=== PATIENT | male | born 1975 | race Caucasian/White ===

== ENCOUNTER 2023-08-29 07:56 | Inpatient (IN) ==
--- NOTE | 2023-08-05 10:57 | PAT Medication Instructions ---
Medication Instructions Date of Service August 05, 2023 Home Medications allopurinol 100 mg tablet 100 mg PO QAM aspirin 81 mg capsule 81 mg PO QAM atorvastatin 40 mg tablet 40 mg PO QAM celecoxib 200 mg capsule (Celebrex) 200 mg PO BID gabapentin 800 mg tablet 800 mg PO TID metformin 500 mg tablet 500 mg PO BID MEDICATION INSTRUCTIONS: ASK your surgeon for instructions celecoxib 200 mg capsule (Celebrex) 200 mg PO BID ASK your prescriber and surgeon aspirin 81 mg capsule 81 mg PO QAM DO NOT take the morning of surgery metformin 500 mg tablet 500 mg PO BID Take morning of surgery With a small sip of water, OTHERWISE NOTHING TO EAT OR DRINK AFTER MIDNIGHT: allopurinol 100 mg tablet 100 mg PO QAM atorvastatin 40 mg tablet 40 mg PO QAM gabapentin 800 mg tablet 800 mg PO TID Take evening before surgery gabapentin 800 mg tablet 800 mg PO TID metformin 500 mg tablet 500 mg PO BID Other Notes If you have any questions please call us at [phone] or [phone] or [phone] or [phone]
--- NOTE | 2023-08-15 12:12 | Anesthesiology Consultation ---
Date of Service August 15, 2023 Assessment & Plan (1) Encounter for pre-operative examination: Chart Review Chart Review: Acceptable Risk for Surgery (pending PCP clearance 08/17/23) and Patient seen in Pre Admission Testing - Awaiting PCP clearance 08/17/23 (Dr. Gerber) - Check BSG AM DOS Per PAT appt on 08/15/23, no recent illness/disease exposures, illness related symptoms, or recent illness/disease positive tests. Will leave to surgeon's discretion if preop Covid testing needed Patient seen by cardio 08/02/23= Patient seen for preop risk stratification. Patient tentatively scheduled for back surgery. Reports shortness of breath with long distances. Denies PND and orthopnea. Has chronic back pain. In terms of preop risk assessment, per Miki criteria, patient was counseled that he would be placed at low risk (less than 0.9%) for any adverse perioperative cardiovascular events associated with spine surgery. Patient is on a good medication regimen and no other cardiac testing or interventions would further lower that risk. Patient states he understands and is excepting of that risk and wishes to proceed with surgery. Patient was instructed to continue aspirin without interruption. If aspirin must be held per surgeon's discretion, we would recommend holding for the least amount of time as possible (no more than 7 days). Patient is on aspirin for history of stroke and bilateral carotid artery disease. Teaching & Discussion Pre-Anesthesia Teaching/Discussion Notes: Instructed NPO after midnight before surgery,except medications with 15 cc of water. Medication instructions provided according to the PAT guidelines. History Surgery Operation Date: 08/29/23 09:35 Proposed Procedures p L4-S1 Decompreession and Fusion, L3-L4 Hardware Removal, Spinal Cord Monitoring - Akin Ontiveros DO Height/Weight Height: 5 ft 9 in Weight: 131.5 kg Allergies Allergy/AdvReac Type Severity Reaction Status Date / Time No Known Allergies Allergy Verified 08/05/23 09:33 Medications Home Medications Medication Instructions Recorded Confirmed Last Taken allopurinol 100 mg tablet 100 mg PO QAM 08/05/23 08/05/23 Unknown aspirin 81 mg capsule 81 mg PO QAM 08/05/23 08/05/23 Unknown atorvastatin 40 mg tablet 40 mg PO QAM 08/05/23 08/05/23 Unknown celecoxib 200 mg capsule (Celebrex) 200 mg PO BID 08/05/23 08/05/23 Unknown gabapentin 800 mg tablet 800 mg PO TID 08/05/23 08/05/23 Unknown metformin 500 mg tablet 500 mg PO BID 08/05/23 08/05/23 Unknown Past Medical History Medical History (Updated 08/15/23 @ 12:07 by Rosanne Pena PA-C) Carotid stenosis Right ICA <50% stenosis; no carotid stenosis to left ICA per 12/10/21 neck CTA 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 per cardio records Hx of wheezing occasional bouts of wheezing - usually at the end of the day Stroke 10/2021, went to [facility], one side of his body-unable to move leg, speech difficulty>no residual symptoms High cholesterol Diabetes mellitus, type 2 Glucose controlled Hx of gout No recent flares Exercise / Class Metabolic Activity II 4-5 Yardwork/Stairs/Walk up hill (one flight of stairs- no chest pain or SOB ) Past Surgical History Surgical History (Updated 08/12/23 @ 10:04 by Rosanne Pena PA-C) 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 S/P epidural steroid injection x3 prior to first back surgery History of total left hip replacement History of lumbar surgery Past Anesthesia History No Hx of Anesthesia Complications and No Family Hx of Anesthesia Complications History of PONV No Hx of PONV and No Hx of Motion Sickness Social History Smoking Status: Former smoker Do You Dip or Chew Tobacco: Yes (1 can/day; advised) Smoking End Date: years ago Hx Alcohol Use: Yes alcohol intake frequency: holidays/special occasions only Hx Substance Use: No substance use type: does not use Review of Systems - Hx of snoring - no hx of sleep apnea - FERRELL- feels due to deconditioning and back pain (mild) Patient denies chest pain, shortness of breath at rest, reflux, cough, palpitations. No hx of seizures, NM. No hx of blood clots or blood transfusions Physical Exam Vital Signs VITALS BP 132/84 P 96 TEMP 98.6 SP02 94% RESP 16 Constitutional no acute distress ENMT Mouth: + small oral opening; no TMJ clicking Thyromental Distance: > or= 3.5 Finger Breadths (3.5) Mallampati Class: III Missing side teeth and molars Neck + short neck, + thick neck and + limited neck extension Respiratory normal respiratory effort; no respiratory distress Auscultation: lungs clear to auscultation bilaterally; no wheezes Cardiovascular Rate/Rhythm: regular rate and regular rhythm Heart Sounds: no murmur Vessels: no carotid bruit Musculoskeletal Spine: no pain with cervical ROM Extremities: extremities normal to inspection Psychiatric Orientation: alert Lab Results Anesthesia Preop Results Results Anesthesia Widget: WBC 7.40 K/ul (4.8-10.8) 08/15/23 Hgb 14.5 g/dl (14.0-18.0) 08/15/23 Hct 43.8 % (42.0-52.0) 08/15/23 Plt 270 K/uL (130-400) 08/15/23 Na 136 mmol/L (136-145) 08/15/23 K 3.9 mmol/L (3.5-5.1) 08/15/23 Cl 101 mmol/L (98-107) 08/15/23 CO2 27 mmol/L (21-32) 08/15/23 BUN 19 mg/dl (6-23) 08/15/23 Creat 0.83 mg/dl (0.6-1.4) 08/15/23 Glucose Level 139 mg/dl (70-99(Fasting)) H 08/15/23 PT 10.7 Seconds (9.0-12.0) 08/15/23 PTT 26.8 Seconds (21.0-31.0) 08/15/23 INR 1.0 (0.9-1.1) 08/15/23 HA1c 7.4 % (4.5-5.6) H 08/15/23 Urine Color Yellow 08/15/23 Urine Appearance Clear (Clear) 08/15/23 Urine pH 7.0 (4.5-7.5) 08/15/23 Urine Specific [place] 1.020 (1.000-1.030) 08/15/23 Urine Protein Negative (Negative) 08/15/23 Urine Glucose (UA) Negative (Negative) 08/15/23 Urine Ketones Negative (Negative) 08/15/23 Urine Blood Negative (Negative) 08/15/23 Urine Nitrite Negative (Negative) 08/15/23 Urine Bilirubin Negative (Negative) 08/15/23 Urine Urobilinogen Negative (Negative) 08/15/23 Urine Leukocyte Esterase Negative (Negative) 08/15/23 Blood Type A Positive 08/15/23 Antibody Screen NEGATIVE 08/15/23 Testing Electrocardiogram Date: 08/02/23 Findings: + NSR @ (92bpm ) Possible left atrial enlargement Left anterior fascicular block When compared to EKG from Oct 27, 2021- no significant change was found per cardio Chest X-Ray Date: 08/15/23 Findings: + NAD Echocardiogram Date: 10/28/21 EF: 55% LV Function: normal RWMA: + none Other Findings: + LVH (mild/concentric ); no diastolic dysfunction Valvular Disease: + no significant valvular disease Negative bubble study suggesting absence of ASD or PFO Other Testing CTA of head/neck 12/08/2021 = less than 50% stenosis within the right internal carotid artery by NASCET criteria. No carotid stenosis on the left. Major intracranial arterial vascular is patent without occlusion or stenosis. No intracranial aneurysm.
[~2023-08-29 07:56] MED LIST: ACETAMINOPHEN 500 MG TAB PO SCH; CeleBREX 200 MG CAP PO SCH; GABAPENTIN 900 MG DOSE PO SCH; LR 15ML/HR IV SCH; LR 60ML/HR IV SCH
--- OUTSIDE RECORDS SUMMARY | 2023-08-29 08:37 | External Medical Summary | Summary of Care ---
Author Name Unknown Organization [facility] Address [address] [facility] [place] [address] Phone [phone] Care Team Providers Care Second Facing Baster Name Role Phone Noah Gerber PA-C Primary Care Provider [phone] Reason for Visit * Reason Onset Date Comments Medication Pre-auth 08/25/2023 Hydrocodone- apap Encounter Details Date Type Department Care Team (Late st Contact Info) Description 08/25/2023 Telephone [facility] [address] [facility] [place] [phone] Noah Gerber PA-C [address] [email or web address] [place] [id number] Medication Pre-auth (Hydrocodone-apap) Allergies No known active allergiesdocumented as of this encounter (statuses as of 08/25/2023) Medications Medication Sig Dispensed Refills Start Date End Date Status Aspirin 81 MG Oral Tablet Delayed Release Take 1 Tablet by mouth daily. 30 Tablet 1 10/29/2021 Active Celecoxib 200 MG Oral Capsule (CeleBREX) Take 1 Capsule by mouth in the morning and 1 Capsule before bedtime. 0 Active OneTouch Ultra Blue In Vitro Strip (Glucose Blood)Indications:Typ e 2 diabetes mellitus with hemoglobin A1c goal of less than 7.0% ([facility]) Use as directed 4 times a day as needed (glucose readings). Use up to four times a day as directed 100 Strip 11 11/12/2021 Active OneTouch Delica Lancets 33GIndications:Type 2 diabetes mellitus with hemoglobin A1c goal of less than 7.0% (HCC) Use up to 4 times per day as needed 100 Each 11 11/12/2021 Active Allopurinol 100 MG Oral Tablet (Zyloprim)Indications :History of gout TAKE 1 TABLET BY MOUTH EVERY DAY 90 Tablet 1 04/13/2023 Active Atorvastatin Calcium 40 MG Oral Tablet (Lipitor)Indications: Dyslipidemia, goal LDL below 130 TAKE 1 TABLET BY MOUTH IN THE MORNING 90 Tablet 1 08/18/2023 Active Gabapentin 800 MG Oral Tablet (Neurontin) TAKE 1 TABLET BY MOUTH IN THE MORNING; 1 TAB BY MOUTH AT NOON; 1 TAB BEFORE BEDTIME 90 Tablet 1 08/18/2023 Active metFORMIN HCl 500 MG Oral Tablet (Glucophage)Indicatio ns:DM type 2 causing neurological disease (HCC) TAKE 1 TABLET BY MOUTH 2 TIMES A DAY WITH morning AND EVENING MEALS 180 Tablet 1 08/23/2023 Active HYDROcodone-Acetamino phen 10-325 MG Oral TabletIndications:HNP (herniated nucleus pulposus), lumbar Take 1 Tablet by mouth every 8 hours as needed for Pain, Moderate. No driving on medication. Ongoing. Use sparingly. 30 Tablet 0 08/24/2023 Active documented as of this encounter (statuses as of 08/25/2023) Active Problems Problem Noted Date Diagnosed Date Body mass index (BMI) of 40.0 to 44.9 in adult 1 10/22/2022 Overview: Per Obesity protocol HNP (herniated nucleus pulposus), lumbar 022 Gout 11/05/2021 Cardiac arrhythmia 11/05/2021 Ischemic stroke 10/28/2021 DM type 2 causing neurological disease Moderate persistent asthma without complication 10/28/2021 Other hyperlipidemia 10/28/2021 Undiagnosed cardiac murmurs 08/30/2014 Tobacco use disorder 07/10/2007 fatty liver 07/10/2007 ADVANCE DIRECTIVE INFORMATION 04/02/2005 Overview: No, Advance Directive brochure offered , patient declined. documented as of this encounter (statuses as of 08/25/2023) Resolved Problems Problem Noted Date Diagnosed Date Resolved Date Morbid obesity 10/28/2021 08/25/2023 Overview: Per Obesity protocol Prediabetes 04/20/2021 11/25/2021 Overview: Per Prediabetes protocol Pre-operative cardiovascular examination 08/30/2014 11/05/2021 Nonspecific abnormal electro cardiogram (ECG) (EKG) 08/30/2014 11/05/2021 documented as of this encounter (statuses as of 08/25/2023) Immunizations Name Administration Dates Next Due SEASONAL INFLUENZA, PF, 6 M & Above, IM , (FLULAVAL or FLUZONE) 10/29/2021(Deferred: Patient Refused) TDAP (age 10 and older)(Boostrix) 08/22/2014 documented as of this encounter Social History Tobacco Use Types Packs/Day Years Used Date Smoking Tobacco: Never Cigarettes 5 Smokeless Tobacco: Current Chew Alcohol Use Standard Drinks/Week Comments Not Currently 0 (1 standard drink = 0.6 oz pur e alcohol) 2 cases per month of beer PHQ-2 Answer Date Recorded PHQ Adult Total Score 0 08/17/2023 Hunger Vital Sign Answer Date Recorded Within the past 12 months, y ou worried that your food would run out before you got the money to buy more. Never true 08/17/20 23 Within the past 12 months, t he food you bought just didn't last and you didn't have money to get more. Never true 08/17/2023 Sex and Gender Information Value Date Recorded Sex Assigned at Male 08/17/2023 9:51 AM EST Gender Identity Male 08/17/2023 9:51 AM EST Sexual Orientation Straight 08/17/2023 9: 51 AM EST Job Start Date Occupation Industry Not on file Not on file Not on file documented as of this encounter Miscellaneous Notes * Telephone Encounter - Thea Toribio PHARM Tech - 08/25/2023 7:59 AM EST [facility] calling in for prescription instructions and doctor's fax number. Thea Hensley [employer] [facility] [id number] [place] [address] 08/25/2023 8:00 AM * Telephone Encounter - Kenneth Bradford LPN - 08/25/2023 7:31 AM EST PA for hydrocodone-apap submitted via CMM with chart notes, marked urgent. Prior Auth (EOC) ID: [id number] Drug/Service Name: HYDROCODONE-ACETAMIN 10-325 MG Patient: Oksana APARICIO Date Requested: 08/25/2023 7:44:42 AM MemberID: [id number] : 1975 documented in this encounter Plan of Treatment Upcoming Encounters Date Type Department Care Team (Late st Contact Info) Description 12/23/2023 12:20 PM EDT Office Visit [facility] [address] [place] [phone] Noah Gerber PA-C [address] [place] [address] Health Maintenance Due Date Last Done Comments Hepatitis B (1 of 3 - 3-dose series) 1975 COVID-19 Vaccine (#1) 1975 Pneumococcal Vaccine: Pediatrics (0 to 5 Years) and At-Risk Patients (6 to 64 Years) (1 - PCV) 1981 HIV Screening 1990 Hepatitis C Screening 1993 Cologuard 2020 Colonoscopy 2020 Colorectal Cancer Screening 2020 Fecal Occult Blood Test 2020 Sigmoidoscopy 2020 *SPIROMETRY ONCE FOR ASTHMA-ADULT 10/31/2021 Influenza Vaccine (FLU shot) (#1) 2023 HbA1c 02/15/2024 08/17/2023, 06/11, 10/27/2021, Additional history exists Depression Screening 08/17/2024 08/17/2023 Diabetic Eye Exam 08/17/2024 08/17/2023 Diabetic Foot Exam 08/17/2024 08/17/2023, 11/05/2021 GFR 08/17/2024 08/17/2023, 06/11, 12/01/2021, Additional history exists DTaP,Tdap,and Td Vaccines (2 - Td or Tdap) 08/22/2024 08/22/2014, 12/25/2004 Albumin/Creatinine Ratio 08/23/2024 08/23/2023, 12/09 GARDASIL-HPV IMMUNIZATION SERIES Aged Out No longer eligible based on patient's age to complete this topic MENINGOCOCCAL (MENACTRA/MENVEO) Aged Out No longer eligible based on patient's age to complete this topic documented as of this encounter Medical Devices Not on filedocumented as of this encounter Advance Directives Latest Code Status on File Code Status Date Activated Date Inactivated Comments Full Code 10/28/2021 8:01 AM 10/29/2021 7:01 PM This order reflects the patients wishes and were consensually agreed upon. Care Teams Second Facing Baster Relationship Specialty Start Date End Date Noah Gerber PA-C [address] [facility] [place] [phone] PCP - General Physician Melter Caster 04/27/21 documented as of this encounter
--- OUTSIDE RECORDS SUMMARY | 2023-08-29 08:37 | External Medical Summary | Summary of Care ---
Author Name Unknown Organization [facility] Address [address] [facility] [place] [address] Phone [phone] Care Team Providers Care Mat Maker Name Role Phone Rina Turner PA-C Primary Care Provider [phone] Reason for Visit * Reason Comments eRx-Medication Refill Encounter Details Date Type Department Care Team (Late st Contact Info) Description 05/26/2023 Refill [facility] [place] [phone] Rina Turner PA-C [address] [facility] [place] [address] DM type 2 causing neurological disease (HCC) Allergies No known active allergiesdocumented as of this encounter (statuses as of 08/24/2023) Medications Medication Sig Dispensed Refills Start Date End Date Status Aspirin 81 MG Oral Tablet Delayed Release Take 1 Tablet by mouth daily. 30 Tablet 1 10/29/2021 Active Celecoxib 200 MG Oral Capsule (CeleBREX) Take 1 Capsule by mouth in the morning and 1 Capsule before bedtime. 0 Active OneTouch Ultra Blue In Vitro Strip (Glucose Blood)Indications :Type 2 diabetes mellitus with hemoglobin A1c goal of less than 7.0% ([facility]) Use as directed 4 times a day as needed (glucose readings). Use up to four times a day as directed 100 Strip 11 11/12/2021 Active OneTouch Delica Lancets 33GIndications:Ty pe 2 diabetes mellitus with hemoglobin A1c goal of less than 7.0% ([facility]) Use up to 4 times per day as needed 100 Each 11 11/12/2021 Active Allopurinol 100 MG Oral Tablet (Zyloprim)Indicat ions:History of gout TAKE 1 TABLET BY MOUTH EVERY DAY 90 Tablet 1 04/13/2023 Active Atorvastatin Calcium 40 MG Oral Tablet (Lipitor)Indicati ons:Dyslipidemia, goal LDL below 130 TAKE 1 TABLET BY MOUTH IN THE MORNING 90 Tablet 1 02/14/2023 08/18/20 23 Discontinued HYDROcodone-Aceta minophen 10-325 MG Oral TabletIndications :HNP (herniated nucleus pulposus), lumbar Take 1 Tablet by mouth every 8 hours as needed for Pain, Moderate. No driving on medication. ongoing 90 Tablet 0 02/15/2023 08/24/20 23 Discontinued(Ref ill) metFORMIN HCl 500 MG Oral Tablet (Glucophage)Indic ations:DM type 2 causing neurological disease (HCC) TAKE 1 TABLET BY MOUTH 2 TIMES A DAY WITH morning AND EVENING MEALS 180 Tablet 0 02/18/2023 05/27/20 23 Discontinued Gabapentin 800 MG Oral Tablet (Neurontin) TAKE 1 TABLET BY MOUTH IN THE MORNING; 1 TAB BY MOUTH AT NOON; 1 TAB BEFORE BEDTIME 90 Tablet 2 04/07/2023 08/18/20 23 Discontinued metFORMIN HCl 500 MG Oral Tablet (Glucophage)Indic ations:DM type 2 causing neurological disease (HCC) TAKE 1 TABLET BY MOUTH 2 TIMES A DAY WITH morning AND EVENING MEALS 180 Tablet 0 05/27/2023 08/23/20 23 Discontinued(Ref ill) documented as of this encounter (statuses as of 08/24/2023) Active Problems Problem Noted Date Diagnosed Date HNP (herniated nucleus pulposus), lumbar 022 Gout 11/05/2021 Cardiac arrhythmia 11/05/2021 Ischemic stroke 10/28/2021 DM type 2 causing neurological disease Morbid obesity 10/28/2021 Moderate persistent asthma without complication 10/28/2021 Other hyperlipidemia 10/28/2021 Undiagnosed cardiac murmurs 08/30/2014 Tobacco use disorder 07/10/2007 fatty liver 07/10/2007 ADVANCE DIRECTIVE INFORMATION 04/02/2005 Overview: No, Advance Directive brochure offered , patient declined. documented as of this encounter (statuses as of 08/24/2023) Resolved Problems Problem Noted Date Diagnosed Date Resolved Date Prediabetes 04/20/2021 11/25/2021 Overview: Per Prediabetes protocol Pre-operative cardiovascular examination 08/30/2014 11/05/2021 Nonspecific abnormal electro cardiogram (ECG) (EKG) 08/30/2014 11/05/2021 documented as of this encounter (statuses as of 08/24/2023) Immunizations Name Administration Dates Next Due SEASONAL INFLUENZA, PF, 6 M & Above, IM , (FLULAVAL or FLUZONE) 10/29/2021(Deferred: Patient Refused) TD - Tetanus/Diptheria (ADULT) 12/25/2004 TDAP (age 10 and older)(Boostrix) 08/22/2014 documented as of this encounter Social History Tobacco Use Types Packs/Day Years Used Date Smoking Tobacco: Never Cigarettes 5 Smokeless Tobacco: Current Chew Alcohol Use Standard Drinks/Week Comments Yes 0 (1 standard drink = 0.6 oz [...] encounter Miscellaneous Notes * Telephone Encounter - Nichelle Anderson PHARM Tech - 08/24/2023 4:17 PM EST Labs completed Thank you, Nichelle Anderson Pheresis Specialist [facility] (formerly Tele[facility]) [phone] 08/24/2023,4:17 PM * Telephone Encounter - Prudencio Navarro [facility] - 05/27/2023 7:33 AM EDTSigned Prescriptions: Disp Refills metFORMIN HCl 500 MG Oral Tablet (Glucopha*180 Ta*0 Sig: TAKE 1 TABLET BY MOUTH 2 TIMES A DAY WITH morning AND EVENING MEALSAuthorizing Provider: RINA TURNER User: PRUDENCIO AREVALO * Telephone Encounter - Prudencio Navarro [facility] - 05/27/2023 7:32 AM EDT Provided 90 days supply with 0 refill(s). Per refill protocol patient should have Lipid panel on file within past year. Reviewed AMP report, Care Gaps/Health Maintenance, medications list, and for any routine labs typically ordered for this patient. Lab orders placed. Please contact patient to advise of labs ordered for blood draw. Fasting is not required. Advise toobtain labs before requesting the next refill. Thank You, Prudencio Arevalo [facility] Clinical Pharmacist [facility] ([facility]) (formerly Telepharmacy) 05/27/2023, 7:32 AM * Telephone Encounter - Prudencio Navarro [facility] - 05/27/2023 7:32 AM EDT Pending Prescriptions: Disp Refills metFORMIN HCl 500 MG Oral Tablet (Glucoph*180 Ta*0 Sig: TAKE 1 TABLET BY MOUTH 2 TIMES A DAY WITH morning AND EVENING MEALS Last Visit: 07/07/2022 (in office), Visit date not found (telemedicine) Next Visit: Visit date not found If no future appointments scheduled, and last appointment is greater than a year ago, please schedule patient for a follow-up appointment Last date the medication was ordered: 02/18/23 Pharmacy: [facility] Is this request for a controlled substance? No Urine Drug Screen: Results for orders placed or performed in visit on 03/23/22 PAIN MANAGEMENT DRUG PANEL, URINE W/ INTERPRETATION Result Value Compliance Interpretation Based on the medication information provided: The presence of hydrocodone, dihydrocodeine and hydromorphone is CONSISTENT with hydrocodone use. Amphetamine Negative Benzodiazepines Negative Cannabinoids Negative Cocaine Metabolite Negative Fentanyl Negative Hydrocodone / Hydromorphone Refer to confirmation results (A) Methadone Metabolite Negative Morphine / Codeine Refer to confirmation results (A) Oxycodone / Oxymorphone Refer to confirmation results (A) Valid Interpretation Normal Creatinine SUSANA 135 Narrative Cutoff Concentrations: Drug Level Amphetamines 500 ng/mL Benzodiazepines 100 ng/mL Cannabinoids 50 ng/mL Cocaine Metabolite 150 ng/mL Fentanyl 1 ng/mL Hydrocodone / Hydromorphone 300 ng/mL Methadone Metabolite 100 ng/mL Morphine / Codeine 300 ng/mL Oxycodone / Oxymorphone 100 ng/mL Screening results are presumptive and can only be used for medical purposes. Confirmatory testing is available upon request. Results for orders placed or performed in visit on 01/04/22 PAIN MANAGEMENT DRUG PANEL, URINE Result Value Amphetamine Negative Benzodiazepines Negative Cannabinoids Negative Cocaine Metabolite Negative Hydrocodone / Hydromorphone Negative Methadone Metabolite Negative Morphine / Codeine Negative Oxycodone / Oxymorphone Negative Valid Interpretation Normal Creatinine SUSANA 118 Fentanyl Negative Narrative Cutoff Concentrations: Drug Level Amphetamines 500 ng/mL Benzodiazepines 100 ng/mL Cannabinoids 50 ng/mL Cocaine Metabolite 150 ng/mL Fentanyl 1 ng/mL Hydrocodone / Hydromorphone 300 ng/mL Methadone Metabolite 100 ng/mL Morphine / Codeine 300 ng/mL Oxycodone / Oxymorphone 100 ng/mL Screening results are presumptive and can only be used for medical purposes. Confirmatory testing is available upon request. Results for orders placed or performed during the hospital encounter of 10/27/21 TOXICOLOGY, URINE SCREEN Result Value Amphetamine Negative Benzodiazepines Negative Cannabinoids Negative Cocaine Metabolite Negative Hydrocodone / Hydromorphone Negative Methadone Metabolite Negative Morphine / Codeine Negative Oxycodone / Oxymorphone Negative Narrative Cutoff Concentrations: Drug Level Amphetamines 500 ng/mL Benzodiazepines 100 ng/mL Cannabinoids 50 ng/mL Cocaine Metabolite 150 ng/mL Hydrocodone / Hydromorphone 300 ng/mL Methadone Metabolite 100 ng/mL Morphine / Codeine 300 ng/mL Oxycodone / Oxymorphone 100 ng/mL Screening results are presumptive and can only be used for medical purposes. Confirmatory testing is available upon request. Patient Phone Numbers Labs: Lab Results Component Value Date/Time CREAT 0.8 07/07/2022 12:09 PM CREAT 0.80 08/04/2021 12:00 AM CREAT 0.9 04/25/2020 11:27 AM POTASSIUM 4.4 07/07/2022 12:09 PM POTASSIUM 4.0 08/04/2021 12:00 AM POTASSIUM 4.3 04/25/2020 11:27 AM TSH 1.06 10/27/2021 04:29 PM TSH 0.83 11/09/2017 12:31 PM LDLCALC 105 04/27/2021 03:13 PM LDLCALC 225 (H) 08/30/2014 10:39 AM LDLDIRECT 86 10/27/2021 04:29 PM LDLDIRECT 178 (H) 04/25/2020 11:27 AM ALT 37 10/29/2021 04:09 AM ALT 88 (H) 02/28/2018 02:02 PM HGBA1C 7.1 (H) 07/07/2022 12:09 PM documented in this encounter Plan of Treatment Upcoming Encounters Date Type Department Care Team (Late st Contact Info) Description 12/23/2023 12:20 PM EDT [facility] [place] [phone] Rina Turner PA-C 21 [place] [phone] Health Maintenance Due Date Last Done Comments [...] Not on filedocumented as of this encounter Visit Diagnoses Diagnosis DM type 2 causing neurological disease (HCC) Type II or unspecified type diabetes mellitus with neurological manifestations, not stated as uncontrolled documented in this encounter Advance Directives Latest Code Status on File Code Status Date Activated Date Inactivated Comments Full Code 10/28/2021 8:01 AM 10/29/2021 7:01 PM This order reflects the patients wishes and were consensually agreed upon. Care Teams Mat Maker Relationship Specialty Start Date End Date Rina Turner PA-C 21 [place] [id number] PCP - General Physician Paintless Dent Repair Technician 04/27/21 documented as of this encounter
--- OUTSIDE RECORDS SUMMARY | 2023-08-29 08:37 | External Medical Summary | Summary of Care ---
Author Name Unknown Organization [facility] Address [address] [facility] [place] [address] Phone [phone] Care Team Providers Care Career Development Consultant Name Role Phone Rina Turner PA-C Primary Care Provider [phone] Reason for Visit * Reason Onset Date Comments Med Request 08/24/2023 Encounter Details Date Type Department Care Team (Late st Contact Info) Description 08/24/2023 Telephone [facility] [place] [phone] Rina Turner PA-C [facility] [place] [address] Med Request Allergies No known active allergiesdocumented as of [...] OneTouch Ultra Blue In Vitro Strip (Glucose Blood)Indications: Type 2 diabetes mellitus with hemoglobin A1c goal of less than 7.0% ([facility]) Use as directed 4 times a day as needed (glucose readings). Use up to four times a day as directed 100 Strip 11 11/12/2021 Active OneTouch Delica Lancets 33GIndications:Typ e 2 diabetes mellitus with hemoglobin A1c goal of less than 7.0% ([facility]) Use up to 4 times per day as needed 100 Each 11 11/12/2021 Active Allopurinol 100 MG Oral Tablet (Zyloprim)Indicati ons:History of gout TAKE 1 TABLET BY MOUTH EVERY DAY 90 Tablet 1 04/13/2023 Active Atorvastatin Calcium 40 MG Oral Tablet (Lipitor)Indicatio ns:Dyslipidemia, goal LDL below 130 TAKE 1 TABLET BY MOUTH IN THE MORNING 90 Tablet 1 08/18/2023 Active Gabapentin 800 MG Oral Tablet (Neurontin) TAKE 1 TABLET BY MOUTH IN THE MORNING; 1 TAB BY MOUTH AT NOON; 1 TAB BEFORE BEDTIME 90 Tablet 1 08/18/2023 Active metFORMIN HCl 500 MG Oral Tablet (Glucophage)Indica tions:DM type 2 causing neurological disease (HCC) TAKE 1 TABLET BY MOUTH 2 TIMES A DAY WITH morning AND EVENING MEALS 180 Tablet 1 08/23/2023 Active HYDROcodone-Acetam inophen 10-325 MG Oral TabletIndications: HNP (herniated nucleus pulposus), lumbar Take 1 Tablet by mouth every 8 hours as needed for Pain, Moderate. No driving on medication. Ongoing. Use sparingly. 30 Tablet 0 08/24/2023 Active HYDROcodone-Acetam inophen 10-325 MG Oral TabletIndications: HNP (herniated nucleus pulposus), lumbar Take 1 Tablet by mouth every 8 hours as needed for Pain, Moderate. No driving on medication. ongoing 90 Tablet 0 02/15/2023 08/24/2023 Discontinue d(Refill) documented as of this encounter (statuses as [...] encounter Miscellaneous Notes * Telephone Encounter - Kenneth Bradford, MOLD FILLER - 08/24/2023 3:32 PM EST Patient has been informed of below message and verbalized understanding. Pt states that he is seeing Dr. Ontiveros for his back and is scheduled for surgery this Tuesday. Pt reports that he just needed something to get him through until surgery. Pt is going to ask Dr. Ontiveros to make sure that a copy of the surgery report is forwarded to our office. Dr. Ontiveros's office will be faxing a copy of most recent visit note to our clinic. I faxed a copy of preop PE to Dr. Ontiveros's office. * Telephone Encounter - Rina Turner PA-C - 08/24/2023 3:14 PM EST Please call in the authorized prescription to the patient's pharmacy then close the encounter. Signed Prescriptions: Disp Refills HYDROcodone-Acetaminophen 10-325 MG Oral T*30 Tab*0 Sig: Take 1 Tablet by mouth every 8 hours as needed for Pain, Moderate. No driving on medication. Ongoing. Use sparingly. Authorizing Provider: RINA TURNER Andrew E Oja, PA-C E-prescribed a small amount. Who is he seeing for the back? He needs to use this sparingly. I need a copy of the notes. * Telephone Encounter - Kenneth Bradford LPN - 08/24/2023 2:41 PM EST Please advise on below message. Thank you. * Telephone Encounter - Estrella Elliott OSA - 08/24/2023 2:00 PM EST Pt is calling in to check status of urine test and med refill for hydrocodone- acetaminophen. Pleaseadvise documented in this encounter Plan of Treatment Upcoming Encounters Date Type Department Care Team (Late st Contact Info) Description 12/23/2023 12:20 PM EDT Office Visit [facility] [address] [place] [phone] Rina Turner PA-C [place] [address] Health Maintenance Due Date Last Done Comments [...] as of this encounter Visit Diagnoses Diagnosis HNP (herniated nucleus pulposus), lumbar Displacement of lumbar intervertebral disc without myelopathy documented in this encounter Advance Directives Latest Code Status on File Code Status Date Activated Date Inactivated Comments Full Code 10/28/2021 8:01 AM 10/29/2021 7:01 PM This order reflects the patients wishes and were consensually agreed upon. Care Teams Career Development Consultant Relationship Specialty Start Date End Date Rina Turner PA-C 21 [place] [phone] PCP - General Physician Senior [employer] Etl Developer 04/27/21 documented as of this encounter
--- OUTSIDE RECORDS SUMMARY | 2023-08-29 08:37 | External Medical Summary | Summary of Care ---
Author Name Unknown Organization [facility] Address [address] [facility] [place] [address] Phone [phone] Care Team Providers Care Wash Operator Name Role Phone Rina Turner PA-C Primary Care Provider [phone] Reason for Visit * Reason Onset Date Comments Med Request 08/24/2023 Encounter Details Date Type Department Care Team (Late st Contact Info) Description 08/24/2023 Telephone [facility] [place] [phone] Rina Turner PA-C [facility] [place] [address] Med Request Allergies No known [...] goal of less than 7.0% ([facility]) Use as directed 4 times a day as needed (glucose readings). Use up to four times a day as directed 100 Strip 11 11/12/2021 Active OneTouch Delica Lancets 33GIndications:Typ e 2 diabetes mellitus with hemoglobin A1c goal of less than 7.0% ([facility]) Use up to 4 times per [...] encounter Miscellaneous Notes * Telephone Encounter - Rina Turner PA-C [...] Description 12/23/2023 12:20 PM EDT Office Visit [facility] [place] [phone] Rina Turner PA-C 21 [place] [address] Health Maintenance Due Date Last Done Comments [...] and were consensually agreed upon. Care Teams Wash Operator Relationship Specialty Start Date End Date Rina Turner PA-C 21 [place] [id number] PCP - General Physician As400 Programmer Analyst 04/27/21 documented as of this encounter
--- OUTSIDE RECORDS SUMMARY | 2023-08-29 08:37 | External Medical Summary | Summary of Care ---
Author Name Unknown Organization [facility] Address [address] [facility] [address] Phone [phone] Care Team Providers Care Account Support Specialist Name Role Phone Rina Turner PA-C Primary Care Provider [phone] Reason for Visit * Reason Onset Date Comments Test Results Lab 08/19/2023 Med Request 08/19/2023 Encounter Details Date Type Department Care Team (Late st Contact Info) Description 08/19/2023 [facility]phone [facility] [address] [place] [phone] Dwight Marie PA-C [address] [place] [phone] Test Results Lab; Med Request Allergies No known active allergiesdocumented as of this encounter (statuses as of 08/23/2023) Medications Medication Sig Dispensed Refills Start Date [...] hemoglobin A1c goal of less than 7.0% ([facility]) Use as directed 4 times a day as needed (glucose readings). Use up to four times a day as directed 100 Strip 11 11/12/2021 Active OneTouch Delica Lancets 33GIndications:Typ e 2 diabetes mellitus with hemoglobin A1c goal of less than 7.0% (HCC) Use up to 4 times per day as needed 100 Each 11 11/12/2021 Active HYDROcodone-Acetam inophen 10-325 MG Oral TabletIndications: HNP (herniated nucleus pulposus), lumbar Take 1 Tablet by mouth every 8 hours as needed for Pain, Moderate. No driving on medication. ongoing 90 Tablet 0 02/15/2023 Active Additional Information Patient not taking.Reported on 08/17/2023 Allopurinol 100 MG Oral Tablet (Zyloprim)Indicati ons:History [...] EVENING MEALS 180 Tablet 1 08/23/2023 Active metFORMIN HCl 500 MG Oral Tablet (Glucophage)Indica tions:DM type 2 causing neurological disease (HCC) TAKE 1 TABLET BY MOUTH 2 TIMES A DAY WITH morning AND EVENING MEALS 180 Tablet 0 05/27/2023 3 Discontinue d(Refill) documented as of this encounter (statuses as of 08/23/2023) Active Problems Problem Noted Date Diagnosed Date HNP (herniated nucleus pulposus), lumbar 022 Gout 11/05/2021 Cardiac arrhythmia 11/05/2021 Ischemic stroke 10/28/2021 DM type 2 causing neurological disease 2 Morbid obesity 10/28/2021 Moderate persistent asthma without complication 10/28/2021 Other hyperlipidemia 10/28/2021 Undiagnosed cardiac murmurs 08/30/2014 Tobacco use disorder 07/10/2007 fatty liver 07/10/2007 ADVANCE DIRECTIVE INFORMATION 04/02/2005 Overview: No, Advance Directive brochure offered , patient declined. documented as of this encounter (statuses as of 08/23/2023) Resolved Problems Problem Noted Date Diagnosed Date Resolved Date Prediabetes 04/20/2021 11/25/2021 Overview: Per Prediabetes protocol Pre-operative cardiovascular examination 08/30/2014 11/05/2021 Nonspecific abnormal electro cardiogram (ECG) (EKG) 08/30/2014 11/05/2021 documented as of this encounter (statuses as of 08/23/2023) Immunizations Name Administration Dates Next Due SEASONAL [...] as of this encounter Miscellaneous Notes * Addendum Note - Rina Turner PA-C - 08/23/2023 12:48 PM ESTAddended by: RINA TURNER on: 08/23/2023 12:48 PM Modules accepted: Orders * Telephone Encounter - Rina Turner PA-C - 08/23/2023 12:48 PM EST Please call in the authorized prescription to the patient's pharmacy then close the encounter. Signed Prescriptions: Disp Refills metFORMIN HCl 500 MG Oral Tablet (Glucopha*180 Ta*1 Sig: TAKE 1 TABLET BY MOUTH 2 TIMES A DAY WITH morning AND EVENING MEALS Authorizing Provider: RINA TURNER Andrew E Oja, PA-C E-prescribed * Addendum Note - Julian Drake CMA - 08/23/2023 10:26 AM ESTAddended by: JULIAN DRAKE on: 08/23/2023 10:26 AM Modules accepted: Orders * Telephone Encounter - Julian Drake CMA - 08/23/2023 10:26 AM EST Med pended * Telephone Encounter - Philly Pedersen OSA - 08/23/2023 10:02 AM EST Pt is in need of metformin. Any question please call pt. Please advise. * Telephone Encounter - Kenneth Bradford LPN - 08/22/2023 4:41 PM EST Pt would like to hold off on MTM until after he has and recovers from back surgery. States that it is too difficult to do things with the pain that he is in. Pt will complete urine as requested. FYI to PCP. * Telephone Encounter - Rina Turner PA-C - 08/22/2023 4:38 PM EST There needs to be a current urine done. The order was placed in February. I can refer to MTM to help with the diabetes control if he would like. * Telephone Encounter - Kenneth Bradford LPN - 08/22/2023 4:11 PM EST Patient has been informed of below message and verbalized understanding. Pt would be agreeable to starting a weekly GLP1 if PCP is in agreement. Pt's insurance would only cover Trulicity at this time (weekly). Pharmacy verified. Pt also asked if PCP would be willing to send in a refill on his pain medication (hydrocodone-apap). States that he is able to complete UDS as requested in the past. 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 Med was last prescribed 02/15/2023. Please advise. * Telephone Encounter - Dwight Marie PA-C - 08/19/2023 5:49 PM EST A1c higher at 7.5. I would probably recommend starting a GLP 1 such as Ozempic to help with diabetes, weight loss, and cardiac benefit. Also refer to MTM. I would defer this to the PCP, however. documented in this encounter Plan of Treatment Upcoming Encounters Date Type Department Care Team (Late st Contact Info) Description 12/23/2023 12:20 PM EDT Office Visit [facility] [address] [place] [phone] Rina Turner PA-C 21 [place] [phone] Health Maintenance Due Date Last Done Comments [...] Sigmoidoscopy 2020 *SPIROMETRY ONCE FOR ASTHMA-ADULT 10/31/2021 Albumin/Creatinine Ratio 01/04/2023 01/04/2022 Influenza Vaccine (FLU shot) (#1) 2023 HbA1c 02/15/2024 08/17/2023, 06/11, 10/27/2021, Additional history exists Depression Screening 08/17/2024 08/17/2023 Diabetic Eye Exam 08/17/2024 08/17/2023 Diabetic Foot Exam 08/17/2024 08/17/2023, 11/05/2021 GFR 08/17/2024 08/17/2023, 06/11, 12/01/2021, Additional history exists DTaP,Tdap,and Td Vaccines (2 - Td or Tdap) 08/22/2024 08/22/2014, 12/25/2004 GARDASIL-HPV IMMUNIZATION SERIES Aged Out No longer [...] and were consensually agreed upon. Care Teams Account Support Specialist Relationship Specialty Start Date End Date Rina Turner PA-C 21 [place] [phone] PCP - General Physician Executive Business Coach 04/27/21 documented as of this encounter
--- OUTSIDE RECORDS SUMMARY | 2023-08-29 08:38 | External Medical Summary | Summary of Care ---
Author Name Unknown Organization [facility] Address [address] [facility] [place] [address] Phone [phone] Care Team Providers Care Professor Of Biochemistry Name Role Phone Noah Gerber PA-C Primary Care Provider [phone] Reason for Visit * Reason Onset Date Comments Test Results Lab 08/19/2023 Encounter Details Date Type Department Care Team (Late st Contact Info) Description 08/19/2023 Telephone Family Practice [place] Bharat Asher [address] [place] [phone] Dwight Marie PA-C [address] [place] [phone] Test Results Lab Allergies No known active allergiesdocumented as of this encounter (statuses as of 08/22/2023) Medications Medication Sig Dispensed Refills Start Date End Date Status Aspirin 81 MG Oral Tablet Delayed Release Take 1 Tablet by mouth daily. 30 Tablet 1 10/29/2021 Active Celecoxib 200 MG Oral Capsule (CeleBREX) Take 1 Capsule by mouth in the morning and 1 Capsule before bedtime. 0 Active OneTouch Ultra Blue In Vitro Strip (Glucose Blood)Indications:T ype 2 diabetes mellitus with hemoglobin A1c goal of less than 7.0% ([facility]) Use as directed 4 times a day as needed (glucose readings). 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 No driving on medication. ongoing 90 Tablet 0 02/15/2023 Active Additional Information Patient not taking.Reported on 08/17/2023 Allopurinol 100 MG Oral Tablet (Zyloprim)Indicatio ns:History of gout TAKE 1 TABLET BY MOUTH EVERY DAY 90 Tablet 1 04/13/2023 Active metFORMIN HCl 500 MG Oral Tablet (Glucophage)Indicat ions:DM type 2 causing neurological disease (HCC) TAKE 1 TABLET BY MOUTH 2 TIMES A DAY WITH morning AND EVENING MEALS 180 Tablet 0 05/27/2023 Active Atorvastatin Calcium 40 MG Oral Tablet (Lipitor)Indication s:Dyslipidemia, goal LDL below 130 TAKE 1 TABLET BY MOUTH IN THE MORNING 90 Tablet 1 08/18/2023 Active Gabapentin 800 MG Oral Tablet (Neurontin) TAKE 1 TABLET BY MOUTH IN THE MORNING; 1 TAB BY MOUTH AT NOON; 1 TAB BEFORE BEDTIME 90 Tablet 1 08/18/2023 Active documented as of this encounter (statuses as of 08/22/2023) Active Problems Problem Noted Date Diagnosed Date [...] as of this encounter (statuses as of 08/22/2023) Resolved Problems Problem Noted Date Diagnosed Date Resolved Date Prediabetes 04/20/2021 11/25/2021 Overview: Per Prediabetes protocol Pre-operative cardiovascular examination 08/30/2014 11/05/2021 Nonspecific abnormal electro cardiogram (ECG) (EKG) 08/30/2014 11/05/2021 documented as of this encounter (statuses as of 08/22/2023) Immunizations Name Administration Dates Next Due SEASONAL [...] encounter Miscellaneous Notes * Telephone Encounter - Noah Gerber PA-C - 08/22/2023 4:38 PM EST There needs to be a current urine done. The order was placed in February. I can refer to [facility] to help with the diabetes control if [...] Description 12/23/2023 12:20 PM EDT Office Visit [facility] [place] [phone] Noah Gerber PA-C [address] [place] [address] Health Maintenance Due Date Last Done Comments [...] and were consensually agreed upon. Care Teams Professor Of Biochemistry Relationship Specialty Start Date End Date Noah Gerber PA-C [address] [place] [phone] PCP - General Physician Microsoft Dynamics Consultant 04/27/21 documented as of this encounter
--- OUTSIDE RECORDS SUMMARY | 2023-08-29 08:38 | External Medical Summary | Summary of Care ---
Author Name Unknown Organization [facility] Address [address] [facility] [address] Phone [phone] Care Team Providers Care Joint Creaser Name Role Phone Noah Gerber PA-C Primary Care Provider [phone] Reason for Visit * Reason Onset Date Comments Test Results Lab 08/19/2023 Encounter Details Date Type Department Care Team (Late st Contact Info) Description 08/19/2023 Telephone Family Practice [place] Bharat Asher [address] [place] [address] Dwight Marie PA-C [address] [place] [phone] Test Results Lab Allergies [...] hemoglobin A1c goal of less than 7.0% ([facility]) Use as directed 4 times a day as needed (glucose readings). 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 States that it is too difficult to do things with the pain that he is in. Pt will complete urine as requested. FYI to PCP. * Telephone Encounter - Noah Gerber PA-C [...] 12/23/2023 12:20 PM EDT Office Visit [facility] [address] [place] [phone] Noah Gerber PA-C [address] [place] [phone] Health Maintenance Due Date Last Done Comments [...] and were consensually agreed upon. Care Teams Joint Creaser Relationship Specialty Start Date End Date Noah Gerber PA-C [address] [place] [phone] PCP - General Physician Training Designer 04/27/21 documented as of this encounter
--- OUTSIDE RECORDS SUMMARY | 2023-08-29 08:38 | External Medical Summary | Summary of Care ---
Author Name Unknown Organization [facility] Address [address] [facility] [address] Phone [phone] Care Team Providers Care Photo Lab Technician Name Role Phone Noah Gerber PA-C Primary Care Provider [phone] Encounter Details Date Type Department Care Team (Late st Contact Info) Description 08/19/2023 Telephone Family Practice [place] Bharat Asher [address] [place] [place] [address] Dwight Marie PA-C [address] [place] [address] Allergies No known active allergiesdocumented as of this encounter (statuses as of 08/19/2023) Medications Medication Sig Dispensed Refills Start Date [...] goal of less than 7.0% ([facility]) Use as directed 4 times a day as needed (glucose readings). 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 (herniated nucleus pulposus), lumbar Take 1 Tablet [...] as of this encounter (statuses as of 08/19/2023) Active Problems Problem Noted Date Diagnosed Date [...] as of this encounter (statuses as of 08/19/2023) Resolved Problems Problem Noted Date Diagnosed Date Resolved Date Prediabetes 04/20/2021 11/25/2021 Overview: Per Prediabetes protocol Pre-operative cardiovascular examination 08/30/2014 11/05/2021 Nonspecific abnormal electro cardiogram (ECG) (EKG) 08/30/2014 11/05/2021 documented as of this encounter (statuses as of 08/19/2023) Immunizations Name Administration Dates Next Due SEASONAL [...] encounter Miscellaneous Notes * Telephone Encounter - Dwight Marie PA-C [...] Description 12/23/2023 12:20 PM EDT Office Visit [facility] [place] [phone] Noah Gerber PA-C [place] [address] Health Maintenance Due Date Last Done Comments [...] and were consensually agreed upon. Care Teams Photo Lab Technician Relationship Specialty Start Date End Date Noah Gerber PA-C [address] [place] [phone] PCP - General Physician Front Office Help 04/27/21 documented as of this encounter
--- OUTSIDE RECORDS SUMMARY | 2023-08-29 08:38 | External Medical Summary | Summary of Care ---
Author Name Unknown Organization [facility] Address [address] [facility] [address] Phone [phone] Care Team Providers Care Application Development Director Name Role Phone Noah Gerber PA-C Primary Care Provider [phone] Reason for Visit * Reason Comments Outpatient Testing Encounter Details Date Type Department Care Team (Late st Contact Info) Description 08/17/2023 10:30 AM EST [facility] [place] [facility] [phone] [facility] [address] [place] [address] Encounter for long-term (current) use of medications; DM type 2 causing neurological disease (HCC); Preop examination; Hyperlipidemia LDL goal <70; Bilateral carotid artery stenosis Allergies No known active allergiesdocumented as of [...] goal of less than 7.0% (HCC) Use as directed 4 times a day as needed (glucose readings). Use up to four times a day as directed 100 Strip 11 11/12/2021 Active OneTouch Delica Lancets 33GIndications:Ty pe 2 diabetes mellitus with hemoglobin A1c goal of less than 7.0% (HCC) Use up to 4 times per day as needed 100 Each 11 11/12/2021 Active HYDROcodone-Aceta minophen 10-325 MG Oral TabletIndications :HNP (herniated nucleus pulposus), lumbar Take 1 Tablet by mouth every 8 hours as needed for Pain, Moderate. No driving on medication. ongoing 90 Tablet 0 02/15/2023 Active Additional Information Patient not taking.Reported on 08/17/2023 Allopurinol 100 MG Oral Tablet (Zyloprim)Indicat ions:History of gout TAKE 1 TABLET BY MOUTH EVERY DAY 90 Tablet 1 04/13/2023 Active metFORMIN HCl 500 MG Oral Tablet (Glucophage)Indic ations:DM type 2 causing neurological disease (HCC) TAKE 1 TABLET BY MOUTH 2 TIMES A DAY WITH morning AND EVENING MEALS 180 Tablet 0 05/27/2023 Active Atorvastatin Calcium 40 MG Oral Tablet (Lipitor)Indicati ons:Dyslipidemia, goal LDL below 130 TAKE 1 TABLET BY MOUTH IN THE MORNING 90 Tablet 1 02/14/2023 08/18/20 23 Discontinued Gabapentin 800 MG Oral Tablet (Neurontin) TAKE 1 TABLET BY MOUTH IN THE MORNING; 1 TAB BY MOUTH AT NOON; 1 TAB BEFORE BEDTIME 90 Tablet 2 04/07/2023 08/18/20 23 Discontinued documented as of this encounter (statuses as [...] month of beer PHQ-2 Answer Date Recorded PHQ-2 Score 0 04/25/2020 Hunger Vital Sign Answer Date Recorded Worried About Running Out of Food in the Last Ye ar Never true 04/25/2020 Ran Out of Food in the Last Year Never true 04/25/2020 Sex and Gender Information Value Date Recorded Sex Assigned at Male 08/17/2023 9:51 AM EST Gender Identity Male 08/17/2023 9:51 AM EST Sexual Orientation Straight 08/17/2023 9: 51 AM EST Job Start Date Occupation Industry Not on file Not on file Not on file documented as of this encounter Plan of Treatment Upcoming Encounters Date Type Department Care Team (Late st Contact Info) Description 12/23/2023 12:20 PM EDT Office Visit [place] [address] [place] [phone] Noah Gerber PA-C [address] [place] [address] Health Maintenance Due Date Last Done Comments [...] Not on filedocumented as of this encounter Procedures Procedure Name Priority Date/Time Associated Diagnosis Comments DIFFERENTIAL, AUTOMATED Routine 08/17/2023 10:26 AM EST DM type 2 causing neurological disease (HCC) Preop examination TSH WITH FREE T4 IF INDICATED Routine 08/17/2023 10:26 AM EST DM type 2 causing neurological disease (HCC) Hyperlipidemia LDL goal <70 Bilateral carotid artery stenosis LIPID PANEL WITH DIRECT LDL IF TG IS HIGH Routine 08/17/2023 10:26 AM EST Encounter for long-term (current) use of medications HEMOGLOBIN A1C Routine 08/17/2023 10:26 AM EST Encounter for long-term (current) use of medications BILIRUBIN, DIRECT Routine 08/17/2023 10: 26 AM EST DM type 2 causing neurological disease (HCC) Hyperlipidemia LDL goal <70 Bilateral carotid artery stenosis COMPREHENSIVE METABOLIC PANEL Routine 08/17/2023 10:26 AM EST Encounter for long-term (current) use of medications CBC Routine 08/17/2023 10:26 AM EST DM type 2 causing neurological disease (HCC) Preop examination PT INR Routine 08/17/2023 10:26 AM EST DM type 2 causing neurological disease (HCC) Preop examination CBC Routine 08/17/2023 10:26 AM EST DM type 2 causing neurological disease (HCC) Preop examination URIC ACID Routine 08/17/2023 10:26 AM EST Encounter for long-term (current) use of medications VITAMIN B12 Routine 08/17/2023 10:26 AM EST Encounter for long-term (current) use of medications documented in this encounter Results * BILIRUBIN, DIRECT (08/17/2023 10:26 AM EST) Bilirubin, Direct <0.2 0.0 - 0.3 mg/dL 08/17/2023 11:57 AM EST LABORATORY [facility] Blood Venous blood specimen / Unknown Venipuncture / Unknown 08/17/2023 10:26 AM EST 08/17/2023 10:26 AM EST Dwight Marie PA-C LAB BLOOD ORD ERABLES LABORATORY [facility] [address] [place] [address] * DIFFERENTIAL, AUTOMATED (08/17/2023 10:26 AM EST) WBC 7.61 4.00 - 10.80 K/uL 08/17/2023 7:29 PM EST [facility] Neutrophils % 61.1 40.0 - 75.0 % 08/17/2023 7:29 PM EST [facility] Lymphocytes % 26.1 18.0 - 42.0 % 08/17/2023 7:29 PM EST [facility] Monocytes % 7.4 1.0 - 11.0 % 08/17/2023 7:29 PM EST [facility] Eosinophils % 4.6 0.0 - 6.0 % 08/17/2023 7:29 PM EST [facility] Basophils % 0.7 0.0 - 2.0 % 08/17/2023 7:29 PM EST [facility] Immature Granulocytes % 0.1 0.0 - 2.0 % 08/17/2023 7:29 PM EST [facility] Absolute Neutrophils 4.65 1.80 - 7.70 K/uL 08/17/2023 7:29 PM EST [facility] Absolute Lymphocytes 1.99 1.00 - 4.80 K/ul 08/17/2023 7:29 PM EST [facility] Absolute Monocytes 0.56 0.00 - 1.10 K/uL 08/17/2023 7:29 PM EST [facility] Absolute Eosinophils 0.35 0.00 - 0.70 K/uL 08/17/2023 7:29 PM EST [facility] Absolute Basophils 0.05 0.00 - 0.20 K/uL 08/17/2023 7:29 PM EST [facility] Absolute Immature Granulocytes 0.01 0.00 - 0.20 K/uL 08/17/2023 7:29 PM EST [facility] Blood Venous blood specimen / Unknown Venipuncture / Unknown 08/17/2023 10:26 AM EST 08/17/2023 10:26 AM EST Dwight Marie PA-C LAB BLOOD ORD ERABLES [facility] [address] [place] [address] * CBC (08/17/2023 10:26 AM EST) WBC 7.61 4.00 - 10.80 K/uL 08/17/2023 7:29 PM EST [facility] RBC 5.35 4.50 - 5.25 M/uL 08/17/2023 7:29 PM EST [facility] HGB 15.2 14.0 - 16.8 g/dL 08/17/2023 7:29 PM EST [facility] HCT 47.4 40.0 - 48.4 % 08/17/2023 7:29 PM EST [facility] MCV 88.6 82.0 - 99.5 fL 08/17/2023 7:29 PM EST [facility] MCH 28.4 27.0 - 34.0 pg 08/17/2023 7:29 PM EST [facility] MCHC 32.1 32.0 - 36.0 g/dL 08/17/2023 7:29 PM EST [facility] RDW 12.9 11.5 - 15.5 % 08/17/2023 7:29 PM EST [facility] PLT 291 140 - 400 K/uL 08/17/2023 7:29 PM EST [facility] MPV 9.3 6.6 - 11.1 fL 08/17/2023 7:29 PM EST [facility] nRBCs 0 <=0 /100 WBCs 08/17/2023 7:29 PM EST [facility] Blood Venous blood specimen / Unknown Venipuncture / Unknown 08/17/2023 10:26 AM EST 08/17/2023 10:26 AM EST Dwight Marie PA-C LAB BLOOD ORD ERABLES [facility] [address] [place] [address] * TSH WITH FREE T4 IF INDICATED (08/17/2023 10:26 AM EST) TSH 1.49 0.27 - 4.20 uIU/mL 08/17/2023 11:19 PM EST [facility] Blood Venous blood specimen / Unknown Venipuncture / Unknown 08/17/2023 10:26 AM EST 08/17/2023 10:26 AM EST Dwight Marie PA-C LAB BLOOD ORD ERABLES [facility] [address], [place] [id number] * PT INR (08/17/2023 10:26 AM EST) Prothrombin Time 13.1 11.6 - 15.2 seconds 08/17/2023 11:54 AM EST LAB[facility]ORY [facility] INR 1.0 0.8 - 1.2 08/17/2023 11:54 AM EST LAB[facility]ATORY [facility] Blood Venous blood specimen / Unknown Venipuncture / Unknown 08/17/2023 10:26 AM EST 08/17/2023 10:26 AM EST Narrative LABORATORY [facility] - 08/17/2023 11:54 AM EST Warfarin Therapy INR: 2.0-3.0 conventional anticoagulation INR: 2.5-3.5 high intensity anticoagulation Dwight Marie PA-C LAB BLOOD ORD ERABLES LABORATORY [address] [address] * COMPREHENSIVE METABOLIC PANEL (08/17/2023 10:26 AM EST) Pathologist [facility] BUN 17 6 - 20 mg/dL 08/17/2023 10:45 PM EST [facility] Creatinine 0.9 0.6 - 1.2 mg/dL 08/17/2023 10:45 PM EST LAB[facility] Estimated Glomerular Filtration Rate >90 >=60 mL/min 08/17/2023 10:45 PM EST LAB[facility] Comment:eGFR is calculated b ased on the CKD-EPI 2020 equation Sodium 139 135 - 146 mmol/L 08/17/2023 10:45 PM EST [facility] Potassium 4.6 3.5 - 5.1 mmol/L 08/17/2023 10:45 PM EST [facility] Chloride 100 98 - 107 mmol/L 08/17/2023 10:45 PM EST [facility] CO2 24 22 - 32 mmol/L 08/17/2023 10:45 PM EST [facility] Anion Gap 15 7 - 15 mmol/L 08/17/2023 10:45 PM EST [facility] Glucose 102 70 - 120 mg/dL 08/17/2023 10:45 PM EST [facility] Albumin 4.7 3.8 - 5.0 g/dL 08/17/2023 10:45 PM EST [facility] AST 34 10 - 50 U/L 08/17/2023 10:45 PM EST [facility] Alkaline Phosphatase 78 35 - 130 U/L 08/17/2023 10:45 PM EST [facility] Bilirubin, Total 0.4 <=1.2 mg/dL 08/17/2023 10:45 PM EST [facility] Calcium 9.5 8.4 - 10.2 mg/dL 08/17/2023 10:45 PM EST [facility] Protein 7.0 6.0 - 8.3 g/dL 08/17/2023 10:45 PM EST [facility] ALT 50 10 - 50 U/L 08/17/2023 10:45 PM EST [facility] Blood Venous blood specimen / Unknown Venipuncture / Unknown 08/17/2023 10:26 AM EST 08/17/2023 10:26 AM EST [facility] LAB BLOOD ORDERABLES Performing Organization Address [facility] Phone Number [facility]ATORY [facility] [address] [place] [address] * (ABNORMAL) HEMOGLOBIN A1C (08/17/2023 10:26 AM EST) Hemoglobin A1C 7.5(H) 4.0 - 5.6 % 08/17/2023 6:58 PM EST [facility] Comment:The use of HbA1c to monitor glycemic status is based on normal hemoglobin and HbA composition. This test should not be used in patients with abnormal hemoglobin that affects the half life of the red blood cell or the in vivo glycation rates. Estimated Average Glucose 169(H) <126 mg/dL 08/17/2023 6:58 PM EST [facility] Blood Venous blood specimen / Unknown Venipuncture / Unknown 08/17/2023 10:26 AM EST 08/17/2023 10:26 AM EST [facility] LAB BLOOD ORDERABLES Performing Organization Address [facility] Co de Phone Number LAB[facility]ATORY [facility] [address] [place] [address] * URIC ACID (08/17/2023 10:26 AM EST) [facility] Uric Acid 5.4 3.4 - 7.0 mg/dL 08/17/2023 10:45 PM EST [facility] Blood Venous blood specimen / Unknown Venipuncture / Unknown 08/17/2023 10:26 AM EST 08/17/2023 10:26 AM EST Cheryl Mantilla [facility] LAB BLOOD ORDERABLES Performing Organization Address City/[facility]/ZIP Co de Phone Number LABORATORY [place] [address] [place] [address] * VITAMIN B12 (08/17/2023 10:26 AM EST) [facility] Vitamin B12 397 232 - 1,245 pg/mL 08/17/2023 11:19 PM EST [facility] Blood Venous blood specimen / Unknown Venipuncture / Unknown 08/17/2023 10:26 AM EST 08/17/2023 10:26 AM EST Cheryl Mantilla [facility] LAB BLOOD ORDERABLES Performing Organization Address City/[facility]/ZIP Co de Phone Number LABORATORY [place] [address] [place] [address] * (ABNORMAL) LIPID PANEL WITH DIRECT LDL IF TG IS HIGH (08/17/2023 10:26 AM EST) [facility] Triglycerides 142 <=174 mg/dL 08/17/2023 10:45 PM EST [facility] Comment: Triglyceride Reference Ranges (mg/dL): <150 Acceptable 150-174 Borderline high 175-499 High >=500 Very high Cholesterol 164 <200 mg/dL 08/17/2023 10:45 PM EST [facility] Comment: Total Cholesterol Reference Ranges (mg/dL): <200 Desirable 200-239 Borderline high >=240 High HDL Cholesterol 32(L) >39 mg/dL 10:45 PM EST [facility] Comment: HDL Cholesterol Reference Ranges (mg/dL): >=60 High (Desirable) <50 Low (Undesirable) For Females <40 Low (Undesirable) For Males Non-HDL Cholesterol 132 <=159 mg/dL 08/17/2023 10:45 PM EST LABORATORY [facility] Comment: Non-HDL Cholesterol Reference Range (mg/dL): <100 Target level for high risk ASCVD patient <130 Optimal for general population 130-159 Near optimal for general population 160-189 Borderline High 190-219 High >=220 Very High LDL Cholesterol 104 <=129 mg/dL 08/17/2023 10:45 PM EST LAB[facility]ATORY [facility] Comment: LDL Cholesterol Reference Ranges (mg/dL): <70 Target level for high risk ASCVD patient <100 Optimal for general population 100-129 Near optimal for general population 130-159 Borderline high 160-189 High >=190 Very high Blood Venous blood specimen / Unknown Venipuncture / Unknown 08/17/2023 10:26 AM EST 08/17/2023 10:26 AM EST Cheryl John Jose Rafael [facility] LAB BLOOD ORDERABLES LAB[facility]ATORY [facility] [address] [facility] [place] [id number] documented in this encounter Visit Diagnoses Diagnosis Encounter for long-term (current) use of medications Encounter for long-term (current) use of other medications DM type 2 causing neurological disease (HCC) Type II or unspecified type diabetes mellitus with neurological manifestations, not stated as uncontrolled Preop examination Preoperative examination, unspecified Hyperlipidemia LDL goal <70 Other and unspecified hyperlipidemia Bilateral carotid artery stenosis Occlusion and stenosis of multiple and bilateral precerebral arteries without mention of cerebral infarction documented in this encounter Advance Directives Latest Code Status on File Code Status Date Activated Date Inactivated Comments Full Code 10/28/2021 8:01 AM 10/29/2021 7:01 PM This order reflects the patients wishes and were consensually agreed upon. Care Teams Application Development Director Relationship Specialty Start Date End Date Noah Gerber PA-C [address] [place] [id number] PCP - General Physician Insurance Administrator 04/27/21 documented as of this encounter
--- OUTSIDE RECORDS SUMMARY | 2023-08-29 08:38 | External Medical Summary | Summary of Care ---
Author Name Unknown Organization [facility] Address [address] [facility] [address] Phone [phone] Care Team Providers Care Apple Turner Name Role Phone Noah Gerber PA-C Primary Care Provider [phone] Reason for Visit * Reason Onset Date Comments Test Results Lab 08/19/2023 Encounter Details Date Type Department Care Team (Late st Contact Info) Description 08/19/2023 Telephone Family Practice [place] [facility] Asher [address] [place] [place] [address] Dwight Marie PA-C [address] [place] [address] Test Results Lab Allergies [...] hemoglobin A1c goal of less than 7.0% ([facility]) Use as directed 4 times a day as needed (glucose readings). 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 Care Teams Apple Turner Relationship Specialty Start Date End Date Noah Gerber PA-C [address] [address] PCP - General Physician Assembler Mechanical Ordnance 04/27/21 documented as of this encounter
--- OUTSIDE RECORDS SUMMARY | 2023-08-29 08:38 | External Medical Summary | Summary of Care ---
Author Name Unknown Organization [facility] Address [address] [facility] [address] Phone [phone] Care Team Providers Care Blood Collector Name Role Phone Noah Gerber PA-C Primary Care Provider Reason for Visit * Reason Onset Date Comments Test Results Lab 08/19/2023 Encounter Details Date Type Department Care Team (Late st Contact Info) Description 08/19/2023 Telephone Family Practice [place] Bharat Asher [address] [place] [address] Dwight Marie PA-C [address] [place] [address] Test Results Lab Allergies No [...] hemoglobin A1c goal of less than 7.0% ([facility]) Use as directed 4 times a day as needed (glucose readings). 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 I can refer to [facility] to help with the diabetes control if [...] Visit [facility] [place] [phone] Noah Gerber PA-C [address] [address] Health Maintenance Due Date Last Done Comments [...] and were consensually agreed upon. Care Teams Blood Collector Relationship Specialty Start Date End Date Noah Gerber PA-C [address] [place] [address] PCP - General Physician Check Writing Machine Operator 04/27/21 documented as of this encounter
--- OUTSIDE RECORDS SUMMARY | 2023-08-29 08:38 | External Medical Summary | Summary of Care ---
Author Name Unknown Organization [facility] Address [address] [facility] [address] Phone [phone] Care Team Providers Care Malted Milk Masher Name Role Phone Noah Gerber PA-C Primary Care Provider [phone] Reason for Visit * Reason Onset Date Comments Test Results Lab 08/19/2023 Med Request 08/19/2023 Encounter Details Date Type Department Care Team (Late st Contact Info) Description 08/19/2023 Telephone Family Practice [address] [place] [address] Dwight Marie PA-C [address] [place] [address] Test Results Lab; Med [...] hemoglobin A1c goal of less than 7.0% ([facility]) Use as directed 4 times a day as needed (glucose readings). 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 I can refer to [facility] to help with the diabetes control if he would like. * Telephone Encounter - Kenneth Bradford LPN - 08/22/2023 4:11 PM EST Patient has been informed of below message and verbalized understanding. Pt would be agreeable to starting a weekly GLP1 if PCP is in agreement. [facility] Pharmacy verified. Pt [...] Care Team (Late st Contact Info) Description 08/23/2023 10:30 AM EST Laboratory Laboratory, [place] [address] [phone] [facility] [address] [address] Arrived 12/23/2023 12:20 PM EDT Office Visit [facility] [place] [address] [address] Noah Gerber PA-C [...] and were consensually agreed upon. Care Teams Malted Milk Masher Relationship Specialty Start Date End Date Noah Gerber PA-C [address] [address] PCP - General Physician Broadcast Systems Engineer 04/27/21 documented as of this encounter
--- OUTSIDE RECORDS SUMMARY | 2023-08-29 08:38 | External Medical Summary ---
Author Name Unknown Address Unknown Organization [id number]:LABORATORY [facility] [place] - [address] [address] Laboratory Report Ordering Provider Test Date Status KING SALTER 08/23/2023 10:31:23 Final Normal: <30 mg/g creatinine< br/>High: 30-300 mg/g creatinine
Very High: >300 mg/g creatinine
Nephrotic: >2200 mg/g creatinine Observation Date Value Abnormality Reference (Units ) Status Albumin, Urine 08/23/2023 10:31:23 <1.20 (mg/dL) Final Creatinine, Urine 08/23/2023 10:31:23 111 (mg/dL) Final Albumin/Creatinine [Mass Ratio] in Urine 08/23/2023 10:31:23 <11 <30 (mg/g Creat) Final Performing Location LABORATORY [facility] [place] - [address] [address]
--- OUTSIDE RECORDS SUMMARY | 2023-08-29 08:38 | External Medical Summary | Summary of Care ---
Author Name Unknown Organization [facility] Address [address] [facility] [address] Phone [phone] Care Team Providers Care Handwriting Expert Name Role Phone Noah Gerber PA-C Primary Care Provider [phone] Reason for Visit * Reason Onset Date Comments Test Results Lab 08/19/2023 Med Request 08/19/2023 Encounter Details Date Type Department Care Team (Late st Contact Info) Description 08/19/2023 Telephone Family Practice [address] [place] [address] Dwight Marie PA-C [address] [place] [address] Test Results Lab; Med [...] hemoglobin A1c goal of less than 7.0% ([facility]) Use as directed 4 times a day as needed (glucose readings). 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 Care Teams Handwriting Expert Relationship Specialty Start Date End Date Noah Gerber PA-C [address] [address] PCP - General Physician Veneer Lathe Operator 04/27/21 documented as of this encounter
--- OUTSIDE RECORDS SUMMARY | 2023-08-29 08:38 | External Medical Summary | Summary of Care ---
Author Name Unknown Organization [facility] Address [address] [facility] [place] [address] Phone [phone] Care Team Providers Care Metal Furniture Panel Coverer Name Role Phone Noah Gerber PA-C Primary Care Provider [phone] Reason for Visit * Reason Comments Outpatient Testing Encounter Details Date Type Department Care Team (Late st Contact Info) Description 08/23/2023 10:30 AM EST Laboratory Laboratory, [place] [address] [place] [address] [place], Lab [address] [facility] [place] [phone] HNP (herniated nucleus pulposus), lumbar; Encounter for long-term (current) use of medications Allergies No known active allergiesdocumented as of [...] hemoglobin A1c goal of less than 7.0% ([facility]) Use as directed 4 times a day as needed (glucose readings). 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 (herniated nucleus pulposus), lumbar Take 1 Tablet [...] Description 12/23/2023 12:20 PM EDT Office Visit [facility] [address] [phone] Noah Gerber PA-C [address] [phone] Pending Results Name Type Priority Associated Diagnoses Date /Time PAIN MANAGEMENT DRUG PANEL, URINE Lab Routine HNP (herniated nucleus pulposus), lumbar 08/23/2023 10:31 AM EST ALBUMIN / CREATININE RATIO, URINE Lab Routine Encounter for long-term (current) use of medications 08/23/2023 10:31 AM EST Health Maintenance Due Date Last Done Comments [...] Displacement of lumbar intervertebral disc without myelopathy Encounter for long-term (current) use of medications Encounter for long-term (current) use of other medications documented in this encounter Advance Directives Latest Code Status on File Code Status Date Activated Date Inactivated Comments Full Code 10/28/2021 8:01 AM 10/29/2021 7:01 PM This order reflects the patients wishes and were consensually agreed upon. Care Teams Metal Furniture Panel Coverer Relationship Specialty Start Date End Date Noah Gerber PA-C [address] [id number] PCP - General Physician Senior Architect/Design Manager 04/27/21 documented as of this encounter
--- OUTSIDE RECORDS SUMMARY | 2023-08-29 08:39 | External Medical Summary ---
Author Name Unknown Address Unknown Organization K01:[facility] [place] [address] [facility] [address] Laboratory Report Ordering Provider Test Date Status JONNY FERRO 08/17/2023 10:26:54 Final Observation Date Value Abnormality Reference (Units ) Status WBC, Total 08/17/2023 10:26:54 7.61 4.00-10.80 (K/uL) Final RBC 08/17/2023 10:26:54 5.35 4.50-5.25 (M/uL) Final Hemoglobin 08/17/2023 10:26:54 15.2 14.0-16.8 (g/dL) Final HCT 08/17/2023 10:26:54 47.4 40.0-48.4 (%) Final MCV 08/17/2023 10:26:54 88.6 82.0-99.5 (fL) Final MCH 08/17/2023 10:26:54 28.4 27.0-34.0 (pg) Final MCHC 08/17/2023 10:26:54 32.1 32.0-36.0 (g/dL) Final RDW 08/17/2023 10:26:54 12.9 11.5-15.5 (%) Final Platelets 08/17/2023 10:26:54 291 140-400 (K/uL) Final MPV 08/17/2023 10:26:54 9.3 6.6-11.1 (fL) Final Nucleated erythrocytes/100 leukocytes [Ratio] in Blood by Automated count 08/17/2023 10:26:54 0 <=0 (/100 WBCs) Final Performing Location [facility] [place] [address] [place] [address]
--- OUTSIDE RECORDS SUMMARY | 2023-08-29 08:39 | External Medical Summary ---
Author Name Unknown Address Unknown Organization [id number]:LABORATORY [facility] - [address] [address] Laboratory Report Ordering Provider Test Date Status JONNY FERRO 08/17/2023 10:26:54 Final Warfarin Therapy
INR: 2 .0-3.0 conventional anticoagulation
INR: 2.5- 3.5 high intensity anticoagulation Observation Date Value Abnormality Reference (Units ) Status PT 08/17/2023 10:26:54 13.1 11.6-15.2 (seconds) Final INR 08/17/2023 10:26:54 1.0 0.8-1.2 Final Performing Location LABORATORY [facility] - [address] [address]
--- OUTSIDE RECORDS SUMMARY | 2023-08-29 08:39 | External Medical Summary ---
Author Name Unknown Address Unknown Organization K01:LABORATORY [facility] [place] - [address] [address] Laboratory Report Ordering Provider Test Date Status KING SALTER 08/17/2023 10:26:54 Final Observation Date Value Abnormality Reference (Units ) Status Triglyceride 08/17/2023 10:26:54 142 <=174 ( mg/dL) Final Triglyceride Reference Range s (mg/dL):
<150 Acceptable
150-174 Borderline high
175-499 High
>=500 Very high Cholesterol 08/17/2023 10:26:54 164 <200 (mg /dL) Final Total Cholesterol Reference Ranges (mg/dL):
<200 Desirable
200-239 Borderline high
>=240 High HDL 08/17/2023 10:26:54 32 Below low normal >39 (mg/dL) Final HDL Cholesterol Reference Ra nges (mg/dL):
>=60 High (Desirable)
<50 Low (Undesirable) For Females
<40 Low (Undesirable) For Males NON-HDL CHOLESTEROL 08/17/2023 10:26:54 132 <=159 (mg/dL) Final Non-HDL Cholesterol Referenc e Range (mg/dL):
<100 Target level for high risk ASCVD patient
<130 Optimal for general population
130-159 Near optimal for general population
160-189 Borderline High
190-219 High
>=220 Very High LDL, (calculated) 08/17/2023 10:26:54 104 <= 129 (mg/dL) Final LDL Cholesterol Reference Ra nges (mg/dL):
<70 Target level for high risk ASCVD patient
<100 Optimal for general population
100-129 Near optimal for general population
130-159 Borderline high
160-189 High
>=190 Very high Performing Location LABORATORY [facility] [place] - [address] [facility] [address]
--- OUTSIDE RECORDS SUMMARY | 2023-08-29 08:39 | External Medical Summary ---
Author Name Unknown Address Unknown Organization K01:LABORATORY [facility] [place] - [address] [place] [address] Laboratory Report Ordering Provider Test Date Status JOIEELSY 08/17/2023 10:26:54 Final Observation Date Value Abnormality Reference (Units ) Status Uric Acid 08/17/2023 10:26:54 5.4 3.4-7.0 (m g/dL) Final Performing Location LABORATORY [facility] - [address] [place] [address]
--- OUTSIDE RECORDS SUMMARY | 2023-08-29 08:39 | External Medical Summary | Summary of Care ---
Author Name Unknown Organization [facility] Address [address] [address] Phone [phone] Care Team Providers Care Wreath Machine Tender Name Role Phone Noah Gerber PA-C Primary Care Provider [phone] Reason for Visit * Reason Onset Date Comments Scan To Read 08/17/2023 Diabetic Eye Jacinta ges Encounter Details Date Type Department Care Team (Late st Contact Info) Description 08/17/2023 Telephone [facility] [address] [facility] [place] [address] Dwight Marie PA-C [address] [place] [address] Scan To Read (Diabetic Eye Images) Allergies No known active allergiesdocumented as of this encounter (statuses as of 08/17/2023) Medications Medication Sig Dispensed Refills Start Date [...] goal of less than 7.0% ([facility]) Use as directed 4 times a day as needed (glucose readings). Use up to four times a day as directed 100 Strip 11 11/12/2021 Active OneTouch Delica Lancets 33GIndications:Type 2 diabetes mellitus with hemoglobin A1c goal of less than 7.0% (HCC) Use up to 4 times per day as needed 100 Each 11 11/12/2021 Active Atorvastatin Calcium 40 MG Oral Tablet (Lipitor)Indication s:Dyslipidemia, goal LDL below 130 TAKE 1 TABLET BY MOUTH IN THE MORNING 90 Tablet 1 02/14/2023 Active HYDROcodone-Acetami nophen 10-325 MG Oral TabletIndications:H MEAT WASHER (herniated nucleus pulposus), lumbar Take 1 Tablet by mouth every 8 hours as needed for Pain, Moderate. No driving on medication. ongoing 90 Tablet 0 02/15/2023 Active Additional Information Patient not taking.Reported on 08/17/2023 Gabapentin 800 MG Oral Tablet (Neurontin) TAKE 1 TABLET BY MOUTH IN THE MORNING; 1 TAB BY MOUTH AT NOON; 1 TAB BEFORE BEDTIME 90 Tablet 2 04/07/2023 Active Allopurinol 100 MG Oral Tablet (Zyloprim)Indicatio ns:History of gout TAKE 1 TABLET BY MOUTH EVERY DAY 90 Tablet 1 04/13/2023 Active metFORMIN HCl 500 MG Oral Tablet (Glucophage)Indicat ions:DM type 2 causing neurological disease (HCC) TAKE 1 TABLET BY MOUTH 2 TIMES A DAY WITH morning AND EVENING MEALS 180 Tablet 0 05/27/2023 Active documented as of this encounter (statuses as of 08/17/2023) Active Problems Problem Noted Date Diagnosed Date [...] as of this encounter (statuses as of 08/17/2023) Resolved Problems Problem Noted Date Diagnosed Date Resolved Date Prediabetes 04/20/2021 11/25/2021 Overview: Per Prediabetes protocol Pre-operative cardiovascular examination 08/30/2014 11/05/2021 Nonspecific abnormal electro cardiogram (ECG) (EKG) 08/30/2014 11/05/2021 documented as of this encounter (statuses as of 08/17/2023) Immunizations Name Administration Dates Next Due SEASONAL [...] encounter Miscellaneous Notes * Telephone Encounter - Raz Muller MD - 08/17/2023 10:59 AM EST Retinal Scan Imaging D Janeth [facility] [id number] Retinal Scan Interpretation: There is no retinopathy in both eyes Diabetes Retinal Imaging Care Plan: The retinal scan results are normal - I will forward this encounter to the Ophthalmology DM Letter Pool [[id number]], they will send a normal retinal scan letter to the patient, and the patient will be seen back for a yearly scan. Raz Muller MD 08/17/2023 10:59 AM * Telephone Encounter - Kenneth Bradford LPN - 08/17/2023 10:22 AM EST A Diabetic Telemed Eye image was taken and requires your interpretation for Dwight Marie PA-C. Please check your inbasket for image. Patient prefers to be seen at [facility] if a follow-up appointment is needed. documented in this encounter Plan of Treatment Upcoming Encounters Date Type Department Care Team (Late st Contact Info) Description 12/23/2023 12:20 PM EDT Office Visit [facility] [address] [facility] [place] [phone] Noah Gerber PA-C [address] [facility] [place] [phone] Health Maintenance Due Date Last Done Comments Hepatitis B (1 of 3 - 3-dose series) 1975 COVID-19 Vaccine (#1) 1975 Pneumococcal Vaccine: Pediatrics (0 to 5 Years) and At-Risk Patients (6 to 64 Years) (1 - PCV) 1981 HIV Screening 1990 Hepatitis C Screening 1993 Cologuard 2020 Colonoscopy 2020 Colorectal Cancer Screening 2020 Fecal Occult Blood Test 2020 Sigmoidoscopy 2020 Depression Screening 04/25/2021 08/17/2023 *SPIROMETRY ONCE FOR ASTHMA-ADULT 10/31/2021 Albumin/Creatinine Ratio 01/04/2023 01/04/2022 HbA1c 01/04/2023 07/07/2022, 10/10, 03/31/2021 Influenza Vaccine (FLU shot) (#1) 2023 GFR 07/07/2023 07/07/2022, 11/11, 10/29/2021, Additional history exists Diabetic Eye Exam 08/17/2024 08/17/2023 Diabetic Foot Exam 08/17/2024 08/17/2023, 11/05/2021 DTaP,Tdap,and Td Vaccines (2 - Td or [...] and were consensually agreed upon. Care Teams Wreath Machine Tender Relationship Specialty Start Date End Date Noah Gerber PA-C [address] [address] PCP - General Physician Power Cleaner Operator 04/27/21 documented as of this encounter
--- OUTSIDE RECORDS SUMMARY | 2023-08-29 08:39 | External Medical Summary ---
Author Name Unknown Address Unknown Organization K01:LABORATORY [facility] [place] - [address] [facility] [address] Laboratory Report Ordering Provider Test Date Status KING SALTER 08/17/2023 10:26:54 Final Observation Date Value Abnormality Reference (Units ) Status HbA1C 08/17/2023 10:26:54 7.5 Above high normal 4. 0-5.6 (%) Final The use of HbA1c to monitor glycemic status is based on normal hemoglobin and HbA composition. This test should not be used in patients with abnormal hemoglobin that affects the half life of the red blood cell or the in vivo glycation rates. Glucose, estimated average 08/17/2023 10:26:54 169 Above high normal <126 (mg/dL) Ramone munoz Performing Location LABORATORY [facility] [place] - [address] [facility] [address]
--- OUTSIDE RECORDS SUMMARY | 2023-08-29 08:39 | External Medical Summary | Summary of Care ---
Author Name Unknown Organization [facility] Address [address] [facility] [facility] [place] [address] Phone [phone] Care Team Providers Care Registered Nurse Behavioral Health Name Role Phone Noah Gerber PA-C Primary Care Provider [phone] Reason for Visit * Reason Comments pre-op exam Back surgery w/ Dr. Ontiveros on 08/29/2023 Encounter Details Date Type Department Care Team (Late st Contact Info) Description 08/17/2023 9:40 AM EST Office Visit [facility] [address] 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 pulposus), lumbar Take 1 Tablet [...] Never Cigarettes 5 Smokeless Tobacco: Current Chew Tobacco Cessation:Ready to Q uit: No; Counseling Given: No Alcohol Use Standard Drinks/Week Comments Not Currently [...] on file documented as of this encounter Last Filed Vital Signs Vital Sign Reading Time Taken Comments Blood Pressure 132/84 08/17/2023 9:44 AM EST Pulse 86 08/17/2023 9:44 AM EST Temperature 36.4 C (97.5 F) 08/17/2023 9:44 AM ES T Respiratory Rate 18 08/17/2023 9:44 AM EST Oxygen Saturation 96% 08/17/2023 9:44 AM EST Inhaled Oxygen Concentration - - Weight 130.1 kg (286 lb 14.4 oz) 08/17/2023 9:44 AM EST Height - - Body Mass Index 43.62 08/02/2023 10:50 AM EDT documented in this encounter Patient Instructions * Patient Instructions* Kenneth Bradford, SECURITY SOLUTIONS ENGINEER - 08/17/2023 9:47 AM EST Images from the original note were not included. Diabetes: Keeping Feet Healthy Inspect your feet every day for signs of a problem. Diabetes can damage nerves in your feet and cause neuropathy. This condition makes it hard for you to feel injuries or sore spots. Diabetes can also change blood flow, making it harder for small problems, like a blister, to heal properly. In fact, minor injuries can quickly become serious infections that send you to the hospital. Practice self-care to protect your feet and keep them healthy. Take Special Care Inspect your feet daily for problems such as redness, blisters, cracks, dry skin, or numbness. Use a mirror to see the bottoms of your feet. Or, ask for help. Manage your diabetes. Monitor and control your blood sugar. Take all your medications as prescribed. Avoid walking barefoot, even indoors. Wash your feet with warm water and mild soap. Dry well, especially between toes. Dont treat corns or calluses yourself. Talk to your doctor or lawyer real estate (a doctor who specializes in foot care) if you need assistance trimming your toenails. Use moisturizing cream or lotion if you have dry skin, but dont use it between toes. Dont use heating pads on your feet. If you have neuropathy, you could get a burn and not feel it. Stop smoking. Smoking restricts blood flow and can make it harder for wounds to heal. Have Regular Checkups Foot problems can develop quickly. So be sure to follow your healthcare teams schedule for regular checkups. During office visits, take off your shoes and socks as soon as you get in the exam room. Ask your healthcare provider to examine your feet for problems. This will make it easier to find and treat small skin irritations before they get worse. Regular checkups can also help keep track of the blood flow and feeling in your feet. If you have neuropathy, you may need to have checkups more often. Wear Proper Footwear Wearing proper footwear is very important. If areas of your feet have been damaged by too much pressure, your healthcare provider may recommend changing your footwear. In some cases, avoiding high heels or tight work boots may be all thats needed. Or, your healthcare provider may recommend special shoes or custom inserts. These help protect your feet and keep existing irritations from getting worse. If you need special footwear, ask your healthcare provider if you qualify for [employer] diabetic shoe program. Make Sure Shoes and Socks Fit Any pair of shoes--new or old--should feel comfortable as soon as you put them on. There shouldnt be any rubbing when you walk. Wear the right shoe for any activity. For instance, a running shoe is designed to keep your feet injury-free while jogging. Buy shoes at the end of the day, when your feet are larger. Make sure they provide support without feeling too loose. Make sure your socks fit, t oo. Wear soft, seamless, well-padded socks for activity. Cotton or microfiber socks are best to help to absorb sweat. To protect your feet, avoid shoes that are open-toed or open-heeled. If you have questions about what kinds of shoes and socks are best, talk to your healthcare team. Get Regular Exercise Regular exercise improves blood flow in your feet. It also increases foot strength and flexibility.Gentle exercises, like walking or riding a stationary bicycle, are best. You can also do special foot exercises. Just be sure to talk with your healthcare provider before starting any exercise program. Also mention if any exercise causes pain, redness, or other signs of foot problems. Note: If you have any kind of break in the skin of your foot or ankle, keep the area clean. Then call your doctor--especially if the area doesnt appear to be healing. [id number] [employer], [address] [place] [address], [place] [address]. All rights reserved. This information is not intended as a substitute for professional medical care. Always follow your healthcare professional's instructions. Dear Oksana Aparicio, The care of your Diabetes is very important to us. A yearly diabetic eye exam is important to protect your vision. If youre getting an eye exam done outside of [facility] please tell your Eye Doctor to fax or mail us the results of your Diabetic Eye Exam at your next visit. Our Address and Fax Number are listed below to help. Thank you for helping us to improve your Diabetes Care Our Office Address and Fax Number: Noah Gerber PA-C [address] [place] [phone] Diabetic Retinopathy: Evaluating Your Eyes Diabetic retinopathy is a condition that happens when diabetes damages blood vessels in the rear ofthe eye. It can lead to vision loss. To help catch it early, have a complete dilated eye exam at least once a year. During the exam, the eye healthcare provider will review your medical history, examine your eyes, and check your vision. Women who are and have pre-existing type 1 or type 2 diabetes have an increased risk of retinopathy. Women with diabetes should have an eye exam before or in the first trimester. They should continue to be monitored every trimester and for 1 year after delivery, depending on the severity of the retinopathy. The retina is the light-sensitive part of the eye that allows you to see. High blood sugar can damage blood vessels of the retina and cause them to leak or bleed. This damage can lead to abnormal blood vessel growth. This condition is called diabetic retinopathy. You may not have symptoms early in the disease. Later, there may be floaters, blurred vision, or poor night vision. There may also be partial or complete vision loss. Early cases of diabetic retinopathy can be treated by carefully controlling blood sugar, blood pressure, and cholesterol. Surgery or laser treatments may help restore lost vision. Laser surgery can shrink abnormal blood vessels or close ones that are leaking. Medicines injected in the eye can help decrease swelling of the retina. Home care Take all medicines, including insulin or oral diabetic medicine, exactly as prescribed. Follow the diet advised by your healthcare provider. If you have high cholesterol, follow a low-fat, low-cholesterol diet. Monitor blood sugars as advised. Try to achieve your ideal weight. If you smoke, quit smoking. Tobacco use worsens the effect of diabetes on your blood vessels. If you have high blood pressure, consider buying an automatic blood pressure machine. These are available at most pharmacies. Use this to monitor your blood pressure. Report your blood pressure readings to your healthcare provider. Exercise regularly. Follow-up care Follow up with your healthcare provider, or as advised. You must have a complete eye exam at least once a year, more often if needed. Untreated diabetic retinopathy can lead to complete loss of vision. Occupational therapists can help you adapt to any vision loss you have, including learning techniques to safely administer insulin. When to seek medical advice Call your healthcare provider right away if any of these occur. Increasing blurriness or any sudden changes in your vision Sudden flashes of light inside your eye New floaters (small dots or strings that seem to be moving across your field of vision) Eye pain, redness, or discharge from your eyelid New dark spots appearing in your field of vision Halos around lights Dimness of vision Partial or complete loss of vision Women with diabetes should have a complete eye exam before becoming , or as soon as possible when they find out they are . Retinopathy sometimes worsens during . Your eye exam Your eye healthcare provider uses an eye chart and other tools to check your vision. Then he or sheexamines your eyes for signs of disease. You are given eye drops to widen (dilate) your pupils. Youmay have one or more of the following tests: Tonometry to measure fluid pressure inside the eye. Slit lamp exam to allow the healthcare provider to view the structures of your eye. Ultrasound to create an image of the eye using sound waves. Ultrasound may be used if blood is found in the clear gel that fills the eye (vitreous). Ocular coherence tomography (OCT) to create an image of the retina using light waves. This shows ifthere is fluid leaking into certain parts of the eye. It can also measure the thickness of the retina. Fluorescein angiography This test may be done to check the health of the inside lining of the eye (retina). It also checks the tiny blood vessels (capillaries) that carry blood to the retina. During the test: Photographs are taken of the retina. A dye is then injected into the bloodstream through the arm or hand. The dye travels to the capillaries in the eye. More photographs are taken of the retina. The dye causes the capillaries to stand out on the photographs. You may feel brief nausea during the procedure. For a few hours after the test, your skin, eyes, and urine may appear yellow. Talk with your healthcare provider for more information about this test. Date Last Reviewed: 03/10/201619999005-1473 [employer], [employer]. [address] [place] [address], [place] [address]. All rights reserved. This information is not intended as a substitute for professional medical care. Always follow your healthcare professional's instructions. documented in this encounter Progress Notes * Dwight Marie PA-C - 08/17/2023 9:49 AM EST Images from the original note were not included. History of Present Illness Oksana Aparicio is a 48 year old male that presents for preop visit. Patient is scheduled for back surgery w/ Dr. Ontiveros on 08/29/2023. Patient has not had lab work forgreater than 1 year. He does have a history of type 2 diabetes, last A1c was 7.1 in 06/2022. Will update labs. Blood pressure currently well-controlled. 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 Regarding the CVA, MRI at that time showed a small acute infarct ofthe left caudate nucleus. Last visit with cardio was 08/02/2023. EKG at that time showed NSR with possible left atrial enlargement, LAFB. Patient denies chest pain or orthopnea. He does report some shortness breath with walking long distances. He has not been taking aspirin consistently. Chews 1 can of snuff per day but otherwise denies alcohol or other illicit drug use. Last echo 10/2021 showed EF 55% and no significant valve abnormalities. He was deemed low risk for surgery. 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 30 Tablet 1 Celecoxib 200 MG Oral Capsule (CeleBREX) Take 1 Capsule by mouth in the morning and 1 Capsule before bedtime. Atorvastatin Calcium 40 MG Oral Tablet (Lipitor) TAKE 1 TABLET BY MOUTH IN THE MORNING 90 Tablet 1 Gabapentin 800 MG Oral Tablet (Neurontin) TAKE 1 TABLET BY MOUTH IN THE MORNING; 1 TAB BY MOUTH AT NOON; 1 TAB BEFORE BEDTIME 90 Tablet 2 Allopurinol 100 MG Oral Tablet (Zyloprim) TAKE 1 TABLET BY MOUTH EVERY DAY 90 Tablet 1 metFORMIN HCl 500 MG Oral Tablet (Glucophage) TAKE 1 TABLET BY MOUTH 2 TIMES A DAY WITH morning ANDEVENING MEALS 180 Tablet 0 OneTouch Ultra Blue In Vitro Strip (Glucose Blood) Use as directed 4 times a day as needed (glucosereadings). Use up to four times a day as directed 100 Strip 11 OneTouch Delica Lancets 33G Use up to 4 times per day as needed 100 Each 11 HYDROcodone-Acetaminophen 10-325 MG Oral Tablet Take 1 Tablet by mouth every 8 hours as needed for Pain, Moderate. No driving on medication. ongoing (Patient not taking: Reported on 08/17/2023) 90 Tablet 0 No current facility-administered medications for this visit. Past Medical History: Diagnosis Date Back pain lumbar sx 2012 Foot pain, bilateral Hip pain Past Surgical History: Procedure Laterality Date FLUORO MISCELLANEOUS 07-02-13 Lumbrosacral. Posterior fusion at L3/4 INFORMATION Right 11/2014 Had hip surgery- pt states "they cleaned out the hip put a new liner in my hip"- Dr. Vanegas LAMINECTOMY/LAMINOTOMY, LUMBAR, GUIDE 07-02-13 L3. L3-4 medial facetectomies and discectomy. Fusion L3/4 MRI HIP WO CONTRAST 11/13/2013 Right-normal Family History Problem Relation Age of Onset No Past Hx Mother Other (Farm Accident) Father at 42 from a farm accident Heart Disorder Aunt (Unspecified) several paternal aunts w/ CAD - starting in their 40's Heart Disorder Uncle (Unspecified) several paternal uncles w/CAD - started in their 40's No Past Hx Sister 3 older sisters A&W No Past Hx Brother 1 older brother A&W Family Status Relation Status Fa at age 42 Mo Alive AUNT (Not Specified) UNCLE (Not Specified) Sis (Not Specified) Bro (Not Specified) Social History Socioeconomic History Marital status: Spouse name: Milagro Number of children: 1 Years of education: 12 Occupational History Occupation: [employer] Employer: [employer] Tobacco Use Smoking status: Never Smokeless tobacco: Current Types: Chew Vaping Use Vaping Use: Never used Substance and Sexual Activity Alcohol use: Not Currently Comment: 2 cases per month of beer Drug use: No Sexual activity: Yes Comment: is only sexual partner Social History Narrative 12/25/2004 Household: Lives w/ and daughter (2) 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 Negative for chills and fever. HENT: Negative. Eyes: Negative. Respiratory: Positive for shortness of breath. Cardiovascular: Negative. Negative for chest pain, palpitations and leg swelling. Gastrointestinal: Negative. Negative for abdominal pain, blood in stool, constipation, diarrhea, nausea and vomiting. Endocrine: Negative. Genitourinary: Negative. Musculoskeletal: Positive for arthralgias, back pain, gait problem and myalgias. Skin: Negative. Allergic/Immunologic: Negative. Neurological: Positive for numbness. Negative for dizziness, syncope, weakness and light-headedness. Hematological: Negative. Psychiatric/Behavioral: Negative. All other systems reviewed and are negative. Physical Exam BP 132/84 | Pulse 86 | Temp 36.4 C (97.5 F) (Tympanic) | Resp 18 | Wt 130.1 kg (286 lb 14.4 oz)| SpO2 96% | BMI 43.62 kg/m | BSA 2.5 m Physical Exam Vitals and nursing note reviewed. Constitutional: Appearance: Normal appearance. He is obese. HENT: Head: Normocephalic and atraumatic. Right Ear: Tympanic membrane, ear canal and external ear normal. Left Ear: Tympanic membrane, ear canal and external ear normal. Nose: Nose normal. Mouth/Throat: Mouth: Mucous membranes are moist. Pharynx: Oropharynx is clear. Eyes: Extraocular Movements: Extraocular movements intact. Conjunctiva/sclera: Conjunctivae normal. Pupils: Pupils are equal, round, and reactive to light. Cardiovascular: Rate and Rhythm: Normal rate and regular rhythm. Pulses: Normal pulses. Heart sounds: Normal heart sounds. No murmur heard. Pulmonary: Effort: Pulmonary effort is normal. Breath sounds: Normal breath sounds. No wheezing, rhonchi or rales. Abdominal: General: Abdomen is flat. Bowel sounds are normal. Palpations: Abdomen is soft. Tenderness: There is no abdominal tenderness. There is no guarding or rebound. Musculoskeletal: General: Normal range of motion. Cervical back: Normal range of motion and neck supple. Comments: Lower lumbosacral spine normal to inspection; no specific tenderness to palpation in the lumbar paraspinals or glutes; straight leg raise positive bilat Skin: General: Skin is warm. Neurological: General: No focal deficit present. Mental Status: He is alert and oriented to person, place, and time. Psychiatric: Mood and Affect: Mood normal. Behavior: Behavior normal. Thought Content: Thought content normal. Judgment: Judgment normal. Assessment and Plan Preop examination Patient can be cleared for surgery. He will need to have updated lab work prior however advised to complete labs this week. - CBC WITH WBC DIFFERENTIAL; Future - BASIC METABOLIC PANEL; Future - PT INR; Future - HEMOGLOBIN A1C; Future DM type 2 causing neurological disease (HCC) - DIABETES FOOT EXAM - TELEMEDICINE DIABETIC EYE - CBC WITH WBC DIFFERENTIAL; Future - BASIC METABOLIC PANEL; Future - PT INR; Future - HEMOGLOBIN A1C; Future - LIPID PANEL WITH DIRECT LDL IF TG IS HIGH; Future - HEPATIC FUNCTION PANEL; Future - TSH WITH FREE T4 IF INDICATED; Future Hyperlipidemia LDL goal <70 Updating labs. - LIPID PANEL WITH DIRECT LDL IF TG IS HIGH; Future - HEPATIC FUNCTION PANEL; Future - TSH WITH FREE T4 IF INDICATED; Future Bilateral carotid artery stenosis Follows with cardiology. - LIPID PANEL WITH DIRECT LDL IF TG IS HIGH; Future - HEPATIC FUNCTION PANEL; Future - TSH WITH FREE T4 IF INDICATED; Future History of CVA (cerebrovascular accident) No residual symptoms. DM type 2 nursing care encounter (HCC) Wrap-Up Follow Up: Return in about 4 months (around 12/16/2023), or if symptoms worsen or fail to improve, for needs yearly visit next time. | For: needs yearly visit next time Time: I spent a total of 10-19 minutes (exact time 19 mins) on the date of service in preparation, delivery, and documentation of the care provided to Oksana Aparicio excluding any time spent in the performance of separately billed services. * Kenneth Bradford LPN - 08/17/2023 9:47 AM EST DM Foot Exam completed today. Provider aware. Kenneth Bradford LPN Socks and Shoes Removed for Annual Diabetic Foot Screening RIGHT FOOT: No Reddened, Cracking, Or Open Areas Noted. RIGHT Dorsalis Pedis Pulse: Palpable RIGHT Posterior Tibial Pulse: Palpable RIGHT Monofilament:Patient reports feeling monofilament pressure on plantar surface of foot LEFT FOOT: No Reddened, Cracking or Open Areas Noted. LEFT Dorsalis Pedis Pulse: Palpable LEFT Posterior Tibial Pulse: Palpable LEFT Monofilament:Patient reports feeling monofilament pressure on plantar surface of foot Do you need diabetic shoes: No The importance of having a yearly diabetic eye exam has been discussed with patient. Order and/or Referral placed along with patient instructions. Provider made aware. Kenneth Bradford LPN documented in this encounter Nursing Notes * Kenneth Bradford LPN - 08/17/2023 9:43 AM EST Chief Complaint Patient presents with pre-op exam Back surgery w/ Dr. Ontiveros on 08/29/2023 Pt reports that he has been in a lot of pain- asking if refill can be sent in for hydrocodone-apap. Patient has been verbally educated on the need or importance of Colon Cancer Screening and Immunizations: flu, hep b, pneumo documented in this encounter Plan of Treatment Upcoming Encounters Date Type Department Care Team (Late st Contact Info) Description 08/17/2023 10:30 AM EST Laboratory Laboratory, [place] [address] [place] [phone] [facility] [address] [place] [id number] Arrived 12/23/2023 12:20 PM EDT Office Visit [facility], [place] [address] [place] [phone] Noah Gerber PA-C [address] [place] [address] Scheduled Orders Name Type Priority Associated Diagnoses Orde r Schedule CBC WITH WBC DIFFERENTIAL Lab Routine DM type 2 causing neurological disease (HCC) Preop examination Expected: 08/17/2023 (Approximate), Expires: 08/17/2024 BASIC METABOLIC PANEL Lab Routine DM type 2 causing neurological disease (HCC) Preop examination Expected: 08/17/2023 (Approximate), Expires: 08/16/2024 PT INR Lab Routine DM type 2 causing neurological disease (HCC) Preop examination Expected: 08/17/2023 (Approximate), Expires: 08/16/2024 HEMOGLOBIN A1C Lab Routine DM type 2 causing neurological disease (HCC) Preop examination Expected: 08/17/2023 (Approximate), Expires: 08/16/2024 LIPID PANEL WITH DIRECT LDL IF TG IS HIGH Lab Routine DM type 2 causing neurological disease (HCC) Hyperlipidemia LDL goal <70 Bilateral carotid artery stenosis Expected: 08/17/2023, Expires: 08/17/2024 HEPATIC FUNCTION PANEL Lab Routine DM type 2 causing neurological disease (HCC) Hyperlipidemia LDL goal <70 Bilateral carotid artery stenosis Expected: 08/17/2023 (Approximate), Expires: 08/16/2024 TSH WITH FREE T4 IF INDICATED Lab Routine DM type 2 causing neurological disease (HCC) Hyperlipidemia LDL goal <70 Bilateral carotid artery stenosis Expected: 08/17/2023 (Approximate), Expires: 08/16/2024 Health Maintenance Due Date Last Done Comments Hepatitis B (1 of 3 - 3-dose series) 1975 COVID-19 Vaccine (#1) 1975 Pneumococcal Vaccine: Pediatrics (0 to 5 Years) and At-Risk Patients (6 to 64 Years) (1 - PCV) 1981 HIV Screening 1990 Hepatitis C Screening 1993 Cologuard 2020 Colonoscopy 2020 Colorectal Cancer Screening 2020 Fecal Occult Blood Test 2020 Sigmoidoscopy 2020 Depression Screening 04/25/2021 04/25/2020 *SPIROMETRY ONCE FOR ASTHMA-ADULT 10/31/2021 Albumin/Creatinine Ratio [...] Procedure Name Priority Date/Time Associated Diagnosis Comments TELEMEDICINE DIABETIC EYE Routine 08/17/2023 DM type 2 causing neurological disease (HCC) documented in this encounter Results * TELEMEDICINE DIABETIC EYE (08/17/2023) 08/17/2023 Dwight Marie PA-C DIGITAL PHOTO GRAPHY documented in this encounter Visit Diagnoses Diagnosis Preop examination- Primary Preoperative examination, unspecified DM type 2 causing neurological disease (HCC) Type II or unspecified type diabetes mellitus with neurological manifestations, not stated as uncontrolled Hyperlipidemia LDL goal <70 Other and unspecified hyperlipidemia Bilateral carotid artery stenosis Occlusion and stenosis of multiple and bilateral precerebral arteries without mention of cerebral infarction History of CVA (cerebrovascular accident) Transient ischemic attack (TIA), and cerebral infarction without residual deficits DM type 2 nursing care encounter (HCC) Type II or unspecified type diabetes mellitus without mention of complication, not stated as uncontrolled documented in this encounter Advance Directives Latest Code Status on File Code Status Date Activated Date Inactivated Comments Full Code 10/28/2021 8:01 AM 10/29/2021 7:01 PM This order reflects the patients wishes and were consensually agreed upon. Care Teams Registered Nurse Behavioral Health Relationship Specialty Start Date End Date Noah Gerber PA-C [address] [place] [id number] PCP - General Physician Wallpaper Printer Helper 04/27/21 documented as of this encounter
--- OUTSIDE RECORDS SUMMARY | 2023-08-29 08:39 | External Medical Summary | Summary of Care ---
Author Name Unknown Organization [facility] Address [address] [address] Phone [phone] Care Team Providers Care Polish Maker Name Role Phone Noah Gerber PA-C Primary Care Provider [phone] Reason for Visit * Reason Comments Outpatient Testing Encounter Details Date Type Department Care Team (Late st Contact Info) Description 08/17/2023 10:30 AM EST [facility] [place] [facility] [phone] [facility] [address] [place] [address] Encounter for long-term (current) use of [...] Active HYDROcodone-Acetami nophen 10-325 MG Oral TabletIndications:H SQL DBA (herniated nucleus pulposus), lumbar Take 1 Tablet [...] 12/23/2023 12:20 PM EDT Office Visit [facility] [address] [phone] Noah Gerber PA-C [address] [place] [address] Pending Results Name Type Priority Associated Diagnoses Date /Time LIPID PANEL WITH DIRECT LDL IF TG IS HIGH Lab Routine Encounter for long-term (current) use of medications 08/17/2023 10:26 AM EST VITAMIN B12 Lab Routine Encounter for long-term (current) use of medications 08/17/2023 10:26 AM EST URIC ACID Lab Routine Encounter for long-term (current) use of medications 08/17/2023 10:26 AM EST HEMOGLOBIN A1C Lab Routine Encounter for long-term (current) use of medications 08/17/2023 10:26 AM EST COMPREHENSIVE METABOLIC PANEL Lab Routine Encounter for long-term (current) use of medications 08/17/2023 10:26 AM EST CBC WITH WBC DIFFERENTIAL Lab Routine DM type 2 causing neurological disease (HCC) Preop examination 08/17/2023 10:26 AM EST PT INR Lab Routine DM type 2 causing neurological disease (HCC) Preop examination 08/17/2023 10:26 AM EST TSH WITH FREE T4 IF INDICATED Lab Routine DM type 2 causing neurological disease (HCC) Hyperlipidemia LDL goal <70 Bilateral carotid artery stenosis 08/17/2023 10:26 AM EST CBC Lab Routine DM type 2 causing neurological disease (HCC) Preop examination 08/17/2023 10:26 AM EST DIFFERENTIAL, AUTOMATED Lab Routine DM type 2 causing neurological disease (HCC) Preop examination 08/17/2023 10:26 AM EST BILIRUBIN, DIRECT Lab Routine DM type 2 causing neurological disease (HCC) Hyperlipidemia LDL goal <70 Bilateral carotid artery stenosis 08/17/2023 10:26 AM EST Health Maintenance Due Date Last [...] as of this encounter Visit Diagnoses Diagnosis Encounter for [...] and were consensually agreed upon. Care Teams Polish Maker Relationship Specialty Start Date End Date Noah Gerber PA-C [address] [id number] PCP - General Physician Coding Advisor 04/27/21 documented as of this encounter
--- OUTSIDE RECORDS SUMMARY | 2023-08-29 08:39 | External Medical Summary | Summary of Care ---
Author Name Unknown Organization [facility] Address [address] [facility] [place] [address] Phone [phone] Care Team Providers Care Fingernail Technician Name Role Phone Rina Turner PA-C Primary Care Provider [phone] Reason for Visit * Reason Comments eRx-Medication Refill Encounter Details Date Type Department Care Team (Late st Contact Info) Description 08/16/2023 Refill [facility] [address] [facility] [place] [phone] Rina Turner PA-C [address] [facility] [place] [address] Dyslipidemia, goal LDL below 130 Allergies No known active allergiesdocumented as of this encounter (statuses as of 08/18/2023) Medications Medication Sig Dispensed Refills Start Date [...] hemoglobin A1c goal of less than 7.0% ([facility]) Use as directed 4 times [...] BEFORE BEDTIME 90 Tablet 1 08/18/2023 Active Atorvastatin Calcium 40 MG Oral Tablet [...] as of this encounter (statuses as of 08/18/2023) Active Problems Problem Noted Date Diagnosed Date [...] as of this encounter (statuses as of 08/18/2023) Resolved Problems Problem Noted Date Diagnosed Date Resolved Date Prediabetes 04/20/2021 11/25/2021 Overview: Per Prediabetes protocol Pre-operative cardiovascular examination 08/30/2014 11/05/2021 Nonspecific abnormal electro cardiogram (ECG) (EKG) 08/30/2014 11/05/2021 documented as of this encounter (statuses as of 08/18/2023) Immunizations Name Administration Dates Next Due SEASONAL [...] Telephone Encounter - Rina Turner PA-C - 08/18/2023 6:26 AM ESTSigned Prescriptions: Disp Refills Atorvastatin Calcium 40 MG Oral Tablet (Li*90 Tab*1 Sig: TAKE 1 TABLET BY MOUTH IN THE MORNING Authorizing Provider: RINA TURNER Ordering User: CELI MCCANN Gabapentin 800 MG Oral Tablet (Neurontin) 90 Tab*1 Sig: TAKE 1 TABLET BY MOUTH IN THE MORNING; 1 TAB BY MOUTH AT NOON; 1 TAB BEFORE BEDTIME Authorizing Provider: Juice TURNER * Telephone Encounter - Celi Mccann [facility] - 08/18/2023 5:01 AM ESTPending Prescriptions: Disp Refills Gabapentin 800 MG Oral Tablet (Neurontin) 90 Tab*1 Sig: TAKE 1 TABLET BY MOUTH IN THE MORNING; 1 TAB BY MOUTH AT NOON; 1 TAB BEFORE BEDTIME Signed Prescriptions: Disp Refills Atorvastatin Calcium 40 MG Oral Tablet (Li*90 Tab*1 Sig: TAKE 1 TABLET BY MOUTH IN THE MORNING Authorizing Provider: RINA TURNER Ordering User: CELI MCCANN * Telephone Encounter - Celi Mccann [facility] - 08/18/2023 5:01 AM EST [facility] is currently not authorized to approve refills for the pended medication(s) per refill protocol. Please approve if appropriate. Did you pend patient's preferred pharmacy and medication before forwarding?yes Pharmacy: [facility] Pending Prescriptions: Disp Refills Gabapentin 800 MG Oral Tablet (Neurontin) 90 Tab*1 Sig: TAKE 1 TABLET BY MOUTH IN THE MORNING; 1 TAB BY MOUTH AT NOON; 1 TAB BEFORE BEDTIME Signed Prescriptions: Disp Refills Atorvastatin Calcium 40 MG Oral Tablet (Li*90 Tab*1 Sig: TAKE 1 TABLET BY MOUTH IN THE MORNING Authorizing Provider: RINA TURNER Ordering User: CELI MCCANN Last Visit: 07/07/2022 (in office), Visit date not found (telemedicine) Next Visit: 12/23/2023 If no future appointments scheduled, and last appointment is greater than a year ago, please schedule patient for a follow-up appointment Last date the medication was ordered: 04/07/23 Is this request for a controlled substance?No Urine Drug Screen: Results for orders placed [...] Labs: Lab Results Component Value Date/Time CREAT 0.9 08/17/2023 10:26 AM CREAT 0.80 08/04/2021 12:00 AM CREAT 0.9 04/25/2020 11:27 AM POTASSIUM 4.6 08/17/2023 10:26 AM POTASSIUM 4.0 08/04/2021 12:00 AM POTASSIUM 4.3 04/25/2020 11:27 AM TSH 1.49 08/17/2023 10:26 AM TSH 0.83 11/09/2017 12:31 PM LDLCALC 104 08/17/2023 10:26 AM LDLCALC 225 (H) 08/30/2014 10:39 AM LDLDIRECT 86 10/27/2021 04:29 PM LDLDIRECT 178 (H) 04/25/2020 11:27 AM ALT 50 08/17/2023 10:26 AM ALT 88 (H) 02/28/2018 02:02 PM HGBA1C 7.5 (H) 08/17/2023 10:26 AM Thank You, Celi Mccann [facility] Pharmacist Telepharmacy [phone] 08/18/2023, 5:01 AM * Telephone Encounter - Prudencio Navarro [facility] - 08/17/2023 8:23 AM EST Postponed until 08/18/23, office visit 08/17/23 Pending Prescriptions: Disp Refills Atorvastatin Calcium 40 MG Oral Tablet (L*90 Tab*1 Sig: TAKE 1 TABLET BY MOUTH IN THE MORNING Gabapentin 800 MG Oral Tablet (Neurontin)*90 Tab*2 Sig: TAKE 1 TABLET BY MOUTH IN THE MORNING; 1 TAB BY MOUTH AT NOON; 1 TAB BEFORE BEDTIME Last Visit: 07/07/2022 (in office), Visit date not found (telemedicine) Next Visit: 08/17/2023 If no future appointments scheduled, and last appointment is greater than a year ago, please schedule patient for a follow-up appointment Last date the medication was ordered: 02/14/23, 04/07/23 Pharmacy: [facility] Is this request for a controlled [...] Description 12/23/2023 12:20 PM EDT Office Visit [facility] [place] [phone] Rina Turner PA-C [place] [id number] Health Maintenance Due Date Last Done Comments [...] as of this encounter Visit Diagnoses Diagnosis Dyslipidemia, goal LDL below 130 Other and unspecified hyperlipidemia documented in this encounter Advance Directives Latest Code Status on File Code Status Date Activated Date Inactivated Comments Full Code 10/28/2021 8:01 AM 10/29/2021 7:01 PM This order reflects the patients wishes and were consensually agreed upon. Care Teams Fingernail Technician Relationship Specialty Start Date End Date Rina Turner PA-C [address] [address] PCP - General Physician Neck Band Setter 04/27/21 documented as of this encounter
--- OUTSIDE RECORDS SUMMARY | 2023-08-29 08:39 | External Medical Summary ---
Author Name Unknown Address Unknown Organization [id number]:LABORATORY [facility] - [address] [place] [address] Laboratory Report Ordering Provider Test Date Status JONNY FERRO 08/17/2023 10:26:54 Final Observation Date Value Abnormality Reference (Units ) Status TSH 08/17/2023 10:26:54 1.49 0.27-4.20 (uIU/mL) Final Performing Location LABORATORY [facility] - [address] [facility] [address]
--- OUTSIDE RECORDS SUMMARY | 2023-08-29 08:39 | External Medical Summary ---
Author Name Unknown Address Unknown Organization [id number]:[facility] [place] [address] [facility] [address] Laboratory Report Ordering Provider Test Date Status JONNY FERRO 08/17/2023 10:26:54 Final Observation Date Value Abnormality Reference (Units ) Status SYNC LEUKOCYTES IN BLOOD BY AUTOMATED COUNT 08/17/2023 10:26:54 7.61 4.00-10.80 (K/uL) Final Segs 08/17/2023 10:26:54 61.1 40.0-75.0 (%) Final Lymphs % 08/17/2023 10:26:54 26.1 18.0-42.0 (%) Final Monos 08/17/2023 10:26:54 7.4 1.0-11.0 (%) Final Eosinophils 08/17/2023 10:26:54 4.6 0.0-6.0 (%) Final Basos 08/17/2023 10:26:54 0.7 0.0-2.0 (%) Final Immature Granulocyte, Percent 08/17/2023 10:26:54 0.1 0.0-2.0 (%) Final Absolute Segs 08/17/2023 10:26:54 4.65 1.80-7.70 (K/uL) Final Lymphs, absolute 08/17/2023 10:26:54 1.99 1.00-4.80 (K/ul) Final Monos, Abs 08/17/2023 10:26:54 0.56 0.00-1.10 (K/uL) Final Eos, Abs 08/17/2023 10:26:54 0.35 0.00-0.70 (K/uL) Final Basos, Abs 08/17/2023 10:26:54 0.05 0.00-0.20 (K/uL) Final Immature Granulocytes, Number 08/17/2023 10:26:54 0.01 0.00-0.20 (K/uL) Final Performing Location [facility] [place] [address] [facility] [address]
--- OUTSIDE RECORDS SUMMARY | 2023-08-29 08:39 | External Medical Summary ---
Author Name Unknown Address Unknown Organization K01:LABORATORY [facility] - [address] [place] [address] Laboratory Report Ordering Provider Test Date Status KING SALTER 08/17/2023 10:26:54 Final Observation Date Value Abnormality Reference (Units ) Status Vitamin B12 08/17/2023 10:26:54 [phone] (pg/mL) Final Performing Location LABORATORY [facility] - [address] [place] [address]
[2023-08-29] MEDS ORDERED: ROCURONIUM BROMIDE 10 MG/ML 5 ML VIAL IV ONE ×2 (08:40→11:08)
[2023-08-29] MEDS ORDERED: LIDOCAINE 2% 2 ML VIAL/AMP(20MG/ML) INFIL ONE (08:40)
[2023-08-29] MEDS ORDERED: ONDANSETRON INJ 2 MG/ML 2 ML VIAL ONE (08:40)
[2023-08-29] MEDS ORDERED: PROPOFOL IV EMULSION 10 MG/ML 20 ML VIAL IV ONE (08:40)
[2023-08-29] MEDS ORDERED: MIDAZOLAM HCL 1 MG/ML 2ML VIAL ONE (08:41)
[2023-08-29] MEDS ORDERED: fentaNYL citrate PF 100 MCG/2 ML VIAL ONE ×2 (08:41→10:11)
[2023-08-29] MEDS ORDERED: SUGAMMADEX SODIUM 200 MG/2 ML VIAL IV ONE (08:42)
[2023-08-29] MEDS ORDERED: ATROPINE SULFATE 0.1 MG/ML 10ML SYR IV PRN (09:05)
[2023-08-29] MEDS ORDERED: PROMETHAZINE HCL 6.25 MG in SODIUM CHLORIDE 0.9% 50 ML IV PRN (09:05)
[2023-08-29] MEDS ORDERED: ePHEDrine sulfate 50 MG/ML AMP IV PRN (09:05)
[2023-08-29] MEDS ORDERED: HYDROmorphone INJ 2 MG/ML SYR/VIAL IV PRN (09:05)
[2023-08-29] MEDS ORDERED: ONDANSETRON INJ 2 MG/ML 2 ML VIAL IV PRN ×2 (09:05→14:30)
--- NOTE | 2023-08-29 09:12 | History & Physical Bridge Note ---
Date of Service August 29, 2023 History & Physical Bridge Note I have examined the patient, reviewed the History & Physical and in the interval since the performance of the History & Physical I have noted the following changes of clinical significance: no changes noted
--- NOTE | 2023-08-29 09:13 | History & Physical Report ---
Date of Service August 29, 2023 Assessment & Plan (1) Neurogenic claudication due to lumbar spinal stenosis: Plan: L4-S1 decompression and fusion, L3-L4 hardware removal History of Present Illness Chief Complaint: Back and leg pain Primary Care Provider: Noah Gerber PA-C This is a 48-year-old female who presents with chronic persistent back and leg pain after failing course of nonoperative care is here for surgical invention. Allergies Allergy/AdvReac Type Severity Reaction Status Date / Time No Known Allergies Allergy Verified 08/29/23 08:28 Home Medications Medication Instructions Recorded Confirmed Type allopurinol 100 mg tablet 100 mg PO QAM 08/05/23 08/29/23 History aspirin 81 mg capsule 81 mg PO QAM 08/05/23 08/29/23 History atorvastatin 40 mg tablet 40 mg PO QAM 08/05/23 08/29/23 History celecoxib 200 mg capsule (Celebrex) 200 mg PO BID 08/05/23 08/29/23 History gabapentin 800 mg tablet 800 mg PO TID 08/05/23 08/29/23 History metformin 500 mg tablet 500 mg PO BID 08/05/23 08/29/23 History hydrocodone 5 mg-acetaminophen 325 1 tab PO Q8H PRN Pain 08/29/23 08/29/23 History mg tablet Past Med/Surg History Medical History (Updated 08/29/23 @ 09:13 by Akin Ontiveros DO) Carotid stenosis Right ICA <50% stenosis; no carotid stenosis to left ICA per 12/10/21 neck CTA 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 per cardio records Hx of wheezing occasional bouts of wheezing - usually at the end of the day Stroke 10/2021, went to [facility], one side of his body-unable to move leg, speech difficulty>no residual symptoms High cholesterol Diabetes mellitus, type 2 Glucose controlled Hx of gout No recent flares Surgical History 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 S/P epidural steroid injection x3 prior to first back surgery History of total left hip replacement History of lumbar surgery Social History Smoking Status: Former smoker Smoking End Date: years ago; Second Hand Exposure: No; Do You Dip or Chew Tobacco: Yes (1 can/day; advised); Tobacco Cessation Education Requested by Patient: No Hx Alcohol Use: Yes Hx Substance Use: No Preferred Language: Afghan Communication Ability: Effective Geothermal Hvac Technician Required: No Beliefs That Will Affect Care: None Current Living Situation: Spouse and Family Other Information That Helps Us Care for You: No Feels Safe at Home: Yes Safety Concerns: Feels Safe At This Time Assistive Devices: None Physical Exam Physical Exam: Patient is alert and oriented Heart regular rhythm Lungs clear Results & Data Results & Data Vital Signs (Past 12 Hours) Vital Signs Temp Pulse Resp BP Pulse Ox O2 Del Method 08/29/23 08:34 36.8 C 80 18 145/90 H 96 Room Air
[2023-08-29] MEDS ORDERED: ceFAZolin 330 MG/ML 1 GM VIAL ONE (09:25)
[2023-08-29] MEDS ORDERED: BUPIVACAINE/EPINEPHRINE 0.25% 1:200,000 30 ML VIAL ONE (09:25)
[2023-08-29] MEDS ORDERED: ACETAMINOPHEN 1000 MG/100 ML IV IV ONE (09:26)
[2023-08-29] MEDS ORDERED: HYDROmorphone INJ 2 MG/ML SYR/VIAL ONE (10:33)
[2023-08-29] MEDS ORDERED: FLOSEAL HEMOSTATIC MATRIX 10ML TOP ONE (10:42)
--- NOTE | 2023-08-29 12:47 | Operative Report ---
Post Operative Report Pre & Post Diagnosis Operation Date: 08/29/23 09:35 Pre-Op Diagnosis: Neurogenic claudication due to lumbar spinal stenosis Morbid obesity Post-Op Diagnosis: Same I identified the patient and participated in the time-out.: Yes Procedure Operation Date: 08/29/23 09:35 Actual Procedures #1 removal of posterior instrumentation L3-L4. #2 exploration of fusion L3-L4. #3 lumbar decompression bilaterally facetectomies and foraminotomies L4-L5 L5- S1. #4 posterior spinal fusion L4-L5 L5-S1. #5 placement posterior segmental instrumentation L3-S1. #6 interbody fusion L4-L5 L5-S1. #7 placement of Spira 15 x 26 mm cage at L4-5 and 13 x 26 mm cage x2 at L5-S1. #8 placement locally harvested morselized autograft and posterior gutters. #9 placement of I factor in the interbody space and infuse collagen sponge bone mass graft in the posterior lateral gutters. Surgeon Akin Ontiveros, DO Php Consultant Laurie Jordan Estimated Blood Loss 800 Findings See Below The patient is 5 foot 8 weighing over 129 kg with a BMI in excess of 43. This combined with an EBL of greater than 800 cc created significant technical difficulty and at least 50% increased operative time Specimens None Indications This is a 48-year-old male well-known to me the presents with above-mentioned diagnosis and failing course of nonoperative care is here for surgical invention Description of Procedure Patient was met with identified informed consent obtained. Patient was then taken to the operative suite underwent a patient placed in a prone position on Luis Enrique table top Aldair frame. All bony promises well-padded eyes inspected to ensure no external pressure placed upon. This point lumbar spine was prepped and draped in a sterile fashion. Sharp dissection with the assistance of Bovie cautery from down to and exposing the lamina transverse processes of L4-5 and sacral ala including the instrumentation at L3-L4 bilaterally. Then proceeded move the hardware bilaterally explore the fusion mass noting it to be mature and intact. Then performed a complete laminectomy L5 and L4 including bilateral medial facetectomies and foraminotomies addressing severe spinal stenosis. Pedicle screws were then placed in L3-L4-L5 and S1 levels bilaterally with assistance of fluoroscopy and the properly sized venita placed. By way the transforaminal approach on the right discectomy of L5-S1 was performed endplates guided to subcortical bleeding bone and a 13 x 26 mm Spira cage with I factor tapped in position. Then proceeded a transforaminal approach on the left and completed the discectomy curetted the endplates to subcortical bone and placed a second 13 x 26 mm Spira cage with I factor in the L5-S1 disc space. By way of a transfemoral approach on the right a complete discectomy L4-L5 was performed endplates guided to subcortical bleeding bone and a 15 x 26 mm Spira cage with I factor tapped in position. The rods then compressed locked into final position bilaterally. The transverse processes of L4-5 and the sacral ala burred to subcortical pain bone. Infuse collagen sponge combined mass graft local autograft placed in the posterior gutters. 15 round ARNIE drain inserted. The incision was then closed with 1 Vicryl to fascia 2-0 Vicryl subcutaneously and 4 Monocryl for final skin closure. Steri-Strips sterile dressing placed. Patient waken taken to PACU stable condition. Please note spinal cord monitoring was utilized at the procedure no changes noted. Lastly Laurie Jordan was present at the entire surgery and with the patient positioning complex portion of the surgery and final skin closure. I attest to the content of the Intraoperative Record and any orders documented therein. Any exceptions are noted below.
[2023-08-29] MEDS: fentaNYL citrate PF 100 MCG/2 ML VIAL IV PRN ×2 (13:49→13:57)
--- NOTE | 2023-08-29 14:22 | Fluoroscopy Report ---
FL lumbar spine 2-3V CLINICAL HISTORY: L4-S1 DECOMPRESSION AND FUSION TECHNIQUE: 2 views were obtained with the C-arm in the OR with the above procedure. Total fluoroscopy time was 19.2 seconds. Radiation dose was 19.29 mGy. Comparison: None available at the time of this dictation. FINDINGS/IMPRESSION: Intraoperative images were obtained of L3-S1 fusion. Please correlate with intraoperative fluoroscopy and operative report. ACT 112: Negative or not required by law. Electronically signed by: Vini Ramos M.D. 08/29/2023 2:21 PM
[2023-08-29] MEDS ORDERED: METOCLOPRAMIDE HCL INJ 5 MG/ML 2 ML VIAL IV PRN (14:30)
[2023-08-29] MEDS ORDERED: ACETAMINOPHEN 500 MG TAB PO PRN (14:30)
[2023-08-29] MEDS ORDERED: LORazepam 0.5 MG TAB PO PRN (14:30)
[2023-08-29] MEDS ORDERED: DO NOT ADMINISTER PNEUMOCOCCAL VACCINE PRN (14:30)
[2023-08-29] MEDS ORDERED: HYDROmorphone INJ 0.5 MG/0.5 ML SYR IV PRN (14:30)
[2023-08-29] MEDS ORDERED: LORazepam 0.5 MG in SYRINGE 0.25 ML IV PRN (14:30)
[2023-08-29] MEDS ORDERED: bisacodyL 10 MG SUPP PR PRN (14:30)
[2023-08-29] MEDS ORDERED: ACETAMINOPHEN 1,000 MG/100 ML VIAL IV PRN (14:30)
[2023-08-29] MEDS ORDERED: MAGNESIUM HYDROXIDE SUSP 30 ML UDC PO PRN (14:30)
[2023-08-29] MEDS ORDERED: ONDANSETRON 4 MG OD TAB PO PRN (14:30)
[2023-08-29] MEDS ORDERED: PHARMACY GLYCEMIC MGMT CONSULT PRN (14:30)
[2023-08-29] MEDS ORDERED: diphenhydrAMINE Capsule 25 MG CAP PO PRN (14:30)
[2023-08-29] MEDS ORDERED: FAMOTIDINE 20 MG TAB PO PRN (14:30)
[2023-08-29] MEDS ORDERED: SOD PHOSPHATE/SOD BIPHOSPHATE ENEMA 132 ML BTL PR PRN (14:30)
[2023-08-29] MEDS ORDERED: ALUMINUM/MAGNESIUM SUSP 30 ML UDC PO PRN (14:30)
[2023-08-29] MEDS ORDERED: DO NOT ADMINISTER FLU VACCINE PRN (14:30)
[2023-08-29] MEDS ORDERED: NALOXONE HCL 0.4 MG/1 ML VIAL/CARP IV PRN (14:30)
[2023-08-29] MEDS ORDERED: PROMETHAZINE HCL 12.5 MG in SODIUM CHLORIDE 0.9% 50 ML IV PRN (14:30)
[2023-08-29] MEDS ORDERED: traMADol HCL 50 MG TABLET PO PRN (14:30)
[2023-08-29] MEDS ORDERED: hydrOXYzine HCl 25 MG TAB PO PRN (14:30)
--- NOTE | 2023-08-29 14:42 | Anesthesiology Progress Note ---
Date of Service August 29, 2023 Anesthesia Post Procedure Vital Signs Vital Signs: Temp Pulse Pulse Resp BP BP Pulse Ox 08/29/23 14:30 36.9 C 95 H 16 123/85 96 08/29/23 14:15 36.4 C L 95 H 15 132/68 95 08/29/23 14:05 95 H 12 101/79 95 08/29/23 13:55 108 H 12 138/87 94 08/29/23 13:45 105 H 12 124/83 95 08/29/23 13:35 105 H 12 138/87 96 08/29/23 13:25 101 H 12 127/76 96 08/29/23 13:17 37.2 C 102 H 12 155/95 H 95 08/29/23 08:34 36.8 C 80 18 145/90 H 96 O2 Del Method O2 Flow Rate 08/29/23 14:30 Nasal Cannula 3 08/29/23 14:15 Nasal Cannula 3 08/29/23 14:05 Nasal Cannula 3 08/29/23 13:55 Nasal Cannula 3 08/29/23 13:45 Nasal Cannula 3 08/29/23 13:35 Oxymask 10 08/29/23 13:25 Oxymask 10 08/29/23 13:17 Oxymask 10 08/29/23 08:34 Room Air Pain Intensity Right Hip: Pain Intensity: 8 Lower Back: Pain Intensity: 4 Transfer of Care Handoff Completed per policy Notes Mental Status: alert / awake / arousable and participated in evaluation Patient Amnestic to Procedure: Yes Nausea / Vomiting: adequately controlled Pain: adequately controlled Airway Patency, RR, SpO2: stable & adequate BP & HR: stable & adequate Hydration State: stable & adequate Anesthetic Complications: no major complications apparent and Pt Satisfied with anesthetic care
[2023-08-29] MEDS: LACTATED RINGER'S 1,000 ML IV SCH (14:43)
--- NOTE | 2023-08-29 14:50 | Pharmacy Report ---
Pharmacy Glycemic Short Note 2 - Date of Service August 29, 2023 - Glycemic Short BSG Results (Last 24 hours): 08/29/23 08/29/23 08:32 13:15 POC Glucose 121 H 130 H OUTPATIENT ANTIDIABETIC REGIMEN: * metformin 500 mg PO BIDM HbA1c: 7.4% (08/15/23) ASSESSMENT: * TAWNY is a 48 year old male POD #0 s/p spinal decompression/fusion * No perioperative steroids documented as given. Dexamethasone 6 mg IV daily x 3 doses to start tomorrow morning. * Preop BSG of 121 mg/dL, postoperative BSG of 130 mg/dL * Since no steroids appear to have been given in OR, will utilize weight- based/stress of 2 Novolog parameters and conservative initial basal. Will tighten everything tomorrow with IV dexamethasone. PLAN FOR INPATIENT GLYCEMIC CONTROL: * Hold outpatient oral diabetes medications * Basal insulin * Lantus 10 units SQ x 1 * Bolus insulin * NovoLog per scale ACHS or Q6hrs while NPO * Goal Range: Low 110 mg/dL - High 140 mg/dL * Correction Factor: 25 mg/dL/unit * Nutritional / Prandial insulin per carb ratio of 1 unit per 8 grams CHO consumed
[2023-08-29] MEDS ORDERED: CARBOHYDRATES FOR HYPOGLYCEMIA PO PRN (15:00)
[2023-08-29] MEDS ORDERED: DEXTROSE 50% 50 ML SYRINGE IV PRN (15:00)
[2023-08-29] MEDS ORDERED: GLUCAGON FOR INJ 1 MG VIAL IM PRN (15:00)
[2023-08-29] MEDS ORDERED: GLUCOSE 10 TAB/TUBE PO PRN (15:00)
[2023-08-29] MEDS ORDERED: GLUCOSE 40% GEL 15 GM TUBE PO PRN (15:00)
[2023-08-29] MEDS: GABAPENTIN 800 MG TAB PO SCH ×2 (15:37→19:54)
[2023-08-29] MEDS ORDERED: oxyCODONE HCL IR 5 MG TAB (IMMEDIATE RELEASE) PO STA (16:14)
[2023-08-29] MEDS ORDERED: LANTUS PER UNIT CHARGE SC ONE (16:30)
[2023-08-29] MEDS: INSULIN ASPART PER UNIT CHARGE SC SCH ×2 (16:42→20:09)
--- NOTE | 2023-08-29 16:42 | Consultation ---
Date of Consultation August 29, 2023 Assessment & Plan (1) Neurogenic claudication due to lumbar spinal stenosis: (2) Post-operative state: s/p L4-S1 decompression and fusion with removal of L3-[address] Ontiveros EBL 800 POD #0 -pain/wound management per Ortho -VTE prophylaxis per Ortho, encourage early ambulation -incentive spirometry encouraged -CBC, BMP in am -PT/OT and activity restrictions per Ortho (3) Diabetes mellitus, type 2: Fairly well controlled with A1C 7.4. Hold metformin and continue basal/bolus insulin per glycemic pharmacist recommendations. (4) Morbid obesity: Lifestyle changes recommended to reduce percent body fat. (5) Carotid stenosis: chronic, stable. Cont medical management with ASA 81mg daily and statin. (6) Gout: chronic, stable. Cont allopurinol per home regimen. DVT proph-SCDs/ambulation Full Code Dispo- per ortho spine. Thank you for this consultation. Please send any questions to the [facility] Hospitalist role in tiger. I spent a total [id number] coordinating, documenting, and providing care for this patient excluding time spent in the performance of separately billed services. Floridalma Kearney DO [facility] Hospitalist History of Present Illness Reason for Consultation: medication management Attending Physician: Akin Ontiveros DO History of Present Illness 48 yo diabetic man presents today for elective L4-S1 decompression and fusion with L3-4 hardware removal. He is reporting some post operative pain and was given oral medications. He is typically on hydrocodone at home in addition to celebrex. History and physical was performed today. He reports a h/o gout, DMII that is fairly well controlled with a recent A1C of 7.4 (goal <7). He reports that his PCP wants him switched to an injectable medicine after this hospitalization. It was explained to him that we would be using insulin in the hospital, which he verbalized understanding. He also has a h/o stroke in the past with no reported residual deficits. ROS reveals no shortness of breath, chest pain, numbness in his feet. He is wanting to be repositioned to help deal with the discomfort. was in the room, also. Allergies Allergy/AdvReac Type Severity Reaction Status Date / Time No Known Allergies Allergy Verified 08/29/23 08:28 Home Medications Medication Instructions Recorded Confirmed Type allopurinol 100 mg tablet 100 mg PO QAM 08/05/23 08/29/23 History aspirin 81 mg capsule 81 mg PO QAM 08/05/23 08/29/23 History atorvastatin 40 mg tablet 40 mg PO QAM 08/05/23 08/29/23 History celecoxib 200 mg capsule (Celebrex) 200 mg PO BID 08/05/23 08/29/23 History gabapentin 800 mg tablet 800 mg PO TID 08/05/23 08/29/23 History metformin 500 mg tablet 500 mg PO BID 08/05/23 08/29/23 History hydrocodone 5 mg-acetaminophen 325 1 tab PO Q8H PRN Pain 08/29/23 08/29/23 History mg tablet Patient History Medical History (Updated 08/29/23 @ 17:05 by Floridalma Kearney DO) Carotid stenosis Right ICA <50% stenosis; no carotid stenosis to left ICA per 12/10/21 neck CTA 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 per cardio records Hx of wheezing occasional bouts of wheezing - usually at the end of the day Stroke 10/2021, went to [facility], one side of his body-unable to move leg, speech difficulty>no residual symptoms High cholesterol Diabetes mellitus, type 2 Glucose controlled Hx of gout No recent flares Surgical History 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 S/P epidural steroid injection x3 prior to first back surgery History of total left hip replacement History of lumbar surgery Social History Smoking Status: Former smoker Smoking End Date: years ago; Second Hand Exposure: No; Do You Dip or Chew Tobacco: Yes (1 can/day; advised); Tobacco Cessation Education Requested by Patient: No Hx Alcohol Use: Yes Hx Substance Use: No Preferred Language: Macedonian Communication Ability: Effective Warp Placer Required: No Beliefs That Will Affect Care: None Current Living Situation: Spouse and Family Other Information That Helps Us Care for You: No Feels Safe at Home: Yes Safety Concerns: Feels Safe At This Time Assistive Devices: None Physical Exam Physical Exam: CONSTITUTIONAL: WNWD, vitals as above, generally well-appearing EYES: normal conjunctivae, no scleral icterus ENT: external ear and nose normal, oropharynx clear NECK: trachea midline RESPIRATORY: clear to auscultation bilaterally, no crackles, rales or wheezes, normal respiratory effort CARDIOVASCULAR: regular rate and rhythm, S1 and 2 heard without murmurs, gallops or rubs, no JVD, no peripheral edema CHEST: inspection of chest was normal GASTROINTESTINAL: soft, nontender, ND, no guarding MUSCULOSKELETAL: strength 5/5 throughout, head is normocephalic and atraumatic SKIN: warm and dry NEUROLOGIC: CN 2-12 grossly intact, no sensory deficit, normal cognition, normal speech, no tremor PSYCHIATRIC: alert cooperative and oriented to person, place and time. Euthymic mood, makes good eye contact, language grossly intact, recent and remote memory grossly intact. Results & Data Vital Signs (Past 12 Hours) Vital Signs Temp Pulse Pulse Resp BP BP Pulse Ox 08/29/23 16:35 36.7 C 4 L 14 112/65 97 08/29/23 15:30 36.6 C 100 H 16 127/74 97 08/29/23 15:00 36.7 C 98 H 16 94/63 L 96 08/29/23 14:30 36.9 C 95 H 16 123/85 96 08/29/23 14:15 36.4 C L 95 H 15 132/68 95 08/29/23 14:05 95 H 12 101/79 95 08/29/23 13:55 108 H 12 138/87 94 08/29/23 13:45 105 H 12 124/83 95 08/29/23 13:35 105 H 12 138/87 96 08/29/23 13:25 101 H 12 127/76 96 08/29/23 13:17 37.2 C 102 H 12 155/95 H 95 08/29/23 08:34 36.8 C 80 18 145/90 H 96 O2 Del Method O2 Flow Rate 08/29/23 16:35 Nasal Cannula 3 08/29/23 15:30 Nasal Cannula 3 08/29/23 15:00 Nasal Cannula 3 08/29/23 14:30 Nasal Cannula 3 08/29/23 14:15 Nasal Cannula 3 08/29/23 14:05 Nasal Cannula 3 08/29/23 13:55 Nasal Cannula 3 08/29/23 13:45 Nasal Cannula 3 08/29/23 13:35 Oxymask 10 08/29/23 13:25 Oxymask 10 08/29/23 13:17 Oxymask 10 08/29/23 08:34 Room Air Diagnostic Findings Lumbar Spine X-Ray 08/29/23 09:35 FL lumbar spine 2-3V CLINICAL HISTORY: L4-S1 DECOMPRESSION AND FUSION TECHNIQUE: 2 views were obtained with the C-arm in the OR with the above procedure. Total fluoroscopy time was 19.2 seconds. Radiation dose was 19.29 mGy. Comparison: None available at the time of this dictation. FINDINGS/IMPRESSION: Intraoperative images were obtained of L3-S1 fusion. Please correlate with intraoperative fluoroscopy and operative report. ACT 112: Negative or not required by law. Electronically signed by: Vini Ramos M.D. 08/29/2023 2:21 PM Medications Administered Current Inpatient Medications Acetaminophen (Acetaminophen 500 Mg Tab) 1,000 mg PO PREOP DAVEY Stop: 08/29/23 18:00 Last Admin: 08/29/23 08:45 Dose: 1,000 mg Acetaminophen (Acetaminophen 500 Mg Tab) 1,000 mg PO Q8H PRN PRN Reason: MILD Pain Scale 1,2,3 & Pre PT Stop: 09/28/23 14:29 Al Hydrox/Mg Hydrox/Simethicone (Aluminum/Magnesium Susp 30 Ml Udc) 30 ml PO Q6H PRN PRN Reason: Dyspepsia Stop: 09/28/23 14:29 Allopurinol (Allopurinol 100 Mg Tab) 100 mg PO QAM DAVEY Stop: 09/29/23 08:59 Aspirin (Aspirin 81 Mg Ectab) 81 mg PO QAM DAVEY Stop: 09/29/23 08:59 Atorvastatin Calcium (Atorvastatin 40 Mg Tab) 40 mg PO QAM DAVEY Stop: 09/29/23 08:59 Atropine Sulfate (Atropine Sulfate 0.1 Mg/Ml 10ml Syr) 0.5 mg IV Q1M PRN PRN Reason: PACU Use-HR<40 &/or Bradycardi Stop: 08/29/23 17:05 Bisacodyl (Bisacodyl 10 Mg Supp) 10 mg DC DAILY PRN PRN Reason: Constipation Stop: 09/28/23 14:29 Celecoxib (Celebrex 200 Mg Cap) 200 mg PO PREOP DAVEY Stop: 08/29/23 18:00 Last Admin: 08/29/23 08:45 Dose: 200 mg Dextrose (Dextrose 50% 50 Ml Syringe) 25 - 50 ml IV UD PRN; Protocol PRN Reason: Hypoglycemia Protocol Stop: 09/28/23 14:59 Diphenhydramine HCl (Diphenhydramine Capsule 25 Mg Cap) 25 mg PO Q6H PRN PRN Reason: Allergic Rhinitis/Insomnia Stop: 09/28/23 14:29 Ephedrine Sulfate (Ephedrine Sulfate 50 Mg/Ml Amp) 5 mg IV Q5M PRN PRN Reason: PACU Use Only-SBP<90 mmHg Stop: 08/29/23 17:05 Famotidine (Famotidine 20 Mg Tab) 20 mg PO Q12H PRN PRN Reason: Dyspepsia Stop: 09/28/23 14:29 Fentanyl Citrate (Fentanyl Citrate Pf 100 Mcg/2 Ml Vial) 25 mcg IV Q5M PRN PRN Reason: PACU Use Only-Pain Stop: 08/29/23 17:05 Last Admin: 08/29/23 13:57 Dose: 25 mcg Gabapentin (Gabapentin 900 Mg Dose) 900 mg PO PREOP DAVEY Stop: 08/29/23 18:00 Last Admin: 08/29/23 08:46 Dose: Not Given Gabapentin (Gabapentin 800 Mg Tab) 800 mg PO TID DAVEY Stop: 09/28/23 14:29 Last Admin: 08/29/23 15:37 Dose: 800 mg Glucagon (Glucagon For Inj 1 Mg Vial) 1 mg IM UD PRN; Protocol PRN Reason: Hypoglycemia Protocol Stop: 09/28/23 14:59 Glucose (Glucose 40% Gel 15 Gm Tube) 15 - 30 gm PO UD PRN; Protocol PRN Reason: Hypoglycemia Protocol Stop: 09/28/23 14:59 Glucose (Glucose 10 Tab/Tube) 4 - 8 tab PO UD PRN; Protocol PRN Reason: Hypoglycemia Protocol Stop: 09/28/23 14:59 Hydromorphone HCl (Hydromorphone Inj 2 Mg/Ml Syr/Vial) 0.5 mg IV Q5M PRN PRN Reason: PACU Use Only-Pain Stop: 08/29/23 17:05 Hydromorphone HCl (Hydromorphone Inj 0.5 Mg/0.5 Ml Syr) 0.5 mg IV Q3H PRN PRN Reason: MODERATE Pain (Scale 4,5,6) & Pre PT Stop: 09/12/23 14:29 Hydromorphone HCl (Hydromorphone Inj 1 Mg/Ml Syringe) 1 mg IV Q3H PRN PRN Reason: SEVERE Pain (Scale 7,8,9,10) Stop: 09/12/23 14:29 Hydroxyzine HCl (Hydroxyzine Hcl 25 Mg Tab) 25 mg PO Q8H PRN PRN Reason: Anxiety Stop: 09/28/23 14:29 Lactated Ringer's (Lr) 1,000 mls @ 15 mls/hr IV .Q24H DAVEY Stop: 08/30/23 05:59 Last Infusion: 08/29/23 09:41 Dose: Infused Lactated Ringer's (Lr) 1,000 mls @ 60 mls/hr IV .[id number] DAVEY Stop: 08/29/23 22:39 Last Admin: 08/29/23 08:46 Dose: Not Given Cefazolin Sodium (Ancef 3000mg) 72.5 mls @ 130 mls/hr IV PREOP DAVEY; Protocol Stop: 08/29/23 18:00 Last Infusion: 08/29/23 15:23 Dose: Infused Promethazine HCl 6.25 mg/ (Sodium Chloride) 50.25 mls @ 204 mls/hr IV ONCE PRN PRN Reason: PACU Use Only-Nausea/Vomiting Stop: 08/29/23 17:05 Lactated Ringer's (Lr) 1,000 mls @ 150 mls/hr IV .Q6H40M DAVEY Stop: 09/28/23 14:29 Last Admin: 08/29/23 14:43 Dose: 150 mls/hr Promethazine HCl 12.5 mg/ (Sodium Chloride) 50.5 mls @ 202 mls/hr IV Q6H PRN PRN Reason: Nausea &/or Vomiting Stop: 09/28/23 14:29 Acetaminophen (Ofirmev) 1,000 mg in 100 mls @ 400 mls/hr IV Q8H PRN PRN Reason: Pain Rating 1-3 & Pre PT Stop: 08/30/23 14:30 Cefazolin Sodium (Ancef 2000mg) 2,000 mg in 15 mls @ 3.75 mls/min IV Q8H DAVEY; Protocol Stop: 08/30/23 03:03 Lorazepam 0.5 mg/ Syringe 0.5 mls @ 2 mls/min IV Q8H PRN; Protocol PRN Reason: Sedation/Anxiety Stop: 09/28/23 14:29 Dexamethasone 6 mg/ Syringe 1.5 mls @ 1 mls/min IV DAILY DAVEY Stop: 09/01/23 09:02 Influenza Virus Vaccine Quadrival (Do Not Administer Flu Vaccine) 1 each N/A PRN PRN PRN Reason: Notification Stop: 09/28/23 14:29 Insulin Aspart (Insulin Aspart Per Unit Charge) 0 units SC ACHS DAVEY Stop: 09/28/23 16:29 Last Admin: 08/29/23 16:42 Dose: Not Given Lorazepam (Lorazepam 0.5 Mg Tab) 0.5 mg PO Q8H PRN PRN Reason: Sedation/Anxiety Stop: 09/28/23 14:29 Magnesium Hydroxide (Magnesium Hydroxide Susp 30 Ml Udc) 30 ml PO Q24H PRN PRN Reason: Constipation Stop: 09/28/23 14:29 Metoclopramide HCl (Metoclopramide Hcl Inj 5 Mg/Ml 2 Ml Vial) 10 mg IV Q6H PRN PRN Reason: Nausea &/or Vomiting Stop: 09/28/23 14:29 Miscellaneous (Carbohydrates For Hypoglycemia ) 15 - 30 gm PO UD PRN PRN Reason: Hypoglycemia Treatment Stop: 09/28/23 14:59 Miscellaneous Information (Pharmacy Glycemic Mgmt Consult) 1 each N/A UD PRN PRN Reason: Consult Stop: 09/28/23 14:29 Naloxone HCl (Naloxone Hcl 0.4 Mg/1 Ml Vial/Carp) 0.1 mg IV Q5M PRN PRN Reason: Oversedation/Resp depression Stop: 09/28/23 14:29 Ondansetron HCl (Ondansetron Inj 2 Mg/Ml 2 Ml Vial) 4 mg IV ONCE PRN PRN Reason: PACU Use Only-Nausea/Vomiting Stop: 08/29/23 17:05 Ondansetron HCl (Ondansetron Inj 2 Mg/Ml 2 Ml Vial) 4 mg IV Q6H PRN PRN Reason: Nausea &/or Vomiting Stop: 09/28/23 14:29 Ondansetron HCl (Ondansetron 4 Mg Od Tab) 4 mg PO Q6H PRN PRN Reason: Nausea Stop: 09/28/23 14:29 Oxycodone HCl (Oxycodone Hcl Ir 5 Mg Tab (Immediate Release)) 5 - 10 mg PO Q4H PRN PRN Reason: Pain & Pre PT Stop: 09/12/23 14:29 Pneumococcal Polyvalent Vaccine (Do Not Administer Pneumococcal Vaccine) 1 each N/A PRN PRN PRN Reason: Notification Stop: 09/28/23 14:29 Polyethylene Glycol (Polyethylene (Miralax) 17 Gm Pack) 17 gm PO Q6 DAVEY Stop: 09/29/23 05:59 Senna/Docusate Sodium (Docusate Sodium/Senna 50/8.6mg Tab) 2 tab PO HS DAVEY Stop: 09/28/23 20:59 Sodium Biphosphate/Sodium Phosphate (Sod Phosphate/Sod Biphosphate Enema 132 Ml Btl) 132 ml DC ONE PRN PRN Reason: Constipation Stop: 09/28/23 14:29 Tramadol HCl (Tramadol Hcl 50 Mg Tablet) 50 - 100 mg PO Q4H PRN PRN Reason: Moderate-Severe pain & Pre PT Stop: 09/28/23 14:29
[2023-08-29] MEDS: ceFAZolin 2000MG 2,000 MG/15 ML SYR IV SCH (19:48)
[2023-08-29] MEDS: HYDROmorphone INJ 1 MG/ML SYRINGE IV PRN (19:49)
[2023-08-29] MEDS: DOCUSATE SODIUM/SENNA 50/8.6MG TAB PO SCH (19:54)
--- OUTSIDE RECORDS SUMMARY | 2023-08-29 22:12 | External Medical Summary | Summary of Care ---
Author Name Unknown Organization [facility] Address [address] [facility] [place] [address] Phone [phone] Care Team Providers Care Neurology Epilepsy Physician Name Role Phone Noah Gerber PA-C Primary Care Provider [phone] Reason for Visit * Reason Onset Date Comments Medication Pre-auth 08/25/2023 Hydrocodone- apap Encounter Details Date Type Department Care Team (Late st Contact Info) Description 08/25/2023 Telephone [facility] [address] [facility] [place] [phone] Noah Gerber PA-C [address] [facility] [place] [id number] Medication Pre-auth (Hydrocodone-apap) Allergies No known active allergiesdocumented as of this encounter (statuses as of 08/29/2023) Medications Medication Sig Dispensed Refills Start Date [...] hemoglobin A1c goal of less than 7.0% ([facility]) Use as directed 4 times a [...] as of this encounter (statuses as of 08/29/2023) Active Problems Problem Noted Date Diagnosed Date [...] as of this encounter (statuses as of 08/29/2023) Resolved Problems Problem Noted Date Diagnosed Date Resolved Date Morbid obesity 10/28/2021 08/25/2023 Overview: Per Obesity protocol Prediabetes 04/20/2021 11/25/2021 Overview: Per Prediabetes protocol Pre-operative cardiovascular examination 08/30/2014 11/05/2021 Nonspecific abnormal electro cardiogram (ECG) (EKG) 08/30/2014 11/05/2021 documented as of this encounter (statuses as of 08/29/2023) Immunizations Name Administration Dates Next Due SEASONAL [...] Telephone Encounter - Kenneth Bradford LPN - 08/29/2023 7:49 AM EST PA approved from 08/25/2023-09/24/2023. Fax sent to pharmacy as an FYI. * Telephone Encounter - Thea Toribio, poultry husbandry teacher - 08/25/2023 7:59 AM EST P calling in for prescription instructions and doctor's fax number. Thea Hensley Customer Experience Manager [facility] [phone] [place] [address] 08/25/2023 8:00 AM * Telephone Encounter - Kenneth Bradford LPN - 08/25/2023 7:31 AM EST PA for hydrocodone-apap submitted via CMM with chart notes, marked urgent. Prior Auth (EOC) ID: [id number] Drug/Service Name: HYDROCODONE-ACETAMIN 10-325 MG Patient: Oksana APARICIO Date Requested: 08/25/2023 7:44:42 AM MemberID: [id number] : 1975 documented in this encounter Plan of Treatment Upcoming Encounters Date Type Department Care Team (Late st Contact Info) Description 12/23/2023 12:20 PM EDT Office Visit [facility] [address] [place] [phone] Noah Gerber PA-C [address] [place] [phone] Health Maintenance Due Date Last Done Comments [...] and were consensually agreed upon. Care Teams Neurology Epilepsy Physician Relationship Specialty Start Date End Date Noah Gerber PA-C [address] [place] [id number] PCP - General Physician Procedural Nurse 04/27/21 documented as of this encounter
[2023-08-29] MEDS: oxyCODONE HCL IR 5 MG TAB (IMMEDIATE RELEASE) PO PRN (22:20)
[2023-08-30] MEDS: LACTATED RINGER'S 1,000 ML IV SCH (01:12)
[2023-08-30] MEDS: HYDROmorphone INJ 1 MG/ML SYRINGE IV PRN ×4 (01:53→20:37)
[2023-08-30] MEDS: ceFAZolin 2000MG 2,000 MG/15 ML SYR IV SCH (03:11)
[2023-08-30] MEDS: POLYETHYLENE (MIRALAX) 17 GM PACK PO SCH ×3 (05:50→17:07)
[2023-08-30 06:40] LABS: Basophils # (auto) 0.02 K/uL (0.00-0.20); Basophils % (auto) 0.1 %; Eosinophils # (auto) 0.03 K/uL (0.00-0.50); Eosinophils % (auto) 0.2 %; Hematocrit (blood only) 34.2 % (42.0-52.0); Hemoglobin 10.9 g/dl (14.0-18.0); Immature Granulocytes # (auto) 0.07 K/uL (0.01-0.20); Immature Granulocytes % (auto) 0.5 %; Lymphocytes # (auto) 1.76 K/uL (1.20-3.40); Lymphocytes % (auto) 12.4 %; Mean Corpuscular Hemoglobin 27.7 pg (25.0-34.0); Mean Corpuscular Hgb Conc 31.9 g/dL (32.0-36.0); Mean Corpuscular Volume 86.8 fL (80.0-100.0); Mean Platelet Volume 8.7 fL (9.4-12.4); Monocytes % (auto) 8.5 %; Neutrophils # (auto) 11.06 K/uL (1.40-6.50); Neutrophils % (auto) 78.3 %; Platelet Count 290 K/uL (130-400); RDW Coefficient of Variation 12.7 % (11.5-14.5); RDW Standard Deviation 40.6 fL (36.4-46.3); Red Blood Count 3.94 M/uL (4.70-6.10); White Blood Count 14.14 K/ul (4.8-10.8)
[2023-08-30 07:40] LABS: Calcium 8.3 mg/dl (8.6-10.3); Potassium 4.5 mmol/L (3.5-5.1)
[2023-08-30 07:45] LABS: BUN Creatinine Ratio 18.3 (10-20); Creatinine Clr Calc Pharmacy 127.8 ml/min; Est GFR (African American) 112.1 ml/min; Est GFR (Non-African American) 96.7 ml/min
[2023-08-30] MEDS: ATORVASTATIN 40 MG TAB PO SCH (07:56)
[2023-08-30] MEDS: allopurinoL 100 MG TAB PO SCH (07:56)
[2023-08-30] MEDS: ASPIRIN 81 MG ECTAB PO SCH (07:56)
[2023-08-30] MEDS: GABAPENTIN 800 MG TAB PO SCH ×3 (07:56→20:38)
[2023-08-30] MEDS: INSULIN ASPART PER UNIT CHARGE SC SCH ×4 (09:30→20:42)
[2023-08-30] MEDS: LANTUS PER UNIT CHARGE SC SCH (09:30)
[2023-08-30] MEDS: dexAMETHasone 6 MG in SYRINGE 0 ML IV SCH (10:08)
--- NOTE | 2023-08-30 10:12 | Orthopedic Progress Note ---
Date of Service August 30, 2023 Assessment & Plan (1) Neurogenic claudication due to lumbar spinal stenosis: Plan: This time we will initiate physical therapy monitor his ARNIE output hopefully discharge home in the next few days. Admission and Anticipated Discharge Date Admission Date: August 29, 2023 Subjective Back pain is controlled leg symptoms improving Physical Exam Physical Exam: Patient is in the chair at the bedside. Is constricted testing. Results & Data Vital Signs (Past 12 Hours) Vital Signs Temp Pulse Resp BP BP Pulse Ox O2 Del Method 08/30/23 08:30 Room Air 08/30/23 07:54 36.9 C 106 H 16 101/64 97 Nasal Cannula 08/30/23 03:10 36.5 C 97 H 16 108/72 97 Nasal Cannula 08/29/23 23:04 36.4 C L 101 H 15 129/60 97 Nasal Cannula O2 Flow Rate 08/30/23 08:30 08/30/23 07:54 3 08/30/23 03:10 2 08/29/23 23:04 3
--- NOTE | 2023-08-30 13:24 | Pharmacy Report ---
Pharmacy Glycemic Short Note 2 - Date of Service August 30, 2023 - Glycemic Short BSG Results (Last 24 hours): 08/29/23 08/29/23 08/30/23 16:35 20:02 06:07 Glucose 152 H POC Glucose 134 H 199 H 08/30/23 08/30/23 07:30 11:27 Glucose POC Glucose 153 H 162 H OUTPATIENT ANTIDIABETIC REGIMEN: * metformin 500 mg PO BIDM HbA1c: 7.4% (08/15/23) ASSESSMENT: 08/30: * BSGs reasonably well-controlled postoperatively w/ fasting BSG of 153 mg/dL this morning * Steroids initiated today, so will tighten Novolog parameters and increase basal insulin 08/29: * DLS is a 48 year old male POD #0 s/p spinal decompression/fusion * No perioperative steroids documented as given. Dexamethasone 6 mg IV daily x 3 doses to start tomorrow morning. * Preop BSG of 121 mg/dL, postoperative BSG of 130 mg/dL * Since no steroids appear to have been given in OR, will utilize weight- based/stress of 2 Novolog parameters and conservative initial basal. Will tighten everything tomorrow with IV dexamethasone. PLAN FOR INPATIENT GLYCEMIC CONTROL: * Hold outpatient oral diabetes medications * Basal insulin * Lantus 25 units SC daily w/ IV dexamethasone * Bolus insulin * NovoLog per scale ACHS or Q6hrs while NPO * Goal Range: Low 110 mg/dL - High 140 mg/dL * Correction Factor: 20 mg/dL/unit * Nutritional / Prandial insulin per carb ratio of 1 unit per 6 grams CHO consumed
--- NOTE | 2023-08-30 14:29 | Hospitalist Progress Note ---
Date of Service August 30, 2023 Assessment & Plan (1) Neurogenic claudication due to lumbar spinal stenosis: (2) Post-operative state: Plan: POD#1 L4-S1 decompression and fusion with removal of L3-[address] Ontiveros Activity and wound care orders as per ortho Pain control with bowel regimen PT/OT EBL 800 cc, drain output 500 cc Acute blood loss anemia Preop Hgb 14.5 --> 10.9 No indication for transfusion Continue to monitor H&H, transfuse blood products as needed (3) Diabetes mellitus, type 2: Plan: HgbA1c 7.4 Hold oral agents and utilize Lantus and NovoLog per protocol while hospitalized Glycemic pharmacy consulted by primary service (4) Morbid obesity: Plan: Lifestyle changes recommended to reduce percent body fat. (5) Carotid stenosis: Plan: chronic, stable. Cont medical management with ASA 81mg daily and statin. (6) Gout: Plan: chronic, stable. Cont allopurinol per home regimen. DVT PROPHYLAXIS TEDs/SCDs as per spine Ortho Patient seen collaboration with Dr. Franklin. Thank you for this consultation. We will follow the patient with you during their hospital stay. You can reach a [facility] via the [facility] role in [place] Text. Admission and Anticipated Discharge Date Admission Date: August 29, 2023 Supervising Physician Co-Signing Physician Notes Patient is a status post L4 S1 decompression and fusion with removal of L3-4 hardware. Postop day 1. Patient reports pain fairly under control. Acute blood loss anemia noted, denies palpitation or dizziness or weakness. Patient with expected postoperative status. I have seen and examined the patient and have discussed the case with the provider above. I agree with the assessment and plan as stated. Subjective Follow-up for medical management, s/p L4-S1 decompression and fusion, L3-L4 hardware removal by Dr. Ontiveros Patient seen and examined. Doing well, offers no complaints. Reports pain is well-controlled. Pain continues to radiate into both legs as per prior to surgery. Denies numbness, tingling, weakness to lower extremities. No chest pain or shortness of breath. Denies abdominal pain and nausea. De La Cruz catheter remains in place. +flatus, no BM Physical Exam Constitutional: WD/WN, vitals as above no acute distress Respiratory: normal respiratory effort, lungs clear to auscultation Cardiovascular: Rate/Rhythm: regular rate and regular rhythm Vessels: normal peripheral pulses Extremities: no edema Gastrointestinal (Abdomen): Percussion/Palpation: abdomen soft; abdomen nontender Musculoskeletal: S/p back surgery, pedal pushes and pulls strong bilaterally, drain in place draining bloody drainage Skin: no rashes, warm and dry Neurologic: no focal motor deficits Psychiatric: A+Ox3, euthymic affect Results & Data Results & Data Vital Signs (Past 12 Hours) Vital Signs Temp Pulse Resp BP BP Pulse Ox O2 Del Method 08/30/23 11:42 36.7 C 96 H 18 114/73 94 Room Air 08/30/23 08:30 Room Air 08/30/23 07:54 36.9 C 106 H 16 101/64 97 Nasal Cannula 08/30/23 03:10 36.5 C 97 H 16 108/72 97 Nasal Cannula O2 Flow Rate 08/30/23 11:42 08/30/23 08:30 08/30/23 07:54 3 08/30/23 03:10 2 Laboratory Results Short CBC 08/30/23 Range/Units 06:07 WBC 14.14 H (4.8-10.8) K/ul Hgb 10.9 L (14.0-18.0) g/dl Hct 34.2 L (42.0-52.0) % Plt Count 290 (130-400) K/uL BMP 08/30/23 06:07 Sodium 134 L Potassium 4.5 Chloride 99 Carbon Dioxide 30 BUN 17 Creatinine 0.93 Glucose 152 H Calcium 8.3 L
[2023-08-30] MEDS: oxyCODONE HCL IR 5 MG TAB (IMMEDIATE RELEASE) PO PRN (15:18)
[2023-08-30] MEDS: DOCUSATE SODIUM/SENNA 50/8.6MG TAB PO SCH (20:38)
[2023-08-31] MEDS: POLYETHYLENE (MIRALAX) 17 GM PACK PO SCH ×4 (00:39→17:00)
[2023-08-31] MEDS: HYDROmorphone INJ 1 MG/ML SYRINGE IV PRN ×3 (00:40→11:53)
[2023-08-31] MEDS: oxyCODONE HCL IR 5 MG TAB (IMMEDIATE RELEASE) PO PRN ×4 (03:08→20:00)
[2023-08-31 06:39] LABS: Hematocrit (blood only) 33.2 % (42.0-52.0); Hemoglobin 10.7 g/dl (14.0-18.0); Mean Corpuscular Hgb Conc 32.2 g/dL (32.0-36.0); Mean Corpuscular Volume 86.9 fL (80.0-100.0); Mean Platelet Volume 8.7 fL (9.4-12.4); Platelet Count 260 K/uL (130-400); RDW Coefficient of Variation 13.1 % (11.5-14.5); RDW Standard Deviation 41.1 fL (36.4-46.3); Red Blood Count 3.82 M/uL (4.70-6.10); White Blood Count 13.78 K/ul (4.8-10.8)
[2023-08-31 07:07] LABS: BUN Creatinine Ratio 23.9 (10-20); Calcium 8.3 mg/dl (8.6-10.3); Creatinine Clr Calc Pharmacy 167.4 ml/min; Est GFR (African American) 128.6 ml/min; Potassium 4.3 mmol/L (3.5-5.1)
[2023-08-31] MEDS: GABAPENTIN 800 MG TAB PO SCH ×3 (07:37→20:01)
[2023-08-31] MEDS: allopurinoL 100 MG TAB PO SCH (07:37)
[2023-08-31] MEDS: dexAMETHasone 6 MG in SYRINGE 0 ML IV SCH (07:37)
[2023-08-31] MEDS: ATORVASTATIN 40 MG TAB PO SCH (07:37)
[2023-08-31] MEDS: ASPIRIN 81 MG ECTAB PO SCH (07:38)
[2023-08-31] MEDS: LANTUS PER UNIT CHARGE SC SCH (08:38)
[2023-08-31] MEDS: INSULIN ASPART PER UNIT CHARGE SC SCH ×4 (08:38→21:00)
--- NOTE | 2023-08-31 10:36 | Orthopedic Progress Note ---
Date of Service August 31, 2023 Assessment & Plan (1) Neurogenic claudication due to lumbar spinal stenosis: Plan: At this time we will continue physical therapy monitor his ARNIE output hopefully discharge home tomorrow. Admission and Anticipated Discharge Date Admission Date: August 29, 2023 Subjective Back pain controlled leg pain improved Physical Exam Physical Exam: Patient is in the chair at the bedside. Is constricted testing. Appears comfortable. Results & Data Vital Signs (Past 12 Hours) Vital Signs Temp Pulse Resp BP Pulse Ox O2 Del Method 08/31/23 08:30 Room Air 08/31/23 07:11 36.7 C 71 16 121/76 95 Room Air 08/30/23 23:00 36.5 C 69 18 122/76 95 Room Air
--- NOTE | 2023-08-31 14:56 | Hospitalist Progress Note ---
Date of Service August 31, 2023 Assessment & Plan (1) Neurogenic claudication due to lumbar spinal stenosis: (2) Post-operative state: Plan: POD#2 L4-S1 decompression and fusion with removal of L3-[address] Ontiveros Activity and wound care orders as per ortho Pain control with bowel regimen PT/OT EBL 800 cc, drain output 685 cc Acute blood loss anemia Preop Hgb 14.5 --> 10.9 --> 10.7 No indication for transfusion Continue to monitor H&H, transfuse blood products as needed (3) Diabetes mellitus, type 2: Plan: HgbA1c 7.4 Hold oral agents and utilize Lantus and NovoLog per protocol while hospitalized Patient inquiring about Trulicity prescription. Reviewed outpatient records. PCP has been discussing with patient however has not been prescribed yet. Follow-up appointment with PCP made for next week. Glycemic pharmacy consulted by primary service (4) Morbid obesity: Plan: Lifestyle changes recommended to reduce percent body fat. (5) Carotid stenosis: Plan: chronic, stable. Cont medical management with ASA 81mg daily and statin. (6) Gout: Plan: chronic, stable. Cont allopurinol per home regimen. DVT PROPHYLAXIS TEDs/SCDs as per spine Ortho Patient seen collaboration with Dr. Rodgers. Thank you for this consultation. We will follow the patient with you during their hospital stay. You can reach a member of the [facility] Hospitalist Team 02/05 via the [facility] in [place] Text. Admission and Anticipated Discharge Date Admission Date: August 29, 2023 Supervising Physician Co-Signing Physician Notes I have seen and discussed the case with the collaborating MILK ROUTE SUPERVISOR. I agree with the above H&P. I have reviewed and confirmed the patients medical history, the findings on physical examination, and the patients diagnosis and treatment plan with MILK ROUTE SUPERVISOR and agree with the information documented. Mr. Aparicio is a 48 year old gentleman now post-op day 2 for lumbar decompression whom medical management is following. He is currently undergoing OP medication adjustments with OP PCP, but now on gylcemic management at this time. Hgb remains stable. no other acute issues. Rest of plan as above Subjective Follow-up for medical management, s/p L4-S1 decompression and fusion, L3-L4 hardware removal by Dr. Ontiveros. Patient seen and examined. Sitting up in the chair. Reports pain is controlled. Pain continues to radiate into right leg. Denies numbness, tingling, weakness. No chest pain or shortness of breath. Denies lightheadedness and dizziness. No abdominal pain or nausea. Urinating without difficulty, + flatus, no BM. Physical Exam Constitutional: WD/WN, vitals as above + obese; no acute distress Respiratory: normal respiratory effort, lungs clear to auscultation Cardiovascular: Rate/Rhythm: regular rate and regular rhythm Vessels: normal peripheral pulses Extremities: no edema Gastrointestinal (Abdomen): Percussion/Palpation: abdomen soft; abdomen nontender Musculoskeletal: S/p back surgery, strength strong and equal BLE Skin: no rashes, warm and dry Neurologic: no focal motor deficits Psychiatric: A+Ox3, euthymic affect Results & Data Results & Data Vital Signs (Past 12 Hours) Vital Signs Temp Pulse Resp BP Pulse Ox O2 Del Method 08/31/23 14:32 36.8 C 81 18 114/74 94 Room Air 08/31/23 08:30 Room Air 08/31/23 07:11 36.7 C 71 16 121/76 95 Room Air Laboratory Results Short CBC 08/31/23 Range/Units 06:09 WBC 13.78 H (4.8-10.8) K/ul Hgb 10.7 L (14.0-18.0) g/dl Hct 33.2 L (42.0-52.0) % Plt Count 260 (130-400) K/uL BMP 08/31/23 06:09 Sodium 135 L Potassium 4.3 Chloride 99 Carbon Dioxide 31 BUN 17 Creatinine 0.71 Glucose 125 H Calcium 8.3 L
[2023-08-31] MEDS: DOCUSATE SODIUM/SENNA 50/8.6MG TAB PO SCH (20:01)
[2023-09-01] MEDS: HYDROmorphone INJ 1 MG/ML SYRINGE IV PRN (00:14)
[2023-09-01] MEDS: oxyCODONE HCL IR 5 MG TAB (IMMEDIATE RELEASE) PO PRN ×2 (05:38→09:53)
[2023-09-01 07:06] LABS: Hematocrit (blood only) 32.5 % (42.0-52.0); Hemoglobin 10.5 g/dl (14.0-18.0); Mean Corpuscular Hemoglobin 27.8 pg (25.0-34.0); Mean Corpuscular Hgb Conc 32.3 g/dL (32.0-36.0); Platelet Count 286 K/uL (130-400); RDW Standard Deviation 40.7 fL (36.4-46.3); Red Blood Count 3.78 M/uL (4.70-6.10); White Blood Count 13.07 K/ul (4.8-10.8)
[2023-09-01 07:23] LABS: BUN Creatinine Ratio 22.1 (10-20); Calcium 8.5 mg/dl (8.6-10.3); Creatinine Clr Calc Pharmacy 154.4 ml/min; Est GFR (African American) 124.4 ml/min; Est GFR (Non-African American) 107.3 ml/min; Potassium 4.2 mmol/L (3.5-5.1)
--- NOTE | 2023-09-01 08:07 | Hospitalist Progress Note ---
Date of Service September 01, 2023 Assessment & Plan (1) Neurogenic claudication due to lumbar spinal stenosis: (2) Post-operative state: Plan: POD#3 L4-S1 decompression and fusion with removal of L3-[address] Ontiveros Activity and wound care orders as per ortho Pain control with bowel regimen PT/OT EBL 800 cc, drain output 685 cc Acute blood loss anemia 2/2 post op Preop Hgb 14.5 --> 10.9 --> 10.7-->10.5 No indication for transfusion, stable and asymptomatic (3) Diabetes mellitus, type 2: Plan: HgbA1c 7.4 Hold oral agents and utilize Lantus and NovoLog per protocol while hospitalized Patient inquiring about Trulicity prescription. Reviewed outpatient records. PCP has been discussing with patient however has not been prescribed yet. Follow-up appointment with PCP made for next week. (4) Morbid obesity: Plan: Lifestyle changes recommended to reduce percent body fat. (5) Carotid stenosis: Plan: chronic, stable. Cont medical management with ASA 81mg daily and statin. (6) Gout: Plan: chronic, stable. Cont allopurinol per home regimen. DVT PROPHYLAXIS TEDs/SCDs as per spine Ortho Discharge per ortho, no medical needs requiring continued admission. Thank you for this consultation. Patient can resume home regimen as prescribed with plans to follow up with PCP this coming Tuesday. We will follow the patient with you during their hospital stay. You can reach a member of the [facility] Hospitalist Team 02/05 via the [facility] Hospitalist role in [place] Text. Admission and Anticipated Discharge Date Admission Date: August 29, 2023 Subjective NAEO Reports eagerness to get home, notes pain is mostly when transitioning from seated/standing v standig/seated position, but resolves quickly once settled Understands PCP follow up scheduled and denies any acute concerns Review of Systems Review of Systems: All systems reviewed & are unremarkable except as noted in Subjective Physical Exam Constitutional: WD/WN, vitals as above Respiratory: normal respiratory effort, lungs clear to auscultation Cardiovascular: RRR, no murmur, no edema Results & Data Results & Data Vital Signs (Past 12 Hours) Vital Signs Temp Pulse Resp BP Pulse Ox O2 Del Method 09/01/23 07:44 36.7 C 78 16 111/69 100 Room Air Laboratory Results Short CBC 09/01/23 Range/Units 06:02 WBC 13.07 H (4.8-10.8) K/ul Hgb 10.5 L (14.0-18.0) g/dl Hct 32.5 L (42.0-52.0) % Plt Count 286 (130-400) K/uL BMP 09/01/23 06:02 Sodium 136 Potassium 4.2 Chloride 99 Carbon Dioxide 31 BUN 17 Creatinine 0.77 Glucose 112 H Calcium 8.5 L Medications Administered Home Medications Medication Instructions Recorded Confirmed Last Taken allopurinol 100 mg tablet 100 mg PO QAM 08/05/23 08/29/23 08/29/23 06:30 aspirin 81 mg capsule 81 mg PO QAM 08/05/23 08/29/23 08/28/23 08:00 atorvastatin 40 mg tablet 40 mg PO QAM 08/05/23 08/29/23 08/29/23 06:30 celecoxib 200 mg capsule (Celebrex) 200 mg PO BID 08/05/23 08/29/23 08/23/23 gabapentin 800 mg tablet 800 mg PO TID 08/05/23 08/29/23 08/29/23 06:30 metformin 500 mg tablet 500 mg PO BID 08/05/23 08/29/23 08/28/23 20:00 hydrocodone 5 mg-acetaminophen 325 1 tab PO Q8H PRN Pain 08/29/23 08/29/23 08/28/23 15:00 mg tablet oxycodone 5 mg tablet 5 mg PO Q6H PRN pain #30 tabs 08/30/23 Unknown tramadol 50 mg tablet 50 mg PO Q6H PRN pain, moderate 08/30/23 Unknown #30 tabs Active Medications Generic Name Dose Route Start Last Admin Trade Name Freq PRN Reason Stop Dose Admin Allopurinol 100 mg 08/30/23 09:00 09/01/23 08:37 Allopurinol 100 Mg Tab PO 09/29/23 08:59 100 mg QAM DAVEY Administration Aspirin 81 mg 08/30/23 09:00 09/01/23 08:37 Aspirin 81 Mg Ectab PO 09/29/23 08:59 81 mg QAM DAVEY Administration Atorvastatin Calcium 40 mg 08/30/23 09:00 09/01/23 08:45 Atorvastatin 40 Mg Tab PO 09/29/23 08:59 40 mg QAM DAVEY Administration Gabapentin 800 mg 08/29/23 14:30 09/01/23 08:37 Gabapentin 800 Mg Tab PO 09/28/23 14:29 800 mg TID DAVEY Administration Hydromorphone HCl 0.5 mg 08/29/23 14:30 08/31/23 17:00 Hydromorphone Inj 0.5 Mg/0.5 Ml Syr IV 09/12/23 14:29 0.5 mg Q3H PRN Administration MODERATE Pain (Scale 4,5,6) & Pre PT Hydromorphone HCl 1 mg 08/29/23 14:30 09/01/23 00:14 Hydromorphone Inj 1 Mg/Ml Syringe IV 09/12/23 14:29 1 mg Q3H PRN Administration SEVERE Pain (Scale 7,8,9,10) Insulin Aspart 0 units 08/29/23 16:30 09/01/23 08:45 Insulin Aspart Per Unit Charge SC 09/28/23 16:29 4 units ACHS DAVEY Administration Oxycodone HCl 5 - 10 mg 08/29/23 14:30 09/01/23 09:53 Oxycodone Hcl Ir 5 Mg Tab (Immediate Release) PO 09/12/23 14:29 10 mg Q4H PRN Administration Pain & Pre PT Oxycodone HCl 1 each 09/01/23 12:00 09/01/23 12:04 Oxycodone Ir Home Pack PO 09/01/23 14:00 1 each TODAY@1200 DAVEY Administration Senna/Docusate Sodium 2 tab 08/29/23 21:00 08/31/23 20:01 Docusate Sodium/Senna 50/8.6mg Tab PO 09/28/23 20:59 2 tab HS DAVEY Administration Tramadol HCl 50 - 100 mg 08/29/23 14:30 09/01/23 08:44 Tramadol Hcl 50 Mg Tablet PO 09/28/23 14:29 100 mg Q4H PRN Administration Moderate-Severe pain & Pre PT
[2023-09-01] MEDS: dexAMETHasone 6 MG in SYRINGE 0 ML IV SCH (08:37)
[2023-09-01] MEDS: allopurinoL 100 MG TAB PO SCH (08:37)
[2023-09-01] MEDS: GABAPENTIN 800 MG TAB PO SCH (08:37)
[2023-09-01] MEDS: ASPIRIN 81 MG ECTAB PO SCH (08:37)
[2023-09-01] MEDS: ATORVASTATIN 40 MG TAB PO SCH (08:45)
[2023-09-01] MEDS: LANTUS PER UNIT CHARGE SC SCH (08:45)
[2023-09-01] MEDS: INSULIN ASPART PER UNIT CHARGE SC SCH (08:45)
--- NOTE | 2023-09-01 09:13 | Discharge Summary ---
Date of Service September 01, 2023 Admission HPI Per Admitting Provider This is a 48-year-old female who presents with chronic persistent back and leg pain after failing course of nonoperative care is here for surgical invention. Principal Diagnosis Lumbar spinal stenosis with neurogenic claudication Discharge Data Allergies Allergy/AdvReac Type Severity Reaction Status Date / Time No Known Allergies Allergy Verified 08/29/23 08:28 Consultations 08/29/23 14:30 Consult Hospitalist Routine Procedures Performed Operation Date: 08/29/23 09:35 Actual Procedures p L4-S1 Decompression and Fusion, Spinal Cord Monitoring - Akin Ontiveros DO s L3-L4 Hardware Removal - Akin Ontiveros DO Ordered Studies 08/29/23 09:35 FL lumbar spine 2-3V Routine Hospital Course (1) Neurogenic claudication due to lumbar spinal stenosis: Patient with lumbar decompression fusion tolerated this well was taken to orthopedic for postop bleed. Postoperatively progressed appropriately. Pain improving. ARNIE drain decreasing. Excellent strength testing. Subsequent discharge home. Discharge orders and instructions found in chart for further review. Total Time Total Time Spent Total Time Spent (In Minutes): 20 minutes Discharge Plan Discharge Items Patient Disposition: Home - Self-Care Reason For Visit: Spinal Stenosis, Lumbar Region with Neurogenic Cla Discharge Diagnosis: Lumbar spinal stenosis with neurogenic claudication Activity: As commented below Non-emergency contact: Primary Care Provider Call non-emergency contact if: you have any medication questions Follow-up/Referrals: Noah Gerber PA-C [Primary Care Provider] - 09/05/23 7:00 am (Dr. Harman covering for Noah Gerber PA-C) Diet: Regular Addtl Attending Provider Instructions: ACTIVITY RECOMMENDATIONS: SELF CARE INSTRUCTIONS AFTER THORACIC/LUMBAR FUSIONS 1. You may walk to your tolerance. It is good exercise for your legs and back. Expect some back and intermittent leg aches and pains. 2. You may perform "counter-top" level activities (make a sandwich, aleksandra with a project, etc.). 3. No bending or lifting of more than 10 pounds or back twisting of any nature (roll like a log when turning in bed). 4. You may ride in a car for 20-30 minutes at a time. No driving until after your first visit with your doctor. 5. Frequent changes of position and restricting sitting to 30 minutes at a time will help limit the amount of back spasms and stiffness you may experience. 6. You may discontinue the use of ambulatory aids (cane, crutches, etc.) once your strength and confidence allow. 7. You may diagnostic imaging manager the shower and let water strike your incision when you arrive home at least once daily. Do not take a tub bath, sit in a hot tub or go into a swimming pool until after your first recheck in the office. SPECIAL CARE INSTRUCTIONS: VERY IMPORTANT TO READ AND REVIEW A. Your surgical incision has been closed with a cosmetic suture under the skin that will dissolve in about 6 weeks. In 14 days, you can use a pair of clean scissors and cut the suture that is left outside of the skin at the ends of your incision. 1. The small skin tapes can be removed 7 days after surgery if they have not fallen off by that point. 2. You may keep the wound open to air as much as possible to promote healing after post-op day number 5 unless told otherwise by your doctor. 3. If you think the wound looks like it is becoming infected (redness or worsening drainage) and/or you are experiencing fever, chill or worsening back pain and muscle spasms, contact the office so that we may evaluate you as soon as possible. B. Complications are uncommon, but please contact us if you have any signs or symptoms of: 1. wound infection (fever higher than 102.5 degrees F, redness, separation of wound, drainage, or increasing pain from the incision) 2. blood clots in legs (pain, swelling, redness and warmth in legs) 3. urinary tract infection (fever higher than 102.5 degrees F, burning upon urination or increased frequency of urination) 4. nerve problems (inability to walk on your toes or heels, numbness, loss of bowel or bladder control) 5. any other symptoms that concern you C. Please call the office at if you have any concerns or questions about your operation or recovery. D. No smoking! Smoking drastically decreases the chance of a solid fusion. E. Do not take any anti-inflammatory medications (Indocin, Advil, Motrin, Aspirin, Naprosyn, etc.) as these may inhibit the chance of a solid fusion. Tylenol is okay to take for pain. MANAGING PAIN AFTER SPINAL SURGERY 1. Narcotic medication is intended for short-term use and will be provided for surgical pain. Surgical pain usually lasts for a period of 4-6 weeks. Narcotic medication includes Percocet, Vicodin, Darvocet, Tylenol #3 or Lortab. 2. Longer-term pain is more appropriately treated with non-narcotic medication such as Tylenol ES. 3. Muscle spasm is not appropriately treated with narcotics. Muscle relaxers such as Soma, Flexeril or Skelaxin can be used along with Tylenol ES. 4. Remember that we all live with some "aches and pains". This is not unusual or uncommon after an injury or as we get older. a. Back pain is expected and may include muscle spasms for 4 to 6 weeks after surgery. The pain should gradually improve. If the pain worsens for no apparent reason, please contact the office. b. Intermittent leg pain may also be experienced and should not be concerned about unless it worsens for no apparent reason. If so, please contact the office. 5. We will provide appropriate medication within the normal guidelines of their prescribed use. We will also be very cautious and aware of potential abuse and extended duration of patients' medication needs. a. Pain medications are for your comfort and to assist with sleep and rest so that the tissue can heal. They are not provided in order to return to normal activity and should not be used through the day. To do so or worsening pain at night can result from ongoing tissue damage and development of tolerance to the prescribed medicine. 6. Please allow 2-3 days to process refills. Prescriptions will not be mailed but must be picked up at the office. FOLLOW UP VISIT: Keep your scheduled follow-up appointment. Any questions, please call the office at . [employer] Provider Instructions: Hospitalist discharge instructions: You inquired about Trulicity prescription. This has not been prescribed yet by your PCP. A follow-up appointment has been made for you with your PCP to discuss further. Continue taking metformin as previously prescribed. It was a pleasure taking care of you. If you need to reach a member of the [facility] hospitalist team at [facility], please call [phone]. JOHN Godfrey Pending Studies at Discharge: No Stand-Alone Forms: My [facility] [employer], Smoking Cessation Medications and DC Order Prescriptions: New tramadol 50 mg tablet 50 mg PO Q6H PRN (Reason: pain, moderate) Qty: 30 0RF oxycodone 5 mg tablet 5 mg PO Q6H PRN (Reason: pain) Qty: 30 0RF Continued celecoxib [Celebrex] 200 mg Capsule 200 mg PO BID atorvastatin 40 mg Tablet 40 mg PO QAM metformin 500 mg Tablet 500 mg PO BID allopurinol 100 mg Tablet 100 mg PO QAM gabapentin 800 mg Tablet 800 mg PO TID aspirin 81 mg Capsule 81 mg PO QAM hydrocodone-acetaminophen 5-325 mg Tablet 1 tab PO Q8H PRN (Reason: Pain) Discharge Orders: Discharge Order (Routine); Ordered 09/01/23 Ordered By: Akin Ontiveros Admission Data Admit Date/Time: 08/29/23 12:51 Attending Provider: Akin Ontiveros Admit Provider: Akin Ontiveros Primary Care Provider: Noah Gerber Other Providers: Floridalma Kearney; Jw Franklin
[2023-09-01] MEDS ORDERED: Nursing to Pharmacy Communication SCH (11:30)
[2023-09-01] MEDS ORDERED: oxyCODONE IR HOME PACK PO SCH (12:00)
== END 2023-09-01 12:26 | disposition home or self-care (01) | DRG 454 ==
LOC: ASU 07:56 → 3E 12:51

== ENCOUNTER 2023-10-27 06:14 | Observation (INO) ==
--- NOTE | 2023-10-21 10:29 | Anesthesiology Consultation ---
Date of Service October 21, 2023 Assessment & Plan (1) Encounter for pre-operative examination: Chart Review Chart Review: Acceptable Risk for Surgery (pending CBC with diff DOS ) and Patient NOT seen in Pre Admission Testing - Recheck CBC with diff DOS - Check BSG AM DOS -Infectious Disease screening: Per PAT nursing assessment on 10/21/23. No known infectious disease contacts in past 10 days or current infectious disease symptoms. No recent travel outside the country. L4-S1 decompression and fusion, L3-L4 hardware removal 08/29/23= Done under GA with grade 1 view with glidescope #3. ETT #7.5 Per PCP phone note 08/19/2023 (prior to 08/29/23 lumbar fusion) = A1c higher at 7.5. Would probably recommend starting a GLP-1 such as Ozempic to help with diabetes, weight loss and cardiac benefit. Also referred to MTM. Would defer this to PCP however. (Patient would like to hold off on following with MTM until recovered from back surgery.) (Spoke with patient 10/21/23- has not yet started any injectables for diabetes) Patient seen by PCP 08/17/2023 (prior to 08/29/23 lumbar fusion)= patient seen for preoperative examination for upcoming back surgery. Patient can be cleared for surgery. We will need to have updated lab work prior however advised to complete labs this week. Patient seen by cardio 08/02/23 (prior to 08/29/23 lumbar fusion)= Patient seen for preop risk stratification. Patient tentatively scheduled for back surgery. Reports shortness of breath with long distances. Denies PND and orthopnea. Has chronic back pain. In terms of preop risk assessment, per Miki criteria, patient was counseled that he would be placed at low risk (less than 0.9%) for any adverse perioperative cardiovascular events associated with spine surgery. Patient is on a good medication regimen and no other cardiac testing or interventions would further lower that risk. Patient states he understands and is excepting of that risk and wishes to proceed with surgery. Patient was instructed to continue aspirin without interruption. If aspirin must be held per surgeon's discretion, we would recommend holding for the least amount of t mae as possible (no more than 7 days). Patient is on aspirin for history of stroke and bilateral carotid artery disease. History Surgery Operation Date: 10/27/23 07:45 Proposed Procedures p Incision and Drainage Lumbar Spine - Akin Ontiveros, Height/Weight Height: 5 ft 9 in Weight: 129.274 kg Allergies Allergy/AdvReac Type Severity Reaction Status Date / Time No Known Allergies Allergy Verified 08/29/23 08:28 Medications Home Medications Medication Instructions Recorded Confirmed Last Taken allopurinol 100 mg tablet 100 mg PO QAM 08/05/23 10/21/23 08/29/23 06:30 aspirin 81 mg capsule 81 mg PO QAM 08/05/23 10/21/23 08/28/23 08:00 atorvastatin 40 mg tablet 40 mg PO QAM 08/05/23 10/21/23 08/29/23 06:30 celecoxib 200 mg capsule (Celebrex) 200 mg PO BID 08/05/23 10/21/23 08/23/23 gabapentin 800 mg tablet 800 mg PO TID 08/05/23 10/21/23 08/29/23 06:30 metformin 500 mg tablet 500 mg PO BID 08/05/23 10/21/23 08/28/23 20:00 oxycodone 5 mg tablet 5 mg PO Q6H PRN pain #30 tabs 08/30/23 10/21/23 Unknown Past Medical History Medical History Carotid stenosis Right ICA <50% stenosis; no carotid stenosis to left ICA per 12/10/21 neck CTA Diabetes mellitus, type 2 Glucose controlled High cholesterol Hx of gout No recent flares Hx of wheezing occasional bouts of wheezing - usually at the end of the day 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 History of total left hip replacement S/P epidural steroid injection x3 prior to first back surgery Social History Smoking Status: Former smoker Do You Dip or Chew Tobacco: Yes (1 can/day; advised by nursing) Smoking End Date: years ago Hx Alcohol Use: Yes alcohol intake frequency: holidays/special occasions only Hx Substance Use: No substance use type: does not use Lab Results Anesthesia Preop Results Results Anesthesia Widget: WBC 13.07 K/ul (4.8-10.8) H 09/01/23 Hgb 10.5 g/dl (14.0-18.0) L 09/01/23 Hct 32.5 % (42.0-52.0) L 09/01/23 Plt 286 K/uL (130-400) 09/01/23 Na 136 mmol/L (136-145) 09/01/23 K 4.2 mmol/L (3.5-5.1) 09/01/23 Cl 99 mmol/L (98-107) 09/01/23 CO2 31 mmol/L (21-32) 09/01/23 BUN 17 mg/dl (6-23) 09/01/23 Creat 0.77 mg/dl (0.6-1.4) 09/01/23 Glucose Level 112 mg/dl (70-99(Fasting)) H 09/01/23 Blood Type A Positive 08/29/23 Antibody Screen NEGATIVE 08/29/23 Testing Laboratory Results Anemia- patient post op day #2 from lumbar decompression and fusion - will recheck DOS Electrocardiogram Date: 08/02/23 Findings: + NSR @ (92bpm ) Possible left atrial enlargement Left anterior fascicular block When compared to EKG from Oct 27, 2021- no significant change was found per car alise Chest X-Ray Date: 08/15/23 Findings: + NAD Echocardiogram Date: 10/28/21 EF: 55% LV Function: normal RWMA: + none Other Findings: + LVH (mild/concentric ); no diastolic dysfunction Valvular Disease: + no significant valvular disease Negative bubble study suggesting absence of ASD or PFO Other Testing CTA of head/neck 12/08/2021 = less than 50% stenosis within the right internal carotid artery by NASCET criteria. No carotid stenosis on the left. Major intracranial arterial vascular is patent without occlusion or stenosis. No intracranial aneurysm.
--- OUTSIDE RECORDS SUMMARY | 2023-10-27 06:17 | External Medical Summary | Summary of Care ---
Author Name Unknown Organization [facility] Address [address] [facility] [place] [address] Phone [phone] Care Team Providers Care Electrical Service Technician Name Role Phone Rina Turner PA-C Primary Care Provider [phone] Reason for Visit * Reason Comments eRx-Medication Refill Encounter Details Date Type Department Care Team (Late st Contact Info) Description 10/20/2023 Refill [facility] [address] [facility] [place] [phone] Rina Turner PA-C [address] [facility] [place] [address] History of gout Allergies No known active allergiesdocumented as of this encounter (statuses as of 10/20/2023) Medications Medication Sig Dispensed Refills Start Date [...] hemoglobin A1c goal of less than 7.0% ([facility]) Use as directed 4 times a day as needed (glucose readings). Use up to four times a day as directed 100 Strip 11 11/12/2021 Active OneTouch Delica Lancets 33GIndications:Ty pe 2 diabetes mellitus with hemoglobin A1c goal of less than 7.0% ([facility]) Use up to 4 times [...] EVENING MEALS 180 Tablet 1 08/23/2023 Active HYDROcodone-Aceta minophen 10-325 MG Oral TabletIndications :HNP (herniated nucleus pulposus), lumbar Take 1 Tablet by mouth every 8 hours as needed for Pain, Moderate. No driving on medication. Ongoing. Use sparingly. 30 Tablet 0 08/24/2023 Active methylPREDNISolon e 4 MG Oral Tablet Therapy Pack (Medrol) follow package directions 21 Tablet 0 09/04/2023 Active Allopurinol 100 MG Oral Tablet (Zyloprim)Indicat ions:History of gout TAKE 1 TABLET BY MOUTH EVERY DAY 90 Tablet 3 10/20/2023 Active Allopurinol 100 MG Oral Tablet (Zyloprim)Indicat ions:History of gout TAKE 1 TABLET BY MOUTH EVERY DAY 90 Tablet 1 04/13/2023 4 Discontinued documented as of this encounter (statuses as of 10/20/2023) Active Problems Problem Noted Date Diagnosed Date Body mass index (BMI) of 40.0 to 44.9 in adult 1 10/22/2022 Overview: Per Obesity protocol HNP (herniated nucleus pulposus), lumbar 022 Gout 11/05/2021 Cardiac arrhythmia 11/05/2021 Ischemic stroke 10/28/2021 DM type 2 causing neurological disease 2 Moderate persistent asthma without complication 10/28/2021 Other hyperlipidemia 10/28/2021 Undiagnosed cardiac murmurs 08/30/2014 Tobacco use disorder 07/10/2007 fatty liver 07/10/2007 ADVANCE DIRECTIVE INFORMATION 04/02/2005 Overview: No, Advance Directive brochure offered , patient declined. documented as of this encounter (statuses as of 10/20/2023) Resolved Problems Problem Noted Date Diagnosed Date Resolved Date Morbid obesity 10/28/2021 08/25/2023 Overview: Per Obesity protocol Prediabetes 04/20/2021 11/25/2021 Overview: Per Prediabetes protocol Pre-operative cardiovascular examination 08/30/2014 11/05/2021 Nonspecific abnormal electro cardiogram (ECG) (EKG) 08/30/2014 11/05/2021 documented as of this encounter (statuses as of 10/20/2023) Immunizations Name Administration Dates Next Due Seasonal Influenza, PF, 6 M & above, IM , (FluLaval or Fluzone) 10/29/2021(Deferred: Patient Refused) TDAP (age 10 and [...] encounter Miscellaneous Notes * Telephone Encounter - Ata Franklin, [facility] - 10/20/2023 5:30 PM ESTSigned Prescriptions: Disp Refills Allopurinol 100 MG Oral Tablet (Zyloprim) 90 Tab*3 Sig: TAKE 1 TABLET BY MOUTH EVERY DAYAuthorizing Provider: RINA TURNER User: ATA FRANKLIN--------- documented in this encounter Plan of Treatment Upcoming Encounters Date Type Department Care Team (Late st Contact Info) Description 12/23/2023 12:20 PM EDT Office Visit [facility] [place] [phone] Rina Turner PA-C [address] [place] [address] Health Maintenance Due Date Last Done Comments [...] as of this encounter Visit Diagnoses Diagnosis History of gout Personal history of other endocrine, metabolic, and immunity disorders documented in this encounter Advance Directives Latest Code Status on File Code Status Date Activated Date Inactivated Comments Full Code 10/28/2021 8:01 AM 10/29/2021 7:01 PM This order reflects the patients wishes and were consensually agreed upon. Care Teams Electrical Service Technician Relationship Specialty Start Date End Date [phone] P[facility] - General Physician Mobile Phlebotomist 04/27/21 documented as of this encounter
--- OUTSIDE RECORDS SUMMARY | 2023-10-27 06:18 | External Medical Summary | Summary of Care ---
Author Name Unknown Organization [facility] Address [address] [facility] [place] [address] Phone [phone] Care Team Providers Care Sales Systems Engineer Name Role Phone Noah Gerber PA-C Primary Care Provider [phone] Reason for Referral * Precert (Within 10 days (routine)) - Pending Review Specialty Diagnoses / Procedures Referred By Contamanda t Referred To Contact Radiology Diagnoses Post-operative pain Procedures MRI L SPINE WO CONTRAST Prudencio Rodriguez PA-C [address] [place] [id number] Referral ID Status Reason Start Date Expiration Date V isits Requested Visits Authorized [id number] Pending Review 09/19/[phone] Encounter Details Date Type Department Care Team (Late st Contact Info) Description 09/19/2023 Orders Only [facility], [address] *DO NOT REMOVE THIS DEPARTMENT* [place] [address] Requisition, External Radiology [address] [place] [facility] [place] [address] Post-operative pain* Allergies No known active allergiesdocumented as of this encounter (statuses as of 09/19/2023) Medications Medication Sig Dispensed Refills Start Date End Date Status Aspirin 81 MG Oral Tablet Delayed Release Take 1 Tablet by mouth daily. 30 Tablet 1 10/29/2021 Active Celecoxib 200 MG Oral Capsule (CeleBREX) Take 1 Capsule by mouth in the morning and 1 Capsule before bedtime. 0 Active OneTouch Ultra Blue In Vitro Strip (Glucose Blood)Indications:Ty pe 2 diabetes mellitus with hemoglobin A1c [...] 11/12/2021 Active Allopurinol 100 MG Oral Tablet (Zyloprim)Indication s:History of gout TAKE 1 TABLET BY MOUTH EVERY DAY 90 Tablet 1 04/13/2023 Active Atorvastatin Calcium 40 MG Oral Tablet (Lipitor)Indications :Dyslipidemia, goal LDL below 130 TAKE 1 TABLET BY MOUTH IN THE MORNING 90 Tablet 1 08/18/2023 Active Gabapentin 800 MG Oral Tablet (Neurontin) TAKE 1 TABLET BY MOUTH IN THE MORNING; 1 TAB BY MOUTH AT NOON; 1 TAB BEFORE BEDTIME 90 Tablet 1 08/18/2023 Active metFORMIN HCl 500 MG Oral Tablet (Glucophage)Indicati ons:DM type 2 causing neurological disease (HCC) TAKE 1 TABLET BY MOUTH 2 TIMES A DAY WITH morning AND EVENING MEALS 180 Tablet 1 08/23/2023 Active HYDROcodone-Acetamin ophen 10-325 MG Oral TabletIndications:HN P (herniated nucleus pulposus), lumbar Take 1 Tablet by mouth every 8 hours as needed for Pain, Moderate. No driving on medication. Ongoing. Use sparingly. 30 Tablet 0 08/24/2023 Active methylPREDNISolone 4 MG Oral Tablet Therapy Pack (Medrol) follow package directions 21 Tablet 0 09/04/2023 Active documented as of this encounter (statuses as of 09/19/2023) Active Problems Problem Noted Date Diagnosed Date [...] as of this encounter (statuses as of 09/19/2023) Resolved Problems Problem Noted Date Diagnosed Date Resolved Date Morbid obesity 10/28/2021 08/25/2023 Overview: Per Obesity protocol Prediabetes 04/20/2021 11/25/2021 Overview: Per Prediabetes protocol Pre-operative cardiovascular examination 08/30/2014 11/05/2021 Nonspecific abnormal electro cardiogram (ECG) (EKG) 08/30/2014 11/05/2021 documented as of this encounter (statuses as of 09/19/2023) Immunizations Name Administration Dates Next Due SEASONAL [...] Care Team (Late st Contact Info) Description 10/04/2023 10:15 AM EST Appointment Radiology, [facility] [address] [place] [address] 12/23/2023 12:20 PM EDT Office Visit [facility] [address] [place] [phone] Noah Gerber PA-C [address] [place] [id number] Scheduled Orders Name Type Priority Associated Diagnoses Orde r Schedule MRI L SPINE WO CONTRAST Medical Imaging Routine Post-operative pain Expected: 09/19/2023, Expires: 10/20/2024 Health Maintenance Due Date Last Done Comments [...] as of this encounter Visit Diagnoses Diagnosis Post-operative pain- Primary Other acute postoperative pain documented in this encounter Advance Directives Latest Code Status on File Code Status Date Activated Date Inactivated Comments Full Code 10/28/2021 8:01 AM 10/29/2021 7:01 PM This order reflects the patients wishes and were consensually agreed upon. Care Teams Sales Systems Engineer Relationship Specialty Start Date End Date Noah Gerber PA-C [address] [place] [id number] PCP - General Physician Rn Heart 04/27/21 documented as of this encounter
--- OUTSIDE RECORDS SUMMARY | 2023-10-27 06:18 | External Medical Summary | Summary of Care ---
Author Name Unknown Organization [facility] Address [address] [place] [address] Phone [phone] Care Team Providers Care Software Firmware Engineer Name Role Phone Noah Gerber PA-C Primary Care Provider [phone] Reason for Visit * Reason Comments Swelling Pain R foot * Auth/Cert Specialty Diagnoses / Procedures Referred By Contac t Referred To Contact Referral ID Status Reason Start Date Expiration Date Visits Re quested Visits Authorized [id number] Encounter Details Date Type Department Care Team (Late st Contact Info) Description 09/04/2023 9:46 AM EST - 09/04/2023 1:50 PM EST [facility]) [address] [place] [address] Mikala Singh, DO [address] [facility] [address] Right foot pain (Primary Dx); Chronic right-sided low back pain with right-sided sciatica Discharge Disposition: Home - Self Care Allergies No known active allergiesdocumented as of this encounter (statuses as of 09/05/2023) Medications Medication Sig Dispensed Refills Start Date [...] as directed 100 Strip 11 11/12/2021 Active OneKeanu Deltariq Lancets 33GIndications:Type 2 diabetes mellitus with hemoglobin A1c goal of less than 7.0% (HCC) Use up to 4 times per day as needed 100 Each 11 11/12/2021 Active Allopurinol 100 MG Oral Tablet (Zyloprim)Indicatio [...] EVENING MEALS 180 Tablet 1 08/23/2023 Active HYDROcodone-Acetami nophen 10-325 MG Oral TabletIndications: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 No driving on medication. Ongoing. Use sparingly. 30 Tablet 0 08/24/2023 Active Cyclobenzaprine HCl 10 MG Oral Tablet (Flexeril) Take 1 Tablet by mouth in the morning and 1 Tablet at noon and 1 Tablet before bedtime. Do all this for 7 days. 21 Tablet 0 09/04/2023 09/11/2023 Active methylPREDNISolone 4 MG Oral Tablet Therapy Pack (Medrol) follow package directions 21 Tablet 0 09/04/2023 Active documented as of this encounter (statuses as of 09/05/2023) Active Problems Problem Noted Date Diagnosed Date [...] as of this encounter (statuses as of 09/05/2023) Resolved Problems Problem Noted Date Diagnosed Date Resolved Date Morbid obesity 10/28/2021 08/25/2023 Overview: Per Obesity protocol Prediabetes 04/20/2021 11/25/2021 Overview: Per Prediabetes protocol Pre-operative cardiovascular examination 08/30/2014 11/05/2021 Nonspecific abnormal electro cardiogram (ECG) (EKG) 08/30/2014 11/05/2021 documented as of this encounter (statuses as of 09/05/2023) Immunizations Name Administration Dates Next Due SEASONAL [...] Sign Reading Time Taken Comments Blood Pressure 130/87 09/04/2023 1:25 PM EST Pulse 91 09/04/2023 1:25 PM EST Temperature 36.6 C (97.8 F) 09/04/2023 9:58 AM ES T Respiratory Rate 20 09/04/2023 1:25 PM EST Oxygen Saturation 96% 09/04/2023 1:25 PM EST Inhaled Oxygen Concentration - - Weight - - Height - - Body Mass Index - - documented in this encounter ED Notes * Mikala Singh, DO - 09/04/2023 10:29 AM EST HISTORY OF PRESENT ILLNESS Oksana Aparicio is a 48 year old male who presents to the ED for evaluation of Swelling and Pain (R foot ). The patient was seen at 09/04/23 1022. Patient is a 48-year-old male who presents a chief complaint of pain and swelling of his right foot and leg. He is past medical history of CVA, diabetes, hyperlipidemia. The patient states he had spinal fusion done a week ago at [facility]. He was discharged from the hospital 3 days ago with a walker and was doing well, but the past couple of days he is states that he is had increasing pain of the right foot when he walks and is mostly to the lateral aspect of his right foot. Denies any recent trauma or falls. He also admits to low back pain.He can not determine if it is a numbness or tingling sensation of the right leg but denies any urina ry retention or bowel incontinence. He has been taking tramadol and hydrocodone for the pain. No fevers or chills. He did not contact his surgeon. History provided by: patient tool marker used: No Review of Systems Constitutional: Negative for chills, fatigue and fever. HENT: Negative for congestion, rhinorrhea, sinus pressure, sinus pain, sneezing and sore throat. Eyes: Negative for photophobia and visual disturbance. Respiratory: Negative for cough, shortness of breath and wheezing. Cardiovascular: Positive for leg swelling. Negative for palpitations. Gastrointestinal: Negative for abdominal pain, constipation, diarrhea, nausea and vomiting. Genitourinary: Negative for dysuria, frequency and hematuria. Musculoskeletal: Positive for arthralgias. Negative for neck pain and neck stiffness. Skin: Negative for rash and wound. Neurological: Negative for dizziness, light-headedness and headaches. The patient's allergies, past history, and medications were reviewed. PHYSICAL EXAM Initial Vitals (see all): BP 147/87 | Pulse 92 | Resp 20 | Temp 97.8 | O2 98 %Weight 130.14 kg | Height 172.7 cm | BMI 43.62 kg/m2 Initial Pain Assessment (see all): 9 (severe pain)/10, Aching, location: R foot ([facility] Adult Scale 0-10) Physical Exam Constitutional: General: He is not in acute distress. Appearance: He is not toxic-appearing. HENT: Head: Normocephalic. Mouth/Throat: Mouth: Mucous membranes are moist. Eyes: General: No scleral icterus. Pupils: Pupils are equal, round, and reactive to light. Cardiovascular: Rate and Rhythm: Normal rate. Heart sounds: No murmur heard. No gallop. Pulmonary: Effort: No respiratory distress. Breath sounds: Normal breath sounds. No wheezing. Comments: Clear breath sounds in all lung noland. No acute respiratory distress. Pulse ox 98% on room air. Abdominal: General: There is no distension. Palpations: Abdomen is soft. Tenderness: There is no abdominal tenderness. Comments: No abdominal tenderness palpation. Abdomen is soft and nondistended. No guarding or rigidity. Musculoskeletal: General: Swelling and tenderness present. No deformity. Comments: The patient does have well-healing incision of the lumbar spine from his fusion. There isno drainage or redness surrounding the incision. There is some mild paraspinal tenderness. He also has tenderness palpation to the lateral aspect of his right foot, there is some slight swelling noted but the extremity is warm, no sensory deficit. DP and PT +2. Skin: General: Skin is warm. Capillary Refill: Capillary refill takes less than 2 seconds. Coloration: Skin is not jaundiced. Findings: No bruising. Neurological: Mental Status: He is alert and oriented to person, place, and time. Cranial Nerves: No cranial nerve deficit. Motor: No weakness. PROCEDURES AND TREATMENTS ED Orders | ED Results MEDICAL DECISION MAKING Nursing notes and vital signs were reviewed. ED Course as of 09/04/23 1710 Sun Sep 04, 2023 1320 Patient was updated on his imaging results. I do not feel he has any concerning symptoms for cauda equina and they are aware of this. He will be discharged home with steroids and muscle relaxers. [MS] ED Course User Index [MS] Mikala Singh DO Patient is a 48-year-old male who presents a chief complaint right foot pain and back pain. He had spinal fusion done a week ago at [facility]. He was doing well after surgery but then started having increasing pain. I did ask him more specifically about medicines he was discharged home with andstates he was getting steroids in the hospital but then once he was discharged he stopped taking the steroid and was not given it as a prescription. I do feel this could be inflammation surrounding the nerves and he understands this. CT scan does not show any abnormality, ultrasound does not show any DVT. There is no fracture of the foot on x-ray. I will treat him as if he has nerve irritation from his surgery with Medrol Dosepak and Flexeril as he already has pain medication at home. Patient is agreeable to this and will contact his surgeon tomorrow. Amount and/or Complexity of Data Reviewed Radiology: ordered. Risk Prescription drug management. Clinical Impressions Right foot pain Chronic right-sided low back pain with right-sided sciatica Disposition Discharged. The patient's condition at disposition was: stable. Discharge Medications Disp Refills Start End Cyclobenzaprine HCl 10 MG Oral Tablet (Flexeril) 21 Tablet 0 09/04/2023 09/11/2023 Sig - Route: Take 1 Tablet by mouth in the morning and 1 Tablet at noon and 1 Tablet before bedtime. Do all this for 7 days. - Oral Class: ePrescribing Renewals Renewal requests to authorizing provider (Mikala Singh DO) <b>prohibited</b> methylPREDNISolone 4 MG Oral Tablet Therapy Pack (Medrol) 21 Tablet 0 09/04/2023 -- Sig: follow package directions Class: ePrescribing Renewals Renewal requests to authorizing provider (Mikala Singh DO) <b>prohibited</b> Mikala Singh * Melissa Hutchinson RN - 09/04/2023 10:02 AM EST Patient comes in with c/o R foot pain. Had spine fusion on Tuesday, was d/c from the hospital on . Started noticing pain and swelling to foot over the weekend. documented in this encounter Miscellaneous Notes * Pt Handout (on AVS) - Samantha Mikala DO Lisa - 09/04/2023 1:26 PM EST Images from the original note were not included. [id number] Back Pain (Acute or Chronic) Back pain is one of the most common problems. The good news is that most people feel better in 1 to2 weeks, and most of the rest in 1 to 2 months. Most people can remain active. People who have pain describe it differently?not everyone is the same. The pain can be sharp, stabbing, shooting, aching, cramping or burning. Movement, standing, bending, lifting, sitting, or walking may worsen pain. It can be limited to one spot or area, or it can be more generalized. It can spread upwards, to the front, or go down your arms or legs (sciatica). It can cause muscle spasm. Most of the time, mechanical problems with the muscles or spine cause the pain. Mechanical problemsare usually caused by an injury to the muscles or ligaments. Illness can cause back pain, but it's usually not caused by a serious illness. Mechanical problems include: Physical activity such as sports, exercise, work, or normal activity Overexertion, lifting, pushing, pulling incorrectly or too aggressively Sudden twisting, bending, or stretching from an accident, or accidental movement Poor posture Stretching or moving wrong, without noticing pain at the time Poor coordination, lack of regular exercise (check with your doctor about this) Spinal disc disease or arthritis Stress Pain can also be related to , or illness such as appendicitis, bladder or kidney infections, kidney stones, and pelvic infections. Acute back pain usually gets better in 1 to 2 weeks. Back pain related to disk disease, arthritis in the spinal joints, or narrowing of the spinal canal (spinal stenosis) can become chronic and last for months or years. Unless you had a physical injury such as a car accident or fall, X-rays are usually not needed for the first assessment of back pain. If pain continues and does not respond to medical treatment, you may need X-rays and other tests. Home care Try this home care advice: When in bed, try to find a position of comfort. A firm mattress is best. Try lying flat on your back with pillows under your knees. You can also try lying on your side with your knees bent up toward your chest and a pillow between your knees. At first, don't try to stretch out the sore spots. If there is a strain, it's not like the good soreness you get after exercising without an injury. In this case, stretching may make it worse. Don't sit for long periods, as in a long car ride or during other travel. This puts more stress on the lower back than standing or walking. During the first 24 to 72 hours after an acute injury or flare up of chronic back pain, apply anice pack to the painful area for 20 minutes and then remove it for 20 minutes. Do this over a period of 60 to 90 minutes or several times a day. This will reduce swelling and pain. Wrap the ice pack in a thin towel or plastic to protect your skin. You can start with ice, then switch to heat. Heat (hot shower, hot bath, or heating pad) reducespain and works well for muscle spasms. Heat can be applied to the painful area for 20 minutes then remove it for 20 minutes. Do this over a period of 60 to 90 minutes or several times a day. Don't sleep on a heating pad. It can lead to skin payne or tissue damage. You can alternate ice and heat therapy. Talk with your doctor about the best treatment for your back pain. Therapeutic massage can help relax the back muscles without stretching them. Be aware of safe lifting methods. Don't lift anything without stretching first. Medicines Talk to your doctor before using medicine, especially if you have other medical problems or are taking other medicines. You may use yzpt-fhb-scdrxqw medicine as directed on the bottle to control pain, unless another pain medicine was prescribed. Talk with your healthcare provider before using these medicines if youhave chronic conditions such as diabetes, liver or kidney disease, stomach ulcers, or digestive bleeding. Also talk with your provider if you take blood thinners. Be careful if you are given a prescription medicines, narcotics, or medicine for muscle spasms. They can cause drowsiness, affect your coordination, reflexes, and judgment. Don't drive or operate heavy machinery. Follow-up care Follow up with your healthcare provider, or as advised. If X-rays were taken, you will be told of any new findings that may affect your care. Call 911 Call 911 if any of the following occur: Trouble breathing Confusion Very drowsy or trouble awakening Fainting or loss of consciousness Rapid or very slow heart rate Loss of bowel or bladder control When to seek medical advice Call your healthcare provider right away if any of these occur: Pain gets worse or spreads to your legs Your bowel or bladder control changes Fever Blood in your urine Weakness or numbness in one or both legs Numbness in the groin or genital area Last Reviewed Date: 10/10/202119995819-8365 The [employer]. All rights reserved. This information is not intended as a substitute for professional medical care. Always follow your healthcare professional's instructions. * Ancillary Progress Note - Steven Gold RVT - 09/04/2023 11:21 AM EST RIGHT L E venous duplex: Negative for DVT. * ED Homeland Security Program Specialist Note - Godfrey Christian RN - 09/04/2023 11:05 AM EST Late entry - Patient presents to the ED today for right foot pain and swelling that started over the weekend. Pt stated he had back surgery on Tuesday and was d/c on . Pt is prescribed oxycodone and tramadol for pain, last taken at 0800 this morning, is still in pain in his right foot. Pt stated he can move his foot but cannot put weight on it. + sensation and movement in RLE. Dorsalis pulse palpable in RLE. VSS. Call muro within reach. 1347: Patient verbalized understanding of d/c instructions. VSS. Aware of scripts at the pharmacy. Patient ambulated slow but steady out of the ED with a walker. Aware of scripts at the pharmacy. documented in this encounter Plan of Treatment Upcoming Encounters Date Type Department Care Team (Late st Contact Info) Description 12/23/2023 12:20 PM EDT Office Visit [facility] [address] [place] [phone] Noah Gerber PA-C [address] [place] [address] [phone] Pending Results Name Type Priority Associated Diagnoses Date /Time VASC DUPLEX VENOUS LE UNILAT Medical Imaging STAT 09/04/2023 11:21 AM EST Scheduled Orders Name Type Priority Associated Diagnoses Orde r Schedule VASC DUPLEX VENOUS LE UNILAT Medical Imaging STAT One Time for 1 Occurrences starting 09/04/2023 until 09/04/2023 Health Maintenance Due Date Last Done Comments [...] Procedure Name Priority Date/Time Associated Diagnosis Comments CT L SPINE WO CONTRAST STAT 09/04/2023 11:39 AM EST XR FOOT 3 OR MORE VIEWS STAT 09/04/2023 10:38 AM EST documented in this encounter Results * CT L SPINE WO CONTRAST (09/04/2023 11:39 AM EST) Anatomical Region Laterality Modality Lspine, Spine, Vertebra Computed Tomography 09/04/2023 11:3 6 AM EST Impressions 09/04/2023 12:25 PM EST IMPRESSION: 1. Changes in the soft tissues consistent with the patient's recent postoperative state are seen at the level of the L4 and L5 laminectomy defects. Due to extensive beam hardening artifact from adjacent surgical hardware, it is difficult to evaluate the spinal canal at this level. 2. Central canal stenosis at L1-L2 and L2-L3. THIS DOCUMENT HAS BEEN ELECTRONICALLY SIGNED BY VALENCIA ORTEGA MD Narrative 09/04/2023 12:25 PM EST PROCEDURE INFORMATION: Exam: CT Lumbar Spine Without Contrast Exam date and time: 09/04/2023 11:36 AM Age: 48 years old Clinical indication: Other: Spinal fusion 1 weel ago; Worsening pain to right foot TECHNIQUE: Imaging protocol: Computed tomography of the lumbar spine without contrast. Radiation optimization: All CT scans at this facility use at least one of these dose optimization techniques: automated exposure control; mA and/or kV adjustment per patient size (includes targeted exams where dose is matched to clinical indication); or iterative reconstruction. REPORTING DATA: Count of CT and Cardiac NM exams in prior 12 months: This patient has received 0 known CTs and 0 known cardiac nuclear medicine studies in the 12 months prior to the current study. COMPARISON: MRI L SPINE WO CONTRAST 04/09/2023 12:08 PM FINDINGS: Limitations: Beam hardening artifact from the surgical hardware partially obscures the adjacent soft tissue structures. Bones/joints: Straightening of the normal lumbar lordosis. No acute or suspicious osseous abnormalities. Bilateral posterior spinal fixation hardware extending from L3 through S1, with associated intervertebral disc spacers at these levels, and posterior decompression at L4 on L5. The visualized portions of the surgical hardware are intact and in good position, without evidence of loosening. There is solid bony fusion at L3-L4. Mzne-ob-vkohijaf intervertebral cysts disc space narrowing with disc bulge at L1-L2, where there is also mild bilateral ligamentum flavum hypertrophy, resulting in achw-zm-dijslomf central canal stenosis. Severe narrowing of the L2-L3 intervertebral disc space with associated mild sclerosis of the vertebral endplates and moderate marginal osteophytes. There is a disc bulge at this level as well as bilateral ligamentum flavum hypertrophy, with resultant moderate central canal stenosis. Soft tissues: Air bubbles and infiltrative changes are seen in the soft tissues at the level of the L4 and L5 laminectomy defects, consistent with the patient's recent postoperative state. Due to extensive beam hardening artifact from adjacent surgical hardware, it is difficult to evaluate the spinal canal at this level. Scattered non loculated fluid in the subcutaneous tissues overlying the mid to lower lumbar spine, consistent with the patient's recent postoperative state. Procedure Note Valencia Ortega MD - 09/04/2023 PROCEDURE INFORMATION: Exam: CT Lumbar Spine Without Contrast Exam date and time: 09/04/2023 11:36 AM Age: 48 years old Clinical indication: Other: Spinal fusion 1 weel ago; Worsening pain toright foot TECHNIQUE: Imaging protocol: Computed tomography of the lumbar spine withoutcontrast. Radiation optimization: All CT scans at this facility use at least one ofthese dose optimization techniques: automated exposure control; mA and/or kV adjustment per patient size (includes targeted exams where dose is matchedto clinical indication); or iterative reconstruction. REPORTING DATA: Count of CT and Cardiac NM exams in prior 12 months: This patient hasreceived 0 known CTs and 0 known cardiac nuclear medicine studies in the 12 monthsprior to the current study. COMPARISON: MRI L SPINE WO CONTRAST 04/09/2023 12:08 PM FINDINGS: Limitations: Beam hardening artifact from the surgical hardware partially obscures the adjacent soft tissue structures. Bones/joints: Straightening of the normal lumbar lordosis. No acute or suspicious osseous abnormalities. Bilateral posterior spinal fixationhardware extending from L3 through S1, with associated intervertebral disc spacersat these levels, and posterior decompression at L4 on L5. The visualizedportions of the surgical hardware are intact and in good position, without evidenceof loosening. There is solid bony fusion at L3-L4. Tfml-er-yzaiwekwihqidhvvapycba cysts disc space narrowing with disc bulge at L1-L2, where there is alsomild bilateral ligamentum flavum hypertrophy, resulting in tonv-ml-mutpdhbpvppxdif canal stenosis. Severe narrowing of the L2-L3 intervertebral disc spacewith associated mild sclerosis of the vertebral endplates and moderate marginal osteophytes. There is a disc bulge at this level as well as bilateral ligamentum flavum hypertrophy, with resultant moderate central canalstenosis. Soft tissues: Air bubbles and infiltrative changes are seen in the softtissues at the level of the L4 and L5 laminectomy defects, consistent with the patient's recent postoperative state. Due to extensive beam hardeningartifact from adjacent surgical hardware, it is difficult to evaluate the spinalcanal at this level. Scattered non loculated fluid in the subcutaneous tissues overlying the mid to lower lumbar spine, consistent with the patient'srecent postoperative state. IMPRESSION IMPRESSION: 1. Changes in the soft tissues consistent with the patient's recent postoperative state are seen at the level of the L4 and L5 laminectomydefects. Due to extensive beam hardening artifact from adjacent surgical hardware,it is difficult to evaluate the spinal canal at this level. 2. Central canal stenosis at L1-L2 and L2-L3. THIS DOCUMENT HAS BEEN ELECTRONICALLY SIGNED BY VALENCIA ORTEGA MD Mikala Singh DO RAD CT * XR FOOT 3 OR MORE VIEWS (09/04/2023 10:38 AM EST) Anatomical Region Laterality Modality Foot, Lower Extremity Digital Ra diography 09/04/2023 10:3 2 AM EST Impressions 09/04/2023 11:00 AM EST IMPRESSION: 1. 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 There is deformity of the 4th metatarsal head-neck junction which may be postsurgical or posttraumatic and local osteopenia of the 4th MTP region. No bony changes to suggest osteomyelitis. 2. Mild bunion deformity and mild 1st MTP degenerative change. THIS DOCUMENT HAS BEEN ELECTRONICALLY SIGNED BY SHAKILA FULLER MD Narrative 09/04/2023 11:00 AM EST PROCEDURE INFORMATION: Exam: XR Right Foot Exam date and time: 09/04/2023 10:32 AM Age: 48 years old Clinical indication: Other: Foot pain after surgery TECHNIQUE: Imaging protocol: Radiologic exam of the right foot. Views: 3 or more views. 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 There is deformity of the 4th metatarsal head-neck junction which may be postsurgical or posttraumatic and local osteopenia of the 4th MTP region. No bony changes to suggest osteomyelitis. Mild bunion deformity and mild 1st MTP degenerative change. Soft tissues: Mild forefoot soft tissue swelling. Procedure Note Shakila Fuller MD - 09/04/2023 PROCEDURE INFORMATION: Exam: XR Right Foot Exam date and time: 09/04/2023 10:32 AM Age: 48 years old Clinical indication: Other: Foot pain after surgery TECHNIQUE: Imaging protocol: Radiologic exam of the right foot. Views: 3 or more views. 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 There isdeformity of the 4th metatarsal head-neck junction which may be postsurgical or posttraumatic and local osteopenia of the 4th MTP region. No bony changesto suggest osteomyelitis. Mild bunion deformity and mild 1st MTP degenerative change. Soft tissues: Mild forefoot soft tissue swelling. IMPRESSION IMPRESSION: 1. 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 There is deformity ofthe 4th metatarsal head-neck junction which may be postsurgical or posttraumaticand local osteopenia of the 4th MTP region. No bony changes to suggest osteomyelitis. 2. Mild bunion deformity and mild 1st MTP degenerative change. THIS DOCUMENT HAS BEEN ELECTRONICALLY SIGNED BY SHAKILA FULLER MD Mikala Singh DO RADIOLOGY ([facility]) documented in this encounter Visit Diagnoses Diagnosis Right foot pain- Primary Pain in limb Chronic right-sided low back pain with right-sided sciatica documented in this encounter Administered Medications Inactive Administered Medications - up to 3 most recent administrations Medication Order MAR Action Action Date Dose Rate Site cyclobenzaprine (Flexeril) tab 10 mg 10 mg, Oral, ONCE, On 09/04/23 at 1400, For 1 dose Given 09/04/2023 1:38 PM EST 10 mg fentaNYL (PF) inj 50 mcg 50 mcg, Intravenous, ONCE, On 09/04/23 at 1100, For 1 dose, When given IV Push its recommended that the dose be given over 3 to 5 minutes. Given 09/04/2023 10:51 AM EST 50 mcg predniSONE (Deltasone) tab 20 mg 20 mg, Oral, ONCE, On 09/04/23 at 1400, For 1 dose Given 09/04/2023 1:38 PM EST 20 mg documented in this encounter Active and Recently Administered Medications Times are shown in EST. Scheduled Medication Order 09/02/2023 09/03/2023 09/04/2023 cyclobenzaprine (Flexeril) tab 10 mg (COMPLETED) 10 mg, Oral, ONCE, On 09/04/23 at 1400, For 1 dose 1338 (Given - Provid er: Godfrey Christian RN) fentaNYL (PF) inj 50 mcg (COMPLETED) 50 mcg, Intravenous, ONCE, On 09/04/23 at 1100, For 1 dose, When given IV Push its recommended that the dose be given over 3 to 5 minutes. 1051 (Given - Provid er: Godfrey Christian RN) predniSONE (Deltasone) tab 20 mg (COMPLETED) 20 mg, Oral, ONCE, On 09/04/23 at 1400, For 1 dose 1338 (Given - Provid er: Godfrey Christian RN) documented in this encounter Advance Directives Latest Code Status on File Code Status Date Activated Date Inactivated Comments Full Code 10/28/2021 8:01 AM 10/29/2021 7:01 PM This order reflects the patients wishes and were consensually agreed upon. Care Teams Software Firmware Engineer Relationship Specialty Start Date End Date Noah Gerber PA-C [address] [id number] PCP - General Physician Supervisor Shuttle Fitting 04/27/21 documented as of this encounter"
--- OUTSIDE RECORDS SUMMARY | 2023-10-27 06:18 | External Medical Summary | Summary of Care ---
Author Name Unknown Organization [facility] Address [address] [facility] [place] [address] Phone [phone] Care Team Providers Care Bus Trolley And Taxi Instructor Name Role Phone Noah Gerber PA-C Primary Care Provider [phone] Reason for Visit * Precert (Within 10 days (routine)) - Pending Review Specialty Diagnoses / Procedures Referred By Contamanda t Referred To Contact Radiology Diagnoses Post-operative pain Procedures MRI L SPINE WO CONTRAST Prudencio Rodriguez PA-C [address] [place] [id number] Referral ID Status Reason Start Date Expiration Date V isits Requested Visits Authorized [id number] Pending Review 09/19/2023 [id number] Encounter Details Date Type Department Care Team (Latest Contact Info) Description 10/04/2023 9:52 AM EST - 10/04/2023 11:59 PM EST Hospital Encounter Radiology, [address] [address] Arrived Discharge Disposition: Home - Self Care Allergies No known active allergiesdocumented as of this encounter (statuses as of 10/05/2023) Medications Medication Sig Dispensed Refills Start Date [...] as directed 100 Strip 11 11/12/2021 Active Aris Moreno Lancets 33GIndications:Type 2 diabetes mellitus with hemoglobin [...] as of this encounter (statuses as of 10/05/2023) Active Problems Problem Noted Date Diagnosed Date [...] as of this encounter (statuses as of 10/05/2023) Resolved Problems Problem Noted Date Diagnosed Date Resolved Date Morbid obesity 10/28/2021 08/25/2023 Overview: Per Obesity protocol Prediabetes 04/20/2021 11/25/2021 Overview: Per Prediabetes protocol Pre-operative cardiovascular examination 08/30/2014 11/05/2021 Nonspecific abnormal electro cardiogram (ECG) (EKG) 08/30/2014 11/05/2021 documented as of this encounter (statuses as of 10/05/2023) Immunizations Name Administration Dates Next Due Seasonal [...] Visit [facility] [address] [phone] Noah Gerber PA-C [address] [id number] Pending Results Name Type Priority Associated Diagnoses Date /Time MRI L SPINE WO CONTRAST Medical Imaging Routine Post-operative pain 10/04/2023 11:51 AM EST Health Maintenance Due Date Last [...] of this encounter Visit Diagnoses Diagnosis Post-operative pain Other acute postoperative pain documented in this encounter Advance Directives Latest Code Status on File Code Status Date Activated Date Inactivated Comments Full Code 10/28/2021 8:01 AM 10/29/2021 7:01 PM This order reflects the patients wishes and were consensually agreed upon. Care Teams Bus Trolley And Taxi Instructor Relationship Specialty Start Date End Date Noah Gerber PA-C [address] [phone] PCP - General Physician Rn Clinical 04/27/21 documented as of this encounter
--- OUTSIDE RECORDS SUMMARY | 2023-10-27 06:18 | External Medical Summary | Summary of Care ---
Author Name Unknown Organization [facility] Address [address] [place] [address] Phone [phone] Care Team Providers Care Restoration Silversmith Name Role Phone Noah Gerber PA-C Primary Care Provider [phone] Reason for Visit * Reason Onset Date Comments Films 09/05/2023 Encounter Details Date Type Department Care Team (Late st Contact Info) Description 09/05/2023 Telephone Radiology Film File [address] [place], [place] [id number] Mikala Singh, DO [address] [facility] [place] [address] Films Allergies No known active allergiesdocumented as of [...] hemoglobin A1c goal of less than 7.0% ([facility]) Use as directed 4 times a day as needed (glucose readings). 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 Never true 08/17/20 Within the past 12 months, t he [...] encounter Miscellaneous Notes * Telephone Encounter - Paige Rust OSA - 09/05/2023 8:35 AM EST Patient requesting all 09/04/23 imaging and reports be sent to [facility]. [place] Authorization to Release on file. Images pushed to [facility] Life Image account. Report(s) faxed to [phone]. Successful fax confirmation received. documented in this encounter Plan of Treatment Upcoming Encounters Date Type Department Care Team (Late st Contact Info) Description 12/23/2023 12:20 PM EDT Office Visit [facility] [place] [address] [phone] Noah Gerber PA-C [...] and were consensually agreed upon. Care Teams Restoration Silversmith Relationship Specialty Start Date End Date Noah Gerber PA-C [address] [phone] PCP - General Physician Clinical Investigator 04/27/21 documented as of this encounter
--- OUTSIDE RECORDS SUMMARY | 2023-10-27 06:18 | External Medical Summary | Summary of Care ---
Author Name Unknown Organization [facility] Address [address] [place] [address] Phone [phone] Care Team Providers Care Shading Painter Name Role Phone Noah Gerber PA-C Primary Care Provider [phone] Reason for Visit * Reason Onset Date Comments Films 09/05/2023 Encounter Details Date Type Department Care Team (Late st Contact Info) Description 09/05/2023 Telephone Radiology Film File [address] [place], [place] [id number] Mikala Singh, DO [address] [facility] [place] [address] Films Allergies No known active allergiesdocumented as of this encounter (statuses as of 10/13/2023) Medications Medication Sig Dispensed Refills Start Date [...] goal of less than 7.0% ([facility]) Use as directed 4 times a day as needed (glucose readings). 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 No driving on medication. Ongoing. Use sparingly. 30 Tablet 0 08/24/2023 Active methylPREDNISolone 4 MG Oral Tablet Therapy Pack (Medrol) follow package directions 21 Tablet 0 09/04/2023 Active Cyclobenzaprine HCl 10 MG Oral Tablet (Flexeril) Take 1 Tablet by mouth in the morning and 1 Tablet at noon and 1 Tablet before bedtime. Do all this for 7 days. 21 Tablet 0 09/04/2023 09/11/2023 documented as of this encounter (statuses as of 10/13/2023) Active Problems Problem Noted Date Diagnosed Date [...] as of this encounter (statuses as of 10/13/2023) Resolved Problems Problem Noted Date Diagnosed Date Resolved Date Morbid obesity 10/28/2021 08/25/2023 Overview: Per Obesity protocol Prediabetes 04/20/2021 11/25/2021 Overview: Per Prediabetes protocol Pre-operative cardiovascular examination 08/30/2014 11/05/2021 Nonspecific abnormal electro cardiogram (ECG) (EKG) 08/30/2014 11/05/2021 documented as of this encounter (statuses as of 10/13/2023) Immunizations Name Administration Dates Next Due Seasonal Influenza, PF, 6 M & above, IM , (FluLaval or Fluzone) 10/29/2021(Deferred: Patient Refused) TD - Tetanus/Diptheria (ADULT) [...] Notes * Telephone Encounter - Paige Rust GREER - 10/13/2023 11:09 AM EST [facility] requesting 10/04/23 Lspine MR images be pushed to their system. [place] Authorization to Release on file. Images pushed to [facility] Life Image account. Report(s) faxed to [phone]. Successful fax confirmation received. * Telephone Encounter - Paige Rust OSA - 09/05/2023 8:35 AM EST Patient requesting all 09/04/23 imaging and reports be sent to [facility]. [place] Authorization to Release on file. Images pushed to [facility] Life Image account. Report(s) faxed to [phone]. Successful fax confirmation received. documented in this encounter Plan of Treatment Upcoming Encounters Date Type Department Care Team (Late st Contact Info) Description 12/23/2023 12:20 PM EDT [facility] [address] [phone] Noah Gerber PA-C [address] [id number] Health Maintenance Due Date Last Done Comments [...] and were consensually agreed upon. Care Teams Shading Painter Relationship Specialty Start Date End Date Noah Gerber PA-C [address] [phone] PCP - General Physician Paver 04/27/21 documented as of this encounter
[2023-10-27 06:48] LABS: Basophils # (auto) 0.07 K/uL (0.00-0.20); Basophils % (auto) 0.7 %; Eosinophils # (auto) 0.46 K/uL (0.00-0.50); Eosinophils % (auto) 4.7 %; Hematocrit (blood only) 39.2 % (42.0-52.0); Hemoglobin 12.3 g/dl (14.0-18.0); Immature Granulocytes # (auto) 0.05 K/uL (0.01-0.20); Immature Granulocytes % (auto) 0.5 %; Lymphocytes # (auto) 2.42 K/uL (1.20-3.40); Lymphocytes % (auto) 24.7 %; Mean Corpuscular Hgb Conc 31.4 g/dL (32.0-36.0); Mean Corpuscular Volume 82.9 fL (80.0-100.0); Mean Platelet Volume 8.1 fL (9.4-12.4); Monocytes # (auto) 0.84 K/uL (0.11-0.59); Monocytes % (auto) 8.6 %; Neutrophils # (auto) 5.97 K/uL (1.40-6.50); Neutrophils % (auto) 60.8 %; Platelet Count 311 K/uL (130-400); RDW Coefficient of Variation 13.9 % (11.5-14.5); RDW Standard Deviation 41.6 fL (36.4-46.3); Red Blood Count 4.73 M/uL (4.70-6.10); White Blood Count 9.81 K/ul (4.8-10.8)
[2023-10-27] MEDS ORDERED: MIDAZOLAM HCL 1 MG/ML 2ML VIAL ONE (07:08)
[2023-10-27] MEDS ORDERED: fentaNYL citrate PF 100 MCG/2 ML VIAL ONE ×2 (07:08→08:39)
[2023-10-27] MEDS ORDERED: ROCURONIUM BROMIDE 10 MG/ML 5 ML VIAL IV ONE ×2 (07:13→08:21)
[2023-10-27] MEDS ORDERED: DEXAMETHASONE SOD INJ 4 MG/ML VIAL ONE (07:13)
[2023-10-27] MEDS ORDERED: LIDOCAINE 2% 2 ML VIAL/AMP(20MG/ML) INFIL ONE (07:13)
[2023-10-27] MEDS ORDERED: PROPOFOL IV EMULSION 10 MG/ML 20 ML VIAL IV ONE (07:13)
[2023-10-27] MEDS ORDERED: ONDANSETRON INJ 2 MG/ML 2 ML VIAL ONE (07:13)
[2023-10-27] MEDS ORDERED: SUCCINYLCHOLINE CHLORIDE 20 MG/ML 10 ML VIAL IV ONE (07:24)
[2023-10-27] MEDS ORDERED: ATROPINE SULFATE 0.1 MG/ML 10ML SYR IV PRN (07:25)
[2023-10-27] MEDS ORDERED: HYDROmorphone INJ 2 MG/ML SYR/VIAL IV PRN (07:25)
[2023-10-27] MEDS ORDERED: ONDANSETRON INJ 2 MG/ML 2 ML VIAL IV PRN ×2 (07:25→10:24)
[2023-10-27] MEDS ORDERED: PROMETHAZINE HCL 12.5 MG in SODIUM CHLORIDE 0.9% 50 ML IV PRN ×2 (07:25→10:24)
[2023-10-27] MEDS ORDERED: ePHEDrine sulfate 50 MG/ML AMP IV PRN (07:25)
[2023-10-27] MEDS ORDERED: fentaNYL citrate PF 100 MCG/2 ML VIAL IV PRN (07:25)
[2023-10-27] MEDS ORDERED: BUPIVACAINE/EPINEPHRINE 0.5% MPF 1:200,000 30 ML VIAL ONE (07:35)
[2023-10-27] MEDS ORDERED: ceFAZolin 330 MG/ML 1 GM VIAL ONE (07:35)
--- NOTE | 2023-10-27 07:40 | History & Physical Bridge Note ---
Date of Service October 27, 2023 History & Physical Bridge Note I have examined the patient, reviewed the History & Physical and in the interval since the performance of the History & Physical I have noted the following changes of clinical significance: no changes noted
--- NOTE | 2023-10-27 07:41 | History & Physical Report ---
Date of Service October 27, 2023 Assessment & Plan (1) Neurogenic claudication due to lumbar spinal stenosis: Plan: Incision and drainage lumbar spine History of Present Illness Chief Complaint: Chronic back and leg pain Primary Care Provider: Noah Gerber PA-C This is a 40-year-old male well-known to me presents with worsening back and leg pain has evidence of a postop seroma is here for evacuation Allergies Allergy/AdvReac Type Severity Reaction Status Date / Time No Known Allergies Allergy Verified 10/27/23 06:35 Home Medications Medication Instructions Recorded Confirmed Type allopurinol 100 mg tablet 100 mg PO QAM 08/05/23 10/27/23 History aspirin 81 mg capsule 81 mg PO QAM 08/05/23 10/27/23 History atorvastatin 40 mg tablet 40 mg PO QAM 08/05/23 10/27/23 History celecoxib 200 mg capsule (Celebrex) 200 mg PO BID 08/05/23 10/27/23 History gabapentin 800 mg tablet 800 mg PO TID 08/05/23 10/27/23 History metformin 500 mg tablet 500 mg PO BID 08/05/23 10/27/23 History oxycodone 5 mg tablet 5 mg PO Q6H PRN pain #30 tabs 08/30/23 10/27/23 Rx Past Med/Surg History Medical History Carotid stenosis Right ICA <50% stenosis; no carotid stenosis to left ICA per 12/10/21 neck CTA Diabetes mellitus, type 2 Glucose controlled High cholesterol Hx of gout No recent flares Hx of wheezing occasional bouts of wheezing - usually at the end of the day 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 History of total left hip replacement S/P epidural steroid injection x3 prior to first back surgery Social History Smoking Status: Former smoker Tobacco Type: Smokeless Tobacco (Dip or Chew) Smoking End Date: years ago; Second Hand Exposure: No; Do You Dip or Chew Tobacco: Yes (1 can/day; advised by nursing); Tobacco Cessation Education Requested by Patient: No Hx Alcohol Use: Yes Hx Substance Use: No Preferred Language: Serbian Communication Ability: Effective Air [employer] Pilot Required: No Beliefs That Will Affect Care: None Current Living Situation: Spouse and Family Other Information That Helps Us Care for You: No Feels Safe at Home: Yes Safety Concerns: Feels Safe At This Time Assistive Devices: None Physical Exam Physical Exam: Patient is alert and oriented Heart regular rhythm Lungs clear Results & Data Results & Data Vital Signs (Past 12 Hours) Vital Signs Temp Pulse Resp BP Pulse Ox O2 Del Method 10/27/23 06:57 37 C 94 H 20 141/80 H 96 Room Air
[2023-10-27] MEDS ORDERED: diphenhydrAMINE 50 MG/ML VIAL ONE (08:12)
[2023-10-27] MEDS ORDERED: GLYCOPYRROLATE 0.2 MG/ML VIAL ONE (08:12)
[2023-10-27] MEDS ORDERED: VANCOMYCIN HCL 1000MG/20ML VIAL ONE (08:14)
[2023-10-27] MEDS ORDERED: GENTAMICIN SULFATE 40 MG/ML 2 ML VIAL ONE (08:14)
[2023-10-27] MEDS ORDERED: SUGAMMADEX SODIUM 200 MG/2 ML VIAL IV ONE (08:29)
--- NOTE | 2023-10-27 08:43 | Operative Report ---
Post Operative Report Pre & Post Diagnosis Operation Date: 10/27/23 07:45 Pre-Op Diagnosis: Hematoma Morbid obesity Post-Op Diagnosis: Same I identified the patient and participated in the time-out.: Yes Procedure Operation Date: 10/27/23 07:45 Actual Procedures Irrigation debridement lumbar spine Surgeon Akin Ontiveros DO Agricultural Produce Sorter Laurie Jordan Estimated Blood Loss 50 Findings See Below Patient is 5 foot 8 weighing 129 kg with a BMI in excess of 42. This did contribute to significant technical difficulty with positioning exposure adding at least 50% increased operative time Specimens None Indications This is a 48-year-old male well-known to me that status post lumbar depression fusion presents with continued back pain and bilateral leg pain imaging demonstrates evidence of large organizing seroma and is here for I&D. Description of Procedure Patient was identified informed consent obtained. Patient was then taken to the operative suite underwent patient placed in a prone position on the Luis Enrique table on top of the [place] frame. All bony prominences well-padded eyes inspected to ensure no external pressure placed upon the. This point lumbar spine was prepped and draped in a sterile fashion. Utilizing patient previous incision site sharp dissection with the assistance of Bovie cautery performed down to and exposing the epidural space. Evidence of seroma and organizing hematoma was identified and evacuated. There is no evidence of any purulence or infected tissue. Several liters of antibiotic saline were then irrigated throughout the incision. Approximately 5 cc of Stimulan beads impregnated with vancomycin gentamicin placed throughout the incision and a 15 round ARNIE drain inserted. The incision was then closed with subcutaneous Vicryl and 4 Monocryl for final closure. Steri-Strips sterile dressing placed. Patient awakened taken to PACU in stable condition. Please note Laurie Jordan was present at the entire procedure and all the patient positioning complex course of the surgery and fascial closure. I attest to the content of the Intraoperative Record and any orders documented therein. Any exceptions are noted below.
--- NOTE | 2023-10-27 10:13 | Anesthesiology Progress Note ---
Date of Service October 27, 2023 Anesthesia Post Procedure Vital Signs Vital Signs: Temp Pulse Pulse Resp BP Pulse Ox O2 Del Method 10/27/23 10:10 86 20 114/70 94 Nasal Cannula 10/27/23 10:01 36.4 C L 88 18 137/72 95 Nasal Cannula 10/27/23 09:50 90 16 129/82 92 Nasal Cannula 10/27/23 09:40 100 H 16 140/80 95 Nasal Cannula 10/27/23 09:30 90 14 146/81 H 96 Nasal Cannula 10/27/23 09:20 96 H 18 150/83 H 98 Oxymask 10/27/23 09:10 98 H 12 130/83 99 Oxymask 10/27/23 09:00 36.7 C 101 H 18 166/100 H 99 Oxymask 10/27/23 06:57 37 C 94 H 20 141/80 H 96 Room Air O2 Flow Rate 10/27/23 10:10 3 10/27/23 10:01 3 10/27/23 09:50 3 10/27/23 09:40 3 10/27/23 09:30 3 10/27/23 09:20 6 10/27/23 09:10 6 10/27/23 09:00 8 10/27/23 06:57 Pain Intensity Lower Back: Pain Intensity: 5 Transfer of Care Handoff Completed per policy Notes Mental Status: alert / awake / arousable and participated in evaluation Patient Amnestic to Procedure: Yes Nausea / Vomiting: adequately controlled Pain: adequately controlled Airway Patency, RR, SpO2: stable & adequate BP & HR: stable & adequate Hydration State: stable & adequate Anesthetic Complications: no major complications apparent
[2023-10-27] MEDS ORDERED: LORazepam 0.5 MG TAB PO PRN (10:24)
[2023-10-27] MEDS ORDERED: ACETAMINOPHEN 1,000 MG/100 ML VIAL IV PRN (10:24)
[2023-10-27] MEDS ORDERED: traMADol HCL 50 MG TABLET PO PRN (10:24)
[2023-10-27] MEDS ORDERED: HYDROmorphone INJ 1 MG/ML SYRINGE IV PRN (10:24)
[2023-10-27] MEDS ORDERED: SOD PHOSPHATE/SOD BIPHOSPHATE ENEMA 132 ML BTL PR PRN (10:24)
[2023-10-27] MEDS ORDERED: hydrOXYzine HCl 25 MG TAB PO PRN (10:24)
[2023-10-27] MEDS ORDERED: DO NOT ADMINISTER FLU VACCINE PRN (10:24)
[2023-10-27] MEDS ORDERED: METOCLOPRAMIDE HCL INJ 5 MG/ML 2 ML VIAL IV PRN (10:24)
[2023-10-27] MEDS ORDERED: FAMOTIDINE 20 MG TAB PO PRN (10:24)
[2023-10-27] MEDS ORDERED: MAGNESIUM HYDROXIDE SUSP 30 ML UDC PO PRN (10:24)
[2023-10-27] MEDS ORDERED: diphenhydrAMINE Capsule 25 MG CAP PO PRN (10:24)
[2023-10-27] MEDS ORDERED: ONDANSETRON 4 MG OD TAB PO PRN (10:24)
[2023-10-27] MEDS ORDERED: DO NOT ADMINISTER PNEUMOCOCCAL VACCINE PRN (10:24)
[2023-10-27] MEDS ORDERED: bisacodyL 10 MG SUPP PR PRN (10:24)
[2023-10-27] MEDS ORDERED: NALOXONE HCL 0.4 MG/1 ML VIAL/CARP IV PRN (10:24)
[2023-10-27] MEDS ORDERED: PHARMACY GLYCEMIC MGMT CONSULT PRN (10:24)
[2023-10-27] MEDS ORDERED: LORazepam 0.5 MG in SYRINGE 0.25 ML IV PRN (10:24)
[2023-10-27] MEDS ORDERED: ACETAMINOPHEN 500 MG TAB PO PRN (10:24)
[2023-10-27] MEDS ORDERED: ALUMINUM/MAGNESIUM SUSP 30 ML UDC PO PRN (10:24)
[2023-10-27] MEDS ORDERED: GLUCAGON FOR INJ 1 MG VIAL IM PRN (11:00)
[2023-10-27] MEDS ORDERED: DEXTROSE 50% 50 ML SYRINGE IV PRN (11:00)
[2023-10-27] MEDS ORDERED: GLUCOSE 10 TAB/TUBE PO PRN (11:00)
[2023-10-27] MEDS ORDERED: GLUCOSE 40% GEL 15 GM TUBE PO PRN (11:00)
[2023-10-27] MEDS ORDERED: CARBOHYDRATES FOR HYPOGLYCEMIA PO PRN (11:00)
[2023-10-27] MEDS ORDERED: LANTUS PER UNIT CHARGE SC SCH (11:30)
--- NOTE | 2023-10-27 11:40 | Pharmacy Report ---
Pharmacy Glycemic Short Note 2 - Date of Service October 27, 2023 - Glycemic Short BSG Results (Last 24 hours): 10/27/23 10/27/23 10/27/23 06:48 09:06 10:47 POC Glucose 127 H 141 H 149 H OUTPATIENT ANTIDIABETIC REGIMEN: * Metformin 500 mg PO BID * HbA1c = 7.4% on 08/15/23 ASSESSMENT: * 48 y/o M admitted for I&D of lumbar spine today. Patient with history of morbid obesity, stroke and Type 2 diabetes which is managed on oral Metformin at home. * Will hold oral Metformin for now and utilize basal/bolus insulins for glycemic control. * Patient received one dose of IV Dexamethasone 4 mg today in OR which is e xpected to cause BSGs to rise later. * Basal insulin 18 units (0.2 units/kg using adjusted body wt and between stress of 2 and 3) x 1 dose ordered for lunch today to prevent steroid induced hyperglycemia later. * Novolog initiated with lunch also, parameters based on stress of 2. PLAN FOR INPATIENT GLYCEMIC CONTROL: * Hold outpatient oral diabetes medications * Basal insulin * Lantus 18 units SQ x1 today around noon * Bolus insulin * NovoLog per scale ACHS or Q6hrs while NPO * Goal Range: Low 110 mg/dL - High 140 mg/dL * Correction Factor: 25 mg/dL/unit * Nutritional / Prandial insulin per carb ratio of 1 unit per 7 grams CHO consumed
[2023-10-27] MEDS: allopurinoL 100 MG TAB PO SCH (11:46)
[2023-10-27] MEDS: GABAPENTIN 800 MG TAB PO SCH ×3 (11:47→20:30)
[2023-10-27] MEDS: ATORVASTATIN 40 MG TAB PO SCH (11:47)
[2023-10-27] MEDS: CeleBREX 200 MG CAP PO SCH ×2 (11:47→20:30)
[2023-10-27] MEDS: ASPIRIN 81 MG ECTAB PO SCH (11:47)
[2023-10-27] MEDS: LACTATED RINGER'S 1,000 ML IV SCH ×2 (11:48→18:51)
[2023-10-27] MEDS: INSULIN ASPART PER UNIT CHARGE SC SCH ×3 (11:58→21:26)
[2023-10-27] MEDS: oxyCODONE HCL IR 5 MG TAB (IMMEDIATE RELEASE) PO PRN ×2 (12:08→17:43)
[2023-10-27] MEDS: ceFAZolin 2000MG 2,000 MG/15 ML SYR IV SCH ×2 (14:10→22:51)
[2023-10-27] MEDS: HYDROmorphone INJ 0.5 MG/0.5 ML SYR IV PRN ×2 (15:12→20:22)
[2023-10-27] MEDS ORDERED: DOCUSATE SODIUM/SENNA 50/8.6MG TAB PO SCH (21:00)
[2023-10-28] MEDS ORDERED: INSULIN ASPART PER UNIT CHARGE SC SCH
[2023-10-28] MEDS: INSULIN ASPART PER UNIT CHARGE SC SCH ×3 (00:16→08:01)
[2023-10-28] MEDS: LACTATED RINGER'S 1,000 ML IV SCH ×2 (00:24→02:51)
[2023-10-28] MEDS: oxyCODONE HCL IR 5 MG TAB (IMMEDIATE RELEASE) PO PRN (00:26)
[2023-10-28] MEDS ORDERED: POLYETHYLENE (MIRALAX) 17 GM PACK PO SCH (06:00)
[2023-10-28] MEDS: HYDROmorphone INJ 0.5 MG/0.5 ML SYR IV PRN (07:51)
[2023-10-28] MEDS: allopurinoL 100 MG TAB PO SCH (08:04)
[2023-10-28] MEDS: ATORVASTATIN 40 MG TAB PO SCH (08:05)
[2023-10-28] MEDS: ASPIRIN 81 MG ECTAB PO SCH (08:05)
[2023-10-28] MEDS: CeleBREX 200 MG CAP PO SCH (08:06)
[2023-10-28] MEDS: GABAPENTIN 800 MG TAB PO SCH (08:06)
--- NOTE | 2023-10-28 08:47 | Pharmacy Report ---
Pharmacy Glycemic Short Note 2 - Date of Service October 28, 2023 - Glycemic Short BSG Results (Last 24 hours): 10/27/23 10/27/23 10/27/23 09:06 10:47 16:41 POC Glucose 141 H 149 H 200 H 10/27/23 10/28/23 10/28/23 20:42 00:12 03:53 POC Glucose 115 H 155 H 151 H 10/28/23 07:40 POC Glucose 137 H OUTPATIENT ANTIDIABETIC REGIMEN: * Metformin 500 mg PO BID * HbA1c = 7.4% on 08/15/23 ASSESSMENT: 10/28: * Patient received 38 units of insulin yesterday, 18 basal + 20 bolus. BSGs were: [phone] mg/dL. * Fasting BSG was 137 mg/dL this AM. Will give a 20% reduced basal dose this AM to cover one more day of steroids. No further basal after today. * Other stressors stable. Continue Novolog. Possible discharge today. 10/27: * 48 y/o M admitted for I&D of lumbar spine today. Patient with history of morbid obesity, stroke and Type 2 diabetes which is managed on oral Metformin at home. * Will hold oral Metformin for now and utilize basal/bolus insulins for glycemic control. * Patient received one dose of IV Dexamethasone 4 mg today in OR which is expected to cause BSGs to rise later. * Basal insulin 18 units (0.2 units/kg using adjusted body wt and between stress of 2 and 3) x 1 dose ordered for lunch today to prevent steroid induced hyperglycemia later. * Novolog initiated with lunch also, parameters based on stress of 2. PLAN FOR INPATIENT GLYCEMIC CONTROL: * Hold outpatient oral diabetes medications * Basal insulin * Lantus 15 units x 1 this AM * Bolus insulin * NovoLog per scale ACHS or Q6hrs while NPO * Goal Range: Low 110 mg/dL - High 140 mg/dL * Correction Factor: 25 mg/dL/unit * Nutritional / Prandial insulin per carb ratio of 1 unit per 7 grams CHO consumed
[2023-10-28] MEDS ORDERED: LANTUS PER UNIT CHARGE SC ONE (09:00)
--- NOTE | 2023-10-28 11:38 | Discharge Summary ---
Date of Service October 28, 2023 Admission HPI Per Admitting Provider This is a 40-year-old male well-known to me presents with worsening back and leg pain has evidence of a postop seroma is here for evacuation Principal Diagnosis Postop lumbar seroma Discharge Data Allergies Allergy/AdvReac Type Severity Reaction Status Date / Time No Known Allergies Allergy Verified 10/27/23 06:35 Procedures Performed Operation Date: 10/27/23 07:45 Actual Procedures p Lumbar Spine Incision and Drainage(Not Applicable) - Akin Ontiveros DO Hospital Course (1) Neurogenic claudication due to lumbar spinal stenosis: Patient underwent I&D lumbar spine evacuated postop lumbar seroma. He tolerated procedure well went to the orthopedic for postoperative. Postoperatively his back pain is well-controlled he is ambulating much better. Excellent strength testing. ARNIE drain Total Time Total Time Spent Total Time Spent (In Minutes): 20 minutes Discharge Plan Discharge Items Patient Disposition: Home - Self-Care Reason For Visit: POST OP Discharge Diagnosis: Postoperative lumbar seroma Activity: As commented below Non-emergency contact: Primary Care Provider Call non-emergency contact if: you have any medication questions Follow-up/Referrals: Noah Gerber PA-C [Primary Care Provider] - Diet: Regular Addtl Attending Provider Instructions: ACTIVITY RECOMMENDATIONS: SELF CARE INSTRUCTIONS AFTER THORACIC/LUMBAR FUSIONS 1. You may walk to your tolerance. It is good exercise for your legs and back. Expect some back and intermittent leg aches and pains. 2. You may perform "counter-top" level activities (make a sandwich, aleksandra with a project, etc.). 3. No bending or lifting of more than 10 pounds or back twisting of any nature (roll like a log when turning in bed). 4. You may ride in a car for 20-30 minutes at a time. No driving until after your first visit with your doctor. 5. Frequent changes of position and restricting sitting to 30 minutes at a time will help limit the amount of back spasms and stiffness you may experience. 6. You may discontinue the use of ambulatory aids (cane, crutches, etc.) once your strength and confidence allow. 7. You may cap and stud machine operator the shower and let water strike your incision when you arrive home at least once daily. Do not take a tub bath, sit in a hot tub or go into a swimming pool until after your first recheck in the office. SPECIAL CARE INSTRUCTIONS: VERY IMPORTANT TO READ AND REVIEW A. Your surgical incision has been closed with a cosmetic suture under the skin that will dissolve in about 6 weeks. In 14 days, you can use a pair of clean scissors and cut the suture that is left outside of the skin at the ends of your incision. 1. The small skin tapes can be removed 7 days after surgery if they have not fallen off by that point. 2. You may keep the wound open to air as much as possible to promote healing after post-op day number 5 unless told otherwise by your doctor. 3. If you think the wound looks like it is becoming infected (redness or worsening drainage) and/or you are experiencing fever, chill or worsening back pain and muscle spasms, contact the office so that we may evaluate you as soon as possible. B. Complications are uncommon, but please contact us if you have any signs or symptoms of: 1. wound infection (fever higher than 102.5 degrees F, redness, separation of wound, drainage, or increasing pain from the incision) 2. blood clots in legs (pain, swelling, redness and warmth in legs) 3. urinary tract infection (fever higher than 102.5 degrees F, burning upon urination or increased frequency of urination) 4. nerve problems (inability to walk on your toes or heels, numbness, loss of bowel or bladder control) 5. any other symptoms that concern you C. Please call the office at if you have any concerns or questions about your operation or recovery. D. No smoking! Smoking drastically decreases the chance of a solid fusion. E. Do not take any anti-inflammatory medications (Indocin, Advil, Motrin, Aspirin, Naprosyn, etc.) as these may inhibit the chance of a solid fusion. Tylenol is okay to take for pain. MANAGING PAIN AFTER SPINAL SURGERY 1. Narcotic medication is intended for short-term use and will be provided for surgical pain. Surgical pain usually lasts for a period of 4-6 weeks. Narcotic medication includes Percocet, Vicodin, Darvocet, Tylenol #3 or Lortab. 2. Longer-term pain is more appropriately treated with non-narcotic medication such as Tylenol ES. 3. Muscle spasm is not appropriately treated with narcotics. Muscle relaxers such as Soma, Flexeril or Skelaxin can be used along with Tylenol ES. 4. Remember that we all live with some "aches and pains". This is not unusual or uncommon after an injury or as we get older. a. Back pain is expected and may include muscle spasms for 4 to 6 weeks after surgery. The pain should gradually improve. If the pain worsens for no apparent reason, please contact the office. b. Intermittent leg pain may also be experienced and should not be concerned about unless it worsens for no apparent reason. If so, please contact the office. 5. We will provide appropriate medication within the normal guidelines of their prescribed use. We will also be very cautious and aware of potential abuse and extended duration of patients' medication needs. a. Pain medications are for your comfort and to assist with sleep and rest so that the tissue can heal. They are not provided in order to return to normal activity and should not be used through the day. To do so or worsening pain at night can result from ongoing tissue damage and develop ment of tolerance to the prescribed medicine. 6. Please allow 2-3 days to process refills. Prescriptions will not be mailed but must be picked up at the office. FOLLOW UP VISIT: Keep your scheduled follow-up appointment. Any questions, please call the office at . Pending Studies at Discharge: No Stand-Alone Forms: My [facility], Smoking Cessation Medications and DC Order Prescriptions: New oxycodone 5 mg tablet 5 mg PO Q6H PRN (Reason: pain) Qty: 30 0RF Continued celecoxib [Celebrex] 200 mg Capsule 200 mg PO BID atorvastatin 40 mg Tablet 40 mg PO QAM metformin 500 mg Tablet 500 mg PO BID allopurinol 100 mg Tablet 100 mg PO QAM gabapentin 800 mg Tablet 800 mg PO TID aspirin 81 mg Capsule 81 mg PO QAM oxycodone 5 mg tablet 5 mg PO Q6H PRN (Reason: pain) Qty: 30 0RF Discharge Orders: Discharge Order (Routine); Ordered 10/28/23 Ordered By: Akin Stuart/Other Patient Handouts: Post-Op Tips: Back Admission Data Admit Date/Time: 10/27/23 08:48 Attending Provider: Akin Ontiveros Admit Provider: Akin Ontiveros Primary Care Provider: Noah Gerber Other Interventions: Discharge Summary Assessment (RN) Last Done: 10/28/23 11:23
== END 2023-10-28 11:30 | disposition home or self-care (01) ==
LOC: ASU 06:14 → 3E 06:14

== ENCOUNTER 2024-12-10 11:36 | Inpatient (IN) ==
--- NOTE | 2024-12-10 12:24 | Emergency Department Note ---
Impression & Plan Low back pain, Ambulatory dysfunction ED Provider Note CHIEF COMPLAINT: Back pain HISTORY OF PRESENTING ILLNESS: The patient is a 49-year-old male who arrives to the emergency department for evaluation of back pain. He reports the pain is shooting up and down his spine. He does report history of multiple back surgeries. He states he reports Tuesday he had MRI imaging, and was referred earlier last week to come to the ER due to pain, however he chose not to be seen. He reports numbness and tingling going from the base of his hips, to his feet. He reports low back pain, as well as bilateral hip pain. He reports no loss of bowel or bladder. Patient is able to ambulate with his cane, however painful. He has been taking intermittent ibuprofen and Tylenol for pain control, which has not been helping. REVIEW OF SYSTEMS: See HPI for pertinent positives and pertinent negatives. ALLERGIES: No known drug allergies MEDICATIONS: See below PAST MEDICAL HISTORY: See below PHYSICAL EXAM: VITALS: Vitals are noted on the nurse's note and reviewed by myself. Vital signs stable. GENERAL: 49-year-old male, in no acute distress, nondiaphoretic, well-developed well-nourished. SKIN: The skin was without rashes, erythema, edema, or bruising. HEAD: Normocephalic atraumatic. HEART: Regular rate and rhythm without murmurs gallops or rubs. LUNGS: Clear to auscultation bilaterally without wheezes, rales or rhonchi. No retractions or accessory muscle use. ABDOMEN: Positive bowel sounds x 4. Soft, nontender, without masses or organomegaly. Cruz sign negative. No guarding or rebound tenderness. MUSCULOSKELETAL: No muscle atrophy, erythema, or edema noted. Full range of motion without joint tenderness in all extremities. No tenderness to palpation. Normal gait. Strength 5/5 throughout. NEURO: Patient was alert and oriented to person place and time. No focal neurological deficits. DIFFERENTIAL DIAGNOSIS: Musculoskeletal, disc herniation, fracture, metastatic disease, cord compression, discitis, sciatica, cauda equina, infection, aortic disease, renal colic, gastrointestinal, as well as other pathologies. ED COURSE AND MEDICAL DECISION MAKING: HISTORY FROM INDEPENDENT HISTORIAN: at bedside as secondary historian MEDICATIONS GIVEN: 1000 mg p.o. acetaminophen, 30 mg IM Toradol, 5% topical lidocaine patch, 10 mg IV dexamethasone. INTERPRETATION OF LABS: I interpreted the labs with full lab results as below in the lab section of this note. Pertinent lab results discussed in the MDM section below. INTERPRETATION OF IMAGING: Imaging studies were interpreted by myself and read by radiology as per the imaging section of this note. CHRONIC MEDICAL/SOCIAL CONDITIONS AFFECTING CARE: Chronic low back pain CONSULTATIONS: I spoke with Dr. Ontiveros, from orthopedic spine who recommended admission for spinal decompression. MDM SUMMARY: The patient is a pleasant 49-year-old male who arrives to the emergency department for evaluation of the above-stated complaint. CT imaging of the pelvis without contrast was obtained, to evaluate the pelvis and hips. CT imaging shows no acute fractures within the pelvis or hips, with bilateral hip arthroplasties, no periprosthetic fracture or lucency. MRI imaging was obtained from the [employer] system which shows multilevel degenerative changes including T10-11 severe thecal sac stenosis with cord compression and cord edema and/or myelomalacia. L3-S1 instrumented fusion with multilevel laminectomies. Proximal junctional degeneration at L2-3 with severe thecal sac stenosis. L1-2 moderate to severe thecal sac stenosis. The patient was provided pain control as above. I spoke with Dr. Ontiveros from orthopedic spine, who stated the patient will require admission for surgical intervention. A saline lock was established, CBC, CMP were obtained which show no concerning findings. Preoperative chest x-ray was obtained which per my interpretation shows cardiomegaly, without acute findings. EKG was obtained which per my interpretation shows NSR at a rate of 97bpm with left anterior fascicular block. Previous for comparison shows new fascicular block from 04/2021. The patient was admitted to Dr. Ontiveros. Please refer to his documentation for further patient workup and care. DIAGNOSIS: Lumbar back pain, ambulatory dysfunction The chart was completed utilizing [employer] Speech voice recognition software. Grammatical errors, random word insertions, pronoun errors, and incomplete sentences are an occasional consequence of this system due to software limitations, ambient noise, and hardware issues. Any formal questions or concerns about the content, text, or information contained within the body of this dictation should be directly addressed to the provider for clarification. 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: No Beliefs That Will Affect Care: None Current Living Situation: Spouse and Family Feels Safe at Home: Yes Assistive Devices: Walker Allergies Allergies Allergy/AdvReac Type Severity Reaction Status Date / Time No Known Allergies Allergy Verified 10/27/23 06:35 Home Meds Home Medications Medication Instructions Recorded Confirmed allopurinol 100 mg tablet 100 mg PO QAM 08/05/23 12/10/24 aspirin 81 mg capsule 81 mg PO QAM 08/05/23 12/10/24 atorvastatin 40 mg tablet 40 mg PO QAM 08/05/23 12/10/24 celecoxib 200 mg capsule (Celebrex) 200 mg PO BID 08/05/23 12/10/24 gabapentin 800 mg tablet 800 mg PO TID 08/05/23 12/10/24 metformin 500 mg tablet 500 mg PO UD 08/05/23 12/10/24 oxycodone 5 mg tablet 5 mg PO UD PRN pain 12/10/24 12/10/24 Results & Data (ED) Vital Signs Vital Signs - 24 hr 12/10/24 11:59 12/10/24 14:42 Temperature 36.8 C Temperature Source Temporal Artery Scan Pulse Rate 87 Pulse Rate [Left Finger] 101 H Respiratory Rate 20 19 Respiratory Effort / Characteristics Non-Labored Spontaneous Respiratory Depth Normal Respiratory Pattern Regular Blood Pressure 164/91 H Blood Pressure [Left Arm] 155/108 H Blood Pressure Mean 115 Blood Pressure Mean [Left Arm] 123 Blood Pressure Position [Left Arm] Lying Pulse Oximetry 95 95 Oxygen Delivery Method Room Air Room Air Sepsis Recent Fever Within 48 Hours No Sepsis New/Unexplained Change in Mental Status N/A Sepsis Action Taken by Nursing No Action Required Home Medications Current Medication List: was personally reviewed by me Laboratory Data Attestation: I reviewed the patient's lab results. 12/10/24 14:30 12/10/24 14:30 Lab Results 12/10/24 Range/Units 14:30 WBC 9.64 (4.8-10.8) K/ul RBC 5.04 (4.70-6.10) M/uL Hgb 14.3 (14.0-18.0) g/dl Hct 44.2 (42.0-52.0) % MCV 87.7 (80.0-100.0) fL MCH 28.4 (25.0-34.0) pg MCHC 32.4 (32.0-36.0) g/dL RDW Std Deviation 43.0 (36.4-46.3) fL RDW Coeff of Jj 13.3 (11.5-14.5) % Plt Count 245 (130-400) K/uL MPV 8.9 L (9.4-12.4) fL Immature Gran % (Auto) 0.3 % Neut % (Auto) 66.8 % Lymph % (Auto) 20.6 % [place] % (Auto) 8.0 % Eos % (Auto) 3.8 % Baso % (Auto) 0.5 % Neut # (Auto) 6.43 (1.40-6.50) K/uL Lymph # (Auto) 1.99 (1.20-3.40) K/uL [place] # (Auto) 0.77 H (0.11-0.59) K/uL Eos # (Auto) 0.37 (0.00-0.50) K/uL Baso # (Auto) 0.05 (0.00-0.20) K/uL Immature Gran # (Auto) 0.03 (0.01-0.20) K/uL Administered Medications Discontinued Medications Acetaminophen (Acetaminophen 500 Mg Tab) 1,000 mg PO NOW STA Stop: 12/10/24 12:34 Last Admin: 12/10/24 12:40 Dose: 1,000 mg Documented By: GRAHAM Dexamethasone Sodium Phosphate (DexamethasonePf 10 Mg/Ml Vial) 10 mg IM NOW ONE Stop: 12/10/24 13:59 Last Admin: 12/10/24 14:37 Dose: Not Given Documented By: YVETTE Dexamethasone Sodium Phosphate (DexamethasonePf 10 Mg/Ml Vial) 10 mg IV NOW ONE Stop: 12/10/24 14:36 Last Admin: 12/10/24 14:37 Dose: 10 mg Documented By: YVETTE Ketorolac Tromethamine (Ketorolac Tromethamine 60 Mg/2 Ml Vial) 30 mg IM NOW STA Stop: 12/10/24 12:34 Last Admin: 12/10/24 12:40 Dose: 30 mg Documented By: GRAHAM Lidocaine (Lidocaine 5% 1 Patch) 1 patch TD NOW STA Stop: 12/10/24 12:34 Last Admin: 12/10/24 12:40 Dose: 1 patch Documented By: GRAHAM Imaging Data Attestation: I personally reviewed and interpreted this imaging study as follows: Radiologist's Impression: Pelvis CT 12/10/24 12:[address] WITHOUT CONTRAST CLINICAL HISTORY: pain left hip, pelvis, low back COMPARISON STUDY: Left hip MRI December 30, 2023. Lumbar spine CT November 04, 2024. TECHNIQUE: Axial images of the pelvis and hips were obtained without IV contrast. Sagittal and coronal reformats were viewed. Automated exposure control was utilized for the study. A dose lowering technique was utilized adhering to the principles of ALARA. FINDINGS: Postoperative findings within the lumbosacral spine are partially imaged. Visualized portions are unchanged since CT of November 04, 2024. Visualized portions of the hardware are intact. There are bilateral hip arthroplasties. No periprosthetic fracture or lucency is present. Cortical thickening of the subtrochanteric portion of the left femur is chronic. There are left femoral cerclage wires. There are no suspicious osseous lesions. Caliber of visualized small and large bowel are normal. Colonic diverticulosis without evidence for acute diverticulitis. The appendix is normal. There are no pelvic fluid collections. No pelvic lymphadenopathy is present. The sacroiliac joints and symphysis pubis are intact. No acute fractures within the pelvis or hips are identified. Fluid overlying the greater intertrochanteric of the right femur is likely chronic. IMPRESSION: 1. No acute fractures within the pelvis or hips. 2. Status post bilateral hip arthroplasties. No periprosthetic fracture or lucency. ACT 112: Negative or not required by law. Electronically signed by: Chetan Vicente M.D. 12/10/2024 1:20 PM Discharge Plan Visit Data Chief Complaint: Back Injury/Pain Stated Complaint: BACK PAIN ED Provider: Estiven William ED Midlevel Provider: Loraine Boudreaux Discharge Problem: Low back pain, Ambulatory dysfunction Forms Stand Alone Forms: [facility] [employer] Prescriptions Prescriptions: No Action celecoxib [Celebrex] 200 mg Capsule 200 mg PO BID atorvastatin 40 mg Tablet 40 mg PO QAM metformin 500 mg Tablet 500 mg PO UD Rx Instructions: 500 mg po bid. last filled 09/05 90 day supply allopurinol 100 mg Tablet 100 mg PO QAM gabapentin 800 mg Tablet 800 mg PO TID aspirin 81 mg Capsule 81 mg PO QAM oxycodone 5 mg tablet 5 mg PO UD PRN (Reason: pain) Rx Instructions: 5 mg po q6h prn. No fill history available. Referrals Referrals: Noah Gerber PA-C [Primary Care Provider] -
[2024-12-10] MEDS: LIDOCAINE 5% 1 PATCH TD STA (12:40)
[2024-12-10] MEDS: ACETAMINOPHEN 500 MG TAB PO STA (12:40)
[2024-12-10] MEDS: KETOROLAC TROMETHAMINE 60 MG/2 ML VIAL IM STA (12:40)
--- NOTE | 2024-12-10 13:21 | CT Scan Report ---
PELVIS CT WITHOUT CONTRAST CLINICAL HISTORY: pain left hip, pelvis, low back COMPARISON STUDY: Left hip MRI December 30, 2023. Lumbar spine CT November 04, 2024. TECHNIQUE: Axial images of the pelvis and hips were obtained without IV contrast. Sagittal and martinez l reformats were viewed. Automated exposure control was utilized for the study. A dose lowering tech nique was utilized adhering to the principles of ALARA. FINDINGS: Postoperative findings within the lumbosacral spine are partially imaged. Visualized portio ns are unchanged since CT of November 04, 2024. Visualized portions of the hardware are intact. There are bilateral hip arthroplasties. No periprosthetic fracture or lucency is present. Cortical thickeni ng of the subtrochanteric portion of the left femur is chronic. There are left femoral cerclage wires . There are no suspicious osseous lesions. Caliber of visualized small and large bowel are normal. Co lonic diverticulosis without evidence for acute diverticulitis. The appendix is normal. There are no pelvic fluid collections. No pelvic lymphadenopathy is present. The sacroiliac joints and symphysis p ubis are intact. No acute fractures within the pelvis or hips are identified. Fluid overlying the gre ater intertrochanteric of the right femur is likely chronic. IMPRESSION: 1. No acute fractures within the pelvis or hips. 2. Status post bilateral hip arthroplasties. No periprosthetic fracture or lucency. ACT 112: Negative or not required by law. Electronically signed by: Chetan Vicente M.D. 12/10/2024 1:20 PM
[2024-12-10] MEDS: dexAMETHasone**PF** 10 MG/ML VIAL IM ONE (14:37)
[2024-12-10] MEDS: dexAMETHasone**PF** 10 MG/ML VIAL IV ONE (14:37)
[2024-12-10 14:47] LABS: Basophils # (auto) 0.05 K/uL (0.00-0.20); Basophils % (auto) 0.5 %; Eosinophils # (auto) 0.37 K/uL (0.00-0.50); Eosinophils % (auto) 3.8 %; Hematocrit (blood only) 44.2 % (42.0-52.0); Hemoglobin 14.3 g/dl (14.0-18.0); Immature Granulocytes # (auto) 0.03 K/uL (0.01-0.20); Immature Granulocytes % (auto) 0.3 %; Lymphocytes # (auto) 1.99 K/uL (1.20-3.40); Lymphocytes % (auto) 20.6 %; Mean Corpuscular Hemoglobin 28.4 pg (25.0-34.0); Mean Corpuscular Hgb Conc 32.4 g/dL (32.0-36.0); Mean Corpuscular Volume 87.7 fL (80.0-100.0); Mean Platelet Volume 8.9 fL (9.4-12.4); Monocytes # (auto) 0.77 K/uL (0.11-0.59); Neutrophils # (auto) 6.43 K/uL (1.40-6.50); Neutrophils % (auto) 66.8 %; Platelet Count 245 K/uL (130-400); RDW Coefficient of Variation 13.3 % (11.5-14.5); Red Blood Count 5.04 M/uL (4.70-6.10); White Blood Count 9.64 K/ul (4.8-10.8)
[2024-12-10 15:10] LABS: Albumin Globulin Ratio 1.4 (0.9-2); Albumin Level 4.3 gm/dl (3.4-5.0); Bilirubin,Total 0.3 mg/dl (0.2-1.0); Calcium 9.7 mg/dl (8.6-10.3); Creatinine Clr Calc Pharmacy 165.4 ml/min; Potassium 4.1 mmol/L (3.5-5.1); Total Protein 7.3 gm/dl (6.0-8.3)
--- NOTE | 2024-12-10 15:18 | XRay Report ---
XR chest 1V portable CLINICAL HISTORY: pre-op COMPARISON STUDY: None FINDINGS: There is mild cardiomegaly without pulmonary vascular congestion. Inspiration is shallow. N o effusion, consolidation, or pneumothorax. IMPRESSION: No acute findings. ACT 112: Negative or not required by law. Electronically signed by: Jim Jones M.D. 12/10/2024 3:16 PM
[2024-12-10] MEDS ORDERED: LORazepam 0.5 MG TAB PO PRN (16:13)
[2024-12-10] MEDS ORDERED: PHARMACY GLYCEMIC MGMT CONSULT PRN (16:13)
[2024-12-10] MEDS ORDERED: ONDANSETRON 4 MG OD TAB PO PRN (16:13)
[2024-12-10] MEDS ORDERED: LORazepam 2 MG/1 ML VIAL IV PRN (16:13)
[2024-12-10] MEDS ORDERED: ONDANSETRON INJ 2 MG/ML 2 ML VIAL IV PRN (16:13)
[2024-12-10] MEDS ORDERED: ACETAMINOPHEN 1,000 MG/100 ML VIAL IV PRN (16:13)
[2024-12-10] MEDS ORDERED: HYDROmorphone INJ 0.5 MG/0.5 ML SYR IV PRN (16:13)
[2024-12-10] MEDS ORDERED: PROMETHAZINE 12.5 MG/50.5 ML BAG IV PRN (16:13)
[2024-12-10] MEDS ORDERED: METOCLOPRAMIDE HCL INJ 5 MG/ML 2 ML VIAL IV PRN (16:13)
[2024-12-10] MEDS ORDERED: traMADol HCL 50 MG TABLET PO PRN (16:13)
[2024-12-10] MEDS ORDERED: NALOXONE HCL 0.4 MG/1 ML VIAL/CARP IV PRN (16:13)
[2024-12-10] MEDS ORDERED: MAGNESIUM HYDROXIDE SUSP 30 ML UDC PO PRN (16:13)
[2024-12-10] MEDS: oxyCODONE HCL IR 5 MG TAB (IMMEDIATE RELEASE) PO PRN (16:34)
--- NOTE | 2024-12-10 16:39 | Anesthesiology Consultation ---
Date of Service December 10, 2024 Assessment & Plan (1) Encounter for pre-operative examination: Per anesthesia eval note 10/21/23: L4-S1 decompression and fusion, L3-L4 hardware removal 08/29/23= Done under GA with grade 1 view with glidescope #3. ETT #7.5 Patient seen by PCP 08/17/2023 (prior to 08/29/23 lumbar fusion)= patient seen for preoperative examination for upcoming back surgery. Patient can be cleared for surgery. We will need to have updated lab work prior however advised to complete labs this week. Patient seen by cardio 08/02/23 (prior to 08/29/23 lumbar fusion)= Patient seen for preop risk stratification. Patient tentatively scheduled for back surgery. Reports shortness of breath with long distances. Denies PND and orthopnea. Has chronic back pain. In terms of preop risk assessment, per Miki criteria, patient was counseled that he would be placed at low risk (less than 0.9%) for any adverse perioperative cardiovascular events associated with spine surgery. Patient is on a good medication regimen and no other cardiac testing or interventions would further lower that risk. Patient states he understands and is excepting of that risk and wishes to proceed with surgery. Patient was instructed to continue aspirin without interruption. If aspirin must be held per surgeon's discretion, we would recommend holding for the least amount of time as possible (no more than 7 days). Patient is on aspirin for history of stroke and bilateral carotid artery disease. Chart Review Chart Review: Acceptable Risk for Surgery and Patient NOT seen in Pre Admission Testing Patient appears appropriate for surgery. Consults Requested none History Height/Weight Height: 5 ft 9 in Weight: 136 kg Allergies Allergy/AdvReac Type Severity Reaction Status Date / Time No Known Allergies Allergy Verified 10/27/23 06:35 Medications Home Medications Medication Instructions Recorded Confirmed Last Taken allopurinol 100 mg tablet 100 mg PO QAM 08/05/23 12/10/24 10/26/23 08:00 aspirin 81 mg capsule 81 mg PO QAM 08/05/23 12/10/24 10/26/23 08:00 atorvastatin 40 mg tablet 40 mg PO QAM 08/05/23 12/10/24 10/26/23 08:00 celecoxib 200 mg capsule (Celebrex) 200 mg PO BID 08/05/23 12/10/24 10/22/23 gabapentin 800 mg tablet 800 mg PO TID 08/05/23 12/10/24 10/26/23 20:00 metformin 500 mg tablet 500 mg PO UD 08/05/23 12/10/24 10/26/23 20:00 oxycodone 5 mg tablet 5 mg PO UD PRN pain 12/10/24 12/10/24 Unknown Active Medications Generic Name Dose Route Start Last Admin Trade Name Freq PRN Reason Stop Dose Admin Oxycodone HCl 5 - 10 mg 12/10/24 16:13 12/10/24 16:34 Oxycodone Hcl Ir 5 Mg Tab (Immediate Release) PO 12/24/24 16:12 10 mg Q4H PRN Administration mod to severe pain Past Medical History Medical History (Updated 12/10/24 @ 16:37 by Marco Multani MD) Morbid obesity Carotid stenosis Right ICA <50% stenosis; no carotid stenosis to left ICA per 12/10/21 neck CTA 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 per cardio records Hx of wheezing occasional bouts of wheezing - usually at the end of the day Stroke 10/2021, went to [facility], one side of his body-unable to move leg, speech difficulty>no residual symptoms High cholesterol Hx of gout No recent flares Past Surgical History Surgical History S/P epidural steroid injection x3 prior to first back surgery History of total left hip replacement 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 History of lumbar surgery L4-S1 decompression and fusion, L3-L4 hardware removal 08/29/23= Done under GA with grade 1 view with glide scope #3. ETT #7.5 I and D lumbar spine 10/27/23: GETA. Glidescope #4. (elective glidescope) Social History Smoking Status: Never smoker Do You Dip or Chew Tobacco: Yes Hx Alcohol Use: Yes Alcohol type: beer alcohol intake frequency: a few times a week Hx Substance Use: No substance use type: does not use Physical Exam Vital Signs Last Vital Signs Temp 36.5 C 12/10/24 16:14 Pulse 82 12/10/24 16:14 Resp 16 12/10/24 16:14 BP 157/98 H 12/10/24 16:14 Pulse Ox 95 12/10/24 16:14 O2 Del Method Room Air 12/10/24 16:14 Testing Laboratory Results 12/10/24 14:30 12/10/24 14:30 Electrocardiogram Date: 12/10/24 Findings: no NSR @ (97) NSR. LAFB. Chest X-Ray Date: 12/10/24 XR chest 1V portable CLINICAL HISTORY: pre-op COMPARISON STUDY: None FINDINGS: There is mild cardiomegaly without pulmonary vascular congestion. Inspiration is shallow. No effusion, consolidation, or pneumothorax. IMPRESSION: No acute findings.
[2024-12-10] MEDS ORDERED: GLUCOSE 10 TAB/TUBE PO PRN (16:45)
[2024-12-10] MEDS ORDERED: CARBOHYDRATES FOR HYPOGLYCEMIA PO PRN (16:45)
[2024-12-10] MEDS ORDERED: GLUCAGON FOR INJ 1 MG VIAL SQ PRN (16:45)
[2024-12-10] MEDS ORDERED: GLUCOSE 40% GEL 15 GM TUBE PO PRN (16:45)
[2024-12-10] MEDS ORDERED: DEXTROSE 50% 50 ML SYRINGE IV PRN (16:45)
--- NOTE | 2024-12-10 16:57 | Hospitalist Consultation ---
<Statement entered by Omkar Priest, DO - 12/10/24 19:08> I have seen and examined the patient and have discussed the case with the advance practice provider. I have reviewed the advanced practitioner's documentation, and I agree with, and take responsibility for that plan of care. Patient sitting in chair in his room, fully clothed. States he was not expecting to stay in the hospital. Frustrated that his pain is uncontrolled. IV medications did help a little bit. Discussed with JULIA, patient medically maximized for anticipated surgical intervention. Further plan of care as outlined below, thank you for this consultation I spent a total of 15 minutes coordinating, documenting, and providing care for this patient excluding time spent by another provider/QHP. Date of Consultation December 10, 2024 Assessment & Plan (1) Intractable low back pain: (2) Ambulatory dysfunction: (3) History of stroke: (4) Diabetes mellitus, type 2: (5) High cholesterol: Plan This is a 49 y/o male with DM2, prior ischemic stroke, mild intermittent asthma, degenerative disc disease, hyperlipidemia, and other history as outlined below who presented to the ED today with progressive back pain. Outpatient MRI showed multilevel degenerative changes including T10-11 severe thecal sac stenosis with cord compression and cord edema and/or myelomalacia. ED provider spoke with spine surgery who recommended that patient be admitted for further management. C urrently symptoms impacting ability to safely complete ADLs at home. We have been consulted to assist with medical management. #Intractable back pain due to multilevel disc disease #Ambulatory dysfunction - Pt admitted by spine surgery for further management - Pain control, ambulation, DVT prophylaxis per primary team - Would consider patient acceptable risk for surgical intervention if required but continue aspirin through the perioperative period if okay with primary team #History of CVA - on daily aspirin #Bilateral carotid artery disease by duplex in 2021 - Previously recommended by cardiology to continue aspirin without interruption if okay with surgeon - would continue aspirin as above #Type 2 Diabetes Mellitus - Diabetic diet - BSG ACHS - A1c in the AM - Glycemic pharmacy consult pending #Hyperlipidemia - Chronic, stable - continue statin - Lipid panel in the AM Pt seen and reviewed with collaborating physician, Dr. Priest. Plan of care discussed and as outlined above. Thank you for this consultation. We will continue to follow the patient with you. A member of the [facility] hospitalist team is available 02/05 via [employer]. Please don't hesitate to reach out with questions. Ericka Hess PA-C History of Present Illness Reason for Consultation: Medical management Requesting Physician: Dr. Akin Ontiveros Attending Physician: Akin Ontiveros, History of Present Illness This is a 49 y/o male with DM2, prior ischemic stroke, mild intermittent asthma, degenerative disc disease, hyperlipidemia, and other history as outlined below who presented to the ED today with progressive back pain. The patient has a history of prior lumbar fusion in Aug 2023, evacuation of postop lumbar seroma in Oct 2023. He reports initially had some relief of his pain after this surgery although he has never fully recovered back to his baseline. Over the last month, his pain has particularly been worsening with radiation along his entire spine as well as numbness and tingling in his bilateral LE. He feels like pain is worse with lying down so often has to sleep sitting up. Pt is using a cane to ambulate because of the severity of his symptoms. He reports having an injection for the increased pain recently but states that this hasn't helped. He also had an MRI on Tuesday through [facility] - results below. 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 He denies chest pain, dyspnea, syncope, visual changes, unexplained weakness. He has not been able to ambulate any significant distances recently so cannot evaluate for exercise capacity. He does not check his blood sugars at home but is taking Metformin as prescribed. His last Hemoglobin A1c was 12/23/23 = 7.3. History of stroke in 2021 - still taking aspirin. No new stroke-like symptoms reported. MRI Thoracic and Lumbar Spine 12/07/24: 1. Multilevel degenerative changes, including T10-11 severe thecal sac stenosis with cord compression and cord edema and/or myelomalacia. 2. L3-S1 instrumented fusion with multilevel laminectomies. Proximal junctional degeneration at L2-3 with severe thecal sac stenosis. 3. L1-2 moderate to severe thecal sac stenosis. Allergies Allergy/AdvReac Type Severity Reaction Status Date / Time No Known Allergies Allergy Verified 10/27/23 06:35 Home Medications Medication Instructions Recorded Confirmed Type allopurinol 100 mg tablet 100 mg PO QAM 10/27/23 03/03/25 History aspirin 81 mg capsule 81 mg PO QAM 08/05/23 12/10/24 History atorvastatin 40 mg tablet 40 mg PO QAM 08/05/23 12/10/24 History celecoxib 200 mg capsule (Celebrex) 200 mg PO BID 08/05/23 12/10/24 History gabapentin 800 mg tablet 800 mg PO TID 08/05/23 12/10/24 History metformin 500 mg tablet 500 mg PO BIDWMEAL 08/05/23 12/10/24 History oxycodone 5 mg tablet 5 mg PO UD PRN pain 12/10/24 12/10/24 History Patient History Medical History (Updated 12/10/24 @ 17:44 by Lesly Hess PA-C) Morbid obesity Carotid stenosis Right ICA <50% stenosis; no carotid stenosis to left ICA per 12/10/21 neck CTA 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 per cardio records Hx of wheezing occasional bouts of wheezing - usually at the end of the day Stroke 10/2021, went to [facility] [place], one side of his body-unable to move leg, speech difficulty>no residual symptoms High cholesterol Hx of gout No recent flares Surgical History (Updated 12/10/24 @ 17:44 by Lesly Hess PA-C) S/P epidural steroid injection x3 prior to first back surgery History of total left hip replacement 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 History of lumbar surgery L4-S1 decompression and fusion, L3-L4 hardware removal 08/29/23= Done under [facility] with grade 1 view with glide scope #3. ETT #7.5 Social History Smoking Status: Never smoker Tobacco Type: Smokeless Tobacco (Dip or Chew) Second Hand Exposure: No; Do You Dip or Chew Tobacco: Yes; Hx Alcohol Use: Yes Alcohol type: beer Hx Substance Use: No Preferred Language: Bruneian Communication Ability: Effective Telemarketing Fundraiser Required: No Beliefs That Will Affect Care: None Current Living Situation: Spouse Other Information That Helps Us Care for You: No Feels Safe at Home: Yes Safety Concerns: Feels Safe At This Time Assistive Devices: Cane Review of Systems Review of Systems: All systems reviewed & are unremarkable except as noted in Subjective Physical Exam Physical Exam: General: awake, alert, NAD HEENT: no scleral icterus, moist oral mucosa Neck: supple, trachea midline Heart: RRR Lungs: CTA bilaterally, no W/R/R Abdomen: soft, obese, NT, +BS Extremities: distal pulses intact and equal, no peripheral edema Skin: warm, dry, no jaundice or cyanosis Results & Data Results & Data Vital Signs (Past 12 Hours) Vital Signs Temp Pulse Pulse Resp BP BP Pulse Ox 12/10/24 16:14 36.5 C 82 16 157/98 H 95 12/10/24 14:42 101 H 19 155/108 H 95 12/10/24 11:59 36.8 C 87 20 164/91 H 95 O2 Del Method 12/10/24 16:14 Room Air 12/10/24 14:42 Room Air 12/10/24 11:59 Room Air Laboratory Results Lab Results 12/10/24 12/10/24 Range/Units 14:30 16:49 WBC 9.64 (4.8-10.8) K/ul RBC 5.04 (4.70-6.10) M/uL Hgb 14.3 (14.0-18.0) g/dl Hct 44.2 (42.0-52.0) % MCV 87.7 (80.0-100.0) fL MCH 28.4 (25.0-34.0) pg MCHC 32.4 (32.0-36.0) g/dL RDW Std Deviation 43.0 (36.4-46.3) fL RDW Coeff of Jj 13.3 (11.5-14.5) % Plt Count 245 (130-400) K/uL MPV 8.9 L (9.4-12.4) fL Immature Gran % (Auto) 0.3 % Neut % (Auto) 66.8 % Lymph % (Auto) 20.6 % Hamblen % (Auto) 8.0 % Eos % (Auto) 3.8 % Baso % (Auto) 0.5 % Neut # (Auto) 6.43 (1.40-6.50) K/uL Lymph # (Auto) 1.99 (1.20-3.40) K/uL Hamblen # (Auto) 0.77 H (0.11-0.59) K/uL Eos # (Auto) 0.37 (0.00-0.50) K/uL Baso # (Auto) 0.05 (0.00-0.20) K/uL Immature Gran # (Auto) 0.03 (0.01-0.20) K/uL Sodium 138 (136-145) mmol/L Potassium 4.1 (3.5-5.1) mmol/L Chloride 101 (98-107) mmol/L Carbon Dioxide 29 (21-32) mmol/L Anion Gap 8 (3-11) BUN 20 (6-23) mg/dl Creatinine 0.74 (0.6-1.4) mg/dl Est Cr Clr Drug Dosing 165.4 ml/min eGFR 111.07 BUN/Creatinine Ratio 27.0 H (10-20) Glucose 113 H (70-99(Fasting)) mg/dl POC Glucose 120 H (70-99) mg/dl Calcium 9.7 (8.6-10.3) mg/dl Total Bilirubin 0.3 (0.2-1.0) mg/dl AST 49 H (13-39) U/L ALT 79 H (7-52) U/L Alkaline Phosphatase 71 (34-104) U/L Total Protein 7.3 (6.0-8.3) gm/dl Albumin 4.3 (3.4-5.0) gm/dl Globulin 3.0 (2.5-4.0) gm/dl Albumin/Globulin Ratio 1.4 (0.9-2) Diagnostic Findings Pelvis CT 12/10/24 12:[address] WITHOUT CONTRAST CLINICAL HISTORY: pain left hip, pelvis, low back COMPARISON STUDY: Left hip MRI December 30, 2023. Lumbar spine CT November 04, 2024. TECHNIQUE: Axial images of the pelvis and hips were obtained without IV contrast. Sagittal and coronal reformats were viewed. Automated exposure control was utilized for the study. A dose lowering technique was utilized adhering to the principles of ALARA. FINDINGS: Postoperative findings within the lumbosacral spine are partially imaged. Visualized portions are unchanged since CT of November 04, 2024. Visualized portions of the hardware are intact. There are bilateral hip arthroplasties. No periprosthetic fracture or lucency is present. Cortical thickening of the subtrochanteric portion of the left femur is chronic. There are left femoral cerclage wires. There are no suspicious osseous lesions. Caliber of visualized small and large bowel are normal. Colonic diverticulosis without evidence for acute diverticulitis. The appendix is normal. There are no pelvic fluid collections. No pelvic lymphadenopathy is present. The sacroiliac joints and symphysis pubis are intact. No acute fractures within the pelvis or hips are identified. Fluid overlying the greater intertrochanteric of the right femur is likely chronic. IMPRESSION: 1. No acute fractures within the pelvis or hips. 2. Status post bilateral hip arthroplasties. No periprosthetic fracture or lucency. ACT 112: Negative or not required by law. Electronically signed by: Chetan Vicente M.D. 12/10/2024 1:20 PM Chest X-Ray 12/10/24 14:04 XR chest 1V portable CLINICAL HISTORY: pre-op COMPARISON STUDY: None FINDINGS: There is mild cardiomegaly without pulmonary vascular congestion. Inspiration is shallow. No effusion, consolidation, or pneumothorax. IMPRESSION: No acute findings. ACT 112: Negative or not required by law. Electronically signed by: Jim Jones M.D. 12/10/2024 3:16 PM Medications Administered Oxycodone HCl (Oxycodone Hcl Ir 5 Mg Tab (Immediate Release)) 5 - 10 mg PO Q4H PRN PRN Reason: mod to severe pain Stop: 12/24/24 16:12 Last Admin: 12/10/24 16:34 Dose: 10 mg Documented By: WRM Discontinued Medications Acetaminophen (Acetaminophen 500 Mg Tab) 1,000 mg PO NOW STA Stop: 12/10/24 12:34 Last Admin: 12/10/24 12:40 Dose: 1,000 mg Documented By: GRAHAM Dexamethasone Sodium Phosphate (DexamethasonePf 10 Mg/Ml Vial) 10 mg IM NOW ONE Stop: 12/10/24 13:59 Last Admin: 12/10/24 14:37 Dose: Not Given Documented By: YVTETE Dexamethasone Sodium Phosphate (DexamethasonePf 10 Mg/Ml Vial) 10 mg IV NOW ONE Stop: 12/10/24 14:36 Last Admin: 12/10/24 14:37 Dose: 10 mg Documented By: YVETTE Ketorolac Tromethamine (Ketorolac Tromethamine 60 Mg/2 Ml Vial) 30 mg IM NOW STA Stop: 12/10/24 12:34 Last Admin: 12/10/24 12:40 Dose: 30 mg Documented By: GRAHAM Lidocaine (Lidocaine 5% 1 Patch) 1 patch TD NOW STA Stop: 12/10/24 12:34 Last Admin: 12/10/24 12:40 Dose: 1 patch Documented By: GRAHAM (4) Diabetes mellitus, type 2 Diabetes mellitus complication status: with other specified complication Diabetes mellitus intermediate designer insulin use: without custodial use Qualified Code(s): E11.69 - Type 2 diabetes mellitus with other specified complication
[2024-12-10] MEDS: INSULIN ASPART PER UNIT CHARGE SC SCH (17:00)
[2024-12-10] MEDS: HYDROmorphone INJ 1 MG/ML SYRINGE IV PRN (17:03)
--- OUTSIDE RECORDS SUMMARY | 2024-12-10 20:22 | External Medical Summary | Summary of Care ---
Author Name Unknown Organization [facility] Address [address] [facility] [place] [address] Phone [phone] Care Team Providers Care Project Financial Analyst Name Role Phone Noah Gerber PA-C Primary Care Provider [phone] Reason for Referral * Precert (Within 10 days (routine)) - Authorized Specialty Diagnoses / Procedures Referred By Contac t Referred To Contact Radiology Diagnoses Thoracic myelopathy Procedures MRI L SPINE WO CONTRAST Access [address] *DO NOT REMOVE THIS DEPARTMENT* [place] [address] Phone: tel: Referral ID Status Reason Start Date Expiration Date V isits Requested Visits Authorized [id number] Authorized 12/01/2024 [id number] Reason for Visit * Precert (Within 10 days (routine)) - Authorized Specialty Diagnoses / Procedures Referred By Contac t Referred To Contact Radiology Diagnoses Thoracic myelopathy Procedures MRI L SPINE WO CONTRAST Access [address] *DO NOT REMOVE THIS DEPARTMENT* [place] [address] Phone: tel: Referral ID Status Reason Start Date Expiration Date V isits Requested Visits Authorized [id number] Authorized 12/01/[phone] Encounter Details Date Type Department Care Team (Latest Contact Info) Description 12/07/2024 12:16 PM EST - 12/07/2024 11:59 PM EST Hospital Encounter Radiology, [address] [place] [address] Arrived Discharge Disposition: Home - Self Care Allergies No known active allergiesdocumented as of this encounter (statuses as of 12/08/2024) Medications Aspirin 81 MG Oral Tablet Delayed Release Take 1 Tablet by mouth daily. 30 Tablet 1 2 Active Celecoxib 200 MG Oral Capsule (CeleBREX) Take 1 Capsule by mouth in the morning and 1 Capsule before bedtime. Active OneTouch Ultra Blue In Vitro Strip (Glucose Blood)Indications :Type 2 diabetes mellitus with hemoglobin A1c goal of less than 7.0% (HCC) Use as directed 4 times a day as needed (glucose readings). Use up to four times a day as directed 100 Strip 11 2 Active OneTouch Delica Lancets 33GIndications:Ty pe 2 diabetes mellitus with hemoglobin A1c goal of less than 7.0% (HCC) Use up to 4 times per day as needed 100 Each 11 2 Active Azithromycin 250 MG Oral Tablet (Zithromax Z-Pan) Take two tablets by mouth on first day, then 1 tablet daily until gone 6 Tablet 4 Active ProAir HFA 108 (90 Base) MCG/ACT Inhalation Aerosol Solution Inhale 2 Puffs by mouth every 4 hours as needed for Wheezing. 18 g 4 Active Gabapentin 800 MG Oral Tablet (Neurontin) TAKE 1 TABLET BY MOUTH IN THE MORNING; 1 TAB BY MOUTH AT NOON; 1 TAB BEFORE BEDTIME 90 Tablet 5 4 Active metFORMIN HCl 500 MG Oral Tablet (Glucophage)Indic ations:DM type 2 causing neurological disease (HCC) TAKE 1 TABLET BY MOUTH 2 TIMES A DAY WITH morning AND EVENING MEALS 180 Tablet 4 Active Atorvastatin Calcium 40 MG Oral Tablet (Lipitor)Indicati ons:Dyslipidemia, goal LDL below 130 TAKE 1 TABLET BY MOUTH IN THE MORNING 90 Tablet 5 Active Allopurinol 100 MG Oral Tablet (Zyloprim)Indicat ions:History of gout TAKE 1 TABLET BY MOUTH EVERY DAY 90 Tablet 5 Active documented as of this encounter (statuses as of 12/08/2024) Active Problems Problem Noted Date Diagnosed Date Carotid stenosis 07/26/2024 Diabetes mellitus, type 2 07/26/2024 Meralgia paresthetica of left side 07/26/2024 Low back pain 07/26/2024 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 07/26/2024 Nihss score 2 12/23/2023 Other intervertebral disc degeneration, lumbar r egion 12/23/2023 Other cervical disc degenera tion, unspecified cervical region 12/23/2023 Body mass index (BMI) of 40.0 to 44.9 in adult 1 10/22/2022 Overview: Per Obesity protocol HNP (herniated nucleus pulposus), lumbar 022 Gout 11/05/2021 Cardiac arrhythmia 11/05/2021 Ischemic stroke 10/28/2021 DM type 2 causing neurological disease Moderate persistent asthma without complication 10/28/2021 Other hyperlipidemia 10/28/2021 Hip pain 11/08/2014 Undiagnosed cardiac murmurs 08/30/2014 Tobacco use disorder 07/10/2007 fatty liver 07/10/2007 documented as of this encounter (statuses as of 12/08/2024) Resolved Problems Problem Noted Date Diagnosed Date Resolved Date Morbid obesity 10/28/2021 08/25/2023 Overview: Per Obesity protocol Prediabetes 04/20/2021 11/25/2021 Overview: Per Prediabetes protocol Pre-operative cardiovascular examination 08/30/2014 11/05/2021 Nonspecific abnormal electro cardiogram (ECG) (EKG) 08/30/2014 11/05/2021 ADVANCE DIRECTIVE INFORMATION 04/02/2005 08/13/2024 Overview (04/02/2005): No, Advance Directive brochure offered , patient declined. documented as of this encounter (statuses as of 12/08/2024) Immunizations Name Administration Dates Next Due Seasonal Influenza, PF, 6 M & above, IM , (FluLaval or Fluzone) 10/29/2021(Deferred: Patient Refused) TDAP (age 10 and older)(Boostrix) 08/22/2014 documented as of this encounter Social History Tobacco Use Types Packs/Day Years Used Date Smoking Tobacco: Never Cigarettes Smokeless Tobacco: Current Chew Alcohol Use Standard [...] money to get more. Never true 08/17/2023 Childcare Answer Date Recorded Do you feel overwhelmed with taking care of a child, family member or friend? No 08/17/2023 Does your family need help f inding childcare? (Household - for ages 0-17 years) Not on file 08/17/2023 Clothing Answer Date Recorded Have you been unable to get clothing when it was really needed? No 08/17/2023 Is your family able to get c lothes or diapers when needed? (Household - for ages 0-17 years) Not on file 08/17/2023 Personal Safety Answer Date Recorded Do you feel unsafe or have concerns for your saf ety? No 08/17/2023 Do you have concerns for you r family's safety? (Household - for ages 0-17 years) Not on file 08/17/2023 Utilities Answer Date Recorded Do you have trouble paying y our heating, water, or electric bill? No 08/17/2023 Is your family able to pay t he heat, water, or electric bill? (Household - for ages 0-17 years) Not on file 08/17/2023 Does your family have access to good internet? (Household - for ages 0-17 years) Not on file 08/17/2023 Employment Status Answer Date Recorded Are you unemployed or without regular income? No 08/17/2023 Does the household have a re gular source of income? (Household - for ages 0-17 years) Not on file 08/17/2023 Social Connections Answer Date Recorded How often do you feel lonely or isolated from th ose around you? Never 08/17/2023 Financial Resource Strain Answer Date R ecorded Do you have any trouble payi ng for your medications, or do you think you might in the future? No 08/17/2023 Does your family have troubl e paying for medicine? (Household - for ages 0-17 years) Not on file 08/17/2023 Transportation Needs Answer Date Record ed READ ONLY Do you have troubl e getting a ride to medical visits or work? Never True 08/17/2023 Does your family have a hard time getting a ride to doctors visits? (Household - for ages 0-17 years) Not on file 08/17/2023 Has lack of transportation k ept you from medical appointments, meetings, work, or from getting things needed for daily living? Check all that apply. (Adult - for ages 18 years and over) Not on file 08/17/2023 Do you (or your family) have trouble finding or paying for a ride (transportation)? (Household - for ages 0-17 years) Not on file 08/17/2023 Housing Stability Answer Date Recorded Do you currently live in a s helter or have no steady place to sleep at night? No 08/17/2023 READ ONLY Do you think you a re at risk of becoming homeless? No 08/17/2023 Does your family worry about paying for your home or becoming homeless? (Household - for ages 0-17 years) Not on file 1 10/17/2022 Are you homeless or worried that you might be in the future? (Adult - for ages 18 years and over) Not on file Are you (or your family) placido eless or worried that you might be in the future? (Household - for ages 0-17 years) Not on file Food Insecurity Answer Date Recorded Do you need food for this week? No 08/17/2023 Are you able to get enough f ood for your family? (Household - for ages 0-17 years) Not on file 08/17/2023 Does your family need food t his week? (Household - for ages 0-17 years) Not on file 08/17/2023 Do you always have enough fo od for your family? (Household - for ages 0-17 years) Not on file 08/17/2023 Sex and Gender Information Value Date Recorded Sex Assigned at Male 08/17/2023 9:51 AM EST Legal Sex Male 6:19 AM EST Gender Identity Male 08/17/2023 9:51 AM EST Sexual Orientation Straight 08/17/2023 9: 51 AM EST Occupation Industry Job Start Date Job End Date [employer] Not on file Not on file Not on file documented as of this encounter Plan of Treatment Upcoming Encounters Date Type Department Care Team ([facility] st Contact Info) Description 12/24/2024 12:40 PM EDT Office Visit [facility] [place] [address] [place] [phone] Noah Gerber PA-C [address] [place] [address] Health Maintenance Due Date Last Done Comments HIV Screening 1990 Hepatitis C Screening 1993 Hepatitis B Vaccine (1 of 3 - 19+ 3-dose series) 1994 Pneumococcal Vaccine: Pediatrics (0 to 5 Years) and At-Risk Patients (6 to 18 Years and 19+ Years) (1 of 2 - PCV) 1994 Cologuard 2020 Colonoscopy 2020 Colorectal Cancer Screening 2020 Fecal Occult Blood Test 2020 Sigmoidoscopy 2020 *SPIROMETRY ONCE FOR ASTHMA-ADULT 10/31/2021 COVID-19 Vaccine ( - season) 2024 Influenza Vaccine (FLU shot) (#1) 2024 HbA1c 06/24/2024 12/23/2023, 05/2023, 07/07/2022, Additional history exists Depression Screening 08/17/2024 08/17/2023 Diabetic Eye Exam 08/17/2024 08/17/2023 Diabetic Foot Exam 08/17/2024 08/17/2023, 11/05/2021 DTap/Tdap Vaccines (2 - Td or Tdap) 08/22/2024 08/22/2014, 12/25/2004 Albumin/Creatinine Ratio 08/23/2024 08/23/2023, 12/09 GFR 12/30/2024 12/31/2023, 12/08, 08/17/2023, Additional history exists HPV (Gardasil) Vaccine Aged Out No lo nger eligible based on patient's age to complete this topic MENINGOCOCCAL (MENACTRA/MENVEO) Aged Out No longer eligible based on patient's age to complete this topic Meningitis B Vaccine (Bexsero/Trumemba) Aged Out No longer eligible based on patient's age to complete this topic documented as of this encounter Medical Devices Not on filedocumented as of this encounter Procedures Procedure Name Priority Date/Time Associated Diagnosis Comments MRI L SPINE WO CONTRAST Routine 12/07/2024 1:05 PM EST Thoracic myelopathy documented in this encounter Results * MRI L SPINE WO CONTRAST (12/07/2024 1:05 PM EST) Anatomical Region Laterality Modality Vertebra, Lspine Magnetic Resona nce 12/07/2024 4:40 PM EST Impressions 12/07/2024 4:37 PM EST IMPRESSION 1. Multilevel degenerative changes, including T10-11 severe thecal sac stenosis with cord compression and cord edema and/or myelomalacia. 2. L3-S1 instrumented fusion with multilevel laminectomies. Proximal junctional degeneration at L2-3 with severe thecal sac stenosis. 3. L1-2 moderate to severe thecal sac stenosis. Narrative 12/07/2024 4:37 PM EST EXAM MRI T SPINE WO CONTRAST; MRI L SPINE WO CONTRAST-12/07/2024 1:19 pm; 12/07/2024 1:05 pm HISTORY THORACIC MYELOPATHY COMPARISON No Comparison. TECHNIQUE Multiplanar, multiparametric MRI thoracic and lumbar spine without contrast FINDINGS MRI thoracic and lumbar spine: L3-S1 instrumented fusion with interbody graft placement. Intervertebral spaces remain visualized at L4-5 and L5-S1 with a yellow marrow fusion mass noted at L3-4. L3-L5 laminectomies, partial at L3. Small laminectomy defect fluid collection measuring 33 x 25 x 13 mm of indeterminate sterility. Proximal junctional degeneration at L2-3 with disc height loss, bulge, prominent dorsal epidural fat, ligamentum flavum thickening, and facet arthropathy resulting in severe thecal sac stenosis. Thecal sac stenosis L1-2 moderate to severe for the same reasons. T10-11 severe thecal sac stenosis with cord deformity/compression and suspected cord signal abnormality, edema and/or myelomalacia. Changes relate to facet arthropathy with ligamentum flavum thickening and a large disc bulge. The remainder of the thoracic spine is without significant thecal sac stenosis. There is normal alignment of the thoracic spine. Multilevel endplate irregularities and Schmorl's nodes in the thoracic spine. Diffusely decreased T2 signal of the thoracic intervertebral discs No acute fracture or suspicious marrow signal. Paravertebral soft tissue structures are unremarkable. Hardware from the hip arthroplasty. T10-11: Disc height loss, bulge, facet arthropathy, and ligamentum flavum thickening. Trace subchondral marrow edema associated with the right-sided facet arthritis/facet arthropathy. Severe thecal sac stenosis with cord compression and cord edema and/or myelomalacia suspected. Severe right, moderate to severe left neural foraminal narrowing. T11-12: Disc height loss and bulge with facet arthropathy and ligamentum flavum thickening. [id number] thecal sac stenosis and mild bilateral neural foraminal narrowing. T12-L1: No significant canal or neural foraminal narrowing L1-2: Disc height loss and disc bulge, facet arthropathy, ligamentum flavum thickening, prominent dorsal epidural fat. Moderate to severe thecal sac stenosis and mild bilateral neural foraminal narrowing worse on the left. L2-3: Disc height loss and bulge, endplate osteophyte, and facet/uncovertebral arthropathy with prominent dorsal epidural fat. Severe thecal sac stenosis and mild right worse than left neural foraminal narrowing. L3-4: Fusion level with no canal or neural foraminal narrowing L4-5: Fusion level with moderate right mild left neural foraminal narrowing and no canal stenosis. L5-S1: Fusion level with moderate right, moderate to severe left neural foraminal narrowing. Procedure Note Williams Vásquez IV, MD - 12/07/2024 EXAM MRI T SPINE WO CONTRAST; MRI L SPINE WO CONTRAST-12/07/2024 1:19 pm;12/07/2024 1:05 pm HISTORY THORACIC MYELOPATHY COMPARISON No Comparison. TECHNIQUE Multiplanar, multiparametric MRI thoracic and lumbar spine withoutcontrast FINDINGS MRI thoracic and lumbar spine: L3-S1 instrumented fusion with interbody graft placement. Intervertebralspaces remain visualized at L4-5 and L5-S1 with a yellow marrow fusionmass noted at L3-4. L3- L5 laminectomies, partial at L3. Smalllaminectomy defect fluid collection measuring 33 x 25 x 13 mm ofindeterminate sterility. Proximal junctional degeneration at L2-3 with disc height loss, bulge,prominent dorsal epidural fat, ligamentum flavum thickening, and facetarthropathy resulting in severe thecal sac stenosis. Thecal sac stenosisL1-2 moderate to severe for the same reasons. T10-11 severe thecal sac stenosis with cord deformity/compression andsuspected cord signal abnormality, edema and/or myelomalacia. Changesrelate to facet arthropathy with ligamentum flavum thickening and a largedisc bulge. The remainder of the thoracic spine is without significant thecal sacstenosis. There is normal alignment of the thoracic spine. Multilevel endplateirregularities and Schmorl's nodes in the thoracic spine. Diffuselydecreased T2 signal of the thoracic intervertebral discs No acute fracture or suspicious marrow signal. Paravertebral soft tissue structures are unremarkable. Hardware from thehip arthroplasty. T10-11: Disc height loss, bulge, facet arthropathy, and ligamentum flavumthickening. Trace subchondral marrow edema associated with theright-sided facet arthritis/facet arthropathy. Severe thecal sac stenosiswith cord compression and cord edema and/or myelomalacia suspected.Severe right, moderate to severe left neural foraminal narrowing. T11-12: Disc height loss and bulge with facet arthropathy and ligamentumflavum thickening. [id number] thecal sac stenosis and mildbilateral neural foraminal narrowing. T12-L1: No significant canal or neural foraminal narrowing L1-2: Disc height loss and disc bulge, facet arthropathy, ligamentumflavum thickening, prominent dorsal epidural fat. Moderate to severethecal sac stenosis and mild bilateral neural foraminal narrowing worse onthe left. L2-3: Disc height loss and bulge, endplate osteophyte, andfacet/uncovertebral arthropathy with prominent dorsal epidural fat.Severe thecal sac stenosis and mild right worse than left neural foraminalnarrowing. L3-4: Fusion level with no canal or neural foraminal narrowing L4-5: Fusion level with moderate right mild left neural foraminalnarrowing and no canal stenosis. L5-S1: Fusion level with moderate right, moderate to severe left neuralforaminal narrowing. IMPRESSION IMPRESSION 1. Multilevel degenerative changes, including T10-11 severe thecal sacstenosis with cord compression and cord edema and/or myelomalacia. 2. L3-S1 instrumented fusion with multilevel laminectomies. Proximaljunctional degeneration at L2-3 with severe thecal sac stenosis. 3. L1-2 moderate to severe thecal sac stenosis. us Akin Ontiveros DO RAD MRI-MRA Fin al Result documented in this encounter Visit Diagnoses Diagnosis Thoracic myelopathy Spondylosis with myelopathy, thoracic region documented in this encounter Advance Directives * Full Code (Latest Code Status on File) Date Activated Date Inactivated Comments 10/28/2021 8:01 AM 10/29/2021 7:01 PM This order r eflects the patients wishes and were consensually agreed upon. Care Teams Project Financial Analyst Relationship Specialty Start Date End Date Noah Gerber PA-C [address] [phone] PCP - General Physician Recreation Establishment Manager 04/27/21 documented as of this encounter
--- OUTSIDE RECORDS SUMMARY | 2024-12-10 20:22 | External Medical Summary | Summary of Care ---
Author Name Unknown Organization [facility] Address [address] [facility] [place] [address] Phone [phone] Care Team Providers Care Corporate Law Assistant Name Role Phone Noah Gerber PA-C Primary Care Provider [phone] Reason for Referral * Precert (Within 10 days (routine)) - Authorized Specialty Diagnoses / Procedures Referred By Contac t Referred To Contact Radiology Diagnoses Thoracic myelopathy Procedures MRI T SPINE WO CONTRAST Access [address] *DO NOT REMOVE THIS DEPARTMENT* [place] [address] Phone: tel: Referral ID Status Reason Start Date Expiration Date V isits Requested Visits Authorized [id number] Authorized 12/01/[phone] Reason for Visit * Precert (Within 10 days (routine)) - Authorized Specialty Diagnoses / Procedures Referred By Contac t Referred To Contact Radiology Diagnoses Thoracic myelopathy Procedures MRI T SPINE WO CONTRAST Access [address] *DO NOT REMOVE THIS DEPARTMENT* [place] [address] Phone: tel: Referral ID Status Reason Start Date Expiration Date V isits Requested Visits Authorized [id number] Authorized 12/01/[phone] Encounter Details Date Type Department Care Team (Latest Contact Info) Description 12/07/2024 12:16 PM EST - 12/07/2024 11:59 PM EST Hospital Encounter Radiology, [address] [place] [address] Arrived Discharge Disposition: Home - Self Care [...] Upcoming Encounters Date Type Department Care Team ([facility] st Contact Info) Description 12/24/2024 12:40 PM EDT Office Visit [facility], [place] [address] [phone] Noah Gerber PA-C [address] [place] [address] Health Maintenance Due Date Last Done Comments [...] Name Priority Date/Time Associated Diagnosis Comments MRI T SPINE WO CONTRAST Routine 12/07/2024 1:19 PM EST Thoracic myelopathy documented in this encounter Results * MRI T SPINE WO CONTRAST (12/07/2024 1:19 PM EST) Anatomical Region Laterality Modality Vertebra, Tspine Magnetic Resona nce 12/07/2024 4:40 PM EST [...] with facet arthropathy and ligamentum flavum thickening. [id number] thecal sac stenosis and mild bilateral neural [...] bulge with facet arthropathy and ligamentumflavum thickening. [id number] thecal sac stenosis and mildbilateral neural foraminal [...] and were consensually agreed upon. Care Teams Corporate Law Assistant Relationship Specialty Start Date End Date Noah Gerber PA-C [address] [place] [address] [phone] PCP - General Physician Solar Energy Installation Manager 04/27/21 documented as of this encounter
--- OUTSIDE RECORDS SUMMARY | 2024-12-10 20:23 | External Medical Summary | Summary of Care ---
Author Name Unknown Organization [facility] Address [address] [place] [address] Phone [phone] Care Team Providers Care Home Care Liaison Name Role Phone Noah Gerber PA-C Primary Care Provider [phone] Reason for Referral * Precert (Within 10 days (routine)) - Authorized Specialty Diagnoses / Procedures Referred By Contac t Referred To Contact Radiology Diagnoses Thoracic myelopathy Procedures MRI T SPINE WO CONTRAST Access [address] *DO NOT REMOVE THIS DEPARTMENT* [place] [address] Phone: tel: Referral ID Status Reason Start Date Expiration Date V isits Requested Visits Authorized [id number] Authorized 12/01/2024 999 999 * Precert (Within 10 days (routine)) - Authorized Specialty Diagnoses / Procedures Referred By Contac t Referred To Contact Radiology Diagnoses Thoracic myelopathy Procedures MRI L SPINE WO CONTRAST Access [address] *DO NOT REMOVE THIS DEPARTMENT* [place] [address] Phone: tel: Referral ID Status Reason Start Date Expiration Date V isits Requested Visits Authorized [id number] Authorized 12/01/2024 999 999 Encounter Details Date Type Department Care Team (Late st Contact Info) Description 12/01/2024 Orders Only Access [address] *DO NOT REMOVE THIS DEPARTMENT* [place] [address] Requisition, External Radiology [address] [place] [place] [address] Spondylosis of thoracic region without myelopathy or radiculopathy*; Thoracic myelopathy Allergies No known active allergiesdocumented as of this encounter (statuses as of 12/01/2024) Medications Aspirin 81 MG Oral Tablet Delayed Release Take 1 Tablet by mouth daily. 30 Tablet 1 2 Active Celecoxib 200 MG Oral Capsule (CeleBREX) Take 1 Capsule by mouth in the morning and 1 Capsule before bedtime. Active [email or web address] Ultra Blue In Vitro Strip (Glucose Blood)Indications :Type 2 diabetes mellitus with hemoglobin A1c goal of less than 7.0% (HCC) Use as directed 4 times a day as needed (glucose readings). Use up to four times a day as directed 100 Strip 11 2 Active Bloom.comTouch Delica Lancets 33GIndications:Ty pe 2 diabetes mellitus [...] TABLET BY MOUTH EVERY DAY 90 Tablet 01/15/202 5 Active documented as of this encounter (statuses as of 12/01/2024) Active Problems Problem Noted Date Diagnosed Date [...] as of this encounter (statuses as of 12/01/2024) Resolved Problems Problem Noted Date Diagnosed Date Resolved Date Morbid obesity 10/28/2021 08/25/2023 Overview: Per Obesity protocol Prediabetes 04/20/2021 11/25/2021 Overview: Per Prediabetes protocol Pre-operative cardiovascular examination 08/30/2014 11/05/2021 Nonspecific abnormal electro cardiogram (ECG) (EKG) 08/30/2014 11/05/2021 ADVANCE DIRECTIVE INFORMATION 04/02/2005 08/13/2024 Overview (04/02/2005): No, Advance Directive brochure offered , patient declined. documented as of this encounter (statuses as of 12/01/2024) Immunizations Name Administration Dates Next Due Seasonal [...] Care Team (Late st Contact Info) Description 12/07/2024 12:30 PM EST Appointment Radiology, [address] [place] [address] 12/07/2024 1:00 PM EST Appointment Radiology, [address] [place] [address] 12/24/2024 12:40 PM EDT Office Visit [facility] [address] [phone] Noah Gerber PA-C [address] [address] Scheduled Orders Name Type Priority Associated Diagnoses Orde r Schedule MRI L SPINE WO CONTRAST Medical Imaging Routine Thoracic myelopathy Expected: 12/01/2024, Expires: 05/21/2025 MRI T SPINE WO CONTRAST Medical Imaging Routine Thoracic myelopathy Expected: 12/01/2024, Expires: 05/21/2025 Health Maintenance Due Date Last Done Comments [...] ONCE FOR ASTHMA-ADULT 10/31/2021 COVID-19 Vaccine ( season) 2024 Influenza Vaccine (FLU shot) (#1) [...] as of this encounter Visit Diagnoses Diagnosis Spondylosis of thoracic region without myelopathy or radiculopathy- Primary Thoracic spondylosis without myelopathy Thoracic myelopathy Spondylosis with myelopathy, thoracic region documented in this encounter Advance Directives * Full Code (Latest Code Status on File) Date Activated Date Inactivated Comments 10/28/2021 8:01 AM 10/29/2021 7:01 PM This order r eflects the patients wishes and were consensually agreed upon. Care Teams Home Care Liaison Relationship Specialty Start Date End Date Noah Gerber PA-C [address] [phone] PCP - General Physician Saddle Stitching Machine Operator 04/27/21 documented as of this encounter
--- OUTSIDE RECORDS SUMMARY | 2024-12-10 20:23 | External Medical Summary | Summary of Care ---
Author Name Unknown Organization [facility] Address [address] [facility] [place] [address] Phone [phone] Care Team Providers Care Program Management Professional Name Role Phone Noah Gerber PA-C Primary Care Provider [phone] Encounter Details Date Type Department Care Team (Late st Contact Info) Description 12/07/2024 Documentation Radiology, [facility] [address] [place] [address] Dmitry Mcdonald, RT Allergies No known active allergiesdocumented as of this encounter (statuses as of 12/07/2024) Medications Aspirin 81 MG Oral Tablet Delayed Release Take 1 Tablet by mouth daily. 30 Tablet 1 2 Active Celecoxib 200 MG Oral Capsule (CeleBREX) Take 1 Capsule by mouth in the morning and 1 Capsule before bedtime. Active OneTouch Ultra Blue In Vitro Strip (Glucose Blood)Indications :Type 2 diabetes mellitus with hemoglobin A1c goal of less than 7.0% ([facility]) Use as directed 4 times a day as needed (glucose readings). Use up to four times a day as directed 100 Strip 11 2 Active OneTouch Delica Lancets 33GIndications:Ty pe 2 diabetes mellitus with hemoglobin A1c goal of less than 7.0% ([facility]) Use up to 4 times per [...] as of this encounter (statuses as of 12/07/2024) Active Problems Problem Noted Date Diagnosed Date [...] as of this encounter (statuses as of 12/07/2024) Resolved Problems Problem Noted Date Diagnosed Date Resolved Date Morbid obesity 10/28/2021 08/25/2023 Overview: Per Obesity protocol Prediabetes 04/20/2021 11/25/2021 Overview: Per Prediabetes protocol Pre-operative cardiovascular examination 08/30/2014 11/05/2021 Nonspecific abnormal electro cardiogram (ECG) (EKG) 08/30/2014 11/05/2021 ADVANCE DIRECTIVE INFORMATION 04/02/2005 08/13/2024 Overview (04/02/2005): No, Advance Directive brochure offered , patient declined. documented as of this encounter (statuses as of 12/07/2024) Immunizations Name Administration Dates Next Due Seasonal [...] No 08/17/2023 Does the household have a [facility] source of income? (Household - for ages [...] on file documented as of this encounter Progress Notes * Dmitry Mcdonald RT - 12/07/2024 1:23 PM EST PUSHED MRI T AND L-SPINE 12-07-2024 TO [facility] documented in this encounter Plan of Treatment Upcoming Encounters Date Type Department Care Team (Late st Contact Info) Description 12/24/2024 12:40 PM EDT [facility] [address] [phone] Noah Gerber PA-C [address] [phone] Health Maintenance Due Date Last Done Comments [...] FOR ASTHMA-ADULT 10/31/2021 COVID-19 Vaccine ( - 2023- season) 2024 Influenza Vaccine (FLU shot) (#1) [...] filedocumented as of this encounter Advance Directives * Full Code (Latest Code Status on File) Date Activated Date Inactivated Comments 10/28/2021 8:01 AM 10/29/2021 7:01 PM This order r eflects the patients wishes and were consensually agreed upon. Care Teams Program Management Professional Relationship Specialty Start Date End Date Noah Gerber PA-C [address] [id number] PCP - General Physician Harness Placer 04/27/21 documented as of this encounter
--- OUTSIDE RECORDS SUMMARY | 2024-12-10 20:23 | External Medical Summary | Summary of Care ---
Author Name Unknown Organization [facility] Address [address] [facility] [place] [address] Phone [phone] Care Team Providers Care Product Planner Name Role Phone Noah Gerber PA-C Primary Care Provider [phone] Reason for Visit * Reason Onset Date Comments Health Maintenance 11/26/2024 Encounter Details Date Type Department Care Team (Late st Contact Info) Description 11/26/2024 Telephone [facility] [place] [phone] Noah Gerber PA-C [address] [facility] [place] [address] Health Maintenance Allergies No known active allergiesdocumented as of this encounter (statuses as of 11/26/2024) Medications Aspirin 81 MG Oral Tablet Delayed Release Take 1 Tablet by mouth daily. 30 Tablet 1 2 Active Celecoxib 200 MG Oral Capsule (CeleBREX) Take 1 Capsule by mouth in the morning and 1 Capsule before bedtime. Active OneTouch Ultra Blue In Vitro Strip (Glucose Blood)Indications :Type 2 diabetes mellitus with hemoglobin A1c goal of less than 7.0% ([facility]) Use as directed 4 times a day as needed (glucose readings). Use up to four times a day as directed 100 Strip 11 2 Active OneTouch Delica Lancets 33GIndications:Ty pe 2 diabetes mellitus with hemoglobin A1c goal of less than 7.0% ([facility]) Use up to 4 times [...] as of this encounter (statuses as of 11/26/2024) Active Problems Problem Noted Date Diagnosed Date [...] as of this encounter (statuses as of 11/26/2024) Resolved Problems Problem Noted Date Diagnosed Date Resolved Date Morbid obesity 10/28/2021 08/25/2023 Overview: Per Obesity protocol Prediabetes 04/20/2021 11/25/2021 Overview: Per Prediabetes protocol Pre-operative cardiovascular examination 08/30/2014 11/05/2021 Nonspecific abnormal electro cardiogram (ECG) (EKG) 08/30/2014 11/05/2021 ADVANCE DIRECTIVE INFORMATION 04/02/2005 08/13/2024 Overview (04/02/2005): No, Advance Directive brochure offered , patient declined. documented as of this encounter (statuses as of 11/26/2024) Immunizations Name Administration Dates Next Due Seasonal [...] No 08/17/2023 Does the household have a [employer] source of income? (Household - for ages [...] encounter Miscellaneous Notes * Telephone Encounter - Viky Olmos LPN - 11/26/2024 10:57 AM EST Care Gaps Comprehensive Care Outreach Last Office/Telemedicine Visit: 12/23/2023 (in office), Visit date not found (telemedicine) Next Office Visit: 12/24/2024 Hemoglobin AIC Results: Lab Results Component Value Date/Time HEMOGLOBIN A1C - [facility] 7.3 (H) 12/23/2023 12:35 PM HEMOGLOBIN A1C - [facility] 7.5 (H) 08/17/2023 10:26 AM HEMOGLOBIN A1C - [facility] 7.1 (H) 07/07/2022 12:09 PM BP Readings from Last 1 Encounters: 06/19/24 134/84 Reviewed Health Maintenance below: Health Maintenance Topic Date Due Colorectal Cancer Screening Never done *SPIROMETRY ONCE FOR ASTHMA-ADULT Never done HbA1c 06/24/2024 Diabetic Eye Exam 08/17/2024 Albumin/Creatinine Ratio 08/23/2024 Care Gap Outreach Action Taken: Unable to reach documented in this encounter Plan of Treatment Upcoming Encounters Date Type Department Care Team (Late st Contact Info) Description 12/07/2024 12:30 PM EST Appointment Radiology, [address] [place] [address] 12/07/2024 1:00 PM EST Appointment Radiology, [address] [place] [address] 12/24/2024 12:40 PM EDT Office Visit [facility] [address] [phone] Noah Gerber PA-C [address] [address] Health Maintenance Due Date Last Done Comments [...] (FLU shot) (#1) 2024 HbA1c 06/24/2024 12/23/2023, 11/0 05/2023, 07/07/2022, Additional history exists Depression Screening [...] and were consensually agreed upon. Care Teams Product Planner Relationship Specialty Start Date End Date Noah Gerber PA-C [address] [phone] PCP - General Physician Specialized Developer 04/27/21 documented as of this encounter
--- OUTSIDE RECORDS SUMMARY | 2024-12-10 20:23 | External Medical Summary | Summary of Care ---
Author Name Unknown Organization [facility] Address [address] [facility] [address] Phone [phone] Care Team Providers Care Pre Sales Technical Consultant Name Role Phone Noah Gerber PA-C Primary Care Provider [phone] Reason for Visit * Reason Onset Date Comments Appointment 12/05/2024 Encounter Details Date Type Department Care Team (Late st Contact Info) Description 12/05/2024 Telephone Radiology, [address] [place] [address] Mike Herrera, RT Appointment Allergies No known active allergiesdocumented as of this encounter (statuses as of 12/05/2024) Medications Aspirin 81 MG Oral Tablet Delayed [...] as of this encounter (statuses as of 12/05/2024) Active Problems Problem Noted Date Diagnosed Date [...] as of this encounter (statuses as of 12/05/2024) Resolved Problems Problem Noted Date Diagnosed Date Resolved Date Morbid obesity 10/28/2021 08/25/2023 Overview: Per Obesity protocol Prediabetes 04/20/2021 11/25/2021 Overview: Per Prediabetes protocol Pre-operative cardiovascular examination 08/30/2014 11/05/2021 Nonspecific abnormal electro cardiogram (ECG) (EKG) 08/30/2014 11/05/2021 ADVANCE DIRECTIVE INFORMATION 04/02/2005 08/13/2024 Overview (04/02/2005): No, Advance Directive brochure offered , patient declined. documented as of this encounter (statuses as of 12/05/2024) Immunizations Name Administration Dates Next Due Seasonal [...] 08/17/2023 Does the household have a re lar source of income? (Household - for ages [...] encounter Miscellaneous Notes * Telephone Encounter - Mike Herrera RT - 12/05/2024 9:45 AM EST No answer/voicemail for mri questioning documented in this encounter Plan of Treatment Upcoming Encounters Date Type Department Care Team (Late st Contact Info) Description 12/07/2024 12:30 PM EST Appointment Radiology, [address] [place] [address] 12/07/2024 1:00 PM EST Appointment Rad[address], [address] [address] 12/24/2024 12:40 PM EDT Office Visit [facility] [address] [phone] Noah Gerber PA-C [address] [address] Health Maintenance Due Date Last Done Comments [...] and were consensually agreed upon. Care Teams Pre Sales Technical Consultant Relationship Specialty Start Date End Date Noah Gerber PA-C [address] [facility] [place] [phone] PCP - General Physician Outbound Sales Representative 04/27/21 documented as of this encounter
[2024-12-10] MEDS: GABAPENTIN 800 MG TAB PO SCH (20:24)
[2024-12-11 06:41] LABS: Chol HDL Ratio 4.9 (0-5)
[2024-12-11] MEDS: ATORVASTATIN 40 MG TAB PO SCH (08:13)
[2024-12-11] MEDS: allopurinoL 100 MG TAB PO SCH (08:14)
[2024-12-11] MEDS: LANTUS PER UNIT CHARGE SC SCH (08:17)
[2024-12-11 08:40] LABS: Estimated Average Glucose 169 mg/dl; Hemoglobin A1C 7.5 % (4.5-5.6)
--- NOTE | 2024-12-11 09:34 | History & Physical Report ---
Date of Service December 11, 2024 Assessment & Plan (1) Myelopathy concurrent with and due to spinal stenosis of thoracic region: Plan: Assessment thoracic myelopathy with lumbar spondylosis and radiculopathy. Plan at this time in length yesterday with the patient reviewing his updated MRI findings and clinical course. This time in light of the cord edema and clinical presentation and recommending urgent thoracolumbar decompression and fusion. Will require decompression and fusion T10-L2 with possible hardware removal L3- S1. Risk benefits pros cons and alternatives were all in detail. Risk include but not limited to anesthesia blindness stroke process nerve damage blood loss requiring transfusion infection requiring reoperation postop to be stabilization of the thoracolumbar spine and improvement of his neurologic decline. He was made n.p.o. after midnight with plan for surgery in the a.m. Admission and Anticipated Discharge Date Admission Date: December 10, 2024 History of Present Illness Chief Complaint: Severe back and leg pain with progressive weakness Primary Care Provider: Noah Gerber PA-C This is a 49-year-old male known to me the presents the hospital with worsening back pain significant leg weakness right greater than left. MRIs of the thoracic and lumbar spine have been obtained and demonstrate evidence of myelomalacia at T10-T11 with severe spinal stenosis L1-L2 L2-L3. In light of his severe pain or neurologic deficit I chose to admit the patient for urgent preoperative valuation and surgery. Allergies Allergy/AdvReac Type Severity Reaction Status Date / Time No Known Allergies Allergy Verified 10/27/23 06:35 Home Medications Medication Instructions Recorded Confirmed Type allopurinol 100 mg tablet 100 mg PO QAM 08/05/23 12/10/24 History aspirin 81 mg capsule 81 mg PO QAM 08/05/23 12/10/24 History atorvastatin 40 mg tablet 40 mg PO QAM 08/05/23 12/10/24 History celecoxib 200 mg capsule (Celebrex) 200 mg PO BID 08/05/23 12/10/24 History gabapentin 800 mg tablet 800 mg PO TID 08/05/23 12/10/24 History metformin 500 mg tablet 500 mg PO BIDWMEAL 08/05/23 12/10/24 History oxycodone 5 mg tablet 5 mg PO UD PRN pain 12/10/24 12/10/24 History Past Med/Surg History Problem List (Updated 12/11/24 @ 09:33 by Akin Ontiveros DO) Myelopathy concurrent with and due to spinal stenosis of thoracic region Intractable low back pain History of stroke Ambulatory dysfunction (Acute) Low back pain (Acute) Gout Neurogenic claudication due to lumbar spinal stenosis Diabetes mellitus, type 2 Medical History (Updated 12/11/24 @ 09:33 by Akin Ontiveros DO) Morbid obesity Carotid stenosis Right ICA <50% stenosis; no carotid stenosis to left ICA per 12/10/21 neck CTA 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 per cardio records Hx of wheezing occasional bouts of wheezing - usually at the end of the day Stroke 10/2021, went to [facility], one side of his body-unable to move leg, sp eech difficulty>no residual symptoms High cholesterol Hx of gout No recent flares Surgical History (Updated 12/10/24 @ 17:44 by Lesly Hess PA-C) S/P epidural steroid injection x3 prior to first back surgery History of total left hip replacement 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 History of lumbar surgery L4-S1 decompression and fusion, L3-L4 hardware removal 08/29/23= Done under GA with grade 1 view with glide scope #3. ETT #7.5 Social History Smoking Status: Never smoker Tobacco Type: Smokeless Tobacco (Dip or Chew) Second Hand Exposure: No; Do You Dip or Chew Tobacco: Yes; Hx Alcohol Use: Yes Alcohol type: beer Hx Substance Use: No Preferred Language: Romanian Communication Ability: Effective Refinisher Required: No Beliefs That Will Affect Care: None Current Living Situation: Spouse Other Information That Helps Us Care for You: No Feels Safe at Home: Yes Safety Concerns: Feels Safe At This Time Assistive Devices: Cane Physical Exam Physical Exam: On exam patient is in the bedside chair. He is comfortable in this position. He notes numbness and tingling coldness in his feet. He has strength deficits to testing particular in the right quadriceps and hip flexors 3+ or 5. Omi ntarflexion dorsiflexion symmetric 5/5. There is sensory deficits bilateral extremities. Deep and reflexes diminished. Results & Data Results & Data Vital Signs (Past 12 Hours) Vital Signs Temp Pulse Resp BP BP Pulse Ox O2 Del Method 12/11/24 07:45 36.4 C 78 16 131/80 95 Room Air 12/10/24 22:00 165/89 H Code Status & VTE Plan VTE Prophylaxis Plan VTE Prophylaxis will be ordered: Yes
[2024-12-11] MEDS: ASPIRIN 81 MG ECTAB PO SCH (09:35)
--- NOTE | 2024-12-11 09:48 | Pharmacy Report ---
Pharmacy Glycemic Short Note 2 - Date of Service December 11, 2024 - Glycemic Short BSG Results (Last 24 hours): 12/10/24 12/10/24 12/10/24 14:30 16:49 20:12 Glucose 113 H POC Glucose 120 H 184 H 12/11/24 07:43 Glucose POC Glucose 176 H OUTPATIENT ANTIDIABETIC REGIMEN: * Metformin 500 mg PO BID HbA1c: * 7.5% (12/11/24) ASSESSMENT: * 49 yo M admitted on 12/10/24 secondary to intractable back pain. Pharmacy has been consulted to assist with inpatient glycemic management. Patient is a Type 2 diabetic as an outpatient. Please refer to outpatient regimen and most recent HbA1c above. * Presented with BSG of 120 mg/dL. Did receive 10 mg of IV dexamethasone in the ED. Evening BSG increased to 184 mg/dL. No basal insulin received, but did receive 5 units of bolus insulin throughout the evening. * Fasting BSG this AM is 176 mg/dL likely related to steroids. No ongoing steroids ordered; however, patient is NPO at midnight tonight for surgery t omorrow. Gave a one time basal dose based on weight/stress of 2 and tightened Novolog as well today. Will plan to hold further basal doses until patient is ordered a diet tomorrow. PLAN FOR INPATIENT GLYCEMIC CONTROL: * Hold outpatient oral diabetes medications * Basal insulin * Lantus 20 units SC daily * Bolus insulin * NovoLog per scale ACHS or Q6hrs while NPO * Goal Range: Low 110 mg/dL - High 140 mg/dL * Correction Factor: 20 mg/dL/unit * Nutritional / Prandial insulin per carb ratio of 1 unit per 7 grams CHO consumed
--- NOTE | 2024-12-11 14:54 | Hospitalist Progress Note ---
Date of Service December 11, 2024 Assessment & Plan (1) Intractable low back pain: (2) Ambulatory dysfunction: (3) History of stroke: (4) Diabetes mellitus, type 2: (5) High cholesterol: Plan This is a 49 y/o male with DM2, prior ischemic stroke, mild intermittent asthma, degenerative disc disease, hyperlipidemia, and other history as outlined below who presented to the ED today with progressive back pain. Outpatient MRI showed multilevel degenerative changes including T10-11 severe thecal sac stenosis with cord compression and cord edema and/or myelomalacia. ED provider spoke with spine surgery who recommended that patient be admitted for further management. Currently symptoms impacting ability to safely complete ADLs at home. We have been consulted to assist with medical management. #Intractable back pain due to multilevel disc disease #Ambulatory dysfunction - Pt admitted by spine surgery for further management - Pain control, ambulation, DVT prophylaxis per primary team - will monitor creatinine, hgb post op, incentive spirometer #History of CVA - on daily aspirin #Bilateral carotid artery disease by duplex in 2021 - Previously recommended by cardiology to continue aspirin without interruption if okay with surgeon - would continue aspirin as above #Type 2 Diabetes Mellitus - Diabetic diet - BSG ACHS - A1c in the AM - Glycemic pharmacy consult pending #Hyperlipidemia - Chronic, stable - continue statin - Lipid panel in the AM Feeding/fluids: NPO after midnight Analgesia: per ortho Sedation: na Thromboprophylaxis: per ortho Head up position: na Ulcer prophylaxis: na Glycemic control: na Spontaneous breathing trial: na Bowel care: miralax prn Indwelling catheter removal: na Deescalation of antibiotics: na I spent a total of 40 minutes in direct patient care, including [id number] time with the patient and/or family, reviewing medical records, ordering and reviewing diagnostic tests, and coordinating care with other healthcare providers. This time includes: history taking, physical examination, medical decision making, counseling, ECG interpretation, imaging interpretation, lab interpretation, orders, and education, excluding time spent in the performance of separately billed services. Admission and Anticipated Discharge Date Admission Date: December 10, 2024 Subjective Patient seen and examined at bedside. Mr. Aparicio is doing ok today. He states he is looking forward to the procedure. Review of Systems Review of Systems: CONSTITUTIONAL: Patient denies fevers, chills, sweats and weight changes. EYES: Patient denies any visual symptoms. EARS, NOSE, AND THROAT: No difficulties with hearing. No symptoms of rhinitis or sore throat. CARDIOVASCULAR: Patient denies chest pains, palpitations, orthopnea and paroxysmal nocturnal dyspnea. RESPIRATORY: No dyspnea on exertion, no wheezing or cough. GI: No nausea, vomiting, diarrhea, constipation, abdominal pain, hematochezia or melena. : No urinary hesitancy or dribbling. No nocturia or urinary frequency. No abnormal urethral discharge. MUSCULOSKELETAL: back pain NEUROLOGIC: No chronic headaches, no seizures. Patient denies numbness, tingling or weakness. PSYCHIATRIC: Patient denies problems with mood disturbance. No problems with anxiety. ENDOCRINE: No excessive urination or excessive thirst. DERMATOLOGIC: Patient denies any rashes or skin changes. Physical Exam Physical Exam: Gen: A&O 3 NAD HEENT: NCAT, EOMI, not icteric. External ears normal. No rhinorrhea. Moist mucous membranes. Neck: Supple, full range of motion, no observable masses, No meningeal sign. Lungs: No Respiratory distress. CV: RRR, no edema. Abdomen: Soft, nondistended, No rebound tenderness. MSK: pain in lower back centrally Skin: No rashes, petechiae, lesions. Normal color per patient. Neuro: Normal Gait, Grossly intact. Psych: Appropriate for situation. Results & Data Results & Data Vital Signs (Past 12 Hours) Vital Signs Temp Pulse Resp BP Pulse Ox O2 Del Method 12/11/24 14:01 36.3 C L 83 16 135/87 97 Room Air 12/11/24 07:45 36.4 C 78 16 131/80 95 Room Air Laboratory Results -personally reviewed, Hgb and creatinine at baseline Medications Administered Allopurinol (Allopurinol 100 Mg Tab) 100 mg PO [facility] Stop: 01/10/25 08:59 Last Admin: 12/11/24 08:14 Dose: 100 mg Documented By: BRUCE Aspirin (Aspirin 81 Mg Ectab) 81 mg PO [facility] Stop: 01/10/25 08:59 Last Admin: 12/11/24 09:35 Dose: 81 mg Documented By: BRUCE Atorvastatin Calcium (Atorvastatin 40 Mg Tab) 40 mg PO [facility] Stop: 01/10/25 08:59 Last Admin: 12/11/24 08:13 Dose: 40 mg Documented By: BRUCE Gabapentin (Gabapentin 800 Mg Tab) 800 mg PO TID [facility] Stop: 01/09/25 20:59 Last Admin: 12/11/24 14:11 Dose: 800 mg Documented By: Admin: 12/11/24 08:14 Dose: 800 mg Documented By: Admin: 12/10/24 20:24 Dose: 800 mg Documented By: TRESSA Hydromorphone HCl (Hydromorphone Inj 1 Mg/Ml Syringe) 1 mg IV Q3H PRN PRN Reason: severe pain (scale 7-10) Stop: 12/24/24 16:12 Last Admin: 12/10/24 20:23 Dose: 1 mg Documented By: Admin: 12/10/24 17:03 Dose: 1 mg Documented By: AMINA Insulin Aspart (Insulin Aspart Per Unit Charge) 0 units SC ACHS [facility] Stop: 01/09/25 16:44 Last Admin: 12/11/24 12:36 Dose: 5 units Documented By: BRUCE Co-signed By: MARNIE Admin: 12/11/24 09:34 Dose: 7 units Documented By: BRUCE Co-signed By: FRANCES Admin: 12/10/24 20:24 Dose: 2 units Documented By: TRESSA Co-signed By: MARITO Admin: 12/10/24 17:00 Dose: 3 units Documented By: AMINA Co-signed By: SALBADOR Insulin Glargine (Lantus Per Unit Charge) 20 units SC DAILY [facility] Stop: 01/10/25 08:59 Last Admin: 12/11/24 08:17 Dose: 20 units Documented By: BRUCE Co-signed By: BRANDI Miscellaneous (Remove Lidoderm Patch) 1 each N/A DAILY@2100 [facility] Stop: 01/09/25 20:59 Last Admin: 12/10/24 20:24 Dose: 1 each Documented By: TRESSA Oxycodone HCl (Oxycodone Hcl Ir 5 Mg Tab (Immediate Release)) 5 - 10 mg PO Q4H PRN PRN Reason: mod to severe pain Stop: 12/24/24 16:12 Last Admin: 12/11/24 11:22 Dose: 10 mg Documented By: Admin: 12/11/24 07:11 Dose: 10 mg Documented By: Admin: 12/11/24 01:20 Dose: 10 mg Documented By: Admin: 12/10/24 16:34 Dose: 10 mg Documented By: AMINA (4) Diabetes mellitus, type 2 Diabetes mellitus halfway insulin use: without halfway use Diabetes mellitus complication status: with other specified complication Qualified Code(s): E11.69 - Type 2 diabetes mellitus with other specified complication
[2024-12-11] MEDS: POLYETHYLENE (MIRALAX) 17 GM PACK PO PRN (19:40)
[2024-12-12] MEDS ORDERED: Nursing to Pharmacy Communication SCH ×2 (05:45→17:15)
[2024-12-12] MEDS ORDERED: MIDAZOLAM HCL 1 MG/ML 2ML VIAL ONE (06:53)
[2024-12-12] MEDS ORDERED: fentaNYL citrate PF 100 MCG/2 ML VIAL ONE (06:53)
[2024-12-12] MEDS ORDERED: ROCURONIUM BROMIDE 10 MG/ML 5 ML VIAL IV ONE ×5 (06:53→11:03)
[2024-12-12] MEDS ORDERED: LIDOCAINE 2% 2 ML VIAL/AMP(20MG/ML) INFIL ONE (06:53)
[2024-12-12] MEDS ORDERED: PROPOFOL IV EMULSION 10 MG/ML 20 ML VIAL IV ONE ×2 (06:53→06:55)
[2024-12-12] MEDS ORDERED: ePHEDrine sulfate 50 MG/ML AMP IV PRN (07:16)
[2024-12-12] MEDS ORDERED: ATROPINE SULFATE 0.1 MG/ML 10ML SYR IV PRN (07:16)
[2024-12-12] MEDS ORDERED: DROPERIDOL 5 MG/2 ML VIAL IV PRN (07:16)
[2024-12-12] MEDS: LACTATED RINGER'S 1,000 ML IV SCH (07:23)
[2024-12-12] MEDS: INSULIN ASPART PER UNIT CHARGE SC SCH ×2 (07:25→21:11)
--- NOTE | 2024-12-12 07:41 | History & Physical Bridge Note ---
Date of Service December 12, 2024 History & Physical Bridge Note I have examined the patient, reviewed the History & Physical and in the interval since the performance of the History & Physical I have noted the following changes of clinical significance: no changes noted Patient has thoracolumbar spinal stenosis with myelomalacia. Here he is here for urgent decompression fusion T10-L2 with hardware removal L3-S1.
[2024-12-12] MEDS: TRANEXAMIC ACID / 0.7% NACL 1000MG/100ML BAG IV ONE ×2 (07:47→11:08)
[2024-12-12] MEDS ORDERED: KETAMINE HCL 10MG/ML SYR ONE (07:57)
[2024-12-12] MEDS: ceFAZolin 3000MG 3,000 MG/72.5 ML BAG IV SCH (08:15)
[2024-12-12] MEDS ORDERED: ePHEDrine sulfate 50 MG/ML AMP ONE (08:24)
[2024-12-12] MEDS ORDERED: PHENYLEPHRINE 100MCG/ML 5ML SYR ONE (08:24)
[2024-12-12] MEDS ORDERED: DEXAMETHASONE SOD INJ 4 MG/ML VIAL ONE (08:39)
[2024-12-12] MEDS: ceFAZolin 330 MG/ML 1 GM VIAL ONE (09:02)
[2024-12-12] MEDS: BUPIVACAINE/EPINEPHRINE 0.25% 1:200,000 30 ML VIAL ONE (09:02)
[2024-12-12] MEDS ORDERED: ONDANSETRON INJ 2 MG/ML 2 ML VIAL ONE (09:23)
[2024-12-12] MEDS ORDERED: PHENYLEPHRINE HCL 10 MG/ML VIAL ONE (10:17)
[2024-12-12] MEDS ORDERED: HYDROmorphone INJ 2 MG/ML SYR/VIAL ONE (10:23)
[2024-12-12] MEDS ORDERED: SUGAMMADEX SODIUM 200 MG/2 ML VIAL IV ONE (11:06)
[2024-12-12] MEDS: SURGICEL ABSORB HEMOSTAT 2IN X 14IN TOP ONE (11:06)
[2024-12-12] MEDS: FLOSEAL HEMOSTATIC MATRIX 10ML TOP ONE (11:07)
[2024-12-12] MEDS ORDERED: SODIUM CHLORIDE 0.9% PF INJ 10 ML VIAL ONE (11:12)
--- NOTE | 2024-12-12 11:30 | Operative Report ---
Post Operative Report Pre & Post Diagnosis Operation Date: 12/12/24 07:45 Pre-Op Diagnosis: #1 myelopathy concurrent with and due to spinal stenosis of thoracic region #2 lumbar spinal stenosis #3 lumbar spondylosis with radiculopathy #4 morbid obesity Post-Op Diagnosis: Same I identified the patient and participated in the time-out.: Yes Procedure Operation Date: 12/12/24 07:45 Actual Procedures #1 removal of posterior instrumentation L3-S1. #2 exploration of fusion L3-S1. #3 decompression with bilateral medial facetectomies foraminotomies T10-T11, L1- L2 and L2-L3. #4 posterior spinal fusion T10-L3. #5 placement posterior instrumentation T10-S1. #6 interbody fusion L2-L3. #7 placement Spira 10 x 26 mm at L2-L3. #8 placement locally harvested morselized autograft and posterior gutters. #9 placement of infuse collagen sponge combined with Koros in the posterior lateral gutters T10-L3 and os design interbody space. #10 application of versa wrap of the exposed dura. Surgeon Akin Ontiveros, DO Turnaround Engineer Laurie Jordan Estimated Blood Loss 1,300 Findings See Below The patient is 5 foot 9 weighing 136 kg with a BMI in excess of 44. This combined with an EBL of over 1300 cc. His significant technical difficulty with positioning exposure and the procedure itself. This had at least 50% increased operative time. I am recommending a modifier 22. Specimens None Indications This is a 49-year-old male well-known to me the presents with marked con status. Updated imaging of the thoracolumbar spine demonstrates evidence of thoracic spinal stenosis with myelopathy and severe lumbar spinal stenosis. Subsequently he is here for urgent decompression fusion. Description of Procedure Patient is met with identified informed consent obtained. Patient was then taken to the operative suite underwent intubation placed in a prone position on the Luis Enrique table chest padded bolsters. All bony prominences well-padded eyes inspected to ensure no external pressure placed upon them. This point the thoracolumbar spine was prepped and draped normal sterile fashion. Sharp dissection with the assistance of Bovie cautery performed down to and exposing the lamina and transverse processes of [id number] L1-L2 and instrumentation to the L3-S1 bilaterally. Then proceeded move the hardware bilaterally explored the fusion mass noting it to be mature and intact. The right S1 pedicle screw was broken and we elected to leave the distal part of the screw in the bone. I then performed a complete laminectomy of L2 with bilateral medial facetectomies and foraminotomies addressing severe neural compression. This is followed by laminectomy of L1 again with bilateral medial facetectomies and foraminotomies addressing severe neural compression. I then performed a decompression of T10- T11 addressing severe spinal stenosis. This included bilateral medial facetectomies and foraminotomies. After this was completed pedicle screws were placed in T11 T12-L1 L2-L3-L4 L5-S1 levels on the left not on the right. Publicized venita was then cut contoured and placed bilaterally. By way of a transforaminal approach on the right complete discectomy of L2-L3 was performed endplates guarded to subcortical bleeding bone and a 10 x 26 mm Spira cage filled with os designed tapped into position. Rods were then locked in final position bilaterally. The transverse processes of T11-T12 L1-L2-L3 burred to subcortical bleeding bone. Infuse collagen sponge bath Koros and local autograft placed in the posterior gutters. Versa wrap placed over the exposed dura. 15 round ARNIE drain inserted. The incision was then closed 1 Vicryl the fascia 2-0 Vicryl subcutaneously and 4 Monocryl for final skin closure. Steri- Strips and sterile dressing placed. Patient waken taken the PACU stable condition. Please note spinal cord monitoring was utilized at the procedure no changes noted. Laurie Jordan was present at the entire surgery and while the patient positioning complex portion of the surgery and final skin closure. I attest to the content of the Intraoperative Record and any orders documented therein. Any exceptions are noted below.
--- NOTE | 2024-12-12 11:41 | Fluoroscopy Report ---
FL lumbar spine 2-3V CLINICAL HISTORY: Y10-L2 DECOMPRESSION COMPARISON STUDY: 08/29/2023 FLUOROSCOPY TIME: 51.7 seconds FLUOROSCOPY IMAGES: 5 EXPOSURE DOSE: 52.36 mGy FINDINGS: Extensive thoracolumbar fusion hardware with discectomy changes. The hardware appears intac t. Exact numbering is not definitive based on magnification however appears to extend from T10 into t he sacrum. Note that the images were submitted following completion of the surgery. IMPRESSION: Fluoroscopic assistance as above. ACT 112: Negative or not required by law. Electronically signed by: Leopoldo Jones M.D. 12/12/2024 11:40 AM
[2024-12-12] MEDS: HYDROmorphone INJ 2 MG/ML SYR/VIAL IV PRN (12:00)
--- NOTE | 2024-12-12 12:46 | Anesthesiology Progress Note ---
Date of Service December 12, 2024 Anesthesia Post Procedure Vital Signs Vital Signs: Temp Pulse Pulse Pulse Resp BP Pulse Ox 12/12/24 12:40 106 H 12 107/82 94 12/12/24 12:30 36.7 C 109 H 16 107/70 94 12/12/24 12:20 110 H 12 119/79 96 12/12/24 12:10 103 H 12 104/90 92 12/12/24 12:00 100 H 14 101/83 96 12/12/24 11:50 36.5 C 98 H 16 109/79 96 12/12/24 07:01 36.6 C 71 18 123/80 95 12/11/24 20:34 36.4 C L 69 16 131/83 94 12/11/24 14:01 36.3 C L 83 16 135/87 97 O2 Del Method O2 Flow Rate 12/12/24 12:40 Nasal Cannula 3 12/12/24 12:30 Nasal Cannula 3 12/12/24 12:20 Nasal Cannula 3 12/12/24 12:10 Nasal Cannula 3 12/12/24 12:00 Oxymask 4 12/12/24 11:50 Oxymask 6 12/12/24 07:01 Room Air 12/11/24 20:34 Room Air 12/11/24 14:01 Room Air Pain Intensity Lower Back: Pain Intensity: 4 Transfer of Care Handoff Completed per policy Notes Mental Status: alert / awake / arousable Patient Amnestic to Procedure: Yes Nausea / Vomiting: adequately controlled Pain: adequately controlled Airway Patency, RR, SpO2: stable & adequate BP & HR: stable & adequate Hydration State: stable & adequate Anesthetic Complications: no major complications apparent
[2024-12-12] MEDS ORDERED: ALUMINUM/MAGNESIUM SUSP 30 ML UDC PO PRN (13:10)
[2024-12-12] MEDS ORDERED: SOD PHOSPHATE/SOD BIPHOSPHATE ENEMA 132 ML BTL PR PRN (13:10)
[2024-12-12] MEDS ORDERED: NALOXONE HCL 0.4 MG/1 ML VIAL/CARP IV PRN (13:10)
[2024-12-12] MEDS ORDERED: diphenhydrAMINE Capsule 25 MG CAP PO PRN (13:10)
[2024-12-12] MEDS ORDERED: DO NOT ADMINISTER PNEUMOCOCCAL VACCINE PRN (13:10)
[2024-12-12] MEDS ORDERED: ONDANSETRON 4 MG OD TAB PO PRN (13:10)
[2024-12-12] MEDS ORDERED: LORazepam 2 MG/1 ML VIAL IV PRN (13:10)
[2024-12-12] MEDS ORDERED: DO NOT ADMINISTER FLU VACCINE PRN (13:10)
[2024-12-12] MEDS ORDERED: ONDANSETRON INJ 2 MG/ML 2 ML VIAL IV PRN (13:10)
[2024-12-12] MEDS ORDERED: hydrOXYzine HCl 25 MG TAB PO PRN (13:10)
[2024-12-12] MEDS ORDERED: PROMETHAZINE 12.5 MG/50.5 ML BAG IV PRN (13:10)
[2024-12-12] MEDS ORDERED: FAMOTIDINE 20 MG TAB PO PRN (13:10)
[2024-12-12] MEDS ORDERED: bisacodyL 10 MG SUPP PR PRN (13:10)
[2024-12-12] MEDS ORDERED: LORazepam 0.5 MG TAB PO PRN (13:10)
[2024-12-12] MEDS ORDERED: ACETAMINOPHEN 500 MG TAB PO PRN (13:10)
--- NOTE | 2024-12-12 13:23 | Hospitalist Progress Note ---
Date of Service December 12, 2024 Assessment & Plan (1) Intractable low back pain: (2) Ambulatory dysfunction: (3) History of stroke: (4) Diabetes mellitus, type 2: (5) High cholesterol: Plan This is a 49 y/o male with DM2, prior ischemic stroke, mild intermittent asthma, degenerative disc disease, hyperlipidemia, and other history as outlined below who presented to the ED today with progressive back pain. Outpatient MRI showed multilevel degenerative changes including T10-11 severe thecal sac stenosis with cord compression and cord edema and/or myelomalacia. ED provider spoke with spine surgery who recommended that patient be admitted for further management. Currently symptoms impacting ability to safely complete ADLs at home. We have been consulted to assist with medical management. #Intractable back pain due to multilevel disc disease #Ambulatory dysfunction -Pt admitted by spine surgery for further management -now POD 0 from complex multilevel lumbar/thoracic/sacral intervention Plan: -Pain control, ambulation, DVT prophylaxis per primary team -will monitor creatinine, hgb post op (over 1 L of blood loss in procedure per note), incentive spirometer -given oxygen needs post op, check chest xray #History of CVA - on daily aspirin #Bilateral carotid artery disease by duplex in 2021 -continue aspirin without interruption per neurology in past #Type 2 Diabetes Mellitus - Diabetic diet #Hyperlipidemia - Chronic, stable - continue statin Feeding/fluids: carb consistent Analgesia: per ortho Sedation: na Thromboprophylaxis: per ortho Head up position: na Ulcer prophylaxis: na Glycemic control: na Spontaneous breathing trial: na Bowel care: miralax prn Indwelling catheter removal: na Deescalation of antibiotics: na I spent a total of 30 minutes in direct patient care, including [id number] time with the patient and/or family, reviewing medical records, ordering and reviewing diagnostic tests, and coordinating care with other healthcare providers. This time includes: history taking, physical examination, medical decision making, counseling, ECG interpretation, imaging interpretation, lab interpretation, orders, and education, excluding time spent in the performance of separately billed services. Admission and Anticipated Discharge Date Admission Date: December 11, 2024 Subjective Patient not seen today due to being in OR. Review of Systems Review of Systems: -patient not seen today due to being in OR Physical Exam Physical Exam: -patient not seen today due to being in OR Results & Data Results & Data Vital Signs (Past 12 Hours) Vital Signs Temp Pulse Pulse Pulse Resp BP Pulse Ox 12/12/24 12:55 36.4 C L 110 H 16 110/76 96 12/12/24 12:40 106 H 12 107/82 94 12/12/24 12:30 36.7 C 109 H 16 107/70 94 12/12/24 12:20 110 H 12 119/79 96 12/12/24 12:10 103 H 12 104/90 92 12/12/24 12:00 100 H 14 101/83 96 12/12/24 11:50 36.5 C 98 H 16 109/79 96 12/12/24 07:01 36.6 C 71 18 123/80 95 O2 Del Method O2 Flow Rate 12/12/24 12:55 Nasal Cannula 3 12/12/24 12:40 Nasal Cannula 3 12/12/24 12:30 Nasal Cannula 3 12/12/24 12:20 Nasal Cannula 3 12/12/24 12:10 Nasal Cannula 3 12/12/24 12:00 Oxymask 4 12/12/24 11:50 Oxymask 6 12/12/24 07:01 Room Air Laboratory Results -personally reviewed, tachycardic and on oxygen post procedure Medications Administered Allopurinol (Allopurinol 100 Mg Tab) 100 mg PO [facility] Stop: 01/10/25 08:59 Last Admin: 12/11/24 08:14 Dose: 100 mg Documented By: BRUCE Aspirin (Aspirin 81 Mg Ectab) 81 mg PO [facility] Stop: 01/10/25 08:59 Last Admin: 12/11/24 09:35 Dose: 81 mg Documented By: BRUCE Atorvastatin Calcium (Atorvastatin 40 Mg Tab) 40 mg PO [facility] Stop: 01/10/25 08:59 Last Admin: 12/11/24 08:13 Dose: 40 mg Documented By: BRUCE Gabapentin (Gabapentin 800 Mg Tab) 800 mg PO TID [facility] Stop: 01/09/25 20:59 Last Admin: 12/12/24 13:20 Dose: Not Given Documented By: Admin: 12/11/24 21:22 Dose: 800 mg Documented By: Admin: 12/11/24 14:11 Dose: 800 mg Documented By: Admin: 12/11/24 08:14 Dose: 800 mg Documented By: Admin: 12/10/24 20:24 Dose: 800 mg Documented By: TRESSA Lactated Ringer's (Lr) 1,000 mls @ 15 mls/hr IV .Q24H [facility] Stop: 12/13/24 07:29 Last Infusion: 12/12/24 08:03 Dose: Infused Documented By: Admin: 12/12/24 07:23 Dose: 15 mls/hr Documented By: TIFFANIE Insulin Aspart (Insulin Aspart Per Unit Charge) 0 units SC Q6 [facility] Stop: 01/11/25 05:59 Last Admin: 12/12/24 07:25 Dose: Not Given Documented By: BRANDI Miscellaneous (Remove Lidoderm Patch) 1 each N/A DAILY@2100 [facility] Stop: 01/09/25 20:59 Last Admin: 12/11/24 21:26 Dose: Not Given Documented By: Admin: 12/10/24 20:24 Dose: 1 each Documented By: TRESSA (4) Diabetes mellitus, type 2 Diabetes mellitus [facility] insulin use: without termite exterminator use Diabetes mellitus complication status: with other specified complication Qualified Code(s): E11.69 - Type 2 diabetes mellitus with other specified complication
[2024-12-12] MEDS: oxyCODONE HCL IR 5 MG TAB (IMMEDIATE RELEASE) PO PRN (13:33)
--- NOTE | 2024-12-12 13:42 | XRay Report ---
XR chest 1V portable CLINICAL HISTORY: post op hypoxia COMPARISON STUDY: 12/10/2024 FINDINGS: Stable mild cardiomegaly without pulmonary vascular congestion. Interval lower thoracic spi nal hardware. There is interval stranding opacity at the left lung base. No other consolidation or pl eural effusion. No pneumothorax. IMPRESSION: Atelectasis versus early pneumonia left lung base. ACT 112: Negative or not required by law. Electronically signed by: Jim Jones M.D. 12/12/2024 1:41 PM
[2024-12-12] MEDS: dexAMETHasone 6 MG in SYRINGE 0 ML IV SCH (15:02)
[2024-12-12] MEDS: traMADol HCL 50 MG TABLET PO PRN (16:25)
[2024-12-12] MEDS: ceFAZolin 2000MG 2,000 MG/15 ML SYR IV SCH (17:32)
--- NOTE | 2024-12-12 19:21 | Electrocardiogram Report ---
Test Reason : Blood Pressure : */* mmHG Vent. Rate : 97 BPM Atrial Rate : 97 BPM P-R Int : 140 ms QRS Dur : 96 ms QT Int : 346 ms P-R-T Axes : 40 -69 31 degrees QTcB Int : 439 ms Normal sinus rhythm Left anterior fascicular block Abnormal ECG When compared with ECG of 05-May-2021 13:09, Left anterior fascicular block is now Present Confirmed by Eric Thakur ([id number]) on 12/12/2024 7:20:46 PM Referred By: REFERRED SELF Confirmed By: Eric Thakur
[2024-12-12] MEDS: METOCLOPRAMIDE HCL INJ 5 MG/ML 2 ML VIAL IV PRN (19:51)
[2024-12-12] MEDS: ACETAMINOPHEN 1,000 MG/100 ML VIAL IV PRN (19:53)
[2024-12-12] MEDS: DOCUSATE SODIUM/SENNA 50/8.6MG TAB PO SCH (20:37)
[2024-12-13] MEDS: HYDROmorphone INJ 0.5 MG/0.5 ML SYR IV PRN (02:52)
[2024-12-13] MEDS: POLYETHYLENE (MIRALAX) 17 GM PACK PO SCH (05:24)
[2024-12-13 06:03] LABS: Basophils # (auto) 0.02 K/uL (0.00-0.20); Basophils % (auto) 0.1 %; Hematocrit (blood only) 35.6 % (42.0-52.0); Hemoglobin 11.3 g/dl (14.0-18.0); Immature Granulocytes % (auto) 0.5 %; Lymphocytes # (auto) 1.28 K/uL (1.20-3.40); Mean Corpuscular Hemoglobin 27.6 pg (25.0-34.0); Mean Corpuscular Hgb Conc 31.7 g/dL (32.0-36.0); Mean Corpuscular Volume 86.8 fL (80.0-100.0); Monocytes # (auto) 1.63 K/uL (0.11-0.59); Monocytes % (auto) 8.9 %; Neutrophils # (auto) 15.21 K/uL (1.40-6.50); Neutrophils % (auto) 83.5 %; Platelet Count 307 K/uL (130-400); RDW Coefficient of Variation 13.2 % (11.5-14.5); RDW Standard Deviation 41.3 fL (36.4-46.3); White Blood Count 18.24 K/ul (4.8-10.8)
[2024-12-13 06:09] LABS: BUN Creatinine Ratio 26.3 (10-20); Calcium 8.1 mg/dl (8.6-10.3); Creatinine Clr Calc Pharmacy 128.8 ml/min; Magnesium 2.3 mg/dl (1.7-2.4); Phosphorus 4.6 mg/dl (2.5-4.9); Potassium 5.3 mmol/L (3.5-5.1)
--- NOTE | 2024-12-13 07:20 | Hospitalist Progress Note ---
Date of Service December 13, 2024 Assessment & Plan (1) Intractable low back pain: (2) Ambulatory dysfunction: (3) History of stroke: (4) Diabetes mellitus, type 2: (5) High cholesterol: Plan 49 y/o male with DM2, prior ischemic stroke, mild intermittent asthma, degenerative disc disease, hyperlipidemia, and other history as outlined below who presented to the ED with progressive back pain. Outpatient MRI showed multilevel degenerative changes including T10-11 severe thecal sac stenosis with cord compression and cord edema and/or myelomalacia. ED provider spoke with spine surgery who recommended that patient be admitted for further management. Currently symptoms impacting ability to safely complete ADLs at home. We have been consulted to assist with medical management. Intractable back pain due to multilevel disc disease Ambulatory dysfunction -Pt admitted by spine surgery for further management -now POD 1 from complex multilevel lumbar/thoracic/sacral intervention Plan: -Pain control, ambulation, DVT prophylaxis per primary team -will monitor creatinine, hgb post op (over 1 L of blood loss in procedure per note), incentive spirometer -given oxygen needs post op, check chest xray -> 3/6 hypoxia seems resolved now, pt on RA 93% O2, cont. to monitor - discussed w/ table tender sludge blood loss anemia, post-op vs. dilutional - post op Hgb ~ 11, preop~14 - no need for blood transfusion, cont. to monitor H&H History of CVA - on daily aspirin Bilateral carotid artery disease by duplex in 2021 -continue aspirin without interruption per neurology in past Type 2 Diabetes Mellitus - Diabetic diet Hyperlipidemia - Chronic, stable - continue statin Analgesia: per ortho Thromboprophylaxis: per ortho Admission and Anticipated Discharge Date Admission Date: December 11, 2024 Subjective Pt seen in follow up of med consult, pt s/p spinal surgery yesterday currently sitting up in chair in NAD, reports sore back after surgery still has oliva placed no fever, chills, chest pain, shortness of breath, no abd. pain was on 3L of suppl. O2, currently on RA - discussed w/ RN encouraged IS, pt says he walked a little in hallway Review of Systems Review of Systems: All systems reviewed & are unremarkable except as noted in Subjective Physical Exam Physical Exam: Gen: A&O 3 NAD HEENT: NCAT, EOMI Neck: Supple Lungs: No Respiratory distress. CTAB CV: RRR, no edema. Abdomen: Soft, nondistended, nontender, + obese MSK: pain in lower back centrally Skin: warm, dry Neuro: awake, alert, answers appropriately, speech fluent, no facial asymmetry, moves extremities Results & Data Results & Data Vital Signs (Past 12 Hours) Vital Signs Temp Pulse Resp BP Pulse Ox O2 Del Method O2 Flow Rate 12/13/24 07:15 36.9 C 99 H 18 165/96 H 99 Nasal Cannula 3.0 12/13/24 03:35 36.9 C 104 H 18 165/102 H 96 Nasal Cannula 3 12/12/24 23:27 36.7 C 97 H 18 147/78 H 97 Nasal Cannula 3 12/12/24 20:00 Nasal Cannula 3 12/12/24 19:30 36.8 C 106 H 18 137/97 95 Nasal Cannula 3 Laboratory Results 12/13/24 12/12/24 12/12/24 Range/Units 05:32 20:33 16:12 WBC 18.24 H (4.8-10.8) K/ul RBC 4.10 L (4.70-6.10) M/uL Hgb 11.3 L (14.0-18.0) g/dl Hct 35.6 L (42.0-52.0) % MCV 86.8 (80.0-100.0) fL MCH 27.6 (25.0-34.0) pg MCHC 31.7 L (32.0-36.0) g/dL RDW Std Deviation 41.3 (36.4-46.3) fL RDW Coeff of Jj 13.2 (11.5-14.5) % Plt Count 307 (130-400) K/uL MPV 9.0 L (9.4-12.4) fL Immature Gran % (Auto) 0.5 % Neut % (Auto) 83.5 % Lymph % (Auto) 7.0 % Kay % (Auto) 8.9 % Eos % (Auto) 0.0 % Baso % (Auto) 0.1 % Neut # (Auto) 15.21 H (1.40-6.50) K/uL Lymph # (Auto) 1.28 (1.20-3.40) K/uL Kay # (Auto) 1.63 H (0.11-0.59) K/uL Eos # (Auto) 0.00 (0.00-0.50) K/uL Baso # (Auto) 0.02 (0.00-0.20) K/uL Immature Gran # (Auto) 0.10 (0.01-0.20) K/uL Sodium 131 L (136-145) mmol/L Potassium 5.3 H (3.5-5.1) mmol/L Chloride 95 L (98-107) mmol/L Carbon Dioxide 30 (21-32) mmol/L Anion Gap 6 (3-11) BUN 25 H (6-23) mg/dl Creatinine 0.95 (0.6-1.4) mg/dl Est Cr Clr Drug Dosing 128.8 ml/min eGFR 98.12 BUN/Creatinine Ratio 26.3 H (10-20) Glucose 226 H (70-99(Fasting)) mg/dl POC Glucose 195 H 206 H (70-99) mg/dl Calcium 8.1 L (8.6-10.3) mg/dl Phosphorus 4.6 (2.5-4.9) mg/dl Magnesium 2.3 (1.7-2.4) mg/dl Blood Type Antibody Screen 12/12/24 12/12/24 Range/Units 13:58 05:25 WBC (4.8-10.8) K/ul RBC (4.70-6.10) M/uL Hgb (14.0-18.0) g/dl Hct (42.0-52.0) % MCV (80.0-100.0) fL MCH (25.0-34.0) pg MCHC (32.0-36.0) g/dL RDW Std Deviation (36.4-46.3) fL RDW Coeff of Jj (11.5-14.5) % Plt Count (130-400) K/uL MPV (9.4-12.4) fL Immature Gran % (Auto) % Neut % (Auto) % Lymph % (Auto) % Kay % (Auto) % Eos % (Auto) % Baso % (Auto) % Neut # (Auto) (1.40-6.50) K/uL Lymph # (Auto) (1.20-3.40) K/uL Kay # (Auto) (0.11-0.59) K/uL Eos # (Auto) (0.00-0.50) K/uL Baso # (Auto) (0.00-0.20) K/uL Immature Gran # (Auto) (0.01-0.20) K/uL Sodium (136-145) mmol/L Potassium (3.5-5.1) mmol/L Chloride (98-107) mmol/L Carbon Dioxide (21-32) mmol/L Anion Gap (3-11) BUN (6-23) mg/dl Creatinine (0.6-1.4) mg/dl Est Cr Clr Drug Dosing ml/min eGFR BUN/Creatinine Ratio (10-20) Glucose (70-99(Fasting)) mg/dl POC Glucose 176 H (70-99) mg/dl Calcium (8.6-10.3) mg/dl Phosphorus (2.5-4.9) mg/dl Magnesium (1.7-2.4) mg/dl Blood Type A Positive Antibody Screen NEGATIVE Medications Administered Current Inpatient Medications Acetaminophen (Acetaminophen 500 Mg Tab) 1,000 mg PO Q8H PRN PRN Reason: MILD Pain Scale 1,2,3 & Pre PT Stop: 01/09/25 16:12 Acetaminophen (Acetaminophen 500 Mg Tab) 1,000 mg PO Q8H PRN PRN Reason: MILD Pain Scale 1,2,3 & Pre PT Stop: 01/11/25 13:09 Al Hydrox/Mg Hydrox/Simethicone (Aluminum/Magnesium Susp 30 Ml Udc) 30 ml PO Q6H PRN PRN Reason: Dyspepsia Stop: 01/11/25 13:09 Allopurinol (Allopurinol 100 Mg Tab) 100 mg PO [facility] Stop: 01/10/25 08:59 Last Admin: 12/12/24 15:02 Dose: 100 mg Aspirin (Aspirin 81 Mg Ectab) 81 mg PO [facility] Stop: 01/10/25 08:59 Last Admin: 12/12/24 15:02 Dose: 81 mg Atorvastatin Calcium (Atorvastatin 40 Mg Tab) 40 mg PO [facility] Stop: 01/10/25 08:59 Last Admin: 12/12/24 15:01 Dose: 40 mg Bisacodyl (Bisacodyl 10 Mg Supp) 10 mg CO DAILY PRN PRN Reason: Constipation Stop: 01/11/25 14:04 Bisacodyl (Bisacodyl 10 Mg Supp) 10 mg CO DAILY PRN PRN Reason: Constipation Stop: 01/11/25 13:09 Dextrose (Dextrose 50% 50 Ml Syringe) 25 - 50 ml IV UD PRN; Protocol PRN Reason: Hypoglycemia Protocol Stop: 01/09/25 16:44 Diphenhydramine HCl (Diphenhydramine Capsule 25 Mg Cap) 25 mg PO Q6H PRN PRN Reason: Allergic Rhinitis/Insomnia Stop: 01/11/25 13:09 Famotidine (Famotidine 20 Mg Tab) 20 mg PO Q12H PRN PRN Reason: Dyspepsia Stop: 01/11/25 13:09 Gabapentin (Gabapentin 800 Mg Tab) 800 mg PO TID DAVEY Stop: 01/09/25 20:59 Last Admin: 12/12/24 20:36 Dose: 800 mg Glucagon (Glucagon For Inj 1 Mg Vial) 1 mg SQ UD PRN; Protocol PRN Reason: Hypoglycemia Protocol Stop: 01/09/25 16:44 Glucose (Glucose 40% Gel 15 Gm Tube) 15 - 30 gm PO UD PRN; Protocol PRN Reason: Hypoglycemia Protocol Stop: 01/09/25 16:44 Glucose (Glucose 10 Tab/Tube) 4 - 8 tab PO UD PRN; Protocol PRN Reason: Hypoglycemia Protocol Stop: 01/09/25 16:44 Hydromorphone HCl (Hydromorphone Inj 0.5 Mg/0.5 Ml Syr) 0.5 mg IV Q3H PRN PRN Reason: MODERATE Pain (Scale 4,5,6) & Pre PT Stop: 12/26/24 13:09 Last Admin: 12/13/24 02:52 Dose: 0.5 mg Hydroxyzine HCl (Hydroxyzine Hcl 25 Mg Tab) 25 mg PO Q8H PRN PRN Reason: Anxiety Stop: 01/11/25 13:09 Lactated Ringer's (Lr) 1,000 mls @ 15 mls/hr IV .Q24H [facility]AVE[facility] Stop: 12/13/24 07:29 Last Infusion: 12/12/24 08:03 Dose: Infused Acetaminophen (Ofirmev) 1,000 mg in 100 mls @ 400 mls/hr IV Q8H PRN PRN Reason: Pain Rating 1-3 & Pre PT Stop: 12/13/24 13:10 Last Infusion: 12/12/24 20:37 Dose: Infused Promethazine HCl (Phenergan) 12.5 mg in 50.5 mls @ 202 mls/hr IV Q6H PRN PRN Reason: Nausea And Vomiting Stop: 01/11/25 13:09 Influenza Virus Vaccine Quadrival (Do Not Administer Flu Vaccine) 1 each N/A PRN PRN PRN Reason: Notification Stop: 01/11/25 13:09 Insulin Aspart (Insulin Aspart Per Unit Charge) 0 units SC ACHS [facility] Stop: 01/11/25 05:59 Last Admin: 12/12/24 21:11 Dose: 2 units Lorazepam (Lorazepam 0.5 Mg Tab) 0.5 mg PO Q8H PRN PRN Reason: Sedation/Anxiety Stop: 01/11/25 13:09 Lorazepam (Lorazepam 2 Mg/1 Ml Vial) 0.5 mg IV Q8H PRN PRN Reason: Sedation/Anxiety Stop: 01/11/25 13:09 Magnesium Hydroxide (Magnesium Hydroxide Susp 30 Ml Udc) 30 ml PO Q24H PRN PRN Reason: Constipation Stop: 01/11/25 13:09 Metoclopramide HCl (Metoclopramide Hcl Inj 5 Mg/Ml 2 Ml Vial) 10 mg IV Q6H PRN PRN Reason: Nausea &/or Vomiting Stop: 01/11/25 13:09 Last Admin: 12/12/24 19:51 Dose: 10 mg Miscellaneous (Remove Lidoderm Patch) 1 each N/A DAILY@2100 [facility] Stop: 01/09/25 20:59 Last Admin: 12/12/24 21:11 Dose: Not Given Miscellaneous (Carbohydrates For Hypoglycemia ) 15 - 30 gm PO UD PRN PRN Reason: Hypoglycemia Treatment Stop: 01/09/25 16:44 Naloxone HCl (Naloxone Hcl 0.4 Mg/1 Ml Vial/Carp) 0.1 mg IV Q5M PRN PRN Reason: Oversedation/Resp depression Stop: 01/11/25 13:09 Ondansetron HCl (Ondansetron Inj 2 Mg/Ml 2 Ml Vial) 4 mg IV Q6H PRN PRN Reason: Nausea &/or Vomiting Stop: 01/11/25 13:09 Ondansetron HCl (Ondansetron 4 Mg Od Tab) 4 mg PO Q6H PRN PRN Reason: Nausea Stop: 01/11/25 13:09 Oxycodone HCl (Oxycodone Hcl Ir 5 Mg Tab (Immediate Release)) 5 - 10 mg PO Q4H PRN PRN Reason: Pain & Pre PT Stop: 12/26/24 13:09 Last Admin: 12/13/24 06:28 Dose: 10 mg Pneumococcal Polyvalent Vaccine (Do Not Administer Pneumococcal Vaccine) 1 each N/A PRN PRN PRN Reason: Notification Stop: 01/11/25 13:09 Polyethylene Glycol (Polyethylene (Miralax) 17 Gm Pack) 17 gm PO Q6 [facility] Stop: 01/12/25 05:59 Last Admin: 12/13/24 05:24 Dose: Not Given Senna/Docusate Sodium (Docusate Sodium/Senna 50/8.6mg Tab) 2 tab PO HS DAVEY Stop: 01/11/25 20:59 Last Admin: 12/12/24 20:37 Dose: 2 tab Sodium Biphosphate/Sodium Phosphate (Sod Phosphate/Sod Biphosphate Enema 132 Ml Btl) 132 ml CO ONE PRN PRN Reason: Constipation Stop: 01/11/25 13:09 Tramadol HCl (Tramadol Hcl 50 Mg Tablet) 50 - 100 mg PO Q4H PRN PRN Reason: Moderate-Severe pain & Pre PT Stop: 01/11/25 13:09 Last Admin: 12/13/24 04:20 Dose: 100 mg (4) Diabetes mellitus, type 2 Diabetes mellitus complication status: with other specified complication Diabetes mellitus oysterman insulin use: without oysterman use Qualified Code(s): E11.69 - Type 2 diabetes mellitus with other specified complication
--- NOTE | 2024-12-13 08:32 | Orthopedic Progress Note ---
Date of Service December 13, 2024 Assessment & Plan (1) Myelopathy concurrent with and due to spinal stenosis of thoracic region: Plan: Janeth is postoperative day 1 status post hard removal L3-S1, decompression T10- 11 and L2-3 with instrumented fusion from T10-S1. Will start physical therapy today. Maintain ARNIE drain. DVT prophylaxis is in the form teds and SCDs. Continue with pain control. Continue with bowel regimen. Anticipate discharge home over the next several days. Admission and Anticipated Discharge Date Admission Date: December 11, 2024 Subjective Janeth is postoperative day 1 status post hardware removal L3-S1 decompression of T10-11 and L to 3 instrumented fusion T10-S1. This morning is up sitting in a chair. He is eating breakfast. No complaints. States his legs feel better. ARNIE drain output last shift was 150 cc. H&H this morning are 11.3 and 35.6 respectively. Review of Systems Review of Systems: All systems reviewed & are unremarkable except as noted in HPI & below Physical Exam Physical Exam: He sitting in a chair in no acute distress Alert and oriented x 3 Dressing is clean dry and intact with functioning ARNIE drain Strength intact bilateral lower extremities SARA hose intact bilateral lower extremities Results & Data Vital Signs (Past 12 Hours) Vital Signs Temp Pulse Resp BP Pulse Ox O2 Del Method O2 Flow Rate 12/13/24 07:15 36.9 C 99 H 18 165/96 H 99 Nasal Cannula 3.0 12/13/24 03:35 36.9 C 104 H 18 165/102 H 96 Nasal Cannula 3 12/12/24 23:27 36.7 C 97 H 18 147/78 H 97 Nasal Cannula 3
[2024-12-13] MEDS: guaiFENesin 600 MG TABCR PO SCH (08:43)
[2024-12-14 06:19] LABS: Hematocrit (blood only) 31.2 % (42.0-52.0); Hemoglobin 10.1 g/dl (14.0-18.0); Mean Corpuscular Hemoglobin 28.2 pg (25.0-34.0); Mean Corpuscular Hgb Conc 32.4 g/dL (32.0-36.0); Mean Corpuscular Volume 87.2 fL (80.0-100.0); Mean Platelet Volume 9.1 fL (9.4-12.4); Platelet Count 242 K/uL (130-400); RDW Coefficient of Variation 13.3 % (11.5-14.5); RDW Standard Deviation 42.6 fL (36.4-46.3); Red Blood Count 3.58 M/uL (4.70-6.10); White Blood Count 14.07 K/ul (4.8-10.8)
[2024-12-14 06:52] LABS: BUN Creatinine Ratio 29.5 (10-20); Calcium 8.4 mg/dl (8.6-10.3); Creatinine Clr Calc Pharmacy 156.9 ml/min; Magnesium 2.4 mg/dl (1.7-2.4); Phosphorus 3.1 mg/dl (2.5-4.9); Potassium 4.2 mmol/L (3.5-5.1)
[2024-12-14] MEDS: MAGNESIUM HYDROXIDE SUSP 30 ML UDC PO PRN (08:20)
--- NOTE | 2024-12-14 08:32 | Hospitalist Progress Note ---
Date of Service December 14, 2024 Assessment & Plan (1) Ambulatory dysfunction: (2) Intractable low back pain: Plan: Janeth Aparicio is a 49y/o M with PMHx significant for DMII, prior ischemic CVA, intermittent asthma, DDD, bilateral carotid artery disease and HLD who presented to the ED on 12/10/24 with complaint of progressive back pain. 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 ED provider spoke with spine surgery whom recommended that patient be admitted for further management and surgical intervention. Our service is consulted on the case to assist with medical management. S/p urgent decompression fusion T10-L2 with hardware removal L3-S1 with Dr. Ontiveros on 12/12/24. Per ortho for pain control, wound care, anticoagulation and activities. Continue incentive spirometry, PT/OT when appropriate as per ortho team. (3) Acute blood loss anemia: Plan: Preoperative Hgb 14.3 as of 12/10/24, Hgb downtrended to 10.1 today. No indication for transfusion at this time. 2/2 expected surgical loss plus suspect dilutional component contributing as well. Continue to monitor H/H trend. (4) Postoperative ileus: Plan: No BM since this past Tuesday. C/o abdominal discomfort and constipation during conversation today. KUB ordered which revealed moderate retained stool and mild diffuse bowel distention suggesting ileus. Transition to full liquid diet for now. Given fleet enema this afternoon. Continue aggressive bowel regimen; monitor for BM. Repeat KUB in AM. May need to consult general surgery if no improvement. (5) High cholesterol: (6) History of stroke: Plan: Continue ASA without interruption per neurology in the past. Known bilateral carotid artery disease per duplex in 2021. Continue statin. (7) Diabetes mellitus, type 2: Plan: Holding home metformin, SSI while inpatient. Continue BSG checks ACHS. DVT Prophylaxis: SCDs/TEDs as per primary service. Code Status: FULL CODE PCP: Noah Gerber PA-C Disposition: Admitted in Med/Surg - discharge planning as per primary service. We will follow the patient with you during their hospital stay. You can reach a member of the [facility] Hospitalist Team 02/05 via [employer]. Patient seen in collaboration with Dr. Berumen. Please see addendum. I spent a total of 40 minutes coordinating, documenting, and providing care for this patient excluding time spent in the performance of separately billed services or time spent by another provider/QHP. This included personally reviewing all current laboratories and imaging studies, medical reconciliation, outpatient chart review and discussion with specialists. This chart was completed in part utilizing Speech Voice Recognition Software. Grammatical errors, random word insertions, pronoun errors, and incomplete sentences are an occasional consequence of this system due to software limitations, ambient noise, and hardware issues. Any formal questions or concerns about the content, text, or information contained within the body of this dictation should be directly addressed to the provider for clarification. Admission and Anticipated Discharge Date Admission Date: December 11, 2024 Supervising Physician Co-Signing Physician Notes Patient is seen and examined at bedside. Reports constipation. Also states having some abdominal pain and nausea associated with it. Back pain at surgical site as well. No other complaints today. On exam patient is obese, no apparent distress, normocephalic atraumatic, EOMI, normal bowel sounds, clear to auscultation, S1-S2, no murmur, abdomen soft, distended, mild tenderness, no guarding or rigidity, alert, awake, oriented, grossly no focal deficits. Patient is being managed for postoperative medical management. Postoperative ileus. Continue bowel regimen, utilize enema as needed. Will repeat KUB tomorrow. Transition to liquid diet for today. Consider surgery evaluation if no improvement tomorrow. Wound care, activity, DVT prophylaxis per primary team. I personally interviewed and examined the patient at bedside. I have reviewed the advanced practitioner's documentation on the date of service referred in note and agree with plan. Patient's care is coordinated with Sharron Chin PA-C. Please refer to the documentation above for details of patient's presentation and for discussion of other issues. I spent a total o [id number] coordinating, documenting, and providing care for this patient excluding time spent in the performance of separately billed services or time spent by another provider/QHP. Subjective Endorses adequate pain control however is experiencing constipation. No bowel movement since Tuesday. Reports some abdominal discomfort. Most recent meal was last evening. Mentions he was too uncomfortable to eat breakfast this morning. No nausea or vomiting. Mentions he is passing gas. Denies any chest pain or SOB. Off of supplemental O2. Encouraged to continue ISP at least every hour. He is ambulating with a walker. Review of Systems Review of Systems: At least ten systems reviewed and negative, except as noted in the subjective section. Physical Exam Physical Exam: General: Obese M, NAD, sitting up in chair at bedside. Conversing appropriately. A+Ox3, flat affect. HEENT: Normocephalic, atraumatic. Conjunctivae normal. External ear and nose normal, oropharynx normal. Respiratory: Normal respiratory effort, lungs clear to auscultation bilaterally. On RA. Cardiovascular: Regular rate/rhythm, normal peripheral pulses, no BLE edema. Abdomen/GI: Slightly hypoactive bowel sounds, soft, mildly distended. Nontender to palpation in all quadrants. Extremities/Musculoskeletal: Surgical dressing C/D/I. ARNIE drain x 1 intact and draining serosanguineous output. Neurologic: No overt focal deficits, CN's II-XI not formally tested but appear grossly intact bilaterally. Results & Data Results & Data Vital Signs (Past 12 Hours) Vital Signs Temp Pulse Pulse Resp BP BP Pulse Ox 12/14/24 08:25 12/14/24 07:57 36.8 C 89 15 112/70 97 12/13/24 21:39 12/13/24 20:45 36.9 C 98 H 18 129/71 93 O2 Del Method 12/14/24 08:25 Room Air 12/14/24 07:57 Room Air 12/13/24 21:39 Room Air 12/13/24 20:45 Room Air Laboratory Results Short CBC 12/14/24 Range/Units 05:37 WBC 14.07 H (4.8-10.8) K/ul Hgb 10.1 L (14.0-18.0) g/dl Hct 31.2 L (42.0-52.0) % Plt Count 242 (130-400) K/uL BMP 12/14/24 05:37 Sodium 133 L Potassium 4.2 D Chloride 94 L Carbon Dioxide 34 H BUN 23 Creatinine 0.78 Glucose 150 H Calcium 8.4 L (7) Diabetes mellitus, type 2 Diabetes mellitus complication status: with other specified complication Diabetes mellitus custodial insulin use: without custodial use Qualified Code(s): E11.69 - Type 2 diabetes mellitus with other specified complication
--- NOTE | 2024-12-14 10:13 | Orthopedic Progress Note ---
Date of Service December 14, 2024 Assessment & Plan (1) Myelopathy concurrent with and due to spinal stenosis of thoracic region: Plan: At this time we will continue physical therapy monitor his ARNIE operatively discharge home in the next few days. Admission and Anticipated Discharge Date Admission Date: December 11, 2024 Subjective Back pain is controlled leg symptoms improving Physical Exam Physical Exam: Patient is up and ambulating. Strength testing. Results & Data Vital Signs (Past 12 Hours) Vital Signs Temp Pulse Resp BP Pulse Ox O2 Del Method 12/14/24 08:25 Room Air 12/14/24 07:57 36.8 C 89 15 112/70 97 Room Air Queries Orthopedic Spine Obesity: Yes
--- NOTE | 2024-12-14 13:57 | XRay Report ---
KUB HISTORY: Constipation COMPARISON STUDY: 12/12/2024 FINDINGS: There is metallic fusion from the lower thoracic spine to the sacrum. Bilateral hip prosthe ses are present. No hardware complication seen. There is moderate retained stool. There is mild diffu se colonic distention. There are a few mildly dilated small bowel loops. No gross free air. IMPRESSION: Moderate retained stool. Mild diffuse bowel distention suggesting ileus. ACT 112: Negative or not required by law. The above report was generated using voice recognition software. It may contain grammatical, syntax o r spelling errors. Electronically signed by: Jim Jones M.D. 12/14/2024 1:56 PM
[2024-12-14] MEDS: SOD PHOSPHATE/SOD BIPHOSPHATE ENEMA 132 ML BTL PR STA (15:35)
[2024-12-14] MEDS: bisacodyL 10 MG SUPP PR PRN (17:06)
[2024-12-15 06:20] LABS: Hemoglobin 10.1 g/dl (14.0-18.0); Mean Corpuscular Hemoglobin 28.2 pg (25.0-34.0); Mean Corpuscular Hgb Conc 32.6 g/dL (32.0-36.0); Mean Corpuscular Volume 86.6 fL (80.0-100.0); Mean Platelet Volume 8.9 fL (9.4-12.4); Nucleated RBC # (auto) 0.03 K/uL (0.00-0.12); Nucleated RBC % (auto) 0.2 %; Platelet Count 263 K/uL (130-400); RDW Coefficient of Variation 13.2 % (11.5-14.5); RDW Standard Deviation 41.8 fL (36.4-46.3); Red Blood Count 3.58 M/uL (4.70-6.10); White Blood Count 12.18 K/ul (4.8-10.8)
[2024-12-15 06:34] LABS: BUN Creatinine Ratio 25.3 (10-20); Calcium 8.3 mg/dl (8.6-10.3); Creatinine Clr Calc Pharmacy 147.4 ml/min; Magnesium 2.5 mg/dl (1.7-2.4); Potassium 4.3 mmol/L (3.5-5.1)
--- NOTE | 2024-12-15 07:55 | Hospitalist Progress Note ---
Date of Service December 15, 2024 Assessment & Plan (1) Ambulatory dysfunction: (2) Intractable low back pain: Plan: Janeth Aparicio is a 49y/o M with PMHx significant for DMII, prior ischemic CVA, intermittent asthma, DDD, bilateral carotid artery disease and HLD who presented to the ED on 12/10/24 with complaint of progressive back pain. 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 ED provider spoke with spine surgery whom recommended that patient be admitted for further management and surgical intervention. Our service is consulted on the case to assist with medical management. S/p urgent decompression fusion T10-L2 with hardware removal L3-S1 with Dr. Ontiveros on 12/12/24. Suspect leukocytosis 2/2 recent IV steroid use. Per ortho for pain control, wound care, anticoagulation and activities. Continue incentive spirometry. Encourage engagement with PT/OT and its importance. (3) Acute blood loss anemia: Plan: Preoperative Hgb 14.3 as of 12/10/24, Hgb remains stable at 10.1 today. No indication for transfusion at this time. 2/2 expected surgical loss plus suspect dilutional component contributing as well. Continue to monitor H/H trend. (4) Postoperative ileus: Plan: KUB ordered yesterday 2/2 constipation + abdominal discomfort which revealed moderate retained stool and mild diffuse bowel distention suggesting ileus. Has had a total of 2 BMs s/p Fleet enema and soap suds enema yesterday. Increasi ng abdominal discomfort/pain and bloating this morning. Patient refused repeat KUB this morning 2/2 back pain. Transition to NPO for now with gentle IVF x 1 bag. Patient agreeable with getting CTAP done once back pain lightens; continue current PRN pain regimen as directed by primary service. Appreciate general surgery consult. Continue aggressive bowel regimen with PRN suppositories and PRN enemas. PRN antiemetics for N/V. Can utilize heating pad PRN on abdomen as well. (5) High cholesterol: (6) History of stroke: Plan: Continue ASA without interruption per neurology in the past. Known bilateral carotid artery disease per duplex in 2021. Continue statin. (7) Diabetes mellitus, type 2: Plan: Holding home metformin, SSI while inpatient. Continue BSG checks ACHS. DVT Prophylaxis: SCDs/TEDs as per primary service. Code Status: FULL CODE PCP: Noah Gerber PA-C Disposition: Admitted in Med/Surg - discharge planning as per primary service. General surgery consult pending as per above 2/2 postoperative ileus. We will follow the patient with you during their hospital stay. You can reach a member of the [facility] Team 02/05 via [employer]. Patient seen in collaboration with Dr. Berumen. Please see addendum. I spent a total of 50 minutes coordinating, documenting, and providing care for this patient excluding time spent in the performance of separately billed services or time spent by another provider/QHP. This included personally reviewing all current laboratories and imaging studies, medical reconciliation, outpatient chart review and discussion with specialists. This chart was completed in part utilizing Speech Voice Recognition Software. Grammatical errors, random word insertions, pronoun errors, and incomplete sentences are an occasional consequence of this system due to software limitations, ambient noise, and hardware issues. Any formal questions or concerns about the content, text, or information contained within the body of this dictation should be directly addressed to the provider for clarification. Admission and Anticipated Discharge Date Admission Date: December 11, 2024 Supervising Physician Co-Signing Physician Notes Patient is seen and examined at bedside. Had minimal BM after enema. Still has abdominal discomfort, bloating sensation. CT abdomen showed no signs of obstruction today. Appreciate surgery input. On exam patient is obese, no apparent distress, normocephalic atraumatic, EOMI, normal breathsounds, clear to auscultation, S1-S2, no murmur, abdomen soft, distended, mild tenderness, no guarding or rigidity, bowel sounds present, alert, awake, oriented, grossly no focal deficits. Patient is being managed for postoperative medical management. Postoperative ileus. Continue bowel regimen, utilize enema as needed. Added Colace. CT abdomen showed no signs of obstruction. Appreciate surgery input. Advance diet as tolerated. Wound care, activity, DVT prophylaxis per primary team. I personally interviewed and examined the patient at bedside. I have reviewed the advanced practitioner's documentation on the date of service referred in note and agree with plan. Patient's care is coordinated with Dunkleberger, Sharron PA-C. Please refer to the documentation above for details of patient's presentation and for discussion of other issues. I spent a total [id number] coordinating, documenting, and providing care for this patient excluding time spent in the performance of separately billed services or time spent by another provider/QHP. Subjective Endorses increasing abdominal pain/discomfort and bloating this morning. Most recent BM last evening around 18:00 s/p Fleet + soap suds enemas. Has had a total of 2 BMs following the enemas given yesterday. Endorses pain in his back as well. Did not sleep well overnight. No vomiting but has experienced some nausea. Poor oral intake. Has not been engaged in therapy due to pain. Refused to have repeat KUB done this morning. Discussed getting a CTAP instead which patient was agreeable with once his pain is under better control. Review of Systems Review of Systems: At least ten systems reviewed and negative, except as noted in the subjective section. Physical Exam Physical Exam: General: Obese M, sitting up at side of bed. Appears uncomfortable but conversing appropriately. A+Ox3, flat affect. HEENT: Normocephalic, atraumatic. Conjunctivae normal. External ear and nose normal, oropharynx normal. Respiratory: Normal respiratory effort, lungs clear to auscultation bilaterally. On RA. Cardiovascular: Regular rate/rhythm, normal peripheral pulses. Abdomen/GI: Slightly hypoactive bowel sounds, soft but distended. No guarding. + mild TTP in RUQ and LUQ. Extremities/Musculoskeletal: Surgical dressing C/D/I. ARNIE drain x 1 intact and draining serosanguineous output. Neurologic: No overt focal deficits, CN's II-XI not formally tested but appear grossly intact bilaterally. Results & Data Results & Data Vital Signs (Past 12 Hours) Vital Signs Temp Pulse Resp BP Pulse Ox O2 Del Method 12/15/24 07:21 37 C 91 H 20 114/77 92 Room Air 12/14/24 21:00 Room Air 12/14/24 20:27 37.2 C 102 H 18 131/79 93 Room Air Laboratory Results Short CBC 12/15/24 Range/Units 05:53 WBC 12.18 H (4.8-10.8) K/ul Hgb 10.1 L (14.0-18.0) g/dl Hct 31.0 L (42.0-52.0) % Plt Count 263 (130-400) K/uL BMP 12/15/24 05:53 Sodium 133 L Potassium 4.3 Chloride 95 L Carbon Dioxide 33 H BUN 21 Creatinine 0.83 Glucose 141 H Calcium 8.3 L Diagnostic Findings Pelvis CT 12/10/24 12:[address] WITHOUT CONTRAST CLINICAL HISTORY: pain left hip, pelvis, low back COMPARISON STUDY: Left hip MRI December 30, 2023. Lumbar spine CT November 04, 2024. TECHNIQUE: Axial images of the pelvis and hips were obtained without IV contrast. Sagittal and coronal reformats were viewed. Automated exposure control was utilized for the study. A dose lowering technique was utilized adhering to the principles of ALARA. FINDINGS: Postoperative findings within the lumbosacral spine are partially imaged. Visualized portions are unchanged since CT of November 04, 2024. Visualized portions of the hardware are intact. There are bilateral hip arthroplasties. No periprosthetic fracture or lucency is present. Cortical thickening of the subtrochanteric portion of the left femur is chronic. There are left femoral cerclage wires. There are no suspicious osseous lesions. Caliber of visualized small and large bowel are normal. Colonic diverticulosis without evidence for acute diverticulitis. The appendix is normal. There are no pelvic fluid collections. No pelvic lymphadenopathy is present. The sacroiliac joints and symphysis pubis are intact. No acute fractures within the pelvis or hips are identified. Fluid overlying the greater intertrochanteric of the right femur is likely chronic. IMPRESSION: 1. No acute fractures within the pelvis or hips. 2. Status post bilateral hip arthroplasties. No periprosthetic fracture or lucency. ACT 112: Negative or not required by law. Electronically signed by: Chetan Vicente M.D. 12/10/2024 1:20 PM Chest X-Ray 12/10/24 14:04 XR chest 1V portable CLINICAL HISTORY: pre-op COMPARISON STUDY: None FINDINGS: There is mild cardiomegaly without pulmonary vascular congestion. Inspiration is shallow. No effusion, consolidation, or pneumothorax. IMPRESSION: No acute findings. ACT 112: Negative or not required by law. Electronically signed by: Jim Jones M.D. 12/10/2024 3:16 PM Lumbar Spine X-Ray 12/12/24 07:45 FL lumbar spine 2-3V CLINICAL HISTORY: Y10-L2 DECOMPRESSION COMPARISON STUDY: 08/29/2023 FLUOROSCOPY TIME: 51.7 seconds FLUOROSCOPY IMAGES: 5 EXPOSURE DOSE: 52.36 mGy FINDINGS: Extensive thoracolumbar fusion hardware with discectomy changes. The hardware appears intact. Exact numbering is not definitive based on magnification however appears to extend from T10 into the sacrum. Note that the images were submitted following completion of the surgery. IMPRESSION: Fluoroscopic assistance as above. ACT 112: Negative or not required by law. Electronically signed by: Leopoldo Jones M.D. 12/12/2024 11:40 AM Chest X-Ray 12/12/24 13:23 XR chest 1V portable CLINICAL HISTORY: post op hypoxia COMPARISON STUDY: 12/10/2024 FINDINGS: Stable mild cardiomegaly without pulmonary vascular congestion. Interval lower thoracic spinal hardware. There is interval stranding opacity at the left lung base. No other consolidation or pleural effusion. No pneumothorax. IMPRESSION: Atelectasis versus early pneumonia left lung base. ACT 112: Negative or not required by law. Electronically signed by: Jim Jones M.D. 12/12/2024 1:41 PM KUB X-Ray 12/14/24 12:06 KUB HISTORY: Constipation COMPARISON STUDY: 12/12/2024 FINDINGS: There is metallic fusion from the lower thoracic spine to the sacrum. Bilateral hip prostheses are present. No hardware complication seen. There is moderate retained stool. There is mild diffuse colonic distention. There are a few mildly dilated small bowel loops. No gross free air. IMPRESSION: Moderate retained stool. Mild diffuse bowel distention suggesting ileus. ACT 112: Negative or not required by law. The above report was generated using voice recognition software. It may contain grammatical, syntax or spelling errors. Electronically signed by: Jim Jones M.D. 12/14/2024 1:56 PM (7) Diabetes mellitus, type 2 Diabetes mellitus complication status: with other specified complication Diabetes mellitus continuous churn buttermaker insulin use: without correction use Qualified Code(s): E11.69 - Type 2 diabetes mellitus with other specified complication
--- NOTE | 2024-12-15 08:16 | Orthopedic Progress Note ---
Date of Service December 15, 2024 Assessment & Plan (1) Myelopathy concurrent with and due to spinal stenosis of thoracic region: Plan: At this time continue physical therapy. Continue bowel regimen. Monitor ARNIE output. Hopefully discharge home next few days. Admission and Anticipated Discharge Date Admission Date: December 11, 2024 Subjective Back pain is controlled. Abdominal pain improving. Bowel movements given successful. Physical Exam Physical Exam: Patient is up and ambulating the room. He is comfortable. Good strength testing Results & Data Vital Signs (Past 12 Hours) Vital Signs Temp Pulse Resp BP Pulse Ox O2 Del Method 12/15/24 07:21 37 C 91 H 20 114/77 92 Room Air 12/14/24 21:00 Room Air 12/14/24 20:27 37.2 C 102 H 18 131/79 93 Room Air Queries Orthopedic Spine Acute Posthemorrhagic Anemia: Yes Obesity: Yes
[2024-12-15] MEDS: SODIUM CHLORIDE 0.9% 1,000 ML IV SCH (10:08)
--- NOTE | 2024-12-15 11:14 | CT Scan Report ---
ABDOMEN AND PELVIS CT WITHOUT CONTRAST CT DOSE: 1507.39 mGy.cm HISTORY: Ileus/constipation TECHNIQUE: Multiaxial CT images of the abdomen and pelvis were performed without contrast. A dose lo wering technique was utilized adhering to the principles of ALARA. COMPARISON STUDY: Pelvic CT of 12/10/2024 and x-ray of 12/14/2024 FINDINGS: There are coronary artery calcifications. ABDOMEN: Liver is diffusely hypodense consistent with mild fatty liver. Otherwise the liver, gallblad telly, spleen, pancreas, and adrenal glands have an unremarkable non-IV contrast appearance. Kidneys sh ow no hydronephrosis or calculi. There are mild atherosclerotic calcifications. No abdominal aortic a neurysm. Pelvis: Metallic spray artifact from bilateral hip prostheses limits evaluation of the low pelvis. Ur inary bladder is nondistended. There is mild sigmoid diverticulosis. No acute diverticulitis. There i s mild retained stool. No bowel inflammation or obstruction. No free fluid, free air, or abscess. No enlarged adenopathy. Osseous structures: There is posterior metallic fusion from T10 through S1. Postoperative drain remai ns. There is expected mild soft tissue gas. No significant hematoma or fluid collection seen. No acut e osseous findings. IMPRESSION: No acute findings. ACT 112: Negative or not required by law. The above report was generated using voice recognition software. It may contain grammatical, syntax o r spelling errors. Electronically signed by: Jim Jones M.D. 12/15/2024 11:12 AM
[2024-12-15] MEDS ORDERED: Nursing to Pharmacy Communication SCH ×2 (11:15→16:15)
--- NOTE | 2024-12-15 12:00 | Surgery Consultation ---
Date of Consultation December 15, 2024 Assessment & Plan (1) Postoperative ileus: ambulate limit narcotics IVF clears advance as tolerated added colace continue bowel regimen with miralax History of Present Illness Attending Physician: Akin Ontiveros DO History of Present Illness This is a 49-year-old male morbidly obese and post-op from surgical treatment with urgent decompression fusion for thoracic spinal stenosis with myelopathy and severe lumbar spinal stenosis. He has ileus and constipation. Allergies Allergy/AdvReac Type Severity Reaction Status Date / Time No Known Allergies Allergy Verified 12/12/24 06:58 Home Medications Medication Instructions Recorded Confirmed Type allopurinol 100 mg tablet 100 mg PO QAM 08/05/23 12/10/24 History aspirin 81 mg capsule 81 mg PO QAM 08/05/23 12/10/24 History atorvastatin 40 mg tablet 40 mg PO QAM 08/05/23 12/10/24 History celecoxib 200 mg capsule (Celebrex) 200 mg PO BID 08/05/23 12/10/24 History gabapentin 800 mg tablet 800 mg PO TID 08/05/23 12/10/24 History metformin 500 mg tablet 500 mg PO BIDWMEAL 08/05/23 12/10/24 History oxycodone 5 mg tablet 5 mg PO UD PRN pain 12/10/24 12/10/24 History oxycodone 5 mg tablet 5 mg PO Q6H PRN pain #30 tabs 12/14/24 Rx tramadol 50 mg tablet 50 mg PO Q6H PRN pain, moderate 12/14/24 Rx #30 tabs Patient History Medical History (Updated 12/14/24 @ 14:55 by Sharron Chin PA-C) Morbid obesity Carotid stenosis Right ICA <50% stenosis; no carotid stenosis to left ICA per 12/10/21 neck CTA 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 ETT #7.5 Social History Smoking Status: Never smoker Tobacco Type: Smokeless Tobacco (Dip or Chew) Second Hand Exposure: No; Do You Dip or Chew Tobacco: Yes; Hx Alcohol Use: Yes Alcohol type: beer Hx Substance Use: No Preferred Language: Armenian Communication Ability: Effective Tailer Out Required: No Beliefs That Will Affect Care: None Current Living Situation: Spouse Other Information That Helps Us Care for You: No Feels Safe at Home: Yes Safety Concerns: Feels Safe At This Time Assistive Devices: Cane, Lift Chair and Walker Review of Systems Constitutional: no fever and no chills Eyes: no problem reported Ear, Nose, Mouth, Throat: no problem reported Respiratory: no cough and no dyspnea Cardiovascular: no chest pain Gastrointestinal: + abdominal pain; no nausea and no vomit ing Genitourinary: no dysuria Musculoskeletal: + back pain Neurologic: no generalized weakness Psychiatric: no behavioral changes Physical Exam Constitutional: + obese Eyes: no scleral abnormality ENMT: external ear and nose normal, oropharynx normal Neck: trachea midline Respiratory: normal respiratory effort, lungs clear to auscultation Cardiovascular: RRR, no murmur, no edema Gastrointestinal (Abdomen): Inspection/Auscultation: abdomen normal to inspection, + abdomen distended and normal bowel sounds Percussion/Palpation: + abdomen tender and abdomen soft; no guarding and abdomen not rigid Musculoskeletal: Head/Neck/Chest: normocephalic and head atraumatic Skin: no rashes, warm and dry Results & Data Vital Signs (Past 12 Hours) Vital Signs Temp Pulse Resp BP Pulse Ox O2 Del Method 12/15/24 07:21 37 C 91 H 20 114/77 92 Room Air Diagnostic Findings ABDOMEN AND PELVIS CT WITHOUT CONTRAST CT DOSE: 1507.39 mGy.cm HISTORY: Ileus/constipation TECHNIQUE: Multiaxial CT images of the abdomen and pelvis were performed without contrast. A dose lowering technique was utilized adhering to the principles of ALARA. COMPARISON STUDY: Pelvic CT of 12/10/2024 and x-ray of 12/14/2024 FINDINGS: There are coronary artery calcifications. ABDOMEN: Liver is diffusely hypodense consistent with mild fatty liver. Otherwise the liver, gallbladder, spleen, pancreas, and adrenal glands have an unremarkable non-IV contrast appearance. Kidneys show no hydronephrosis or calculi. There are mild atherosclerotic calcifications. No abdominal aortic aneurysm. Pelvis: Metallic spray artifact from bilateral hip prostheses limits evaluation of the low pelvis. Urinary bladder is nondistended. There is mild sigmoid diverticulosis. No acute diverticulitis. There is mild retained stool. No bowel inflammation or obstruction. No free fluid, free air, or abscess. No enlarged adenopathy. Osseous structures: There is posterior metallic fusion from T10 through S1. Postoperative drain remains. There is expected mild soft tissue gas. No sign ificant hematoma or fluid collection seen. No acute osseous findings. IMPRESSION: No acute findings.
[2024-12-15] MEDS: INSULIN ASPART PER UNIT CHARGE SC SCH ×2 (12:08→17:27)
--- NOTE | 2024-12-15 12:21 | Communication Note ---
Date of Service: December 15, 2024 CTAP reviewed and without any acute findings; mild retained stool but no obstruction or bowel inflammation. Appreciate general surgery consult. Encourage ambulation, limit narcotic use as able, gentle IVF with clear liquid diet advancement as tolerated. Colace added to bowel regimen. Continue scheduled Miralax as per primary service.
[2024-12-15] MEDS: ACETAMINOPHEN 500 MG TAB PO PRN (15:47)
[2024-12-15] MEDS: DOCUSATE SODIUM SYRUP 100 MG/10 ML UDC PO SCH (20:09)
[2024-12-16] MEDS: DOCUSATE SODIUM 100 MG CAP PO ONE (08:27)
[2024-12-16 08:36] LABS: Hematocrit (blood only) 29.9 % (42.0-52.0); Hemoglobin 9.8 g/dl (14.0-18.0); Mean Corpuscular Hemoglobin 28.3 pg (25.0-34.0); Mean Corpuscular Hgb Conc 32.8 g/dL (32.0-36.0); Mean Corpuscular Volume 86.4 fL (80.0-100.0); Mean Platelet Volume 8.8 fL (9.4-12.4); Nucleated RBC # (auto) 0.03 K/uL (0.00-0.12); Nucleated RBC % (auto) 0.3 %; Platelet Count 246 K/uL (130-400); RDW Coefficient of Variation 13.5 % (11.5-14.5); RDW Standard Deviation 42.2 fL (36.4-46.3); Red Blood Count 3.46 M/uL (4.70-6.10)
--- NOTE | 2024-12-16 08:50 | Orthopedic Progress Note ---
Date of Service December 16, 2024 Assessment & Plan (1) Myelopathy concurrent with and due to spinal stenosis of thoracic region: Plan: Patient is stable postoperative #4. Organ to maintain his ARNIE drain. Encouraged him to continue standing and walking and to drink lots of fluids. Will keep him on his current diet at this point until ileus resolves. Minimize narcotic use. Admission and Anticipated Discharge Date Admission Date: December 11, 2024 Subjective Patient was seen bedside in room 310. He states he still having a lot of pain. He had a small bowel movement this morning. He had a surgical consultation they did not feel that he is obstructed but likely has a postoperative ileus secondary to narcotics. He reports no fevers chills or other paresthesias. Physical Exam Physical Exam: On exam he is alert and oriented. He stands and moves slowly with use of a rolling walker. His ARNIE drain is in place is placed 60 cc on the shift and 25 on the previous. His abdomen soft and nontender his calves are supple and nontender. His strength and sensation are both intact. Results & Data Vital Signs (Past 12 Hours) Vital Signs Temp Pulse Pulse Resp BP Pulse Ox O2 Del Method 12/16/24 07:05 36.7 C 89 20 119/80 95 Room Air 12/15/24 20:22 36.5 C 92 H 16 116/71 98 Room Air 12/15/24 20:00 Room Air
[2024-12-16 08:51] LABS: BUN Creatinine Ratio 21.1 (10-20); Calcium 8.2 mg/dl (8.6-10.3); Creatinine Clr Calc Pharmacy 172.4 ml/min; Magnesium 2.5 mg/dl (1.7-2.4); Potassium 4.2 mmol/L (3.5-5.1)
--- NOTE | 2024-12-16 10:04 | Hospitalist Progress Note ---
Date of Service December 16, 2024 Assessment & Plan (1) Ambulatory dysfunction: (2) Intractable low back pain: Plan: Janeth Aparicio is a 49y/o M with PMHx significant for DMII, prior ischemic CVA, intermittent asthma, DDD, bilateral carotid artery disease and HLD who presented to the ED on 12/10/24 with complaint of progressive back pain. 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 ED provider spoke with spine surgery whom recommended that patient be admitted for further management and surgical intervention. Our service is consulted on the case to assist with medical management. S/p urgent decompression fusion T10-L2 with hardware removal L3-S1 with Dr. Ontiveros on 12/12/24. Per ortho for pain control, wound care, anticoagulation and activities. Continue incentive spirometry. Strongly encouraged engagement with PT/OT. (3) Chronic left hip pain: Plan: Has chronic L hip pain. Started to notice more L hip pain yesterday which is persistent. Suspect worsening 2/2 inactivity and constipation. Again strongly encouraged ambulation. Judicious narcotic use ISO constipation. Has bilateral hip replacements. Continue PRN pain control. (4) Acute blood loss anemia: Plan: Preoperative Hgb 14.3 as of 12/10/24, Hgb 9.8 today. No indication for transfusion at this time. 2/2 expected surgical loss plus suspect dilutional component contributing as well. Continue to monitor H/H trend. (5) Postoperative ileus: Plan: KUB ordered on 12/14/24 due to constipation + abdominal discomfort which revealed moderate retained stool and mild diffuse bowel distention suggesting ileus. Refused repeat KUB on 12/15/24 but was agreeable with CTAP. CTAP reviewed and without any acute findings; mild retained stool but no obstruction or bowel inflammation. Discussed CTAP findings again with patient this morning. He is still endorsing persistent generalized abdominal discomfort/pain. Had 2 BMs overnight s/p enema use. Still feels bloated. Appreciate general surgery consult from 12/15/24. Encourage ambulation, limit narcotic use as able, gentle IVF with clear liquid diet advancement as tolerated. Patient has previously refused PT. Strongly encouraged to participate in PT today. Needs to ambulate more with the walker; can help with constipation relief as tolerated. Continue aggressive scheduled bowel regimen along with with PRN suppositories and PRN enemas. PRN antiemetics for N/V. Can utilize heating pad PRN on abdomen as well. (6) Bilateral lower extremity edema: Plan: Endorses BLE edema present over the past month or so. Notes it appears worse this morning. No calf pain. No erythema or overlying warmth of posterior calf regions. Will check BLE venous doppler US 2/2 recent sedentary behavior to r/o DVT. (7) High cholesterol: (8) History of stroke: Plan: Continue ASA without interruption per neurology in the past. Known bilateral carotid artery disease per duplex in 2021. Continue statin. (9) Diabetes mellitus, type 2: Plan: Holding home metformin, SSI while inpatient. Continue BSG checks ACHS. DVT Prophylaxis: SCDs/TEDs as per primary service. Code Status: FULL CODE PCP: Noah Gerber PA-C Disposition: Admitted in Med/Surg - discharge planning as per primary service. We will follow the patient with you during their hospital stay. You can reach a member of the [facility] Hospitalist Team 02/05 via [employer]. Patient seen in collaboration with Dr. Berumen. Please see addendum. I spent a total of 45 minutes coordinating, documenting, and providing care for this patient excluding time spent in the performance of separately billed services or time spent by another provider/QHP. This included personally reviewing all current laboratories and imaging studies, medical reconciliation, outpatient chart review and discussion with specialists. This chart was completed in part utilizing Speech Voice Recognition Software. Grammatical errors, random word insertions, pronoun errors, and incomplete sentences are an occasional consequence of this system due to software limitations, ambient noise, and hardware issues. Any formal questions or concerns about the content, text, or information contained within the body of this dictation should be directly addressed to the provider for clarification. Admission and Anticipated Discharge Date Admission Date: December 11, 2024 Supervising Physician Co-Signing Physician Notes Patient is seen and examined at bedside. Reports chronic hip pain. + Flatus, small BM. Continues to states having nausea, abdominal discomfort. On exam patient is obese, no apparent distress, normocephalic atraumatic, EOMI, normal breath sounds, clear to auscultation, S1-S2, no murmur, abdomen soft, distended, mild tenderness, no guarding or rigidity, bowel sounds present, alert, awake, oriented, grossly no focal deficits. Patient is being managed for postoperative medical management. Postoperative ileus. Slowly improving. Continue bowel regimen, utilize enema as needed. Encouraged to ambulate. Appreciate surgery input. Advance diet as tolerated. Wound care, activity, DVT prophylaxis per primary team. Given chronic hip pain, prior history of arthroplasty, patient was advised to follow-up with orthopedics on discharge. I personally interviewed and examined the patient at bedside. I have reviewed the advanced practitioner's documentation on the date of service referred in note and agree with plan. Gee willingham's care is coordinated with Sharron Chin PA-C. Please refer to the documentation above for details of patient's presentation and for discussion of other issues. I spent a total [id number] coordinating, documenting, and providing care for this patient excluding time spent in the performance of separately billed services or time spent by another provider/QHP. Subjective Still endorsing a lot of abdominal pain. Also having L hip pain as well. Had a small BM this morning. Also had a BM last evening s/p soap suds enema x 1. Notes some BLE swelling which he has had for over a month but mentions it appears worse this morning. No pain in his calf regions. Denies any SOB, palpitations or chest pain. Previously has refused to work with PT due to pain. Strongly encouraged to participate in PT today and to start ambulating more as tolerated to help with his BMs. Ate some Jell-O this morning but still does not have much of an appetite. Denies any N/V. Spoke with his , Milagro, in-person yesterday in the late afternoon to provide her with updates. Review of Systems Review of Systems: At least ten systems reviewed and negative, except as noted in the subjective section. Physical Exam Physical Exam: General: Obese M, sitting up at side of bed. Appears uncomfortable but conversing appropriately. A+Ox3, flat affect. HEENT: Normocephalic, atraumatic. Conjunctivae normal. External ear and nose normal, oropharynx normal. Respiratory: Normal respiratory effort, lungs clear to auscultation bilaterally. On RA. Cardiovascular: Regular rate/rhythm, normal peripheral pulses. + BLE edema. Abdomen/GI: Normoactive bowel sounds, soft but mildly distended. No guarding. + mild TTP in LLQ. Extremities/Musculoskeletal: Surgical dressing C/D/I. ARNIE drain x 1 intact and draining serosanguineous output. Neurologic: No overt focal deficits, CN's II-XI not formally tested but appear grossly intact bilaterally. Results & Data Results & Data Vital Signs (Past 12 Hours) Vital Signs Temp Pulse Resp BP Pulse Ox O2 Del Method 12/16/24 07:05 36.7 C 89 20 119/80 95 Room Air Laboratory Results Short CBC 12/16/24 Range/Units 08:18 WBC 10.30 (4.8-10.8) K/ul Hgb 9.8 L (14.0-18.0) g/dl Hct 29.9 L (42.0-52.0) % Plt Count 246 (130-400) K/uL BMP 12/16/24 08:18 Sodium 133 L Potassium 4.2 Chloride 97 L Carbon Dioxide 30 BUN 15 Creatinine 0.71 Glucose 131 H Calcium 8.2 L (9) Diabetes mellitus, type 2 Diabetes mellitus complication status: with other specified complication Diabetes mellitus director long term care insulin use: without half-way use Qualified Code(s): E11.69 - Type 2 diabetes mellitus with other specified complication
--- NOTE | 2024-12-16 10:37 | Surgery Progress Note ---
Date of Service December 16, 2024 Assessment & Plan (1) Postoperative ileus: Plan: slow improvement continue bowel regimen ambulate will sign off Admission and Anticipated Discharge Date Admission Date: December 11, 2024 Subjective BMs X 2 still feels constipated complains of "waist/hip pain" bilaterally no N/V Review of Systems Constitutional: no fever and no chills Respiratory: no cough and no dyspnea Cardiovascular: no chest pain Gastrointestinal: + abdominal pain and + change in bowel h abits; no nausea and no vomiting Neurologic: no localized weakness and no generalized weakness Psychiatric: no behavioral changes Physical Exam Constitutional: WD/WN, vitals as above Eyes: no scleral abnormality Gastrointestinal (Abdomen): Inspection/Auscultation: abdomen normal to inspection, + abdomen distended and normal bowel sounds Percussion/Palpation: abdomen soft; abdomen nontender, no guarding and abdomen not rigid Musculoskeletal: Head/Neck/Chest: normocephalic and head atraumatic Results & Data Vital Signs (Past 12 Hours) Vital Signs Temp Pulse Resp BP Pulse Ox O2 Del Method 12/16/24 07:05 36.7 C 89 20 119/80 95 Room Air
--- NOTE | 2024-12-16 12:09 | Ultrasound Report ---
BILATERAL LOWER EXTREMITY VENOUS DOPPLER HISTORY: BLE swelling COMPARISON STUDY: None FINDINGS: No evidence of DVT seen at bilateral lower extremities. IMPRESSION: No DVT seen at the lower extremities. ACT 112: Negative or not required by law. Electronically signed by: Jim Jones M.D. 12/16/2024 12:07 PM
[2024-12-17 06:13] LABS: Hematocrit (blood only) 29.8 % (42.0-52.0); Hemoglobin 9.5 g/dl (14.0-18.0); Mean Corpuscular Hemoglobin 27.9 pg (25.0-34.0); Mean Corpuscular Hgb Conc 31.9 g/dL (32.0-36.0); Mean Corpuscular Volume 87.6 fL (80.0-100.0); Mean Platelet Volume 8.6 fL (9.4-12.4); Nucleated RBC # (auto) 0.03 K/uL (0.00-0.12); Nucleated RBC % (auto) 0.3 %; Platelet Count 274 K/uL (130-400); RDW Coefficient of Variation 13.5 % (11.5-14.5); RDW Standard Deviation 42.6 fL (36.4-46.3); White Blood Count 9.62 K/ul (4.8-10.8)
[2024-12-17 06:15] LABS: BUN Creatinine Ratio 18.7 (10-20); Calcium 8.1 mg/dl (8.6-10.3); Creatinine Clr Calc Pharmacy 163.2 ml/min; Magnesium 2.5 mg/dl (1.7-2.4)
--- NOTE | 2024-12-17 10:24 | Hospitalist Progress Note ---
Date of Service December 17, 2024 Assessment & Plan (1) Ambulatory dysfunction: (2) Intractable low back pain: Plan: Janeth Aparicio is a 49y/o M with PMHx significant for DMII, prior ischemic CVA, intermittent asthma, DDD, bilateral carotid artery disease and HLD who presented to the ED on 12/10/24 with complaint of progressive back pain. 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 ED provider spoke with spine surgery whom recommended that patient be admitted for further management and surgical intervention. Our service is consulted on the case to assist with medical management. S/p urgent decompression fusion T10-L2 with hardware removal L3-S1 with Dr. Ontiveros on 12/12/24. Per ortho for pain control, wound care, anticoagulation and activities. Continue incentive spirometry. Strongly encouraged engagement with PT/OT. (3) Acute blood loss anemia: Plan: Preoperative Hgb 14.3 as of 12/10/24, Hgb 9.5 today. No indication for transfusion at this time. 2/2 expected surgical loss plus suspect dilutional component contributing as well. Continue to monitor H/H trend. (4) Postoperative ileus: Plan: KUB ordered on 12/14/24 due to constipation + abdominal discomfort which revealed moderate retained stool and mild diffuse bowel distention suggesting ileus. -- CTAP reviewed and without any acute findings; mild retained stool but no obstruction or bowel inflammation. Appreciate general surgery consult from 12/15/24. Encourage ambulation, limit narcotic use as able, gentle IVF with clear liquid diet advancement as tolerated. (5) Bilateral lower extremity edema: Plan: Endorses BLE edema present over the past month or so. Notes it appears worse this morning. minimal edema on my exam, recent venous duplex negative (6) High cholesterol: (7) History of stroke: Plan: Continue ASA without interruption per neurology in the past. Known bilateral carotid artery disease per duplex in 2021. Continue statin. (8) Diabetes mellitus, type 2: Plan: Holding home metformin, SSI while inpatient. Continue BSG checks ACHS. DVT Prophylaxis: SCDs/TEDs as per primary service. Code Status: FULL CODE PCP: Noah Gerber PA-C Disposition: Admitted in Med/Surg - discharge planning as per primary service. Patient seen in collaboration with Dr. Berumen. Please see addendum. I spent a total of 41 minutes coordinating, documenting, and providing care for this patient excluding time spent in the performance of separately billed services or time spent by another provider/QHP. This included personally reviewing all current laboratories and imaging studies, medical reconciliation, outpatient chart review and discussion with specialists. Admission and Anticipated Discharge Date Admission Date: December 11, 2024 Supervising Physician Co-Signing Physician Notes Patient is seen and examined at bedside. Subjectively feels about the same as yesterday. Continues to have flatus, small bowel movements. Tolerating only liquid diet currently. Still has some abdominal discomfort but denies any nausea, vomiting today. Denies any chest pain, dyspnea. Feels bloated. On exam patient is obese, no apparent distress, normocephalic atraumatic, EOMI, normal breath sounds, clear to auscultation, S1-S2, no murmur, abdomen soft, distended, mild tenderness, no guarding or rigidity, bowel sounds present, alert, awake, oriented, grossly no focal deficits. Patient is being managed for postoperative medical management. Postoperative ileus. Continues to have flatus, small bowel movements. Advance diet as tolerated. Trying to minimize narcotics as able. Continue bowel regimen, utilize enema as needed. Appreciate surgery input. Advance diet as tolerated. Wound care, activity, DVT prophylaxis per primary team. I personally interviewed and examined the patient at bedside. I have reviewed the advanced practitioner's documentation on the date of service referred in note and agree with plan. Patient's care is coordinated with Melissa Williamson PA-C. Please refer to the documentation above for details of patient's presentation and for discussion of other issues. I spent a total [id number] coordinating, documenting, and providing care for this patient excluding time spent in the performance of separately billed services or time spent by another provider/QHP. Subjective Seen and evaluated in 310. He tells me he may go home tomorrow. He moved his bowels a small amount this a.m. He continues to have LLQ abd discomfort. Denies f/c/s, chest pain, sob, n/v/d. He reports early satiety with solids and liquids. He feels he is getting bloated. Review of Systems Review of Systems: All systems reviewed & are unremarkable except as noted in HPI & below Physical Exam Physical Exam: Gen: WD/WN, M, flat affect, sitting up in bedside chair, NAD, A&O x3 HEENT: Normocephalic, atraumatic, conjunctivae moist, sclerae anicteric, mucous membranes moist. Lung: Clear to Auscultation bilaterally, no wheezes/rales/rhonchi Heart: Regular rate, regular rhythm, no murmurs, rubs, or gallops Abdomen: distended, firm, diminished BS, NT to palp Extremities: trace lower ext edema Skin: Warm, no rash, negative turgor. Results & Data Results & Data Vital Signs (Past 12 Hours) Vital Signs Temp Pulse Resp BP Pulse Ox O2 Del Method 12/17/24 07:39 36.9 C 81 16 115/75 94 Room Air Laboratory Results Short CBC 12/17/24 Range/Units 05:35 WBC 9.62 (4.8-10.8) K/ul Hgb 9.5 L (14.0-18.0) g/dl Hct 29.8 L (42.0-52.0) % Plt Count 274 (130-400) K/uL BMP 12/17/24 05:35 Sodium 134 L Potassium 4.0 Chloride 100 Carbon Dioxide 30 BUN 14 Creatinine 0.75 Glucose 119 H Calcium 8.1 L I have independently reviewed and interpreted patient's CBC, BMP, mag Medications Administered Current Inpatient Medications Acetaminophen (Acetaminophen 500 Mg Tab) 1,000 mg PO Q8H PRN PRN Reason: MILD Pain Scale 1,2,3 & Pre PT Stop: 01/09/25 16:12 Last Admin: 12/16/24 20:31 Dose: 1,000 mg Acetaminophen (Acetaminophen 500 Mg Tab) 1,000 mg PO Q8H PRN PRN Reason: MILD Pain Scale 1,2,3 & Pre PT Stop: 01/11/25 13:09 Al Hydrox/Mg Hydrox/Simethicone (Aluminum/Magnesium Susp 30 Ml Udc) 30 ml PO Q6H PRN PRN Reason: Dyspepsia Stop: 01/11/25 13:09 Allopurinol (Allopurinol 100 Mg Tab) 100 mg PO QAM DAVEY Stop: 01/10/25 08:59 Last Admin: 12/17/24 08:03 Dose: 100 mg Aspirin (Aspirin 81 Mg Ectab) 81 mg PO QAM [facility] Stop: 01/10/25 08:59 Last Admin: 12/17/24 08:03 Dose: 81 mg Atorvastatin Calcium (Atorvastatin 40 Mg Tab) 40 mg PO QAM DAVEY Stop: 01/10/25 08:59 Last Admin: 12/17/24 08:03 Dose: 40 mg Bisacodyl (Bisacodyl 10 Mg Supp) 10 mg MI DAILY PRN PRN Reason: Constipation Stop: 01/11/25 14:04 Last Admin: 12/14/24 17:06 Dose: 10 mg Bisacodyl (Bisacodyl 10 Mg Supp) 10 mg MI DAILY PRN PRN Reason: Constipation Stop: 01/11/25 13:09 Dextrose (Dextrose 50% 50 Ml Syringe) 25 - 50 ml IV UD PRN; Protocol PRN Reason: Hypoglycemia Protocol Stop: 01/09/25 16:44 Diphenhydramine HCl (Diphenhydramine Capsule 25 Mg Cap) 25 mg PO Q6H PRN PRN Reason: Allergic Rhinitis/Insomnia Stop: 01/11/25 13:09 Docusate Sodium (Docusate Sodium Syrup 100 Mg/10 Ml Udc) 100 mg PO BID DAVEY Stop: 01/14/25 20:59 Last Admin: 12/17/24 08:02 Dose: 100 mg Famotidine (Famotidine 20 Mg Tab) 20 mg PO Q12H PRN PRN Reason: Dyspepsia Stop: 01/11/25 13:09 Gabapentin (Gabapentin 800 Mg Tab) 800 mg PO TID DAVEY Stop: 01/09/25 20:59 Last Admin: 12/17/24 08:03 Dose: 800 mg Glucagon (Glucagon For Inj 1 Mg Vial) 1 mg SQ UD PRN; Protocol PRN Reason: Hypoglycemia Protocol Stop: 01/09/25 16:44 Glucose (Glucose 40% Gel 15 Gm Tube) 15 - 30 gm PO UD PRN; Protocol PRN Reason: Hypoglycemia Protocol Stop: 01/09/25 16:44 Glucose (Glucose 10 Tab/Tube) 4 - 8 tab PO UD PRN; Protocol PRN Reason: Hypoglycemia Protocol Stop: 01/09/25 16:44 Guaifenesin (Guaifenesin 600 Mg Tabcr) 600 mg PO Q12 DAVEY Stop: 01/12/25 08:59 Last Admin: 12/17/24 08:02 Dose: 600 mg Hydromorphone HCl (Hydromorphone Inj 0.5 Mg/0.5 Ml Syr) 0.5 mg IV Q3H PRN PRN Reason: MODERATE Pain (Scale 4,5,6) & Pre PT Stop: 12/26/24 13:09 Last Admin: 12/13/24 23:49 Dose: 0.5 mg Hydroxyzine HCl (Hydroxyzine Hcl 25 Mg Tab) 25 mg PO Q8H PRN PRN Reason: Anxiety Stop: 01/11/25 13:09 Promethazine HCl (Phenergan) 12.5 mg in 50.5 mls @ 202 mls/hr IV Q6H PRN PRN Reason: Nausea And Vomiting Stop: 01/11/25 13:09 Influenza Virus Vaccine Quadrival (Do Not Administer Flu Vaccine) 1 each N/A PRN PRN PRN Reason: Notification Stop: 01/11/25 13:09 Insulin Aspart (Insulin Aspart Per Unit Charge) 0 units SC ACHS [facility] Stop: 01/14/25 16:29 Last Admin: 12/17/24 08:13 Dose: 4 units Lorazepam (Lorazepam 0.5 Mg Tab) 0.5 mg PO Q8H PRN PRN Reason: Sedation/Anxiety Stop: 01/11/25 13:09 Lorazepam (Lorazepam 2 Mg/1 Ml Vial) 0.5 mg IV Q8H PRN PRN Reason: Sedation/Anxiety Stop: 01/11/25 13:09 Magnesium Hydroxide (Magnesium Hydroxide Susp 30 Ml Udc) 30 ml PO Q24H PRN PRN Reason: Constipation Stop: 01/11/25 13:09 Last Admin: 12/14/24 08:20 Dose: 30 ml Metoclopramide HCl (Metoclopramide Hcl Inj 5 Mg/Ml 2 Ml Vial) 10 mg IV Q6H PRN PRN Reason: Nausea &/or Vomiting Stop: 01/11/25 13:09 Last Admin: 12/12/24 19:51 Dose: 10 mg Miscellaneous (Remove Lidoderm Patch) 1 each N/A DAILY@2100 DAVEY Stop: 01/09/25 20:59 Last Admin: 12/16/24 20:31 Dose: Not Given Miscellaneous (Carbohydrates For Hypoglycemia ) 15 - 30 gm PO UD PRN PRN Reason: Hypoglycemia Treatment Stop: 01/09/25 16:44 Naloxone HCl (Naloxone Hcl 0.4 Mg/1 Ml Vial/Carp) 0.1 mg IV Q5M PRN PRN Reason: Oversedation/Resp depression Stop: 01/11/25 13:09 Ondansetron HCl (Ondansetron Inj 2 Mg/Ml 2 Ml Vial) 4 mg IV Q6H PRN PRN Reason: Nausea &/or Vomiting Stop: 01/11/25 13:09 Ondansetron HCl (Ondansetron 4 Mg Od Tab) 4 mg PO Q6H PRN PRN Reason: Nausea Stop: 01/11/25 13:09 Oxycodone HCl (Oxycodone Hcl Ir 5 Mg Tab (Immediate Release)) 5 - 10 mg PO Q4H PRN PRN Reason: Pain & Pre PT Stop: 12/26/24 13:09 Last Admin: 12/15/24 08:51 Dose: 10 mg Pneumococcal Polyvalent Vaccine (Do Not Administer Pneumococcal Vaccine) 1 each N/A PRN PRN PRN Reason: Notification Stop: 01/11/25 13:09 Polyethylene Glycol (Polyethylene (Miralax) 17 Gm Pack) 17 gm PO Q6 DAVEY Stop: 01/12/25 05:59 Last Admin: 12/17/24 06:49 Dose: 17 gm Senna/Docusate Sodium (Docusate Sodium/Senna 50/8.6mg Tab) 2 tab PO HS DAVEY Stop: 01/11/25 20:59 Last Admin: 12/16/24 20:30 Dose: 2 tab Sodium Biphosphate/Sodium Phosphate (Sod Phosphate/Sod Biphosphate Enema 132 Ml Btl) 132 ml MI ONE PRN PRN Reason: Constipation Stop: 01/11/25 13:09 Tramadol HCl (Tramadol Hcl 50 Mg Tablet) 50 - 100 mg PO Q4H PRN PRN Reason: Moderate-Severe pain & Pre PT Stop: 01/11/25 13:09 Last Admin: 12/17/24 08:02 Dose: 100 mg (8) Diabetes mellitus, type 2 Diabetes mellitus complication status: with other specified complication Diabetes mellitus buttermaker insulin use: without buttermaker use Qualified Code(s): E11.69 - Type 2 diabetes mellitus with other specified complication
--- NOTE | 2024-12-17 13:24 | Orthopedic Progress Note ---
Date of Service December 17, 2024 Assessment & Plan (1) Myelopathy concurrent with and due to spinal stenosis of thoracic region: Plan: At this time we will continue physical therapy. We will change his dressing DC his drain today. Hopefully he will be ready for discharge in the next few days. Admission and Anticipated Discharge Date Admission Date: December 11, 2024 Subjective Patient is taking tramadol for pain. Having bowel movements but still struggling with some abdominal discomfort. He is tolerating physical therapy. Physical Exam Physical Exam: On exam is in the chair at the bedside. Is constricted testing. Results & Data Vital Signs (Past 12 Hours) Vital Signs Temp Pulse Resp BP Pulse Ox O2 Del Method 12/17/24 07:39 36.9 C 81 16 115/75 94 Room Air Queries Orthopedic Spine Acute Posthemorrhagic Anemia: Yes Obesity: Yes
--- NOTE | 2024-12-17 17:33 | XRay Report ---
Clinical history: Pain 2 views of the abdomen were obtained Findings: There is no definite sign of small bowel obstruction. There is prominent colonic gas that may be due to ileus. No renal or ureteral calculi are seen. No foreign body is evident. There are bilateral hip placements. There is an extensive thoracolumbar fusion Impression: Possible colonic ileus Electronically signed by Luther Majano 12-17-2024 5:33 PM
[2024-12-17 19:07] LABS: Basophils # (auto) 0.04 K/uL (0.00-0.20); Basophils % (auto) 0.4 %; Eosinophils # (auto) 0.31 K/uL (0.00-0.50); Eosinophils % (auto) 3.2 %; Hematocrit (blood only) 30.8 % (42.0-52.0); Hemoglobin 9.9 g/dl (14.0-18.0); Immature Granulocytes # (auto) 0.11 K/uL (0.01-0.20); Immature Granulocytes % (auto) 1.1 %; Lymphocytes # (auto) 1.87 K/uL (1.20-3.40); Lymphocytes % (auto) 19.3 %; Mean Corpuscular Hgb Conc 32.1 g/dL (32.0-36.0); Mean Corpuscular Volume 87.3 fL (80.0-100.0); Mean Platelet Volume 8.6 fL (9.4-12.4); Monocytes # (auto) 0.79 K/uL (0.11-0.59); Monocytes % (auto) 8.2 %; Neutrophils # (auto) 6.56 K/uL (1.40-6.50); Neutrophils % (auto) 67.8 %; Nucleated RBC # (auto) 0.03 K/uL (0.00-0.12); Nucleated RBC % (auto) 0.3 %; Platelet Count 287 K/uL (130-400); RDW Coefficient of Variation 13.6 % (11.5-14.5); RDW Standard Deviation 42.7 fL (36.4-46.3); Red Blood Count 3.53 M/uL (4.70-6.10); White Blood Count 9.68 K/ul (4.8-10.8)
[2024-12-17 19:15] LABS: Albumin Globulin Ratio 1.3 (0.9-2); Albumin Level 3.5 gm/dl (3.4-5.0); BUN Creatinine Ratio 16.2 (10-20); Bilirubin,Total 0.5 mg/dl (0.2-1.0); Calcium 8.3 mg/dl (8.6-10.3); Creatinine Clr Calc Pharmacy 165.4 ml/min; Globulin 2.7 gm/dl (2.5-4.0); Potassium 4.2 mmol/L (3.5-5.1); Total Protein 6.2 gm/dl (6.0-8.3)
[2024-12-17] MEDS: OPTIRAY 320 100ml IV ONE (19:32)
[2024-12-17] MEDS: SODIUM CHLORIDE 0.9% 1,000 ML IV SCH (19:55)
--- NOTE | 2024-12-17 20:07 | CT Scan Report ---
EXAM: CT Abdomen and Pelvis With Intravenous Contrast INDICATION: Abdominal pain TECHNIQUE: Axial computed tomography images of the abdomen and pelvis with intravenous contrast. Sagittal and coronal reformatted images were created and reviewed. This CT exam was performed using one or more of the following dose reduction techniques: automated exposure control, adjustment of the mA and/or kV according to patient size, and/or use of iterative reconstruction technique. CONTRAST: 90ml of Optiray 320 was administered intravenously. COMPARISON: 12/15/2024 FINDINGS: Limitations: Assessment of the canal and spine limited due to extensive artifact from hip prosthesis and posterior fusion rods. Lung bases: No abnormality noted. Pleural space: No visualized pleural effusion or pneumothorax. Heart: No abnormality noted. Mediastinum: No abnormality noted. ABDOMEN: Liver: Normal size and contour. Hypodense typical of steatosis. No mass or ductal dilation. Gallbladder and bile ducts: No calcified stones or surrounding fluid. Pancreas: Homogeneous enhancement. No mass, inflammation or ductal dilation. Spleen: No significant abnormality noted. Adrenals: No significant abnormality noted. Kidneys and ureters: Normal enhancement. No mass, hydronephrosis or visualized stone. Stomach and bowel: There is increased air-fluid level throughout the redundant colon to the rectum. Minimal prominent fluid in small bowel without thickening. PELVIS: Appendix: Well seen and appears normal. Bladder: No filling defects to suggest mass or large stone. No inflammation. Reproductive: No abnormalities noted. ABDOMEN and PELVIS: Intraperitoneal space: No free air. No significant fluid collection. Bones/joints: Posterior spinal fusion T10-S1 with intact well-seated hardware. No acute osseous abnormality. Soft tissues: Umbilical hernia containing fat. Stable organized fluid collection midline operative bed extending from T11-S1. Small amount of subcutaneous air noted where previous drain was in place and has since been removed. Allowing for significant metallic artifact, no abnormal fluid collection identified. Vasculature: No abdominal aortic aneurysm. Lymph nodes: No pathologically enlarged lymph nodes. IMPRESSION: 1. Worsening colonic ileus without inflammatory process. 2. Postoperative drain has been removed from the thoracolumbar operative bed. No new fluid collection. ACT 112: N/A Electronically signed by Alice Pemberton 12-17-2024 8:06 PM
--- NOTE | 2024-12-18 08:23 | Orthopedic Progress Note ---
Date of Service December 18, 2024 Assessment & Plan (1) Myelopathy concurrent with and due to spinal stenosis of thoracic region: Plan: This time is struggling with significant postoperative ileus. Will continue to advance his bowel regiment. Encouraged him to ambulate as tolerated. Admission and Anticipated Discharge Date Admission Date: December 11, 2024 Subjective Patient's back pain is controlled. He is taking essentially no pain medication from a narcotic standpoint. He is describing some soreness in his legs. He states he is ambulated 8-10 laps yesterday. Struggling significantly with abdominal discomfort. Physical Exam Physical Exam: On exam he sitting at the bedside. He is neurologically intact. The drain has been removed. Results & Data Vital Signs (Past 12 Hours) Vital Signs Temp Pulse Resp BP Pulse Ox O2 Del Method 12/18/24 07:19 37.2 C 94 H 18 125/82 95 Room Air 12/18/24 07:15 Room Air Queries Orthopedic Spine Acute Posthemorrhagic Anemia: Yes Obesity: Yes
[2024-12-18] MEDS: SODIUM CHLORIDE 0.9% 1,000 ML IV SCH (08:39)
[2024-12-18] MEDS: dexAMETHasone 4 MG in SYRINGE 0 ML IV STA (09:32)
[2024-12-18] MEDS: METHYLNALTREXONE BROMIDE 12 MG/0.6 ML VIAL SQ ONE (09:32)
--- NOTE | 2024-12-18 10:14 | Hospitalist Progress Note ---
Date of Service December 18, 2024 Assessment & Plan (1) Ambulatory dysfunction: (2) Intractable low back pain: Plan: Janeth Aparicio is a 49y/o M with PMHx significant for DMII, prior ischemic CVA, intermittent asthma, DDD, bilateral carotid artery disease and HLD who presented to the ED on 12/10/24 with complaint of progressive back pain. 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 ED provider spoke with spine surgery whom recommended that patient be admitted for further management and surgical intervention. Our service is consulted on the case to assist with medical management. S/p urgent decompression fusion T10-L2 with hardware removal L3-S1 with Dr. Ontiveros on 12/12/24. Per ortho for pain control, wound care, anticoagulation and activities. Continue incentive spirometry. Strongly encouraged engagement with PT/OT. (3) Postoperative ileus: Plan: KUB ordered on 12/14/24 due to constipation + abdominal discomfort which revealed moderate retained stool and mild diffuse bowel distention suggesting ileus. -- CTAP reviewed and without any acute findings; mild retained stool but no obstruction or bowel inflammation. General surg consult on 12/15 - pt with conservative tx including bowel rest, IVF, limit narcs and encourage ambulation Unfortunately sx worsening and diet had to be reduced back to clear liquids on evening of 12/17 Continue gentle IVF Will trial Relistor and absolutely no narcotics today, will try to manage pain with tylenol and prn ketorlac strongly encourage ambulation Discussed with Breonna Pendleton who states they are currently not on service and recommend consult fractionation supervisor service Will consult [facility] for repeat surgical eval to determine if any additional steps to take to assist this ileus along await stool culture (4) Acute blood loss anemia: Plan: Preoperative Hgb 14.3 as of 12/10/24, Hgb 9.9 today. No indication for transfusion at this time. 2/2 expected surgical loss plus suspect dilutional component contributing as well. Continue to monitor H/H trend. (5) Bilateral lower extremity edema: Plan: VDS negative no edema today (6) High cholesterol: (7) History of stroke: Plan: Continue ASA without interruption per neurology in the past. Known bilateral carotid artery disease per duplex in 2021. Continue statin. (8) Diabetes mellitus, type 2: Plan: Holding home metformin, SSI while inpatient. Continue BSG checks ACHS. DVT Prophylaxis: SCDs/TEDs as per primary service. Code Status: FULL CODE PCP: Noah Gerber PA-C Disposition: Admitted in Med/Surg - discharge planning as per primary service. Patient seen in collaboration with Dr. Berumen. Please see addendum. I spent a total of 48 minutes coordinating, documenting, and providing care for this patient excluding time spent in the performance of separately billed services or time spent by another provider/QHP. This included personally reviewing all current laboratories and imaging studies, medical reconciliation, outpatient chart review and discussion with specialists. Admission and Anticipated Discharge Date Admission Date: December 11, 2024 Supervising Physician Co-Signing Physician Notes Patient is seen and examined at bedside. States having minimal small BM, flatus today. Continues to complain of abdominal distention, bloating, abdominal pain. Denies any chest pain, dyspnea. On exam patient is obese, no apparent distress, normocephalic atraumatic, EOMI, normal breath sounds, clear to auscultation, S1- S2, no murmur, abdomen soft, distended, mild tenderness, no guarding or rigidity, bowel sounds present, alert, awake, oriented, grossly no focal deficits. Patient is being managed for postoperative medical management. Postoperative ileus likely opioid induced. Will hold all narcotics. Agree with Relistor today. Encouraged to ambulate. Liquid diet for now. Surgery following. Continue bowel regimen. Wound care, activity, DVT prophylaxis per primary team. I personally interviewed and examined the patient at bedside. I have reviewed the advanced practitioner's documentation on the date of service referred in note and agree with plan. Patient's care is coordinated with Melissa Williamson PA-C. Please refer to the documentation above for details of patient's presentation and for discussion of other issues. I spent a total [id number] coordinating, documenting, and providing care for this patient excluding time spent in the performance of separately billed services or time spent by another provider/QHP. Subjective Follow up in room 310. He continues to struggle with PO intake and abd pain. He feels abd pain is about the same, not worse, but has not improved. He has made 2-3 liquid BMS thus far today. He reports pain as constant and achy, worse with coughing, bloating and inability to tolerate food. He was downgraded back to clear liquids last evening and he has been tolerating this. He has been taking narcotics but very sparingly. He denies vomiting but has been nauseated. He denies f/c/s, chest pain, sob, n/v. He reports thigh tightness bilaterally and numbness. Nurse at bedside concerned regarding ongoing abdominal pain. Review of Systems Review of Systems: All systems reviewed & are unremarkable except as noted in HPI & below Physical Exam Physical Exam: Gen: WD/WN, M, flat affect, sitting up at bedside, NAD, A&O x3 HEENT: Normocephalic, atraumatic, conjunctivae moist, sclerae anicteric, mucous membranes moist. Lung: Clear to Auscultation bilaterally, no wheezes/rales/rhonchi Heart: Regular rate, regular rhythm, no murmurs, rubs, or gallops Abdomen: increased distension from yesterday, firm, diminished BS, generalized ttp throughout but no guarding or rigidity. Extremities:no lower ext edema Skin: Warm, no rash, negative turgor. Results & Data Results & Data Vital Signs (Past 12 Hours) Vital Signs Temp Pulse Resp BP Pulse Ox O2 Del Method 12/18/24 07:19 37.2 C 94 H 18 125/82 95 Room Air 12/18/24 07:15 Room Air Laboratory Results I have independently reviewed and interpreted patient's admitting labs CBC, CMP, lipase, lactate Diagnostic Findings KUBX-Ray 12/17/24 17:01 Clinical history: Pain 2 views of the abdomen were obtained Findings: There is no definite sign of small bowel obstruction. There is prominent colonic gas that may be due to ileus. No renal or ureteral calculi are seen. No foreign body is evident. There are bilateral hip placements. There is an extensive thoracolumbar fusion Impression: Possible colonic ileus Electronically signed by Luther Majano 12-17-2024 5:33 PM Abdomen/Pelvis CT 12/17/24 18:33 EXAM: CT Abdomen and Pelvis With Intravenous Contrast INDICATION: Abdominal pain TECHNIQUE: Axial computed tomography images of the abdomen and pelvis with intravenous contrast. Sagittal and coronal reformatted images were created and reviewed. This CT exam was performed using one or more of the following dose reduction techniques: automated exposure control, adjustment of the mA and/or kV according to patient size, and/or use of iterative reconstruction technique. CONTRAST: 90ml of Optiray 320 was administered intravenously. COMPARISON: 12/15/2024 FINDINGS: Limitations: Assessment of the canal and spine limited due to extensive artifact from hip prosthesis and posterior fusion rods. Lung bases: No abnormality noted. Pleural space: No visualized pleural effusion or pneumothorax. Heart: No abnormality noted. Mediastinum: No abnormality noted. ABDOMEN: Liver: Normal size and contour. Hypodense typical of steatosis. No mass or ductal dilation. Gallbladder and bile ducts: No calcified stones or surrounding fluid. Pancreas: Homogeneous enhancement. No mass, inflammation or ductal dilation. Spleen: No significant abnormality noted. Adrenals: No significant abnormality noted. Kidneys and ureters: Normal enhancement. No mass, hydronephrosis or visualized stone. Stomach and bowel: There is increased air-fluid level throughout the redundant colon to the rectum. Minimal prominent fluid in small bowel without thickening. PELVIS: Appendix: Well seen and appears normal. Bladder: No filling defects to suggest mass or large stone. No inflammation. Reproductive: No abnormalities noted. ABDOMEN and PELVIS: Intraperitoneal space: No free air. No significant fluid collection. Bones/joints: Posterior spinal fusion T10-S1 with intact well-seated hardware. No acute osseous abnormality. Soft tissues: Umbilical hernia containing fat. Stable organized fluid collection midline operative bed extending from T11-S1. Small amount of subcutaneous air noted where previous drain was in place and has since been removed. Allowing for significant metallic artifact, no abnormal fluid collection identified. Vasculature: No abdominal aortic aneurysm. Lymph nodes: No pathologically enlarged lymph nodes. IMPRESSION: 1. Worsening colonic ileus without inflammatory process. 2. Postoperative drain has been removed from the thoracolumbar operative bed. No new fluid collection. ACT 112: N/A Electronically signed by Alice Pemberton 12-17-2024 8:06 PM Medications Administered Current Inpatient Medications Acetaminophen (Acetaminophen 500 Mg Tab) 1,000 mg PO Q8H PRN PRN Reason: MILD Pain Scale 1,2,3 & Pre PT Stop: 01/09/25 16:12 Last Admin: 12/18/24 08:20 Dose: 1,000 mg Al Hydrox/Mg Hydrox/Simethicone (Aluminum/Magnesium Susp 30 Ml Udc) 30 ml PO Q6H PRN PRN Reason: Dyspepsia Stop: 01/11/25 13:09 Allopurinol (All[facility]ol 100 Mg Tab) [facility] [place] Stop: 01/10/25 08:59 Last Admin: 12/18/24 08:14 Dose: 100 mg Aspirin (Aspirin 81 Mg Ectab) [facility] [place] Stop: 01/10/25 08:59 Last Admin: 12/18/24 08:13 Dose: 81 mg Atorvastatin Calcium (Atorvastatin 40 Mg Tab) [facility] [place] Stop: 01/10/25 08:59 Last Admin: 12/18/24 08:14 Dose: 40 mg Bisacodyl (Bisacodyl 10 Mg Supp) 10 mg MD DAILY PRN PRN Reason: Constipation Stop: 01/11/25 13:09 Dextrose (Dextrose 50% 50 Ml Syringe) 25 - 50 ml IV UD PRN; Protocol PRN Reason: Hypoglycemia Protocol Stop: 01/09/25 16:44 Diphenhydramine HCl (Diphenhydramine Capsule 25 Mg Cap) 25 mg PO Q6H PRN PRN Reason: Allergic Rhinitis/Insomnia Stop: 01/11/25 13:09 Docusate Sodium (Docusate Sodium Syrup 100 Mg/10 Ml Udc) 100 mg PO BID COUNT INCLUDES THE [facility] Stop: 01/14/25 20:59 Last Admin: 12/18/24 08:14 Dose: 100 mg Famotidine (Famotidine 20 Mg Tab) 20 mg PO Q12H PRN PRN Reason: Dyspepsia Stop: 01/11/25 13:09 Gabapentin (Gabapentin 800 Mg Tab) 800 mg PO TID COUNT INCLUDES THE [facility] Stop: 01/09/25 20:59 Last Admin: 12/18/24 08:14 Dose: 800 mg Glucagon (Glucagon For Inj 1 Mg Vial) 1 mg SQ UD PRN; Protocol PRN Reason: Hypoglycemia Protocol Stop: 01/09/25 16:44 Glucose (Glucose 40% Gel 15 Gm Tube) 15 - 30 gm PO UD PRN; Protocol PRN Reason: Hypoglycemia Protocol Stop: 01/09/25 16:44 Glucose (Glucose 10 Tab/Tube) 4 - 8 tab PO UD PRN; Protocol PRN Reason: Hypoglycemia Protocol Stop: 01/09/25 16:44 Hydromorphone HCl (Hydromorphone Inj 0.5 Mg/0.5 Ml Syr) 0.5 mg IV Q3H PRN PRN Reason: MODERATE Pain (Scale 4,5,6) & Pre PT Stop: 12/26/24 13:09 Last Admin: 12/13/24 23:49 Dose: 0.5 mg Hydroxyzine HCl (Hydroxyzine Hcl 25 Mg Tab) 25 mg PO Q8H PRN PRN Reason: Anxiety Stop: 01/11/25 13:09 Promethazine HCl (Phenergan) 12.5 mg in 50.5 mls @ 202 mls/hr IV Q6H PRN PRN Reason: Nausea And Vomiting Stop: 01/11/25 13:09 Sodium Chloride (Nss) 1,000 mls @ 80 mls/hr IV .[id number] COUNT INCLUDES THE [facility] Stop: 12/18/24 20:59 Last Admin: 12/18/24 08:39 Dose: 80 mls/hr Influenza Virus Vaccine Quadrival (Do Not Administer Flu Vaccine) 1 each N/A PRN PRN PRN Reason: Notification Stop: 01/11/25 13:09 Insulin Aspart (Insulin Aspart Per Unit Charge) 0 units SC ACHS COUNT INCLUDES THE [facility] Stop: 01/14/25 16:29 Last Admin: 12/18/24 08:22 Dose: Not Given Ketorolac Tromethamine (Ketorolac Tromethamine 15 Mg/Ml Vial) 15 mg IV Q6H PRN PRN Reason: Mod-Sev Pain (Scale 4-10) Stop: 12/23/24 07:21 Lorazepam (Lorazepam 0.5 Mg Tab) 0.5 mg PO Q8H PRN PRN Reason: Sedation/Anxiety Stop: 01/11/25 13:09 Lorazepam (Lorazepam 2 Mg/1 Ml Vial) 0.5 mg IV Q8H PRN PRN Reason: Sedation/Anxiety Stop: 01/11/25 13:09 Magnesium Hydroxide (Magnesium Hydroxide Susp 30 Ml Udc) 30 ml PO Q24H PRN PRN Reason: Constipation Stop: 01/11/25 13:09 Last Admin: 12/17/24 18:49 Dose: 30 ml Metoclopramide HCl (Metoclopramide Hcl Inj 5 Mg/Ml 2 Ml Vial) 10 mg IV Q6H PRN PRN Reason: Nausea &/or Vomiting Stop: 01/11/25 13:09 Last Admin: 12/12/24 19:51 Dose: 10 mg Miscellaneous (Remove Lidoderm Patch) 1 each N/A DAILY@2100 COUNT INCLUDES THE [facility] Stop: 01/09/25 20:59 Last Admin: 12/17/24 20:06 Dose: Not Given Miscellaneous (Carbohydrates For Hypoglycemia ) 15 - 30 gm PO UD PRN PRN Reason: Hypoglycemia Treatment Stop: 01/09/25 16:44 Naloxone HCl (Naloxone Hcl 0.4 Mg/1 Ml Vial/Carp) 0.1 mg IV Q5M PRN PRN Reason: Oversedation/Resp depression Stop: 01/11/25 13:09 Ondansetron HCl (Ondansetron Inj 2 Mg/Ml 2 Ml Vial) 4 mg IV Q6H PRN PRN Reason: Nausea &/or Vomiting Stop: 01/11/25 13:09 Ondansetron HCl (Ondansetron 4 Mg Od Tab) 4 mg PO Q6H PRN PRN Reason: Nausea Stop: 01/11/25 13:09 Oxycodone HCl (Oxycodone Hcl Ir 5 Mg Tab (Immediate Release)) 5 - 10 mg PO Q4H PRN PRN Reason: Pain & Pre PT Stop: 12/26/24 13:09 Last Admin: 12/17/24 19:55 Dose: 5 mg Pneumococcal Polyvalent Vaccine (Do Not Administer Pneumococcal Vaccine) 1 each N/A PRN PRN PRN Reason: Notification Stop: 01/11/25 13:09 Polyethylene Glycol (Polyethylene (Miralax) 17 Gm Pack) 17 gm PO Q6 DAVEY Stop: 01/12/25 05:59 Last Admin: 12/18/24 08:16 Dose: Not Given Senna/Docusate Sodium (Docusate Sodium/Senna 50/8.6mg Tab) 2 tab PO HS DAVEY Stop: 01/11/25 20:59 Last Admin: 12/17/24 19:55 Dose: 2 tab Sodium Biphosphate/Sodium Phosphate (Sod Phosphate/Sod Biphosphate Enema 132 Ml Btl) 132 ml MD ONE PRN PRN Reason: Constipation Stop: 01/11/25 13:09 Tramadol HCl (Tramadol Hcl 50 Mg Tablet) 50 - 100 mg PO Q4H PRN PRN Reason: Moderate-Severe pain & Pre PT Stop: 01/11/25 13:09 Last Admin: 03/11/25 00:18 Dose: 100 mg (8) Diabetes mellitus, type 2 Diabetes mellitus complication status: with other specified complication Diabetes mellitus chcf insulin use: without chcf use Qualified Code(s): E11.69 - Type 2 diabetes mellitus with other specified complication
--- NOTE | 2024-12-18 12:13 | Surgery Progress Note ---
Date of Service December 18, 2024 Assessment & Plan (1) Postoperative ileus: Plan: Difficult scenario. There is not a lot that can be done other than time, decrease narcotic use, increase ambulation. We discussed all this with the patient. Will add IM Noriyl to see if this can help some of his abdominal discomfort. Certainly no surgical indications. (2) Myelopathy concurrent with and due to spinal stenosis of thoracic region: (3) Neurogenic claudication due to lumbar spinal stenosis: (4) Diabetes mellitus, type 2: Admission and Anticipated Discharge Date Admission Date: December 11, 2024 Subjective Patient seen by Dr. Thomas over the weekend for postoperative ileus and subsequently signed off. Requested to reevaluate patient. He is now about postop day 6 from a large back surgery. Continues to have some abdominal complaints. Complains of lower abdominal discomfort and seems to associate this with his bilateral leg weakness. No nausea or vomiting although his appetite is poor. Admits he has not been ambulating much. Physical Exam Physical Exam: Alert no acute distress Abdomen: Obese. Soft. Mild tenderness. No peritonitis Results & Data Vital Signs (Past 12 Hours) Vital Signs Temp Pulse Resp BP Pulse Ox O2 Del Method 12/18/24 07:19 37.2 C 94 H 18 125/82 95 Room Air 12/18/24 07:15 Room Air PG Care Time/CCT Total # of Minutes Spent Total Time Spent with Patient: Total time spent is greater than 50% in coordination of care (as documented) at patient's floor/unit and/or counseling patient: Coding Level of Care Code 00582 SUB INP/OBS CARE 2/35MIN Diagnoses Postoperative ileus K91.89; K56.7 Myelopathy concurrent with and due to spinal stenosis of thoracic region M48.04; G99.2 Neurogenic claudication due to lumbar spinal stenosis M48.062 Type 2 diabetes mellitus with other specified complication, without long-term current use of insulin 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
[2024-12-18] MEDS: ACETAMINOPHEN 1,000 MG/100 ML VIAL IV PRN (16:21)
[2024-12-18] MEDS: KETOROLAC TROMETHAMINE 15 MG/ML VIAL IV PRN (21:24)
[2024-12-18] MEDS: DICYCLOMINE HCL 10 MG/ML 2 ML AMP/VIAL IM SCH (21:28)
[2024-12-19 07:44] LABS: Basophils # (auto) 0.02 K/uL (0.00-0.20); Basophils % (auto) 0.2 %; Eosinophils # (auto) 0.18 K/uL (0.00-0.50); Eosinophils % (auto) 1.7 %; Hematocrit (blood only) 29.7 % (42.0-52.0); Hemoglobin 9.3 g/dl (14.0-18.0); Immature Granulocytes % (auto) 0.9 %; Lymphocytes # (auto) 2.08 K/uL (1.20-3.40); Lymphocytes % (auto) 19.5 %; Mean Corpuscular Hemoglobin 27.6 pg (25.0-34.0); Mean Corpuscular Hgb Conc 31.3 g/dL (32.0-36.0); Mean Corpuscular Volume 88.1 fL (80.0-100.0); Mean Platelet Volume 8.5 fL (9.4-12.4); Monocytes # (auto) 0.84 K/uL (0.11-0.59); Monocytes % (auto) 7.9 %; Neutrophils # (auto) 7.42 K/uL (1.40-6.50); Neutrophils % (auto) 69.8 %; Platelet Count 330 K/uL (130-400); RDW Coefficient of Variation 13.9 % (11.5-14.5); RDW Standard Deviation 43.9 fL (36.4-46.3); Red Blood Count 3.37 M/uL (4.70-6.10); White Blood Count 10.64 K/ul (4.8-10.8)
[2024-12-19 07:48] VITALS: RESP 18
[2024-12-19 08:05] LABS: BUN Creatinine Ratio 15.6 (10-20); Calcium 8.2 mg/dl (8.6-10.3); Creatinine Clr Calc Pharmacy 158.9 ml/min; Potassium 3.8 mmol/L (3.5-5.1)
--- NOTE | 2024-12-19 09:43 | XRay Report ---
KUB HISTORY: Follow-up ileus COMPARISON STUDY: 12/17/2024 FINDINGS: Colonic distention appears slightly diminished. There is persistent, moderate gaseous diste ntion of the transverse colon. The long segment thoracolumbar multilevel fusion and bilateral hip art hroplasties are demonstrated. IMPRESSION: Gaseous distention of the colon has diminished slightly since the prior examination. ACT 112: Negative or not required by law. The above report was generated using voice recognition software. It may contain grammatical, syntax o r spelling errors. Electronically signed by: Elisabeth Dubois M.D. 12/19/2024 9:40 AM
--- NOTE | 2024-12-19 10:20 | Orthopedic Progress Note ---
Date of Service December 19, 2024 Assessment & Plan (1) Myelopathy concurrent with and due to spinal stenosis of thoracic region: Plan: Patient is steadily improving. I am recommending continued ambulation to tolerance. Hopefully discharge home tomorrow. Admission and Anticipated Discharge Date Admission Date: December 11, 2024 Subjective Patient's bowels are much improved. He is not nauseated. He is tolerating walking. Back pain is controlled. Physical Exam Physical Exam: On exam he is in the chair at the bedside. Is constricted testing. Abdomen soft. Results & Data Vital Signs (Past 12 Hours) Vital Signs Temp Pulse Resp BP Pulse Ox O2 Del Method 12/19/24 07:44 37.4 C 91 H 18 107/63 97 Room Air Queries Orthopedic Spine Acute Posthemorrhagic Anemia: Yes Obesity: Yes
--- NOTE | 2024-12-19 10:43 | Surgery Progress Note ---
Date of Service December 19, 2024 Assessment & Plan (1) Postoperative ileus: Plan: Seems to be in clinically improving. Ileus is predominantly colonic in nature. Continue current plan. Continue to encourage low narcotic use and increased ambulation. Will be available with any questions or concerns Admission and Anticipated Discharge Date Admission Date: December 11, 2024 Subjective Patient seen. Out of bed into a chair today. He looks much better than yesterday. He states that he had multiple loose bowel movements as well as flatus. Much less abdominal cramping and much less distention. Review of Systems Review of Systems: All systems reviewed & are unremarkable except as noted in HPI & below Results & Data Vital Signs (Past 12 Hours) Vital Signs Temp Pulse Resp BP Pulse Ox O2 Del Method 12/19/24 07:44 37.4 C 91 H 18 107/63 97 Room Air PG Care Time/CCT Total # of Minutes Spent Total Time Spent with Patient: Total time spent is greater than 50% in coordination of care (as documented) at patient's floor/unit and/or counseling patient: Coding Level of Care Code 06689 SUB INP/OBS CARE 11/03MIN Diagnoses Postoperative ileus K91.89; K56.7
--- NOTE | 2024-12-19 10:54 | Hospitalist Progress Note ---
Date of Service December 19, 2024 Assessment & Plan (1) Ambulatory dysfunction: (2) Intractable low back pain: Plan: Janeth Aparicio is a 49y/o M with PMHx significant for DMII, prior ischemic CVA, intermittent asthma, DDD, bilateral carotid artery disease and HLD who presented to the ED on 12/10/24 with complaint of progressive back pain. 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 ED provider spoke with spine surgery whom recommended that patient be admitted for further management and surgical intervention. Our service is consulted on the case to assist with medical management. S/p urgent decompression fusion T10-L2 with hardware removal L3-S1 with Dr. Ontiveros on 12/12/24. Per ortho for pain control, wound care, anticoagulation and activities. Continue incentive spirometry. Strongly encouraged engagement with PT/OT. (3) Postoperative ileus: Plan: KUB ordered on 12/14/24 due to constipation + abdominal discomfort which revealed moderate retained stool and mild diffuse bowel distention suggesting ileus. -- CTAP reviewed and without any acute findings; mild retained stool but no obstruction or bowel inflammation. General surg consult on 12/15 - pt with conservative tx including bowel rest, IVF, limit narcs and encourage ambulation Unfortunately sx worsening and diet had to be reduced back to clear liquids on evening of 12/17 Trialed relistor on 12/18 Seen and evaluated by [facility] gen surg on 12/18 with recommendations for IM bentyl sx improving will advance diet to low fiber, full liquid Continue to manage pain with tylenol and prn ketorlac strongly encourage ambulation (4) Acute blood loss anemia: Plan: Preoperative Hgb 14.3 as of 12/10/24, Hgb 9.3 today. No indication for transfusion at this time. 2/2 expected surgical loss plus suspect dilutional component contributing as well. Continue to monitor H/H trend. (5) Bilateral lower extremity edema: Plan: VDS negative no edema today (6) High cholesterol: (7) History of stroke: Plan: Continue ASA without interruption per neurology in the past. Known bilateral carotid artery disease per duplex in 2021. Continue statin. (8) Diabetes mellitus, type 2: Plan: Holding home metformin, SSI while inpatient. Continue BSG checks ACHS. DVT Prophylaxis: SCDs/TEDs as per primary service. Code Status: FULL CODE PCP: Noah Gerber PA-C Disposition: Admitted in Med/Surg - From a medical standpoint if pt tolerates diet advancement could d/c home tomorrow Patient seen in collaboration with Dr. Rodgers. Please see addendum. I spent a total of 43 minutes coordinating, documenting, and providing care for this patient excluding time spent in the performance of separately billed services or time spent by another provider/QHP. This included personally reviewing all current laboratories and imaging studies, medical reconciliation, outpatient chart review and discussion with specialists. Admission and Anticipated Discharge Date Admission Date: December 11, 2024 Supervising Physician Co-Signing Physician Notes I have seen and discussed the case with the collaborating advanced practitioner. I agree with the above progress note. I have reviewed and confirmed the patients medical history, the findings on physical examination, and the patients diagnosis and treatment plan with Teri OSEGUERA and agree with the information documented. In short, Mr. Rodriguez is a 49 yo gentleman s/p T10-L2 decompression and fusion on 12/12 whose post op course complicated by ileus. Patient now with gas and bowel movements. Plan to advance diet as tolerated with goal for 2 weeks of low fiber and encourage mobilization. potential d/c tomorrow I spent a total of 15 minutes coordinating, documenting, and providing care for this patient excluding time spent in the performance of separately billed services. All of the aforementioned completed outside of collaborating with the assigned advanced practitioner for a full treatment plan. I have reviewed the advanced practitioner's documentation, and I agree with, and take responsibility for the plan of care Subjective Pt much improved today. He had several bowel movements yesterday/last evening. He has been ambulating more. He continues to report pain, but overall affect is much improved. He is tolerating liquids and wishes to advance diet. Denies f/c/s chest pain, sob, n/v. He feels bloating is improved as well. Review of Systems Review of Systems: All systems reviewed & are unremarkable except as noted in HPI & below Physical Exam Physical Exam: Gen: WD/WN, M, flat affect, sitting up at bedside, NAD, A&O x3 HEENT: Normocephalic, atraumatic, conjunctivae moist, sclerae anicteric, mucous membranes moist. Lung: Clear to Auscultation bilaterally, no wheezes/rales/rhonchi Heart: Regular rate, regular rhythm, no murmurs, rubs, or gallops Abdomen: improving distension, less firmness, increased BS, no TTP. Extremities:no lower ext edema Skin: Warm, no rash, negative turgor. Results & Data Results & Data Vital Signs (Past 12 Hours) Vital Signs Temp Pulse Resp BP Pulse Ox O2 Del Method 12/19/24 07:44 37.4 C 91 H 18 107/63 97 Room Air Laboratory Results I have independently reviewed and interpreted patient's cbc, bmp Diagnostic Findings KUB: IMPRESSION: Gaseous distention of the colon has diminished slightly since the prior examination. Medications Administered Current Inpatient Medications Al Hydrox/Mg Hydrox/Simethicone (Aluminum/Magnesium Susp 30 Ml Udc) 30 ml PO Q6H PRN PRN Reason: Dyspepsia Stop: 01/11/25 13:09 Allopurinol ([facility] 100 Mg Tab) [facility] Stop: 01/10/25 08:59 Last Admin: 12/19/24 08:31 Dose: 100 mg Aspirin (Aspirin 81 Mg Ectab) [facility] Stop: 01/10/25 08:59 Last Admin: 12/19/24 08:31 Dose: 81 mg Atorvastatin Calcium (Atorvastatin 40 Mg Tab) 40 mg PO QAM [facility] Stop: 01/10/25 08:59 Last Admin: 12/19/24 08:31 Dose: 40 mg Bisacodyl (Bisacodyl 10 Mg Supp) 10 mg NH DAILY PRN PRN Reason: Constipation Stop: 01/11/25 13:09 Dextrose (Dextrose 50% 50 Ml Syringe) 25 - 50 ml IV UD PRN; Protocol PRN Reason: Hypoglycemia Protocol Stop: 01/09/25 16:44 Dicyclomine HCl (Dicyclomine Hcl 10 Mg/Ml 2 Ml Amp/Vial) 20 mg IM BID [facility] Stop: 01/17/25 20:59 Last Admin: 12/19/24 08:31 Dose: 20 mg Diphenhydramine HCl (Diphenhydramine Capsule 25 Mg Cap) 25 mg PO Q6H PRN PRN Reason: Allergic Rhinitis/Insomnia Stop: 01/11/25 13:09 Docusate Sodium (Docusate Sodium Syrup 100 Mg/10 Ml Udc) 100 mg PO BID [facility] Stop: 01/14/25 20:59 Last Admin: 12/19/24 08:57 Dose: Not Given Famotidine (Famotidine 20 Mg Tab) 20 mg PO Q12H PRN PRN Reason: Dyspepsia Stop: 01/11/25 13:09 Gabapentin (Gabapentin 800 Mg Tab) 800 mg PO TID [facility] Stop: 01/09/25 20:59 Last Admin: 12/19/24 08:31 Dose: 800 mg Glucagon (Glucagon For Inj 1 Mg Vial) 1 mg SQ UD PRN; Protocol PRN Reason: Hypoglycemia Protocol Stop: 01/09/25 16:44 Glucose (Glucose 40% Gel 15 Gm Tube) 15 - 30 gm PO UD PRN; Protocol PRN Reason: Hypoglycemia Protocol Stop: 01/09/25 16:44 Glucose (Glucose 10 Tab/Tube) 4 - 8 tab PO UD PRN; Protocol PRN Reason: Hypoglycemia Protocol Stop: 01/09/25 16:44 Hydromorphone HCl (Hydromorphone Inj 0.5 Mg/0.5 Ml Syr) 0.5 mg IV Q3H PRN PRN Reason: MODERATE Pain (Scale 4,5,6) & Pre PT Stop: 12/26/24 13:09 Last Admin: 12/13/24 23:49 Dose: 0.5 mg Hydroxyzine HCl (Hydroxyzine Hcl 25 Mg Tab) 25 mg PO Q8H PRN PRN Reason: Anxiety Stop: 01/11/25 13:09 Promethazine HCl (Phenergan) 12.5 mg in 50.5 mls @ 202 mls/hr IV Q6H PRN PRN Reason: Nausea And Vomiting Stop: 01/11/25 13:09 Acetaminophen (Ofirmev) 1,000 mg in 100 mls @ 400 mls/hr IV Q8H PRN PRN Reason: Mild Pain (Scale 1, 2, 3) Stop: 12/21/24 11:10 Last Infusion: 12/19/24 08:58 Dose: Infused Influenza Virus Vaccine Quadrival (Do Not Administer Flu Vaccine) 1 each N/A PRN PRN PRN Reason: Notification Stop: 01/11/25 13:09 Insulin Aspart (Insulin Aspart Per Unit Charge) 0 units SC [facility] Stop: 01/14/25 16:29 Last Admin: 12/19/24 08:52 Dose: 3 units Ketorolac Tromethamine (Ketorolac Tromethamine 15 Mg/Ml Vial) 15 mg IV Q6H PRN PRN Reason: Mod-Sev Pain (Scale 4-10) Stop: 12/20/24 07:21 Last Admin: 12/18/24 21:24 Dose: 15 mg Lorazepam (Lorazepam 0.5 Mg Tab) 0.5 mg PO Q8H PRN PRN Reason: Sedation/Anxiety Stop: 01/11/25 13:09 Lorazepam (Lorazepam 2 Mg/1 Ml Vial) 0.5 mg IV Q8H PRN PRN Reason: Sedation/Anxiety Stop: 01/11/25 13:09 Magnesium Hydroxide (Magnesium Hydroxide Susp 30 Ml Udc) 30 ml PO Q24H PRN PRN Reason: Constipation Stop: 01/11/25 13:09 Last Admin: 12/17/24 18:49 Dose: 30 ml Metoclopramide HCl (Metoclopramide Hcl Inj 5 Mg/Ml 2 Ml Vial) 10 mg IV Q6H PRN PRN Reason: Nausea &/or Vomiting Stop: 01/11/25 13:09 Last Admin: 12/12/24 19:51 Dose: 10 mg Miscellaneous (Remove Lidoderm Patch) 1 each N/A DAILY@2100 DAVEY Stop: 01/09/25 20:59 Last Admin: 12/18/24 21:31 Dose: Not Given Miscellaneous (Carbohydrates For Hypoglycemia ) 15 - 30 gm PO UD PRN PRN Reason: Hypoglycemia Treatment Stop: 01/09/25 16:44 Naloxone HCl (Naloxone Hcl 0.4 Mg/1 Ml Vial/Carp) 0.1 mg IV Q5M PRN PRN Reason: Oversedation/Resp depression Stop: 01/11/25 13:09 Ondansetron HCl (Ondansetron Inj 2 Mg/Ml 2 Ml Vial) 4 mg IV Q6H PRN PRN Reason: Nausea &/or Vomiting Stop: 01/11/25 13:09 Ondansetron HCl (Ondansetron 4 Mg Od Tab) 4 mg PO Q6H PRN PRN Reason: Nausea Stop: 01/11/25 13:09 Oxycodone HCl (Oxycodone Hcl Ir 5 Mg Tab (Immediate Release)) 5 - 10 mg PO Q4H PRN PRN Reason: Pain & Pre PT Stop: 12/26/24 13:09 Last Admin: 12/17/24 19:55 Dose: 5 mg Pneumococcal Polyvalent Vaccine (Do Not Administer Pneumococcal Vaccine) 1 each N/A PRN PRN PRN Reason: Notification Stop: 01/11/25 13:09 Polyethylene Glycol (Polyethylene (Miralax) 17 Gm Pack) 17 gm PO Q6 [facility]Y Stop: 01/12/25 05:59 Last Admin: 12/19/24 05:20 Dose: Not Given Senna/Docusate Sodium (Docusate Sodium/Senna 50/8.6mg Tab) 2 tab PO HS [facility]AVEY Stop: 01/11/25 20:59 Last Admin: 12/19/24 08:39 Dose: 2 tab Sodium Biphosphate/Sodium Phosphate (Sod Phosphate/Sod Biphosphate Enema 132 Ml Btl) 132 ml NH ONE PRN PRN Reason: Constipation Stop: 01/11/25 13:09 Tramadol HCl (Tramadol Hcl 50 Mg Tablet) 50 - 100 mg PO Q4H PRN PRN Reason: Moderate-Severe pain & Pre PT Stop: 01/11/25 13:09 Last Admin: 12/18/24 00:18 Dose: 100 mg (8) Diabetes mellitus, type 2 Diabetes mellitus complication status: with other specified complication Diabetes mellitus ocean transportation intermediary insulin use: without shelter use Qualified Code(s): E11.69 - Type 2 diabetes mellitus with other specified complication
--- NOTE | 2024-12-20 07:59 | Hospitalist Progress Note ---
Date of Service December 20, 2024 Assessment & Plan (1) Ambulatory dysfunction: (2) Intractable low back pain: Plan: This is a 49y/o M with PMHx significant for DMII, prior ischemic CVA, intermittent asthma, DDD, bilateral carotid artery disease and HLD who presented to the ED on 12/10/24 with complaint of progressive back pain. 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 ED provider spoke with spine surgery whom recommended that patient be admitted for further management and surgical intervention. Our service is consulted on the case to assist with medical management. S/p urgent decompression fusion T10-L2 with hardware removal L3-S1 with Dr. Ontiveros on 12/12/24. Per ortho for pain control, wound care, anticoagulation and activities. Continue incentive spirometry. Strongly encouraged engagement with PT/OT. (3) Postoperative ileus: Plan: KUB ordered on 12/14/24 due to constipation + abdominal discomfort which revealed moderate retained stool and mild diffuse bowel distention suggesting ileus. -- CTAP reviewed and without any acute findings; mild retained stool but no o bstruction or bowel inflammation. General surg consult on 12/15 - pt with conservative tx including bowel rest, IVF, limit narcs and encourage ambulation Unfortunately sx worsening and diet had to be reduced back to clear liquids on evening of 12/17 Trialed relistor on 12/18 Seen and evaluated by [facility] gen surg on 12/18 with recommendations for IM bentyl sx improving, had multiple bowel movements overnight Diet advanved Continue to manage pain with tylenol and prn ketorlac strongly encourage ambulation Recommend low fiber diet for 1-2 weeks on discharge (4) Acute blood loss anemia: Plan: Preoperative Hgb 14.3 as of 12/10/24, Hgb 9.3 on 12/19, asymptomatic. No indication for transfusion at this time. 2/2 expected surgical loss plus suspect dilutional component contributing as well (5) Bilateral lower extremity edema: Plan: VDS negative no edema today (6) High cholesterol: (7) History of stroke: Plan: Continue ASA without interruption per neurology in the past. Known bilateral carotid artery disease per duplex in 2021. Continue statin (8) Diabetes mellitus, type 2: Plan: Holding home metformin, SSI while inpatient. Continue BSG checks ACHS. DVT Prophylaxis: SCDs/TEDs as per primary service. Code Status: FULL CODE PCP: Noah Gerber PA-C Disposition: Admitted in Med/Surg - dc per primary service I spent a total of 40 minutes coordinating, documenting, and providing care for this patient excluding time spent in the performance of separately billed services or time spent by another provider/QHP. Admission and Anticipated Discharge Date Admission Date: December 11, 2024 Supervising Physician Co-Signing Physician Notes I have seen and discussed the case with the collaborating advanced practitioner. I agree with the above progress note. I have reviewed and confirmed the patients medical history, the findings on physical examination, and the patients diagnosis and treatment plan with Teri OSEGUERA and agree with the information documented. In short, Mr. Rodriguez is a 49 yo gentleman s/p T10-L2 decompression and fusion on 12/12 whose post op course complicated by ileus. Patient now with gas and bowel movements. patient tolerating diet with good bowelmovements. discharge likely today I spent a total of 15 minutes coordinating, documenting, and providing care for this patient excluding time spent in the performance of separately billed services. All of the aforementioned completed outside of collaborating with the assigned advanced practitioner for a full treatment plan. I have reviewed the advanced practitioner's documentation, and I agree with, and take responsibility for the plan of care Subjective Pt much improved today. Had several bowel movements overnight and feels less bloated. Pain improved, ambulating with a walker. Denies f/c/s chest pain, sob, n/v. Review of Systems Review of Systems: At least ten systems reviewed and negative, except as noted in the subjective section. Physical Exam Physical Exam: Gen: WD/WN, NAD, sitting in bedside chair, A&Ox3, obese HEENT: Normocephalic, atraumatic, sclerae anicteric, mucous membranes moist Lung: Clear to Auscultation bilaterally Heart: Regular rate, regular rhythm Abdomen: Soft, NT, ND +BS x 4 Extremities: Spinal dressing c/d/i, no edema Skin: Warm, no rash Results & Data Results & Data Vital Signs (Past 12 Hours) Vital Signs Temp Pulse Resp BP Pulse Ox O2 Del Method 12/19/24 20:54 37.1 C 86 18 109/70 95 Room Air Diagnostic Findings Pelvis CT 12/10/24 12:[address] WITHOUT CONTRAST CLINICAL HISTORY: pain left hip, pelvis, low back COMPARISON STUDY: Left hip MRI December 30, 2023. Lumbar spine CT November 04, 2024. TECHNIQUE: Axial images of the pelvis and hips were obtained without IV contrast. Sagittal and coronal reformats were viewed. Automated exposure control was utilized for the study. A dose lowering technique was utilized adhering to the principles of ALARA. FINDINGS: Postoperative findings within the lumbosacral spine are partially imaged. Visualized portions are unchanged since CT of November 04, 2024. Visualized portions of the hardware are intact. There are bilateral hip arthroplasties. No periprosthetic fracture or lucency is present. Cortical thickening of the subtrochanteric portion of the left femur is chronic. There are left femoral cerclage wires. There are no suspicious osseous lesions. Caliber of visualized small and large bowel are normal. Colonic diverticulosis without evidence for acute diverticulitis. The appendix is normal. There are no pelvic fluid collections. No pelvic lymphadenopathy is present. The sacroiliac joints and symphysis pubis are intact. No acute fractures within the pelvis or hips are identified. Fluid overlying the greater intertrochanteric of the right femur is likely chronic. IMPRESSION: 1. No acute fractures within the pelvis or hips. 2. Status post bilateral hip arthroplasties. No periprosthetic fracture or lucency. ACT 112: Negative or not required by law. Electronically signed by: Chetan Vicente M.D. 12/10/2024 1:20 PM Chest X-Ray 12/10/24 14:04 XR chest 1V portable CLINICAL HISTORY: pre-op COMPARISON STUDY: None FINDINGS: There is mild cardiomegaly without pulmonary vascular congestion. Inspiration is shallow. No effusion, consolidation, or pneumothorax. IMPRESSION: No acute findings. ACT 112: Negative or not required by law. Electronically signed by: Jim Jones M.D. 12/10/2024 3:16 PM Lumbar Spine X-Ray 12/12/24 07:45 FL lumbar spine 2-3V CLINICAL HISTORY: Y10-L2 DECOMPRESSION COMPARISON STUDY: 08/29/2023 FLUOROSCOPY TIME: 51.7 seconds FLUOROSCOPY IMAGES: 5 EXPOSURE DOSE: 52.36 mGy FINDINGS: Extensive thoracolumbar fusion hardware with discectomy changes. The hardware appears intact. Exact numbering is not definitive based on magnification however appears to extend from T10 into the sacrum. Note that the images were submitted following completion of the surgery. IMPRESSION: Fluoroscopic assistance as above. ACT 112: Negative or not required by law. Electronically signed by: Leopoldo Jones M.D. 12/12/2024 11:40 AM Chest X-Ray 12/12/24 13:23 XR chest 1V portable CLINICAL HISTORY: post op hypoxia COMPARISON STUDY: 12/10/2024 FINDINGS: Stable mild cardiomegaly without pulmonary vascular congestion. Interval lower thoracic spinal hardware. There is interval stranding opacity at the left lung base. No other consolidation or pleural effusion. No pneumothorax. IMPRESSION: Atelectasis versus early pneumonia left lung base. ACT 112: Negative or not required by law. Electronically signed by: Jim Jones M.D. 12/12/2024 1:41 PM KUB X-Ray 12/14/24 12:06 KUB HISTORY: Constipation COMPARISON STUDY: 12/12/2024 FINDINGS: There is metallic fusion from the lower thoracic spine to the sacrum. Bilateral hip prostheses are present. No hardware complication seen. There is moderate retained stool. There is mild diffuse colonic distention. There are a few mildly dilated small bowel loops. No gross free air. IMPRESSION: Moderate retained stool. Mild diffuse bowel distention suggesting ileus. ACT 112: Negative or not required by law. The above report was generated using voice recognition software. It may contain grammatical, syntax or spelling errors. Electronically signed by: Jim Jones M.D. 12/14/2024 1:56 PM Abdomen/Pelvis CT 12/15/24 09:[address] WITHOUT CONTRAST CT DOSE: 1507.39 mGy.cm HISTORY: Ileus/constipation TECHNIQUE: Multiaxial CT images of the abdomen and pelvis were performed without contrast. A dose lowering technique was utilized adhering to the principles of ALARA. COMPARISON STUDY: Pelvic CT of 12/10/2024 and x-ray of 12/14/2024 FINDINGS: There are coronary artery calcifications. ABDOMEN: Liver is diffusely hypodense consistent with mild fatty liver. Otherwise the liver, gallbladder, spleen, pancreas, and adrenal glands have an unremarkable non-IV contrast appearance. Kidneys show no hydronephrosis or calculi. There are mild atherosclerotic calcifications. No abdominal aortic aneurysm. Pelvis: Metallic spray artifact from bilateral hip prostheses limits evaluation of the low pelvis. Urinary bladder is nondistended. There is mild sigmoid diverticulosis. No acute diverticulitis. There is mild retained stool. No bowel inflammation or obstruction. No free fluid, free air, or abscess. No enlarged adenopathy. Osseous structures: There is posterior metallic fusion from T10 through S1. Post operative drain remains. There is expected mild soft tissue gas. No significant hematoma or fluid collection seen. No acute osseous findings. IMPRESSION: No acute findings. ACT 112: Negative or not required by law. The above report was generated using voice recognition software. It may contain grammatical, syntax or spelling errors. Electronically signed by: Jim Jones M.D. 12/15/2024 11:12 AM Venous Doppler Study 12/16/24 09:50 BILATERAL LOWER EXTREMITY VENOUS DOPPLER HISTORY: BLE swelling COMPARISON STUDY: None FINDINGS: No evidence of DVT seen at bilateral lower extremities. IMPRESSION: No DVT seen at the lower extremities. ACT 112: Negative or not required by law. Electronically signed by: Jim Jones M.D. 12/16/2024 12:07 PM KUB X-Ray 12/17/24 17:01 Clinical history: Pain 2 views of the abdomen were obtained Findings: There is no definite sign of small bowel obstruction. There is prominent colonic gas that may be due to ileus. No renal or ureteral calculi are seen. No foreign body is evident. There are bilateral hip placements. There is an extensive thoracolumbar fusion Impression: Possible colonic ileus Electronically signed by Luther Majano 12-17-2024 5:33 PM Abdomen/Pelvis CT 12/17/24 18:33 EXAM: CT Abdomen and Pelvis With Intravenous Contrast INDICATION: Abdominal pain TECHNIQUE: Axial computed tomography images of the abdomen and pelvis with intravenous contrast. Sagittal and coronal reformatted images were created and reviewed. This CT exam was performed using one or more of the following dose reduction techniques: automated exposure control, adjustment of the mA and/or kV according to patient size, and/or use of iterative reconstruction technique. CONTRAST: 90ml of Optiray 320 was administered intravenously. COMPARISON: 12/15/2024 FINDINGS: Limitations: Assessment of the canal and spine limited due to extensive artifact from hip prosthesis and posterior fusion rods. Lung bases: No abnormality noted. Pleural space: No visualized pleural effusion or pneumothorax. Heart: No abnormality noted. Mediastinum: No abnormality noted. ABDOMEN: Liver: Normal size and contour. Hypodense typical of steatosis. No mass or ductal dilation. Gallbladder and bile ducts: No calcified stones or surrounding fluid. Pancreas: Homogeneous enhancement. No mass, inflammation or ductal dilation. Spleen: No significant abnormality noted. Adrenals: No significant abnormality noted. Kidneys and ureters: Normal enhancement. No mass, hydronephrosis or visualized stone. Stomach and bowel: There is increased air-fluid level throughout the redundant colon to the rectum. Minimal prominent fluid in small bowel without thickening. PELVIS: Appendix: Well seen and appears normal. Bladder: No filling defects to suggest mass or large stone. No inflammation. Reproductive: No abnormalities noted. ABDOMEN and PELVIS: Intraperitoneal space: No free air. No significant fluid collection. Bones/joints: Posterior spinal fusion T10-S1 with intact well-seated hardware. No acute osseous abnormality. Soft tissues: Umbilical hernia containing fat. Stable organized fluid collection midline operative bed extending from T11-S1. Small amount of subcutaneous air noted where previous drain was in place and has since been removed. Allowing for significant metallic artifact, no abnormal fluid collection identified. Vasculature: No abdominal aortic aneurysm. Lymph nodes: No pathologically enlarged lymph nodes. IMPRESSION: 1. Worsening colonic ileus without inflammatory process. 2. Postoperative drain has been removed from the thoracolumbar operative bed. No new fluid collection. ACT 112: N/A Electronically signed by Alcie Pemberton 12-17-2024 8:06 PM KUB X-Ray 12/19/24 07:00 KUB HISTORY: Follow-up ileus COMPARISON STUDY: 12/17/2024 FINDINGS: Colonic distention appears slightly diminished. There is persistent, moderate gaseous distention of the transverse colon. The long segment thoracolumbar multilevel fusion and bilateral hip arthroplasties are demonstrated. IMPRESSION: Gaseous distention of the colon has diminished slightly since the prior examination. ACT 112: Negative or not required by law. The above report was generated using voice recognition software. It may contain grammatical, syntax or spelling errors. Electronically signed by: Elisabeth Dubois M.D. 12/19/2024 9:40 AM (8) Diabetes mellitus, type 2 Diabetes mellitus complication status: with other specified complication Diabetes mellitus fpc insulin use: without predatory animal exterminator use Qualified Code(s): E11.69 - Type 2 diabetes mellitus with other specified complication
[2024-12-20 08:34] VITALS: BP 104/67; PULSE 85; TEMP 98.4; O2SAT 96
[2024-12-20] MEDS: CYCLOBENZAPRINE HCL 10 MG TAB PO PRN (11:07)
== END 2024-12-20 14:41 | disposition home or self-care (01) | DRG 427 ==
LOC: 3E 11:36 → ED 11:36 → 3E 15:50